=== PATIENT | male | born 1960 | race Caucasian/White ===

== ENCOUNTER → 2016-06-17 | Outpatient (CLI) | payer BC ==
[~2016-06-17] MED LIST: B COTAB PO; CEPH500C2 PO; CHOL100027 PO; DIPH25CA65 PO; GABA600T PO; GLIP1TAB60 PO; LISI-787 PO; NIVO1INJ; OPTIRAY 320 IV PRN; SYN50 PO; Tramadol PO; ULT50 PO
--- NOTE | 2016-06-17 13:33 | DIAGNOSTIC IMAGING REPORT ---
CT SCAN OF THE CHEST WITH IV CONTRAST CLINICAL HISTORY: Renal cell carcinoma. COMPARISON STUDY: Prior chest CT scans, most recently dated 04/19/2016. TECHNIQUE: Following the IV administration of 70 cc of Optiray 320, CT scan of the thorax was performed from the thoracic inlet to the upper abdomen. Images are reviewed in the axial, sagittal, and coronal planes. IV contrast was administered without complication. CT DOSE: 1866.56 mGycm FINDINGS: Thyroid: Imaged portions of the thyroid gland are normal in size and attenuation. Thoracic aorta: There is mild atherosclerotic calcification of the thoracic aorta, which is normal in caliber and demonstrates bovine variant arch anatomy. No dissection is seen. Pulmonary vasculature: The pulmonary trunk is dilated, measuring 3.7 cm diameter. This suggests pulmonary artery hypertension. There are no filling defects seen within the central pulmonary arteries to suggest pulmonary embolus. Note that this examination was not protocoled for assessment of the pulmonary vessels. Heart: The heart is normal in size and without pericardial effusion. There are coronary artery calcifications. Lungs and pleural spaces: There is no airspace consolidation or pleural effusion. The trachea and central airways are clear. There are numerous (greater than 20) pulmonary nodules. There has been no significant change from 04/19/2016. The largest right lower lobe nodule is in the right lower lobe on image #228. This measures 1.4 cm (also previously measured 1.4 cm). No new pulmonary lesions are clearly identified. Mediastinum: There is no mediastinal lymphadenopathy. Pastora: Clear. Axillae: There is no axillary lymphadenopathy. Upper abdomen: A tiny hiatal hernia is observed. The spleen is mildly enlarged measuring 13.7 cm in length. There is evidence of hepatic steatosis. The gallbladder surgically absent. Gynecomastia is observed. There are changes from left nephrectomy. Skeletal structures: The skeletal structures are osteopenic. No lytic or blastic bony lesions are seen. A hemangioma is noted in the body of T12. Degenerative change is noted in the shoulders and thoracic spine. IMPRESSION: 1. No significant change in the appearance of multifocal pulmonary metastatic disease as compared to 04/19/2016. There is no evidence of disease progression. 2. No airspace consolidation or pleural effusion is identified. 3. No lymphadenopathy seen in the thorax. No destructive osseous lesions are identified. 4. Hepatic steatosis and mild splenomegaly. Electronically signed by: Tao Houser M.D. 06/17/2016 1:32 PM Dictated Date/Time: 06/17/2016 1:23 PM
--- NOTE | 2016-06-17 13:43 | DIAGNOSTIC IMAGING REPORT ---
CT SCAN OF THE ABDOMEN AND PELVIS WITH IV CONTRAST CLINICAL HISTORY: Renal cell carcinoma. COMPARISON STUDY: Abdominal CT scans dated 04/19/2016 and 11/06/2014. TECHNIQUE: Following the IV administration of 7 the cc of Optiray 320, CT scan of the abdomen and pelvis is performed from the lung bases to the proximal femora. Images are reviewed in the axial, sagittal, and coronal planes. IV contrast was administered without complication. Automated dose control exposure was utilized. FINDINGS: Lung bases: The heart is normal in size and without pericardial effusion. Pulmonary metastases are again seen at the lung base. The largest measures 1.4 cm seen at the right lung base on axial image #53. No airspace consolidation or pleural effusion is identified. Liver: The contrast-enhanced liver is normal in size and contour. The liver demonstrates diffusely diminished attenuation consistent with hepatic steatosis. There is no intrahepatic biliary ductal dilatation. The hepatic veins and portal veins are patent. Gallbladder: Surgically absent noting clips in the gallbladder fossa. Spleen: The spleen is mildly enlarged, measuring 14.6 cm in length. Pancreas: Unremarkable. Adrenal glands: Unremarkable. Kidneys: The left kidney is surgically absent. There is no evidence of recurrent/residual soft tissue lesion in the nephrectomy bed. The right kidney demonstrates mild cortical atrophy and is without hydronephrosis. No enhancing lesion is seen in the right kidney. Foci of cortical scarring are present in the upper pole. The right kidney enhances homogeneously. Abdominal vasculature: The abdominal aorta is normal in course and caliber. Bowel: The small bowel and colon are normal in course and caliber. There is mild colonic diverticulosis without CT evidence of acute diverticulitis. Mild colonic fecal retention is observed. The appendix is well-visualized and normal. Peritoneum: There is no intraperitoneal free air or abdominal ascites. There is a 1.2 cm focus of nodularity along the undersurface of liver seen on image #119. This is unchanged dating back to 11/06/2014 and is of doubtful significance. Lymphadenopathy: There are prominent retroperitoneal lymph nodes which measure up to 7 mm short axis. These are similar in appearance dating back to 11/06/2014. There is no mesenteric, upper abdominal, pelvic sidewall, or inguinal lymphadenopathy. Pelvic viscera: The bladder wall appears thickened and trabeculated suggesting the sequelae of chronic outlet obstruction. The prostate gland appears atrophic. The seminal vesicles are normal as imaged. There is a moderate fat-containing right inguinal hernia. Surgical clips are noted along the spermatic cord bilaterally. Skeletal structures: The skeletal structures appear osteopenic. Mild lumbar sacral spondylosis is observed. A hemangioma is noted in the body of T12. No lytic or blastic lesions are seen. IMPRESSION: 1. Again seen are postoperative changes from left nephrectomy. There is no evidence of recurrent/residual soft tissue lesion in the operative bed. There has been no significant change from 04/19/2016. 2. Metastatic pulmonary lesions are again seen at both lung bases. See report of chest CT performed concurrently for detailed intrathoracic findings. 3. There is no definite evidence of metastatic disease in the abdomen or pelvis. 4. Prominent subcentimeter retroperitoneal lymph nodes are similar appearance dating back to 11/06/2014. These are of low suspicion, and continued attention at follow-up is recommended. 5. Mild hepatic steatosis. 6. Spinal megaly. 7. No enhancing lesion is seen within the right kidney. 8. Additional findings as above. Electronically signed by: Tao Houser M.D. 06/17/2016 1:42 PM Dictated Date/Time: 06/17/2016 1:33 PM
== END | disposition home or self-care (01) ==
LOC: C.CTS 12:20
PROVIDERS: ATTEND Internal Medicine Hematology & Oncology
DX: C64.2 Malignant neoplasm of left kidney, except renal pelvis (principal)

== ENCOUNTER → 2016-09-17 | Outpatient (CLI) | payer BC ==
--- NOTE | 2016-09-17 09:32 | DIAGNOSTIC IMAGING REPORT ---
CT SCAN OF THE CHEST WITH IV CONTRAST CLINICAL HISTORY: Renal cell carcinoma. COMPARISON STUDY: Prior chest CT scans, most recently dated 06/17/2016. TECHNIQUE: Following the IV administration of 80 cc of Optiray 320, CT scan of the thorax was performed from the thoracic inlet to the upper abdomen. Images are reviewed in the axial, sagittal, and coronal planes. IV contrast was administered without complication. CT DOSE: 2291.88 mGy.cm FINDINGS: Thyroid: Imaged portions of the thyroid gland are normal in size and attenuation. Thoracic aorta: There is mild atherosclerotic calcification of the thoracic aorta, which is normal in caliber and demonstrates bovine variant arch anatomy. No dissection is seen. Pulmonary vasculature: The pulmonary trunk is dilated, measuring 3.8 cm in diameter. This suggests pulmonary artery hypertension. There are no filling defects seen within the central pulmonary arteries to suggest pulmonary embolus. Note that this examination was not protocoled for assessment of the pulmonary vessels. Heart: The heart is normal in size and without pericardial effusion. There are coronary artery calcifications. Lungs and pleural spaces: Mild emphysema is observed. There is no airspace consolidation or pleural effusion. The trachea and central airways are clear. There are numerous (greater than 20) pulmonary nodules. There has been no significant change from 06/17/2016. The largest nodule is present in the right lower lobe on image #215 and measures 1.4 cm (also previously measured 1.4 cm). Some of these nodule appear hyperdense/calcified, an this may represent treatment related change. No new pulmonary lesions are clearly identified. Mediastinum: There is no mediastinal lymphadenopathy. Pastora: Clear. Axillae: There is no axillary lymphadenopathy. Upper abdomen: A tiny hiatal hernia is observed. The spleen is enlarged measuring 14.4 cm in length. There is evidence of hepatic steatosis. The gallbladder is surgically absent. Gynecomastia is observed. Changes of left nephrectomy are partially visualized. Skeletal structures: The skeletal structures are osteopenic. No lytic or blastic bony lesions are seen. A hemangioma is noted in the body of T12. Degenerative change is noted in the shoulders and thoracic spine. IMPRESSION: 1. There is no evidence of progressive metastatic disease. 2. There has been no significant change in the size and distribution of numerous pulmonary lesions as compared to the 06/17/2016 examination. Some of these nodules appear hyperdense, likely representing calcification/ treatment related change. 3. No airspace consolidation or pleural effusion is identified. 4. No lymphadenopathy seen in the thorax. No destructive osseous lesions are identified. 5. Hepatic steatosis and mild splenomegaly. Electronically signed by: Tao Houser M.D. 09/17/2016 9:30 AM Dictated Date/Time: 09/17/2016 9:22 AM
--- NOTE | 2016-09-17 10:04 | DIAGNOSTIC IMAGING REPORT ---
CT SCAN OF THE ABDOMEN AND PELVIS WITH IV CONTRAST CLINICAL HISTORY: Renal cell carcinoma. COMPARISON STUDY: Prior abdominal CT scans, most recently dated 06/17/2016. TECHNIQUE: Following the IV administration of 80 cc of Optiray 320, CT scan of the abdomen and pelvis is performed from the lung bases to the proximal femora. Images are reviewed in the axial, sagittal, and coronal planes. IV contrast was administered without complication. Automated dose control exposure was utilized. FINDINGS: Lung bases: The heart is normal in size and without pericardial effusion. Pulmonary metastases are again seen at the lung base. The largest measures 1.4 cm seen at the right lung base on axial image #47. No airspace consolidation or pleural effusion is identified. Liver: The contrast-enhanced liver is mildly enlarged measuring 18.6 cm in length. The liver demonstrates diffusely diminished attenuation consistent with hepatic steatosis. There is no intrahepatic biliary ductal dilatation. The hepatic veins and portal veins are patent. Gallbladder: Surgically absent noting clips in the gallbladder fossa. Spleen: The spleen is mildly enlarged, measuring 14.6 cm in length. Pancreas: Unremarkable. Adrenal glands: Unremarkable. Kidneys: The left kidney is surgically absent. There is no evidence of recurrent/residual soft tissue lesion in the nephrectomy bed. The right kidney demonstrates mild cortical atrophy and is without hydronephrosis. No enhancing lesion is seen in the right kidney. Foci of cortical scarring are present in the upper pole. The right kidney enhances homogeneously. Abdominal vasculature: The abdominal aorta is normal in course and caliber. Bowel: The small bowel and colon are normal in course and caliber. There is mild colonic diverticulosis without CT evidence of acute diverticulitis. Mild colonic fecal retention is observed. The appendix is well-visualized and normal. Peritoneum: There is no intraperitoneal free air or abdominal ascites. There is a 1.2 cm focus of nodularity along the undersurface of liver seen on image #121. This is unchanged dating back to 11/06/2014 and is of doubtful significance. Lymphadenopathy: There are prominent retroperitoneal lymph nodes which measure up to 7 mm short axis. These are similar in appearance dating back to 11/06/2014. There is no mesenteric, upper abdominal, pelvic sidewall, or inguinal lymphadenopathy. Pelvic viscera: The bladder wall appears thickened and trabeculated suggesting the sequelae of chronic outlet obstruction. The prostate gland appears atrophic. The seminal vesicles are normal as imaged. There is a moderate fat-containing right inguinal hernia. Surgical clips are noted along the spermatic cord bilaterally. Skeletal structures: The skeletal structures appear osteopenic. Mild lumbar sacral spondylosis is observed. A hemangioma is noted in the body of T12. No lytic or blastic lesions are seen. IMPRESSION: 1. Again seen are postoperative changes from left nephrectomy. There is no evidence of recurrent/residual soft tissue lesion in the operative bed. There has been no significant change from 06/17/2016. 2. Metastatic pulmonary lesions are again seen at both lung bases. See report of chest CT performed concurrently for detailed intrathoracic findings. 3. There is no convincing evidence of metastatic disease in the abdomen or pelvis. 4. Prominent subcentimeter retroperitoneal lymph nodes are similar appearance dating back to 11/06/2014. These are of low suspicion, and continued attention at follow-up is recommended. 5. Mild hepatic steatosis. 6. Splenomegaly. 7. No enhancing lesion is seen within the right kidney. 8. Additional findings as above. Electronically signed by: Tao Houser M.D. 09/17/2016 10:02 AM Dictated Date/Time: 09/17/2016 9:57 AM
--- NOTE | 2016-09-23 09:29 | CODING QUERY NO DIAGNOSIS ---
TREATMENT RENDERED WITHOUT A DIAGNOSIS To promote full compliance with coding requirements relating to patient care, physician participation is requested in all cases of remote coders uncertainty. Please assist us with providing a diagnosis/symptom for the test(s) below: A diagnosis/symptom was not documented on your Order. A valid diagnosis/symptom is required to bill all insurances. Please remember that we are unable to code a diagnosis of rule out, probable, possible, questionable, or suspected. Tests that require a diagnosis: DOS: 09/17/16 * CT CHEST WITH IV CONTRAST DIAGNOSIS: * CT ABD/PELVIS IV OR ORAL CONT DIAGNOSIS: Provider Signature: Date: Thank you Cheri Alexander [employer] Information Management Once completed, please kindly fax back to [phone] For questions please call [phone]
== END | disposition home or self-care (01) ==
LOC: C.CTS 08:30
PROVIDERS: ATTEND Nurse Practitioner Family
DX: C64.9 Malignant neoplasm of unspecified kidney, except renal pelvis (principal); R91.8 Other nonspecific abnormal finding of lung field; K76.0 Fatty (change of) liver, not elsewhere classified; R16.1 Splenomegaly, not elsewhere classified

== ENCOUNTER → 2016-12-24 | Outpatient (CLI) | payer BC ==
--- NOTE | 2016-12-24 11:47 | DIAGNOSTIC IMAGING REPORT ---
CHEST CT WITH CONTRAST CT DOSE: 1326.73 mGycm HISTORY: KIDNEY CANCER, LUNG METASTASIS TECHNIQUE: Multiaxial CT images of the chest were performed following the intravenous administration of contrast. A dose lowering technique was utilized adhering to the principles of ALARA. COMPARISON: Chest CT 09/17/2016. FINDINGS: The central airways are patent. No pleural effusions. No pneumothorax. There are multiple scattered pulmonary nodules which are not significantly changed. Dominant nodule within the base of the right lower lobe measures 14 mm. No suspicious lytic or blastic osseous lesions. T12 vertebral body hemangioma is again noted. Hepatic steatosis. Punctate calcified granuloma within the right hepatic dome. Prior left nephrectomy. No mediastinal or hilar lymphadenopathy. The central airways are patent. Normal caliber thoracic aorta. IMPRESSION: No significant change in the pulmonary metastatic disease. Electronically signed by: Chris Gill M.D. 12/24/2016 11:46 AM Dictated Date/Time: 12/24/2016 11:42 AM
--- NOTE | 2016-12-24 11:55 | DIAGNOSTIC IMAGING REPORT ---
CT SCAN OF THE ABDOMEN AND PELVIS WITH IV CONTRAST CLINICAL HISTORY: Renal cell carcinoma. COMPARISON STUDY: Prior abdominal CT scans, most recently dated 09/17/2016. TECHNIQUE: Following the IV administration of 70 cc of Optiray 320, CT scan of the abdomen and pelvis is performed from the lung bases to the proximal femora. Images are reviewed in the axial, sagittal, and coronal planes. IV contrast was administered without complication. Automated dose control exposure was utilized. FINDINGS: Lung bases: The heart is normal in size and without pericardial effusion. Pulmonary metastases are again seen at the lung base and not significantly changed from 09/17/2016. The largest measures 1.5 cm seen at the right lung base on axial image #49. No airspace consolidation or pleural effusion is identified. Liver: The contrast-enhanced liver is mildly enlarged measuring 18.8 cm in length. The liver demonstrates diffusely diminished attenuation consistent with hepatic steatosis. A calcified granuloma is seen in the dome of the liver. There is no intrahepatic biliary ductal dilatation. The hepatic veins and portal veins are patent. Gallbladder: Surgically absent noting clips in the gallbladder fossa. Spleen: The spleen is mildly enlarged, measuring 14.8 cm in length. Pancreas: Unremarkable. Adrenal glands: Unremarkable. Kidneys: The left kidney is surgically absent. There is no evidence of recurrent/residual soft tissue lesion in the nephrectomy bed. The right kidney demonstrates mild cortical atrophy and is without hydronephrosis. No enhancing lesion is seen in the right kidney. Foci of cortical scarring are present in the upper pole. The right kidney enhances homogeneously. Abdominal vasculature: The abdominal aorta is normal in course and caliber. Bowel: The small bowel and colon are normal in course and caliber. There is mild colonic diverticulosis without CT evidence of acute diverticulitis. Mild colonic fecal retention is observed. The appendix is well-visualized and normal. Peritoneum: There is no intraperitoneal free air or abdominal ascites. There is a 1.2 cm focus of nodularity along the undersurface of liver seen on image #115. This is unchanged dating back to 11/06/2014 and is of doubtful significance. Lymphadenopathy: There are prominent retroperitoneal lymph nodes which measure up to 7 mm short axis. These are similar in appearance dating back to 11/06/2014. There is no mesenteric, upper abdominal, pelvic sidewall, or inguinal lymphadenopathy. Pelvic viscera: The bladder wall appears thickened and trabeculated suggesting the sequelae of chronic outlet obstruction. The prostate gland appears atrophic. The seminal vesicles are normal as imaged. There is a moderate fat-containing right inguinal hernia. Surgical clips are noted along the spermatic cord bilaterally. Skeletal structures: The skeletal structures appear osteopenic. Mild lumbosacral spondylosis is observed. A hemangioma is noted in the body of T12. No lytic or blastic lesions are seen. IMPRESSION: 1. Again seen are postoperative changes from left nephrectomy. There is no evidence of recurrent/residual soft tissue lesion in the operative bed. There has been no significant change from 09/17/2016. 2. Metastatic pulmonary lesions are again seen at both lung bases. See report of chest CT performed concurrently for detailed intrathoracic findings. 3. There is no convincing evidence of metastatic disease in the abdomen or pelvis. 4. Prominent subcentimeter retroperitoneal lymph nodes are similar appearance to studies dating back to 2015. These are of low suspicion, and continued attention at follow-up is recommended. 5. Mild hepatic steatosis. 6. Splenomegaly. 7. No enhancing lesion is seen within the right kidney. 8. Additional findings as above. Electronically signed by: Tao Houser M.D. 12/24/2016 11:54 AM Dictated Date/Time: 12/24/2016 11:44 AM
== END | disposition home or self-care (01) ==
LOC: C.CTS 10:43
PROVIDERS: ATTEND Internal Medicine Hematology & Oncology
DX: C64.2 Malignant neoplasm of left kidney, except renal pelvis (principal); C78.00 Secondary malignant neoplasm of unspecified lung

== ENCOUNTER → 2016-12-28 | Outpatient (CLI) | payer BC ==
[~2016-12-28] MED LIST changes: -OPTIRAY 320 IV PRN
--- NOTE | 2016-12-28 13:15 | DIAGNOSTIC IMAGING REPORT ---
LEFT WRIST MIN 3 VIEWS ROUTINE HISTORY: 56 years-old Male acute left-sided wrist pain and swelling without reported trauma. COMPARISON: None available. TECHNIQUE: 3 views of the left wrist FINDINGS: The bones are mildly demineralized. Ill-defined lucency is seen within the radial styloid without displaced fracture identified. Mild radiocarpal and triscaphe degenerative changes are noted with moderate first carpometacarpal osteoarthritis. There is mild soft tissue swelling about the wrist without opaque foreign body. IMPRESSION: 1. Ill-defined lucency involving the radial styloid is equivocal for acute nondisplaced fracture. Correlate with point tenderness. 2. Mild radiocarpal and moderate first carpal metacarpal osteoarthritis. 3. Mild bone demineralization. The above report was generated using voice recognition software. It may contain grammatical, syntax or spelling errors. Electronically signed by: Dontae Hassan M.D. 12/28/2016 1:14 PM Dictated Date/Time: 12/28/2016 1:11 PM
== END | disposition home or self-care (01) ==
LOC: C.RAD1850 12:47
PROVIDERS: ATTEND Family Medicine
DX: M25.532 Pain in left wrist (principal)

== ENCOUNTER → 2017-01-07 | Outpatient (CLI) | payer BC ==
[2017-01-07 11:18] LABS: ESTIMATED AVERAGE GLUCOSE 160 mg/dl; HA1C FLAG Normal (Normal)
== END | disposition home or self-care (01) ==
LOC: C.LAB 15:16
PROVIDERS: ATTEND Family Medicine
DX: E11.9 Type 2 diabetes mellitus without complications (principal)

== ENCOUNTER 2017-01-12 19:21 | Emergency (ER) | payer BC ==
[~2017-01-12] VITALS: Ht 172.7 cm; Wt 119.7 kg
[~2017-01-12 19:21] MED LIST changes: -CEPH500C2 PO; -LISI-787 PO; -NIVO1INJ; -SYN50 PO; -ULT50 PO
[2017-01-12 19:30] VITALS: TEMP 36.8; Ht 172.7 cm; Wt 119.7 kg
[2017-01-12] MEDS ORDERED: CEPHALEXIN MONOHYDRATE 250 MG CAP PO ONE (20:15)
[2017-01-12] MEDS ORDERED: XYLOCAINE 1%/SOD BICARB 20 ML VIAL INFIL ONE (20:15)
[2017-01-12] MEDS ORDERED: BUPIVACAINE 0.5 % 5 MG/1 ML MPF 30ML VIAL INFIL ONE (20:15)
--- NOTE | 2017-01-12 21:06 | DIAGNOSTIC IMAGING REPORT ---
RIGHT FINGER(S) MIN 2 VIEWS ROUTINE CLINICAL HISTORY: R thumb lac Right trauma COMPARISON: None. DISCUSSION: The bones and joint spaces appear intact. There is no evidence of fracture, dislocation or bony disease. Soft tissue laceration overlying the distal phalanx. IMPRESSION: Soft tissue disruption overlying the distal phalanx. No acute bony abnormality. The above report was generated using voice recognition software. It may contain grammatical, syntax or spelling errors. Electronically signed by: Link Burns M.D. 01/12/2017 9:04 PM Dictated Date/Time: 01/12/2017 9:04 PM
[2017-01-12] MEDS ORDERED: ULT50 PO (21:22)
[2017-01-12] MEDS ORDERED: SYN50 PO (21:22)
[2017-01-12] MEDS ORDERED: LISI-787 PO (21:22)
[2017-01-12] MEDS ORDERED: NIVO1INJ (21:22)
[2017-01-12] MEDS ORDERED: CEPH500C2 PO (21:24)
--- NOTE | 2017-01-12 21:25 | EMERGENCY ROOM VISIT NOTE ---
History First contact with patient: 19:59 Chief Complaint: LACERATION/CUT (SUT/DERMABOND) Stated Complaint: R HAND LACERATION Nursing Triage Summary: Cut right thumb when shooting bow, string cuaght his finger. Patient states that there is a laceration along his right thumb. Patient has thumb wrapped in triage. History of Present Illness The patient is a 56 year old male who presents to the Emergency Room with complaints of a laceration that he sustained to his right thumb when he accidentally released his crossbow. He believes that it is still bleeding. He immediately applied pressure. Denies any numbness or tingling in the finger. He is left-handed. His tetanus shot is up-to-date. Review of Systems 6 system review negative. Please see pertinent positives in the history of present illness section. Past Medical/Surgical History Cancer Diabetes Social History Smoking Status: Never Smoker Housing Status: lives with significant other Occupation Status: retired Current/Historical Medications Scheduled B-Complex W/Biotin & Folic Aci (Balanced B Complex), 1 TAB PO QAM Cephalexin Monohydrate (Keflex), 500 MG PO TID Cholecalciferol (Vitamin D 1000 Unit), 2,000 INTER.UNIT PO QAM Gabapentin (Neurontin), 600 MG PO TID Glipizide (Glucotrol Xl), 2.5 MG PO QAM Levothyroxine Sodium (Synthroid), 50 MCG PO QAM Lisinopril/Hctz (Zestoretic 20MG/12.5MG), 1 TAB PO QAM Nivolumab (Opdivo), Unknown Dose EVERY OTHER WEEK Tramadol HCl (Tramadol HCl), 100 MG PO HS Scheduled PRN Diphenhydramine Hcl (Benadryl Allergy), 1 CAP PO HS PRN for Itching Physical Exam Vital Signs Date Time Temp Pulse Resp B/P (MAP) Pulse Ox O2 Delivery O2 Flow Rate FiO2 01/12/17 21:30 85 18 133/82 91 01/12/17 19:30 36.8 100 18 153/90 91 Room Air Physical Exam VITALS: Vitals are noted on the nurse's note and reviewed by myself. Vital signs stable. GENERAL: 56-year-old male, in no acute distress, nondiaphoretic, well-developed well-nourished. HEAD: Normocephalic atraumatic. MUSCULOSKELETAL: RIGHT THUMB: There is a 3 cm, curved, flap-like laceration noted to the dorsal aspect of the right thumb over the interphalangeal joint. Full flexion and extension of the thumb. Extensor tendon is visible, but intact. Capillary refill is intact. Sensation in the distal aspect of the thumb is also intact. NEURO: Patient was alert and oriented to person place and time. No focal neurological deficits. Medical Decision & Procedures ER Provider Diagnostic Interpretation: RIGHT FINGER(S) MIN 2 VIEWS ROUTINE CLINICAL HISTORY: R thumb lac Right trauma COMPARISON: None. DISCUSSION: The bones and joint spaces appear intact. There is no evidence of fracture, dislocation or bony disease. Soft tissue laceration overlying the distal phalanx. IMPRESSION: Soft tissue disruption overlying the distal phalanx. No acute bony abnormality. The above report was generated using voice recognition software. It may contain grammatical, syntax or spelling errors. Electronically signed by: Link Burns M.D. 01/12/2017 9:04 PM Medications Administered Medications (Trade) Dose Ordered Sig/Yasmin Route Start Time Stop Time Status Last Admin Dose Admin Lidocaine HCl (Buffered Lidocaine 1% Inj) 20 ml NOW ONCE INFIL 01/12/17 20:15 01/12/17 20:16 DC 01/12/17 20:15 20 ML Bupivacaine HCl (Marcaine 0.5% MPF Inj) 30 ml NOW ONCE INFIL 01/12/17 20:15 01/12/17 20:16 DC 01/12/17 20:15 30 ML Cephalexin Monohydrate (Keflex Cap) 500 mg NOW ONCE PO 01/12/17 20:15 01/12/17 20:16 DC 01/12/17 20:16 500 MG Procedure Verbal consent was obtained to perform the procedure. Using sterile technique the wound was cleansed with Betadine. 6 ml of 1% buffered lidocaine and Marcaine was used to perform a digital block to anesthetize the patient. The area was sterilely draped. Once the patient was anesthetized, the wound was copiously irrigated under pressure with sterile saline. The wound was explored. The extensor tendon was visible, but intact. The laceration was repaired using 8 simple interrupted 4-0 nylon sutures. The patient tolerated the procedure well. Hemostasis was achieved. The patient was put in a metal splint. ED Course The patient was seen and examined He was offered pain medication and declined Imaging was performed and reviewed The laceration was repaired. Please see my procedure note. A metal splint was placed He was given 1 dose of Keflex Discharge instructions were reviewed, and he was discharged in good condition Medical Decision Differential diagnosis: Laceration, open fracture, tendon injury This patient is a 56-year-old male that presents to the emergency department with a laceration to his right thumb. The wound was fairly deep. Imaging did not reveal any fracture. Upon exploration, he did have extensor tendon exposure. It was however intact. He had full flexion and extension of the thumb. The wound was repaired. He was put in a splint. He was put on prophylactic antibiotics, and will follow up with orthopedics. He was cautioned on signs of infection. The patient was discharged in good condition Medication Reconcilliation Current Medication List: was personally reviewed by me Blood Pressure Screening Patient's blood pressure: Elevated blood pressure Blood pressure disposition: Elevated BP felt to be situational Impression Primary Impression: Laceration Departure Information Dispostion Home / Self-Care Condition GOOD Prescriptions Cephalexin Monohydrate (KEFLEX) 500 Mg Cap 500 MG PO TID, #15 CAP Prov: Roberta Barboza PA-C 01/12/17 Referrals Don Crenshaw D.O. (PCP) Zach Bang M.D. Patient Instructions My [facility] Additional Instructions Please keep the splint in place until seen by orthopedics. Keep the dressing on for 24 hours. Please take entire course of antibiotics. Keep wound clean. It is okay to gently wash the area with soapy water. Do not submerse it in water for long periods of time such as swimming, going in hot tubs or taking baths until the sutures come out. Do not allow any crusting or dried blood to accumulate on sutures. If this occurs, use a 1:1 solution of hydrogen peroxide/water on a Q-tip to clean the wound. Use an antibiotic ointment for 3-4 days, then let wound dry. Suture removal in 14 days. Return sooner for any signs of infection (increasing redness, swelling, drainage). Ice and elevate for swelling and pain. Ibuprofen 600 mg and Tylenol 1000 mg every 6 hrs for pain. Work Instructions Return To Work: 2 days
[2017-01-12 21:30] VITALS: BP 133/82; PULSE 85; O2SAT 91
== END 2017-01-12 21:31 | disposition home or self-care (01) ==
LOC: C.EDB 19:22 → C.EDD 21:31
DX: S61.011A Laceration without foreign body of right thumb without damage to nail, initial encounter (principal); X58.XXXA Exposure to other specified factors, initial encounter; E11.9 Type 2 diabetes mellitus without complications

== ENCOUNTER → 2017-02-07 | Outpatient (CLI) | payer BC ==
--- NOTE | 2017-02-04 11:46 | DIAGNOSTIC IMAGING REPORT ---
L PELVIS UNI HIP 2-3 V CLINICAL HISTORY: Left hip pain. No recent injury. COMPARISON: CT of the abdomen and pelvis December 24, 2016. FINDINGS: Scrotal surgical clips are noted. The sacroiliac joints and symphysis pubis are intact. No fracture or osseous lesion is identified within the pelvis or the hips. There is minimal joint space narrowing and mild osteophytosis of both hips. There is no evidence for avascular necrosis of the femoral heads. IMPRESSION: Mild osteoarthritis of the bilateral hips. Electronically signed by: Abe Fraire M.D. 02/04/2017 11:44 AM Dictated Date/Time: 02/04/2017 11:43 AM
[~2017-02-07] MED LIST changes: +CEPH500C2 PO; +LISI-787 PO; +NIVO1INJ; +SYN50 PO; -Tramadol PO; +ULT50 PO
== END | disposition home or self-care (01) ==
LOC: C.RDSM 12:26
PROVIDERS: ATTEND Physician Assistant
DX: M25.552 Pain in left hip (principal)

== ENCOUNTER → 2017-04-11 | Outpatient (CLI) | payer BC ==
[~2017-04-11] MED LIST changes: +OPTIRAY 320 IV PRN
--- NOTE | 2017-04-11 15:35 | DIAGNOSTIC IMAGING REPORT ---
(CHEST) THORAX WITHOUT CLINICAL HISTORY: KIDNEY CA COMPARISON STUDY: December 24, 2016 CT DOSE: TECHNIQUE: CT of the thorax was performed from the thoracic inlet to the lung bases. Images are reviewed in the axial, sagittal, and coronal planes. IV contrast was not administered for this examination. A dose lowering technique was utilized adhering to the principles of ALARA. FINDINGS: Thyroid: Imaged portions of the thyroid gland are normal in appearance. Thoracic aorta: The thoracic aorta is normal in course and caliber, noting standard 3 vessel arch anatomy. Heart: There are coronary artery calcifications. Lungs and pleural spaces: No pleural effusions are visualized. There is no focal pulmonary consolidation. There are multiple scattered bilateral pulmonary nodules. The largest on the right is a right lower lobe nodule abutting the diaphragm measuring 14 mm. This previously measured 12 mm. The largest on the left is a 7 mm left lower lobe pulmonary nodule. This previously measured 5.5 mm. Mediastinum: There is no mediastinal lymphadenopathy. [place]: There is no evidence of pathologic hilar adenopathy given the limitations of a noncontrast study Axilla: Clear. Upper abdomen: Partially visualized upper abdominal viscera is within normal limits. Skeletal structures: There is stable sclerosis of the right medial clavicle. No lytic lesions are visualized. IMPRESSION: 1. Slight increase in the size of the multiple bilateral pulmonary nodules, a finding consistent with progressive metastatic disease Electronically signed by: Dudley Bailey M.D. 04/11/2017 3:34 PM Dictated Date/Time: 04/11/2017 3:27 PM
--- NOTE | 2017-04-11 16:53 | DIAGNOSTIC IMAGING REPORT ---
ABD/PELVIS ORAL CONT ONLY CLINICAL HISTORY: Kidney cancer. COMPARISON STUDY: CT of the abdomen and pelvis December 24, 2016. TECHNIQUE: Axial images of the abdomen and pelvis were obtained without IV contrast. Oral contrast was administered. FINDINGS: The chest will be reported separately. However, visualized portions of the lower chest demonstrate multiple pulmonary nodules, including a 1.4 cm right lobe nodule. Evaluation of the abdomen and pelvis is suboptimal on this unenhanced exam. There is no biliary ductal dilatation status post cholecystectomy. The spleen, adrenal glands and pancreas as well as the right kidney are unremarkable with exception of scarring within the midpole the right kidney. The appearance of the left nephrectomy bed is unchanged. No abnormalities within the nephrectomy bed are noted. There is no abdominal or pelvic lymphadenopathy. Caliber and wall thickness of small and large bowel are unremarkable. No suspicious osseous lesions are present. There is no ascites. There is colonic diverticulosis without evidence for acute diverticulitis. Peripherally calcified densities within the cholecystectomy bed are unchanged. IMPRESSION: 1. No evidence for recurrent malignancy within the abdomen or pelvis. 2. Multiple nodules within visualized portions of the lower lungs suggestive of metastases which are better depicted on the chest CT. Please see that report for further discussion. Electronically signed by: Abe Fraire M.D. 04/11/2017 4:52 PM Dictated Date/Time: 04/11/2017 3:24 PM
== END | disposition home or self-care (01) ==
LOC: C.CTS 14:46
PROVIDERS: ATTEND Internal Medicine Hematology & Oncology
DX: C64.2 Malignant neoplasm of left kidney, except renal pelvis (principal); R91.8 Other nonspecific abnormal finding of lung field

== ENCOUNTER → 2017-05-24 | Outpatient (CLI) | payer OTHER ==
[~2017-05-24] MED LIST changes: -OPTIRAY 320 IV PRN
--- NOTE | 2017-05-24 13:30 | DIAGNOSTIC IMAGING REPORT ---
CHEST 2 VIEWS ROUTINE CLINICAL HISTORY: HX OF RENAL CA renal cell carcinoma COMPARISON STUDY: 10/08/2015 FINDINGS: The bones soft tissues and hemidiaphragms are normal. The cardiomediastinal silhouette is normal. The lungs are clear. The pulmonary vasculature is normal. IMPRESSION: Negative chest. No change from the prior study. The above report was generated using voice recognition software. It may contain grammatical, syntax or spelling errors. Electronically signed by: Link Burns M.D. 05/24/2017 1:28 PM Dictated Date/Time: 05/24/2017 1:27 PM
== END | disposition home or self-care (01) ==
LOC: C.RAD 12:55
PROVIDERS: ATTEND Internal Medicine Hematology & Oncology
DX: C64.2 Malignant neoplasm of left kidney, except renal pelvis (principal); R05 Cough

== ENCOUNTER → 2017-05-30 | Outpatient (CLI) | payer OTHER ==
[2017-05-31 06:13] LABS: HEMOGLOBIN A1C 6.4 % (4.5-5.6)
== END | disposition home or self-care (01) ==
LOC: C.LAB 10:59
PROVIDERS: ATTEND Family Medicine
DX: I10 Essential (primary) hypertension (principal); E11.9 Type 2 diabetes mellitus without complications; E03.9 Hypothyroidism, unspecified; E78.5 Hyperlipidemia, unspecified

== ENCOUNTER → 2017-06-24 | Outpatient (CLI) | payer OTHER ==
--- NOTE | 2017-06-24 12:26 | DIAGNOSTIC IMAGING REPORT ---
R ANKLE MIN 3 VIEWS ROUTINE CLINICAL HISTORY: SPRAIN OF UNSPECIFIED LIGAMENT OF UNCPECIFIED ANKL trauma. Pain. COMPARISON: None. DISCUSSION: Nondisplaced transverse fracture base fifth metatarsal. All additional osseous structures are unremarkable... Moderate soft tissue edema. Heel spur is present. Mild ossification of the Achilles tendon insertion. IMPRESSION: 1. Fracture base fifth metatarsal. 2. Soft tissue edema. 3. Heel spur. The above report was generated using voice recognition software. It may contain grammatical, syntax or spelling errors. Electronically signed by: Link Burns M.D. 06/24/2017 12:24 PM Dictated Date/Time: 06/24/2017 12:23 PM
== END | disposition home or self-care (01) ==
LOC: C.RAD1850 11:51
PROVIDERS: ATTEND Family Medicine
DX: S93.409A Sprain of unspecified ligament of unspecified ankle, initial encounter (principal); X58.XXXA Exposure to other specified factors, initial encounter

== ENCOUNTER → 2017-07-13 | Outpatient (CLI) | payer OTHER ==
--- NOTE | 2017-07-13 11:55 | DIAGNOSTIC IMAGING REPORT ---
(CHEST) THORAX WITHOUT CT DOSE: 1696.12 mGycm HISTORY: Metastatic disease renal carcinoma TECHNIQUE: Multiaxial CT images of the chest were performed without contrast. A dose lowering technique was utilized adhering to the principles of ALARA. COMPARISON: 04/11/2017 FINDINGS: several small axillary nodes unchanged in the prior study. No evidence for progressive axillary adenopathy. No significant hilar or mediastinal adenopathy. This is unchanged from the prior study. Bilateral pleural and parenchymal based nodules remain stable. There is no significant progression or change in number of the nodular densities procedure described. There are no lytic lesions. Mild sclerosis medial aspect right clavicle is stable. Limited evaluation the upper abdomen is unchanged. IMPRESSION: Stable exam compared to the prior study. No evidence for progressive metastatic change. The above report was generated using voice recognition software. It may contain grammatical, syntax or spelling errors. Electronically signed by: Link Burns M.D. 07/13/2017 11:54 AM Dictated Date/Time: 07/13/2017 11:48 AM
--- NOTE | 2017-07-13 12:07 | DIAGNOSTIC IMAGING REPORT ---
ABDOMEN AND PELVIS CT WITH ORAL CONTRAST CT DOSE: HISTORY: KIDNEY CANCER TECHNIQUE: Multiaxial CT images of the abdomen and pelvis were performed following the use of oral contrast. A dose lowering technique was utilized adhering to the principles of ALARA. COMPARISON STUDY: Abdomen and pelvis CT 04/11/2017. FINDINGS: No significant change in multiple pulmonary nodules seen within the lung bases. Dominant nodule within the right lower lobe measures 14 mm. No pneumoperitoneum. No pneumatosis. No suspicious lytic or blastic osseous lesions. Evaluation for metastatic disease within the solid abdominal viscera is suboptimal due to the lack of intravenous contrast. However, there are no definite hepatic, splenic, adrenal glands, or pancreatic lesions identified. Multiple lymph nodes seen within the retroperitoneum and iliac stations remain subcentimeter in short axis diameter. This is not significantly changed. Dominant gastrohepatic lymph node best in image 25 continue to measure 12 mm. Bladder surgically absent. Calcification again noted at the gallbladder fossa. The left kidney is surgically absent. No soft tissue masses at the resection bed. Focal scarring within the upper pole of the right kidney. No right-sided hydronephrosis. Bladder wall thickening, unchanged. Small fat-containing right inguinal hernia. No bowel wall thickening or obstruction. Normal appendix. No evidence for an anterior abdominal wall mesh. IMPRESSION: 1. No change compared to the prior study. No evidence for metastatic disease within the abdomen or pelvis. 2. Multiple pulmonary nodules are again noted and are better appreciated on the same day chest CT. This likely represents metastatic disease. Electronically signed by: Chris Gill M.D. 07/13/2017 12:06 PM Dictated Date/Time: 07/13/2017 11:56 AM
== END | disposition home or self-care (01) ==
LOC: C.CTS 11:16
PROVIDERS: ATTEND Internal Medicine Hematology & Oncology
DX: C64.2 Malignant neoplasm of left kidney, except renal pelvis (principal); R91.8 Other nonspecific abnormal finding of lung field

== ENCOUNTER → 2017-07-15 | Outpatient (CLI) | payer OTHER ==
--- NOTE | 2017-07-15 13:51 | DIAGNOSTIC IMAGING REPORT ---
R FOOT MIN 3 VIEWS HISTORY: 56 years-old Male RIGHT 5TH METATARSAL FRACTURE acute right fifth digit pain COMPARISON: None available TECHNIQUE: 3 views of the right foot FINDINGS: Mild to moderate degenerative changes of the first MTP joint. The bones appear mildly demineralized. Mild degenerative changes are seen throughout the interphalangeal joints. Midfoot alignment is anatomic. Mild to moderate degenerative changes about the midfoot with moderate sized enthesophytes about the calcaneus. There is an acute appearing transversely oriented nondisplaced and non-angulated fracture involving the proximal metaphyseal portion of the fifth metatarsal approximately 2.4 cm distal to the fifth tuberosity. Mild associated soft tissue swelling. No opaque foreign body. IMPRESSION: 1. Acute transversely oriented nondisplaced fracture of the proximal metaphyseal portion fifth metatarsal. Follow-up recommended as fractures within this region can be prone to delayed healing and nonunion. 2. Degenerative changes as above. The above report was generated using voice recognition software. It may contain grammatical, syntax or spelling errors. Electronically signed by: Dontae Hassan M.D. 07/15/2017 1:50 PM Dictated Date/Time: 07/15/2017 1:47 PM
== END | disposition home or self-care (01) ==
LOC: C.RDSM 13:28
PROVIDERS: ATTEND Family Medicine
DX: S92.353A Displaced fracture of fifth metatarsal bone, unspecified foot, initial encounter for closed fracture (principal); X58.XXXA Exposure to other specified factors, initial encounter

== ENCOUNTER → 2017-08-05 | Outpatient (CLI) | payer OTHER ==
[~2017-08-05] MED LIST changes: -CEPH500C2 PO
--- NOTE | 2017-08-05 14:10 | DIAGNOSTIC IMAGING REPORT ---
RIGHT FOOT 3 VIEWS HISTORY: RIGHT FOOT PAIN COMPARISON: Right foot 07/15/2017. FINDINGS: Progressive bony bridging at the fracture within the base of the fifth metatarsal. This is consistent with interval healing. There is minimal surrounding callus formation which has progressed. The Lisfranc joint is intact. No new/acute fractures within the right foot. Plantar and posterior calcaneal spurs. Soft tissues are unremarkable. No radiopaque foreign bodies. IMPRESSION: Interval healing within the nondisplaced fracture at the base of the fifth metatarsal. Electronically signed by: Chris Gill M.D. 08/05/2017 2:09 PM Dictated Date/Time: 08/05/2017 2:07 PM
== END | disposition home or self-care (01) ==
LOC: C.RDSM 11:50
PROVIDERS: ATTEND Family Medicine
DX: M79.671 Pain in right foot (principal); S92.354A Nondisplaced fracture of fifth metatarsal bone, right foot, initial encounter for closed fracture; X58.XXXA Exposure to other specified factors, initial encounter

== ENCOUNTER → 2017-09-02 | Outpatient (CLI) | payer OTHER ==
--- NOTE | 2017-09-02 13:02 | DIAGNOSTIC IMAGING REPORT ---
RIGHT FOOT 3 VIEWS CLINICAL HISTORY: Right foot pain. FINDINGS: 3 views of the right foot are compared to study dated 08/05/2017. The skeletal structures are osteopenic. Again seen is a healing nondisplaced fracture through the base of the fifth metatarsal. No acute fracture is identified. There is no radiographic evidence of Lisfranc injury. Minimal arthritic change is seen at the first metatarsophalangeal joint. There are large dorsal and plantar calcaneal enthesophytes, and degenerative spurring is noted along the dorsal aspect of the tarsal bones. A small os trigonum is incidentally noted. The overlying soft tissues are within normal limits. IMPRESSION: 1. There has been continued healing of a nondistracted fracture through the base of the fifth metatarsal as compared to previous. 2. Osteopenia, heel spurs, and mild degenerative change as above. Electronically signed by: Tao Houser M.D. 09/02/2017 1:01 PM Dictated Date/Time: 09/02/2017 12:59 PM
== END | disposition home or self-care (01) ==
LOC: C.RDSM 12:57
PROVIDERS: ATTEND Family Medicine
DX: M79.671 Pain in right foot (principal)

== ENCOUNTER 2022-01-10 18:02 | Observation (INO) ==
[2022-01-10] MEDS ORDERED: SODIUM CHLORIDE 0.9% 1000ML 1,000 ML IV ONE (18:40)
[2022-01-10] MEDS ORDERED: MoRPHine SULFATE 10 MG/ML CARP/VIAL IV STA (18:40)
--- NOTE | 2022-01-10 18:46 | Emergency Department Note ---
Impression & Plan Headache, Sinusitis ED Provider Note NAME: TRACE YAN AGE: 61 SEX: M : 1960 ARRIVES VIA: Walk-In INFORMANT: Patient ED PROVIDER(S): Homer Gerardo DO CHIEF COMPLAINT: headache and confusion HPI: Patient is a 61-year-old male with a past medical history of CKD, hypertension, clear-cell carcinoma of the kidney, cancer, diabetes who presents to the ER for headache which has been present for the past 2 to 3 weeks. Its behind bilateral eyes. He notes he was treated for recent cellulitis and now is on Augmentin for possible sinusitis as he had a green rhinorrhea. Denies any chest pain or shortness of breath. notes that he has become confused today in the past 2 to 3 hours. Headache has gotten worse. No fevers. No neck pain. No other exacerbating or remitting factors. No weakness or numbness in the arms or legs. ROS: See above HPI for pertinent positives & negatives. A total of 10 systems reviewed and were otherwise negative. PAST MEDICAL HISTORY:See Below PAST SURGICAL HISTORY:See Below FAMILY HISTORY:See Below SOCIAL HISTORY:See Below HOME MEDICATIONS:See Below ALLERGIES:See Below VITALS:See Below PHYSICAL EXAMINATION: GENERAL: Sitting up in bed, alert, distress holding his head EYE EXAM: normal conjunctiva. PERRL and EOM's intact. OROPHARYNX: no exudate, no erythema, lips, buccal mucosa, and tongue normal and mucous membranes are moist NECK: supple, no nuchal rigidity, no adenopathy, non-tender LUNGS: Clear to auscultation. Normal chest wall mechanics HEART: no murmurs, S1 normal and S2 normal ABDOMEN: abdomen soft, non-tender, normo-active bowel sounds, no masses, no rebound or guarding. BACK: Back is symmetrical on inspection and there is no deformity, no midline tenderness, no CVA tenderness. SKIN: no rashes and no bruising UPPER EXTREMITIES: upper extremities are grossly normal. LOWER EXTREMITIES: No pitting edema. NEURO EXAM: Oriented to person, but not place or year cranial nerves II-XII intact, normal speech, no weakness of arms, no weakness of legs. No drift. Finger to nose intact. Gross sensation intact. MEDICAL DECISION MAKING: Patient is a 61-year-old male who presents the ER for headache which has been present for for past several weeks. Did get worse today. IV was established blood work was obtained. Labs show no significant leukocytosis or anemia. No fevers. INR 1.3. BMP along with LFTs bilirubin and troponin was negative. COVID and influenza was negative. CT head was performed and was unremarkable. Unable to perform angios. Patient was given morphine, Compazine, Benadryl, Toradol with improvement of his headache. He was given Rocephin for the sinusitis. He was updated bedside. He was discussed with the hospitalist for further observation. He did become slightly hypoxic with narcotics. There is no nuchal rigidity or fevers to suggest meningitis. Symptoms have been present for the past several weeks. Triage Nursing notes reviewed. Limited review of prior medical records performed Vital Signs: reviewed and remarkable for HTN Differential diagnosis: Differential Diagnosis includes but is not limited to headache, tension headache, cluster headache, migraine, subarachnoid hemorrhage, meningitis, mass, central venous thrombus, concussion, trauma and epidural/subdural hemorrhage. ER treatment provided: See below Diagnostics interpreted by me: ECG: none Cardiac Monitoring: An order was placed for continuous cardiac monitoring. The monitor shows a rate of 101 with sinus rhythm. Laboratory studies: As stated above and show below. 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 Tobacco abuse Vitamin D deficiency Surgical History H/O left nephrectomy History of cholecystectomy History of hernia repair History of meniscectomy of left knee History of vasectomy Family History Father Hearing loss Lung disease Mother Cancer Aortic aneurysm Breast cancer Myocardial infarction Other No family history of adverse response to anesthesia No family history of bleeding disorder Social History Smoking Status: Current every day smoker Tobacco Type: Cigarettes Second Hand Exposure: No; Hx Alcohol Use: No Hx Substance Use: No Preferred Language: Burmese Communication Ability: Effective 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: No Beliefs That Will Affect Care: None marital status: Current Living Situation: Spouse current occupational status: retired 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; 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 [employer] Feels Safe at Home: Yes Assistive Devices: None Allergies Allergies Allergy/AdvReac Type Severity Reaction Status Date / Time Iodinated Contrast Media Allergy Mild ITCHY Unverified 01/10/22 21:09 FOREARMS Home Meds Home Medications Medication Instructions Recorded Confirmed multivitamin 1 tab PO QAM 02/13/19 01/10/22 gabapentin 600 mg tablet 1,200 mg PO TID #90 tabs 10/27/20 01/10/22 tramadol 50 mg tablet 100 mg PO QID PRN Pain 10/27/20 01/10/22 allopurinol 100 mg tablet 150 mg PO DAILY 01/31/21 01/10/22 cholecalciferol (vitamin D3) 25 25 mcg PO DAILY 01/31/21 01/10/22 mcg (1,000 unit) capsule (Vitamin D3) sour gomez extract 1,000 mg 1,000 mg PO DAILY 01/31/21 01/10/22 capsule (Tart Gomez Extract) acetaminophen 500 mg tablet 1,000 mg PO Q6H PRN Pain 01/10/22 01/10/22 (Tylenol Extra Strength) amoxicillin 875 mg-potassium 1 tab PO Q12 01/10/22 01/10/22 clavulanate 125 mg tablet axitinib 5 mg tablet (Inlyta) 5 mg PO Q12H 01/10/22 01/10/22 diphenoxylate-atropine 2.5 1 tab PO QID 01/10/22 01/10/22 mg-0.025 mg tablet levothyroxine 75 mcg tablet 75 mcg PO DAILY 01/10/22 01/10/22 lisinopril 20 mg tablet 20 mg PO QAM 01/10/22 01/10/22 pembrolizumab 25 mg/mL intravenous 0 mg IV .[id number] 01/10/22 01/10/22 solution (Keytruda) tamsulosin 0.4 mg capsule 0.4 mg PO DAILY 01/10/22 01/10/22 vit C 30 mg-s.gomez 250 mg-celery 1 cap PO DAILY 01/10/22 01/10/22 seed 75 mg-grape seed extrt capsule (Tart Gomez) vitamin B complex 1 tab PO DAILY 01/10/22 01/10/22 Previous Rx's Medication Instructions Recorded oxycodone 5 mg tablet 5 mg PO Q6H PRN pain #10 tabs 02/01/21 Results & Data (ED) Vital Signs Vital Signs - 24 hr 01/10/22 18:19 01/10/22 19:30 01/10/22 20:05 Temperature 36.5 C 37.1 C Temperature Source Temporal Artery Scan Rectal Pulse Rate 78 Pulse Rate [Right] 85 83 Pulse Rhythm [Right] Regular Pulse Strength [Right] Normal Respiratory Rate 16 28 H 24 Respiratory Effort / Characteristics Non-Labored Non-Labored Spontaneous Non-Labored Spontaneous Respiratory Depth Normal Normal Normal Respiratory Pattern Tachypnea Blood Pressure 161/110 H Blood Pressure [Right Arm] 187/129 H 204/108 H Blood Pressure Mean 127 Blood Pressure Mean [Right Arm] 148 140 Blood Pressure Position [Right Arm] Sitting Pulse Oximetry 95 98 Oxygen Delivery Method Room Air Room Air Nasal Cannula Oxygen Flow Rate 3 Sepsis Recent Fever Within 48 Hours No Sepsis New/Unexplained Change in Mental Status No Sepsis Action Taken by Nursing No Action Required 01/10/22 20:41 Temperature Temperature Source Pulse Rate Pulse Rate [Right] 87 Pulse Rhythm [Right] Regular Pulse Strength [Right] Normal Respiratory Rate 18 Respiratory Effort / Characteristics Non-Labored Spontaneous Respiratory Depth Normal Respiratory Pattern Blood Pressure Blood Pressure [Right Arm] 190/107 H Blood Pressure Mean Blood Pressure Mean [Right Arm] 134 Blood Pressure Position [Right Arm] Pulse Oximetry 99 Oxygen Delivery Method Nasal Cannula Oxygen Flow Rate 3 Sepsis Recent Fever Within 48 Hours Sepsis New/Unexplained Change in Mental Status Sepsis Action Taken by Nursing Laboratory Data Result diagrams: 01/10/22 18:35 01/10/22 18:35 Lab Results 01/10/22 01/10/22 01/10/22 Range/Units 18:35 18:35 18:35 WBC 6.87 (4.8-10.8) K/ul RBC 4.92 (4.63-6.08) M/uL Hgb 15.3 (14.0-18.0) g/dl Hct 45.3 (40.1-51.0) % MCV 92.1 (80.0-100.0) fL MCH 31.1 (25.0-34.0) pg MCHC 33.8 (32.0-36.0) g/dL RDW Std Deviation 51.5 H (36.4-46.3) fL RDW Coeff of Valentín 15.3 H (11.5-14.5) % Plt Count 249 (130-400) K/uL MPV 11.0 (9.4-12.4) fL Immature Gran % (Auto) 0.1 % Neut % (Auto) 50.1 % Lymph % (Auto) 35.5 % Jack % (Auto) 7.3 % Eos % (Auto) 6.0 % Baso % (Auto) 1.0 % Neut # (Auto) 3.44 (1.4-6.5) K/uL Lymph # (Auto) 2.44 (1.2-3.4) K/uL Jack # (Auto) 0.50 (0.24-0.82) K/uL Eos # (Auto) 0.41 (0-0.50) K/uL Baso # (Auto) 0.07 (0-0.2) K/uL Immature Gran # (Auto) 0.01 (0.00-0.02) K/uL PT 14.0 H (9.0-12.0) Seconds INR 1.3 H (0.9-1.1) APTT 26.8 (21.0-31.0) Seconds PTT Ratio 1.0 Sodium 136 (136-145) mmol/L Potassium 3.8 (3.5-5.1) mmol/L Chloride 106 (98-107) mmol/L Carbon Dioxide 21 (21-32) mmol/L Anion Gap 9 (3-11) BUN 10 (6-23) mg/dl Creatinine 1.13 (0.6-1.4) mg/dl Est Cr Clr Drug Dosing 71.5 ml/min Est GFR ( Amer) 79.7 ml/min Est GFR (Non-Af Amer) 68.8 ml/min BUN/Creatinine Ratio 8.8 L (10-20) Glucose 97 (70-99(Fasting)) mg/dl Calcium 9.0 (8.5-10.1) mg/dl Magnesium 1.6 L (1.7-2.4) mg/dl Total Bilirubin 1.0 (0.2-1.0) mg/dl AST 23 (13-39) U/L ALT 20 (7-52) U/L Alkaline Phosphatase 86 (34-104) U/L Troponin I High Sens 2.8 (0-20) pg/ml Total Protein 6.9 (6.0-8.3) gm/dl Albumin 4.1 (3.4-5.0) gm/dl Globulin 2.8 (2.5-4.0) gm/dl Albumin/Globulin Ratio 1.5 (0.9-2) SARS-CoV-2 (PCR) (Negative) Influenza Type A (PCR) (Neg) Influenza Type B (PCR) (Neg) RSV (RT-PCR) (Neg) 01/10/22 Range/Units 19:52 WBC (4.8-10.8) K/ul RBC (4.63-6.08) M/uL Hgb (14.0-18.0) g/dl Hct (40.1-51.0) % MCV (80.0-100.0) fL MCH (25.0-34.0) pg MCHC (32.0-36.0) g/dL RDW Std Deviation (36.4-46.3) fL RDW Coeff of Valentín (11.5-14.5) % Plt Count (130-400) K/uL MPV (9.4-12.4) fL Immature Gran % (Auto) % Neut % (Auto) % Lymph % (Auto) % Jack % (Auto) % Eos % (Auto) % Baso % (Auto) % Neut # (Auto) (1.4-6.5) K/uL Lymph # (Auto) (1.2-3.4) K/uL Jack # (Auto) (0.24-0.82) K/uL Eos # (Auto) (0-0.50) K/uL Baso # (Auto) (0-0.2) K/uL Immature Gran # (Auto) (0.00-0.02) K/uL PT (9.0-12.0) Seconds INR (0.9-1.1) APTT (21.0-31.0) Seconds PTT Ratio Sodium (136-145) mmol/L Potassium (3.5-5.1) mmol/L Chloride (98-107) mmol/L Carbon Dioxide (21-32) mmol/L Anion Gap (3-11) BUN (6-23) mg/dl Creatinine (0.6-1.4) mg/dl Est Cr Clr Drug Dosing ml/min Est GFR ( Amer) ml/min Est GFR (Non-Af Amer) ml/min BUN/Creatinine Ratio (10-20) Glucose (70-99(Fasting)) mg/dl Calcium (8.5-10.1) mg/dl Magnesium (1.7-2.4) mg/dl Total Bilirubin (0.2-1.0) mg/dl AST (13-39) U/L ALT (7-52) U/L Alkaline Phosphatase (34-104) U/L Troponin I High Sens (0-20) pg/ml Total Protein (6.0-8.3) gm/dl Albumin (3.4-5.0) gm/dl Globulin (2.5-4.0) gm/dl Albumin/Globulin Ratio (0.9-2) SARS-CoV-2 (PCR) NEGATIVE (Negative) Influenza Type A (PCR) Negative (Neg) Influenza Type B (PCR) Negative (Neg) RSV (RT-PCR) Negative (Neg) Administered Medications Magnesium Sulfate/Dextrose (Magnesium Sulfate / D5w) 1 gm in 100 mls @ 50 mls/hr IV Q2H CONSTANTIN Stop: 01/11/22 03:14 Last Admin: 01/10/22 23:29 Dose: 50 mls/hr Documented By: LANA Ketorolac Tromethamine (Ketorolac Tromethamine 15 Mg/Ml Vial) 15 mg IV Q6H PRN PRN Reason: Pain Stop: 01/15/22 22:31 Last Admin: 01/10/22 23:33 Dose: 15 mg Documented By: LANA Discontinued Medications Diphenhydramine HCl (Diphenhydramine 50 Mg/Ml Vial) 25 mg IV NOW STA Stop: 01/10/22 20:09 Last Admin: 01/10/22 20:21 Dose: 25 mg Documented By: HANKR Hydralazine HCl (Hydralazine Hcl 20 Mg/Ml Vial) 5 mg IV NOW ONE Stop: 01/10/22 21:08 Last Admin: 01/10/22 21:22 Dose: 5 mg Documented By: CHRISTA Sodium Chloride (Nss 1000ml) 1,000 mls @ 999 mls/hr IV .Q1H1M ONE Stop: 01/10/22 19:40 Last Infusion: 01/10/22 20:16 Dose: 0 mls/hr Documented By: Admin: 01/10/22 18:49 Dose: 999 mls/hr Documented By: YEVGENIY Prochlorperazine (Compazine) 1 mls @ 1 mls/min IV ONE ONE Stop: 01/10/22 20:09 Last Admin: 01/10/22 20:22 Dose: 1 mls/min Documented By: CHRISTA Ceftriaxone Sodium (Rocephin) 2,000 mg in 70 mls @ 140 mls/hr IV NOW STA Stop: 01/10/22 20:37 Last Infusion: 01/10/22 21:08 Dose: 0 mls/hr Documented By: Admin: 01/10/22 20:22 Dose: 140 mls/hr Documented By: CHRISTA Ketorolac Tromethamine (Ketorolac Tromethamine 15 Mg/Ml Vial) 15 mg IV NOW ONE Stop: 01/10/22 20:09 Last Admin: 01/10/22 20:21 Dose: 15 mg Documented By: CHRISTA Morphine Sulfate (Morphine Sulfate 10 Mg/Ml Carp/Vial) 6 mg IV NOW STA Stop: 01/10/22 18:41 Last Admin: 01/10/22 18:49 Dose: 6 mg Documented By: YEVGENIY Morphine Sulfate (Morphine Sulfate 4 Mg/Ml 1 Ml Carp\Vial) 4 mg IV NOW STA Stop: 01/10/22 19:17 Last Admin: 01/10/22 19:34 Dose: 4 mg Documented By: CHRISTA Imaging Data Radiologist's Impression: Chest X-Ray 01/10/22 18:40 XR chest 1V portable HISTORY: 61 years-old Male Stroke Like Symptoms acute strokelike symptoms COMPARISON: Chest CT 11/06/2021 TECHNIQUE: Portable AP view of the chest FINDINGS: Cardiac silhouette is enlarged. No pneumothorax, pleural effusion, airspace consolidation or overt pulmonary edema. Degenerative changes of the shoulders and spine. IMPRESSION: No acute process. ACT 112: Negative or not required by law. The above report was generated using voice recognition software. It may contain grammatical, syntax or spelling errors. Electronically signed by: Alexandre Hassan M.D. 01/10/2022 7:[address] 01/10/22 18:40 CT head/brain wo con CLINICAL HISTORY: 61 years-old Male with Stroke Like Symptoms. Acute strokelike symptoms TECHNIQUE: Multiple axial CT images of the head were obtained without contrast. A dose lowering technique was utilized adhering to the principles of ALARA. CT DOSE: 1612.45 mGy.cm COMPARISON: None. FINDINGS: No acute intracranial hemorrhage, midline shift, intracranial mass, hydrocephalus, territorial ischemia or abnormal extra-axial collection. Motion degraded exam. The study was then repeated 2 additional times. Mild involutional changes. Low-lying cerebellar tonsils. The calvarium is intact. Mucosal thickening of the paranasal sinuses, moderate within the left maxillary sinus with air-fluid level. Moderate mucosal thickening of the ethmoid air cells. Mastoid air cells are clear. IMPRESSION: 1. Motion degraded exam. No acute intracranial abnormality. 2. Moderate paranasal sinus disease with acute left maxillary sinusitis. ACT 112: Negative or not required by law. The above report was generated using voice recognition software. It may contain grammatical, syntax or spelling errors. Electronically signed by: Alexandre Hassan M.D. 01/10/2022 7:35 PM Discharge Plan Visit Data Chief Complaint: Headache Stated Complaint: headache, cancer pt, oncology sent, pain level 8 ED Provider: Homer Gerardo Discharge Problem: Headache, Sinusitis Patient Disposition: Admitted As Inpatient Discharge Instructions Interventions: ED Discharge Assessment Last Done: 01/10/22 22:04
[2022-01-10 18:47] LABS: Basophils # (auto) 0.07 K/uL (0-0.2); Eosinophils # (auto) 0.41 K/uL (0-0.50); Hematocrit (blood only) 45.3 % (40.1-51.0); Hemoglobin 15.3 g/dl (14.0-18.0); Immature Granulocytes # (auto) 0.01 K/uL (0.00-0.02); Immature Granulocytes % (auto) 0.1 %; Lymphocytes # (auto) 2.44 K/uL (1.2-3.4); Lymphocytes % (auto) 35.5 %; Mean Corpuscular Hemoglobin 31.1 pg (25.0-34.0); Mean Corpuscular Hgb Conc 33.8 g/dL (32.0-36.0); Mean Corpuscular Volume 92.1 fL (80.0-100.0); Monocytes % (auto) 7.3 %; Neutrophils # (auto) 3.44 K/uL (1.4-6.5); Neutrophils % (auto) 50.1 %; Platelet Count 249 K/uL (130-400); RDW Coefficient of Variation 15.3 % (11.5-14.5); RDW Standard Deviation 51.5 fL (36.4-46.3); Red Blood Count 4.92 M/uL (4.63-6.08); White Blood Count 6.87 K/ul (4.8-10.8)
[2022-01-10 19:03] LABS: INR 1.3 (0.9-1.1); Partial Thromboplastin Time 26.8 Seconds (21.0-31.0)
[2022-01-10 19:14] LABS: Albumin Globulin Ratio 1.5 (0.9-2); Albumin Level 4.1 gm/dl (3.4-5.0); BUN Creatinine Ratio 8.8 (10-20); Creatinine Clr Calc Pharmacy 71.5 ml/min; Est GFR (African American) 79.7 ml/min; Est GFR (Non-African American) 68.8 ml/min; Globulin 2.8 gm/dl (2.5-4.0); Magnesium 1.6 mg/dl (1.7-2.4); Potassium 3.8 mmol/L (3.5-5.1); Total Protein 6.9 gm/dl (6.0-8.3)
[2022-01-10] MEDS ORDERED: MoRPHine SULFATE 4 MG/ML 1 ML CARP\\VIAL IV STA (19:16)
[2022-01-10 19:18] LABS: Troponin I High Sensitivity 2.8 pg/ml (0-20)
--- NOTE | 2022-01-10 19:36 | CT Scan Report ---
CT head/brain wo con CLINICAL HISTORY: 61 years-old Male with Stroke Like Symptoms. Acute strokelike symptoms TECHNIQUE: Multiple axial CT images of the head were obtained without contrast. A dose lowering tech nique was utilized adhering to the principles of ALARA. CT DOSE: 1612.45 mGy.cm COMPARISON: None. FINDINGS: No acute intracranial hemorrhage, midline shift, intracranial mass, hydrocephalus, territorial ischem ia or abnormal extra-axial collection. Motion degraded exam. The study was then repeated 2 additional times. Mild involutional changes. Low-lying cerebellar tonsils. The calvarium is intact. Mucosal thickening of the paranasal sinuses, moderate within the left maxil vamshi sinus with air-fluid level. Moderate mucosal thickening of the ethmoid air cells. Mastoid air ce lls are clear. IMPRESSION: 1. Motion degraded exam. No acute intracranial abnormality. 2. Moderate paranasal sinus disease with acute left maxillary sinusitis. ACT 112: Negative or not required by law. The above report was generated using voice recognition software. It may contain grammatical, syntax o r spelling errors. Electronically signed by: Alexandre Hassan M.D. 01/10/2022 7:35 PM
--- NOTE | 2022-01-10 19:37 | XRay Report ---
XR chest 1V portable HISTORY: 61 years-old Male Stroke Like Symptoms acute strokelike symptoms COMPARISON: Chest CT 11/06/2021 TECHNIQUE: Portable AP view of the chest FINDINGS: Cardiac silhouette is enlarged. No pneumothorax, pleural effusion, airspace consolidation or overt pu lmonary edema. Degenerative changes of the shoulders and spine. IMPRESSION: No acute process. ACT 112: Negative or not required by law. The above report was generated using voice recognition software. It may contain grammatical, syntax o r spelling errors. Electronically signed by: Alexandre Hassan M.D. 01/10/2022 7:36 PM
[2022-01-10] MEDS ORDERED: diphenhydrAMINE 50 MG/ML VIAL IV STA (20:08)
[2022-01-10] MEDS ORDERED: KETOROLAC TROMETHAMINE 15 MG/ML VIAL IV ONE (20:08)
[2022-01-10] MEDS ORDERED: PROCHLORPERAZINE 1 ML IV ONE (20:08)
[2022-01-10] MEDS ORDERED: cefTRIAXone SODIUM 2,000 MG/70 ML BAG IV STA (20:08)
[2022-01-10 20:43] LABS: Influenza A virus by PCR Negative (Neg); Influenza B virus by PCR Negative (Neg); RSV by PCR Negative (Neg); SARS CoV2 RNA(COVID-19) InHosp NEGATIVE (Negative)
[2022-01-10] MEDS ORDERED: LORazepam 0.5 MG in SYRINGE 0.25 ML IV PRN (21:02)
[2022-01-10] MEDS ORDERED: hydrALAZINE HCL 20 MG/ML VIAL IV ONE (21:07)
--- NOTE | 2022-01-10 21:09 | History & Physical Report ---
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 Recently found to have a spot on his pancreas which was biopsied at [facility] unfortunately revealing metastatic clear-cell RCC to the pancreas. Patient follows with hematologyoncology and was started on pembrolizumab and axitinib on 01/01/2022. Patient with no significant history of prior headache until approximately 1 month ago when he started to experience an intermittent headache. Over the last 3 to 4 days he has had increased severity of his headache. He is in significant pain, 10 out of 10 with associated photo and phonophobia. Pain is left-sided, stabbing and throbbing in nature. No focal neurological deficits. No fall. No seizure. Headache has minimally improved with management in the ERToradol, morphine, prochlorperazine Concerning elements include a relatively new headache with change in quality and a 61-year-old male with history of metastatic renal cell carcinoma. Concerning for possible medication side effect. Treatment with axitinib can increase risk of reversible posterior leukoencephalopathy syndrome (PRES). Blood pressure is elevated. Keytruda may also have the side effect of headache, less likely hypophysitis. Less concern for metastatic disease. Patient had a PET scan performed on 12/02/2021 which revealed the concerning pancreas mass. No FDG uptake in the head or neck. CT of the head is unremarkable We will admit to PCU Pain control Blood pressure control. Patient is on only on lisinopril 20 mg p.o. daily. Hydralazine 5 mg IV every 6 hours as needed, labetalol 10 mg IV every 6 hours as needed. Goal for 25% reduction in MAP over the next several hours. If unable to attain this with IV medication will initiate nicardipine drip Neurochecks with GCS every 4 hours Will hold immunotherapies (pembrolizumab and axitinib) Check MRI brain and MRV Hematologyoncology consultation appreciated (2) Hypertension: Plan: Patient with well-controlled hypertension prior to arrival. He is only on lisinopril 20 mg p.o. daily. Elevated blood pressure today ranging 161-204 / [id number]. Pain likely contributing to elevation of blood pressure. As discussed above, some concern for posterior leukoencephalopathy syndrome as etiology of headache and elevated blood pressure in setting of ligament C and immunotherapy use. Continue lisinopril 20 mg p.o. daily Hydralazine and labetalol IV as needed for blood pressure greater than 190/110, gradual lowering of BP Close monitoring (3) Benign localized prostatic hyperplasia with lower urinary tract symptoms (LUTS): Plan: Chronic. Patient follows with urology Monitor urine output Continue Flomax 0.4 mg p.o. daily (4) Hypothyroidism: Plan: Chronic. Stable. With a normal TSH of 1.699 on 12/29/2021 Continue Synthroid (5) Diabetes mellitus: Plan: Patient with diet-controlled diabetes with peripheral neuropathy. Last hemoglobin A1c on 11/05/2021 = 5.6. Blood sugar = 97 N.p.o. for now Consistent carb diet when diet is advanced Do not feel that routine blood sugar monitoring is necessary at this time Continue gabapentin 1200 mg p.o. 3 times daily F/E/NHep-Lock, magnesium repletion x3 g, n.p.o. for now ProphylaxisSCDs to bilateral lower extremities Codefull per discussion with at bedside Dispositionobservation to PCU History of Present Illness Chief Complaint: Headache Primary Care Provider: Don Crenshaw DO 61-year-old male with history of metastatic clear-cell carcinoma of the left kidney (metastatic disease to lung, recent spot discovered on pancreas) status post left nephrectomy presently on immunotherapy with Ketruda and axitinib started on 01/01/2022. Patient has had a mild, intermittent headache for the last month. However, headache has increased in severity over the last 3 to 4 days. Patient is complaining of severe 10 out of 10 pain in his left head, throbbing and stabbing in nature. Possibly some associated photophobia and phonophobia. No unilateral rhinorrhea, tearing or conjunctival injection. Patient does not have a prominent history of prior headaches. He has been taking Tylenol daily for the last several days. They present to the ER today due to the extreme severity of the headache. Patient's also reported that he was beginning to become slightly confused. No slurred speech, focal numbness/tingling/weakness. No gait abnormality. No seizure or syncope. No trauma or falls. Patient has been on antibiotics for presumed sinusitis with purulent nasal drainage. In the ER patient afebrile, hypertensive otherwise hemodynamically stable. Patient in moderate distress secondary to pain. Patient is somewhat somnolent after medications administered in the ER. He is able to provide some history and participate with exam. Majority of history obtained from who is at bedside. ER course: Normal saline x1 L, morphine 6 mg IV +4 mg IV, Toradol 50 mg IV, Benadryl 25 mg IV, prochlorperazine, ceftriaxone 2 g Allergies Allergy/AdvReac Type Severity Reaction Status Date / Time Iodinated Contrast Media Allergy Mild ITCHY Unverified 01/10/22 21:09 FOREARMS Home Medications Medication Instructions Recorded Confirmed Type multivitamin 1 tab PO QAM 02/13/19 05/15/21 History gabapentin 600 mg tablet 1,200 mg PO TID #90 tabs 10/27/20 05/15/21 History tramadol 50 mg tablet 100 mg PO QID PRN Pain 10/27/20 05/15/21 History allopurinol 100 mg tablet 150 mg PO DAILY 01/31/21 05/15/21 History cholecalciferol (vitamin D3) 25 25 mcg PO DAILY 01/31/21 05/15/21 History mcg (1,000 unit) capsule (Vitamin D3) sour gomez extract 1,000 mg 1,000 mg PO DAILY 01/31/21 05/15/21 History capsule (Tart Gomez Extract) oxycodone 5 mg tablet 5 mg PO Q6H PRN pain #10 tabs 02/01/21 05/15/21 Rx acetaminophen 500 mg tablet 1,000 mg PO Q6H PRN Pain 01/10/22 01/10/22 History (Tylenol Extra Strength) amoxicillin 875 mg-potassium 1 tab PO Q12 01/10/22 01/10/22 History clavulanate 125 mg tablet axitinib 5 mg tablet (Inlyta) 5 mg PO Q12H 01/10/22 01/10/22 History diphenoxylate-atropine 2.5 1 tab PO QID 01/10/22 01/10/22 History mg-0.025 mg tablet levothyroxine 75 mcg tablet 75 mcg PO DAILY 01/10/22 01/10/22 History lisinopril 20 mg tablet 20 mg PO QAM 01/10/22 01/10/22 History pembrolizumab 25 mg/mL intravenous 0 mg IV .[id number] 01/10/22 01/10/22 History solution (Keytruda) tamsulosin 0.4 mg capsule 0.4 mg PO DAILY 01/10/22 01/10/22 History vit C 30 mg-s.gomez 250 mg-celery 1 cap PO DAILY 01/10/22 01/10/22 History seed 75 mg-grape seed extrt capsule (Tart Gomez) vitamin B complex 1 tab PO DAILY 01/10/22 01/10/22 History Past Med/Surg History Medical History (Updated 01/10/22 @ 21:41 by Leeann Marte DO) Acquired claw toe of right foot Arthritis of knee Back pain Bilateral lung cancer Callus Claustrophobia Diabetes mellitus with neuropathy Dyslipidemia Gross hematuria Hernia Hip pain, right Hypertension Hypothyroidism Nephrolithiasis Osteoarthritis Pain in both feet Sacroiliac joint pain Sacroiliitis Solitary right kidney Stage 3b chronic kidney disease Tobacco abuse Vitamin D deficiency Surgical History H/O left nephrectomy History of cholecystectomy History of hernia repair History of meniscectomy of left knee History of vasectomy Family History Father Hearing loss Lung disease Mother Cancer Aortic aneurysm Breast cancer Myocardial infarction Other No family history of adverse response to anesthesia No family history of bleeding disorder Social History Smoking Status: Never smoker Tobacco Type: Cigarettes Second Hand Exposure: No; Hx Alcohol Use: No Hx Substance Use: No Preferred Language: Irish Communication Ability: Effective 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: No marital status: Current Living Situation: Spouse current occupational status: retired 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; 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 [employer] Feels Safe at Home: Yes Review of Systems Review of Systems: All systems reviewed & are unremarkable except as noted in HPI & below Respiratory: Dyspnea on exertion and occasional cough at baseline Gastrointestinal: Chronic diarrhea Neurologic: Peripheral neuropathy at baseline Limb ataxia at baseline Physical Exam Physical Exam: General: patient in moderate distress secondary to headache, somewhat sleepy after receiving morphine, arousable, answers questions appropriately and participates in exam but drifts off to sleep Skin: warm, dry, intact, no rashes or lesions HEENT: NC/AT, PERRL, EOMI -sluggish rightward and inferior gaze noted with left eye, anicteric sclera, conjunctiva without injection, external ear normal to inspection and nontender, nares patent, moist mucus membranes, dentition intact, no oropharyngeal lesions, neck supple, trachea midline, no LAD, no thyromegaly, no JVD, no papilledema noted on limited bedside ophthalmoscopic exam Heart: +S1/S2, regular, no m/r/g Lungs: equal air entry bilaterally, no rales/rhonchi/wheezes Abd: +BS, soft, NT/ND, no masses/organomegaly/ascites Ext: warm, 2+ pulses in UE/LE bilaterally, no clubbing/cyanosis or edema Neuro: nonfocal, intention tremor present, speech intact, no facial droop, moving all extremities on command with equal strength 5/5 Results & Data Results & Data ([facility]) Vital Signs (Past 12 Hours) Vital Signs Temp Pulse Pulse Resp BP BP Pulse Ox 01/10/22 20:41 87 18 190/107 H 99 01/10/22 20:05 37.1 C 83 24 204/108 H 98 01/10/22 19:30 85 28 H 187/129 H 01/10/22 18:19 36.5 C 78 16 161/110 H 95 O2 Del Method O2 Flow Rate 01/10/22 20:41 Nasal Cannula 3 01/10/22 20:05 Nasal Cannula 3 01/10/22 19:30 Room Air 01/10/22 18:19 Room Air Laboratory Results Laboratory Results WBC 6.87 K/ul (4.8-10.8) 01/10/22 18:35 RBC 4.92 M/uL (4.63-6.08) 01/10/22 18:35 Hgb 15.3 g/dl (14.0-18.0) 01/10/22 18:35 Hct 45.3 % (40.1-51.0) 01/10/22 18:35 MCV 92.1 fL (80.0-100.0) 01/10/22 18:35 MCH 31.1 pg (25.0-34.0) 01/10/22 18:35 MCHC 33.8 g/dL (32.0-36.0) 01/10/22 18:35 RDW Std Deviation 51.5 fL (36.4-46.3) H 01/10/22 18:35 RDW Coeff of Valentín 15.3 % (11.5-14.5) H 01/10/22 18:35 Plt Count 249 K/uL (130-400) 01/10/22 18:35 MPV 11.0 fL (9.4-12.4) 01/10/22 18:35 Immature Gran % (Auto) 0.1 % 01/10/22 18:35 Neut % (Auto) 50.1 % 01/10/22 18:35 Lymph % (Auto) 35.5 % 01/10/22 18:35 Story % (Auto) 7.3 % 01/10/22 18:35 Eos % (Auto) 6.0 % 01/10/22 18:35 Baso % (Auto) 1.0 % 01/10/22 18:35 Neut # (Auto) 3.44 K/uL (1.4-6.5) 01/10/22 18:35 Lymph # (Auto) 2.44 K/uL (1.2-3.4) 01/10/22 18:35 Story # (Auto) 0.50 K/uL (0.24-0.82) 01/10/22 18:35 Eos # (Auto) 0.41 K/uL (0-0.50) 01/10/22 18:35 Baso # (Auto) 0.07 K/uL (0-0.2) 01/10/22 18:35 Immature Gran # (Auto) 0.01 K/uL (0.00-0.02) 01/10/22 18:35 PT 14.0 Seconds (9.0-12.0) H 01/10/22 18:35 INR 1.3 (0.9-1.1) H 01/10/22 18:35 APTT 26.8 Seconds (21.0-31.0) 01/10/22 18:35 PTT Ratio 1.0 01/10/22 18:35 Sodium 136 mmol/L (136-145) 01/10/22 18:35 Potassium 3.8 mmol/L (3.5-5.1) 01/10/22 18:35 Chloride 106 mmol/L (98-107) 01/10/22 18:35 Carbon Dioxide 21 mmol/L (21-32) 01/10/22 18:35 Anion Gap 9 (3-11) 01/10/22 18:35 BUN 10 mg/dl (6-23) 01/10/22 18:35 Creatinine 1.13 mg/dl (0.6-1.4) 01/10/22 18:35 Est Cr Clr Drug Dosing 71.5 ml/min 01/10/22 18:35 Est GFR ( Amer) 79.7 ml/min 01/10/22 18:35 Est GFR (Non-Af Amer) 68.8 ml/min 01/10/22 18:35 BUN/Creatinine Ratio 8.8 (10-20) L 01/10/22 18:35 Glucose 97 mg/dl (70-99(Fasting)) 01/10/22 18:35 Calcium 9.0 mg/dl (8.5-10.1) 01/10/22 18:35 Magnesium 1.6 mg/dl (1.7-2.4) L 01/10/22 18:35 Total Bilirubin 1.0 mg/dl (0.2-1.0) 01/10/22 18:35 AST 23 U/L (13-39) 01/10/22 18:35 ALT 20 U/L (7-52) 01/10/22 18:35 Alkaline Phosphatase 86 U/L (34-104) 01/10/22 18:35 Troponin I High Sens 2.8 pg/ml (0-20) 01/10/22 18:35 Total Protein 6.9 gm/dl (6.0-8.3) 01/10/22 18:35 Albumin 4.1 gm/dl (3.4-5.0) 01/10/22 18:35 Globulin 2.8 gm/dl (2.5-4.0) 01/10/22 18:35 Albumin/Globulin Ratio 1.5 (0.9-2) 01/10/22 18:35 SARS-CoV-2 (PCR) NEGATIVE (Negative) 01/10/22 19:52 Influenza Type A (PCR) Negative (Neg) 01/10/22 19:52 Influenza Type B (PCR) Negative (Neg) 01/10/22 19:52 RSV (RT-PCR) Negative (Neg) 01/10/22 19:52 Impressions Chest X-Ray 01/10/22 18:40 XR chest 1V portable HISTORY: 61 years-old Male Stroke Like Symptoms acute strokelike symptoms COMPARISON: Chest CT 11/06/2021 TECHNIQUE: Portable AP view of the chest FINDINGS: Cardiac silhouette is enlarged. No pneumothorax, pleural effusion, airspace consolidation or overt pulmonary edema. Degenerative changes of the shoulders and spine. IMPRESSION: No acute process. ACT 112: Negative or not required by law. The above report was generated using voice recognition software. It may contain grammatical, syntax or spelling errors. Electronically signed by: Alexandre Hassan M.D. 01/10/2022 7:[address] 01/10/22 18:40 CT head/brain wo con CLINICAL HISTORY: 61 years-old Male with Stroke Like Symptoms. Acute strokelike symptoms TECHNIQUE: Multiple axial CT images of the head were obtained without contrast. A dose lowering technique was utilized adhering to the principles of ALARA. CT DOSE: 1612.45 mGy.cm COMPARISON: None. FINDINGS: No acute intracranial hemorrhage, midline shift, intracranial mass, hydrocephalus, territorial ischemia or abnormal extra-axial collection. Motion degraded exam. The study was then repeated 2 additional times. Mild involutional changes. Low-lying cerebellar tonsils. The calvarium is intact. Mucosal thickening of the paranasal sinuses, moderate within the left maxillary sinus with air-fluid level. Moderate mucosal thickening of the ethmoid air cells. Mastoid air cells are clear. IMPRESSION: 1. Motion degraded exam. No acute intracranial abnormality. 2. Moderate paranasal sinus disease with acute left maxillary sinusitis. ACT 112: Negative or not required by law. The above report was generated using voice recognition software. It may contain grammatical, syntax or spelling errors. Electronically signed by: Alexandre Hassan M.D. 01/10/2022 7:35 PM Code Status & VTE Plan VTE Prophylaxis Plan VTE Prophylaxis will be ordered: Yes PG Care Time/CCT Total # of Minutes Spent Total Time Spent with Patient: Total time spent is greater than 50% in coordination of care (as documented) at patient's floor/unit and/or counseling patient: Coding Level of Care Code INT OBSERVATION CARE 70M LVL 3 Diagnoses Headache R51.9 Hypertension I10 Benign localized prostatic hyperplasia with lower urinary tract symptoms (LUTS) N40.1 Hypothyroidism E03.9 Diabetes mellitus E11.9
[2022-01-10] MEDS ORDERED: ACETAMINOPHEN 325 MG TAB PO PRN (22:32)
[2022-01-10] MEDS ORDERED: hydrALAZINE HCL 20 MG/ML VIAL IV PRN (22:32)
[2022-01-10] MEDS ORDERED: LABETALOL HCL IV 5 MG/ML 20ML IV PRN (22:32)
[2022-01-10] MEDS: MAGNESIUM SULFATE / D5W 1 GM/100 ML BAG IV SCH (23:29)
[2022-01-10] MEDS: KETOROLAC TROMETHAMINE 15 MG/ML VIAL IV PRN (23:33)
[2022-01-11] MEDS: MAGNESIUM SULFATE / D5W 1 GM/100 ML BAG IV SCH (01:47)
[2022-01-11] MEDS: LEVOTHYROXINE SODIUM 75 MCG TABLET PO SCH (05:21)
[2022-01-11 05:47] LABS: Hematocrit (blood only) 40.8 % (40.1-51.0); Hemoglobin 13.8 g/dl (14.0-18.0); Mean Corpuscular Hemoglobin 31.2 pg (25.0-34.0); Mean Corpuscular Hgb Conc 33.8 g/dL (32.0-36.0); Mean Corpuscular Volume 92.3 fL (80.0-100.0); Platelet Count 189 K/uL (130-400); RDW Coefficient of Variation 15.2 % (11.5-14.5); RDW Standard Deviation 51.7 fL (36.4-46.3); Red Blood Count 4.42 M/uL (4.63-6.08); White Blood Count 6.82 K/ul (4.8-10.8)
[2022-01-11 06:20] LABS: BUN Creatinine Ratio 9.8 (10-20); Calcium 8.4 mg/dl (8.5-10.1); Creatinine Clr Calc Pharmacy 76.5 ml/min; Est GFR (African American) 90.2 ml/min; Est GFR (Non-African American) 77.9 ml/min; Potassium 3.9 mmol/L (3.5-5.1)
[2022-01-11] MEDS: KETOROLAC TROMETHAMINE 15 MG/ML VIAL IV PRN ×2 (08:15→18:30)
[2022-01-11] MEDS: lisinopril 20 MG TAB PO SCH (08:17)
[2022-01-11] MEDS: GABAPENTIN 600 MG TAB PO SCH ×3 (08:17→21:25)
[2022-01-11] MEDS: allopurinoL 100 MG TAB PO SCH (08:18)
[2022-01-11] MEDS ORDERED: TAMSULOSIN HCL 0.4 MG CAP PO SCH (09:00)
--- NOTE | 2022-01-11 10:26 | Electrocardiogram Report ---
Test Reason : Blood Pressure : / mmHG Vent. Rate : 069 BPM Atrial Rate : 069 BPM P-R Int : 168 ms QRS Dur : 098 ms QT Int : 422 ms P-R-T Axes : 064 005 058 degrees QTc Int : 452 ms Normal sinus rhythm Nonspecific T wave abnormality Abnormal ECG When compared with ECG of 30-JUN-2015 11:15, T wave inversion now evident in Anterior leads Confirmed by Santos Johnson ([id number]) on 01/11/2022 10:26:00 AM Referred By: REFERRED SELF Confirmed By:Santos Johnson
[2022-01-11] MEDS ORDERED: GADOBUTROL 65ML VIAL IV ONE (13:20)
--- NOTE | 2022-01-11 13:59 | Magnetic Resonance Report ---
MR venography head wo con CLINICAL HISTORY: headache, malignancy COMPARISON STUDY: Head CT January 10, 2022. TECHNIQUE: Utilizing a 1.5 Roxann magnet and [id number] technique, unenhanced MRV of the head was obtained. FINDINGS: Please note that the MRI of the brain will be reported separately. Superior sagittal sinus is patent. 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 Th ere is no evidence for dural sinus thrombosis on this examination. Straight sinus is patent. Transver se and sigmoid sinuses are patent. IMPRESSION: No evidence for dural sinus thrombosis. ACT 112: Negative or not required by law. Electronically signed by: Abe Fraire M.D. 01/11/2022 1:57 PM
--- NOTE | 2022-01-11 14:30 | Hospitalist Progress Note ---
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 Recently found to have a spot on his pancreas which was biopsied at [facility] unfortunately revealing metastatic clear-cell RCC to the pancreas. Patient follows with hematologyoncology and was started on pembrolizumab and axitinib on 01/01/2022. Patient with no significant history of prior headache until approximately 1 month ago when he started to experience an intermittent headache. Over the last 3 to 4 days he has had increased severity of his headache. He is in significant pain, 10 out of 10 with associated photo and phonophobia. Pain LEFT-sided, stabbing and throbbing in nature. No focal neurological deficits. No fall. No seizure. Headache has minimally improved with management in the ERToradol, morphine, prochlorperazine Concerning elements include a relatively new headache with change in quality and a 61-year-old male with history of metastatic renal cell carcinoma. Concerning for possible medication side effect. Treatment with axitinib can increase risk of reversible posterior leukoencephalopathy syndrome (PRES). Blood pressure is elevated. Keytruda may also have the side effect of headache, less likely hypophysitis. Less concern for metastatic disease. Patient had a PET scan performed on 12/02/2021 which revealed the concerning pancreas mass. No FDG uptake in the head or neck. Headache improved upon evaluation 9/12 AM, mild frontal headache much improved Cognition returned to baseline per , does have some intermittent confusion at times but much improved CT head unremarkable on admit, however did note acute left maxillary sinusitis (nontender on exam) had been on augmentin for such [employer] --> will order to continue MRV NEGATIVE for thrombus MRI Brain however: 1. 3 mm focus of restricted diffusion within the left temporal lobe is suggestive of an acute versus subacute infarct. 2. Mild scattered T2/FLAIR hyperintense foci throughout the white matter are nonspecific and may represent chronic microvascular ischemic disease. 3. No abnormal intracranial enhancement. Discussed with on-call Neurology, suspected related to elevated BP, rec BP control, aspirin, check further imaging for completeness/lipid/a1c. If needed can be seen tomorrow Neurochecks, stroke scale Blood pressure control --> BP significantly elevated on admission 202/127 -Hydralazine 5mg IV Q6h, labetalol 10mg IV Q6 prn -25% goal reduction -Had been having good improvement, BP 137/87 this afternoon but dropped to 103/71 and order for 250cc bolus x 1 now, start NS @ 80cc/hr for now, repeat bolus if needed to maintain BP Check lipid panel in AM, A1c Check ECHO, CTA head/neck pre-treat ordered given allergy to contrast dye Heme/onc consulted given prior concerns for medication adverse issue given recently started for metastatic disease from prior renal cell carcinoma to pancreatitis (pembrolizumab and axitinib) PT/OT/speech consulted Continued inpatient stay (2) CVA (cerebral vascular accident): Plan: as above., thankfully almost no residual symptoms asa 81mg daily added -- continue daily check lipid panel, a1c in am check cta head/neck, echo PT/OT/speech eval (3) Hypertension: Plan: Patient with well-controlled hypertension prior to arrival. Typically only on lisinopril 20mg daily Significant HTN on arrival with BP 200/100s BP control with hydralazine, labetalol BP imprvoed to 137/87 this afternoon but dropped this evening Bolus x 1 as above, repeat if needed, ordered NS @ 80cc/hr Monitor (4) Benign localized prostatic hyperplasia with lower urinary tract symptoms (LUTS): Plan: Chronic. Patient follows with urology Monitor urine output -- unmeasured voids Continue Flomax 0.4 mg p.o. daily (5) Hypothyroidism: Plan: Chronic. Stable. With a normal TSH of 1.699 on 12/29/2021 Continue Synthroid 75mcg daily (6) Diabetes mellitus: Plan: Patient with diet-controlled diabetes with peripheral neuropathy. DM diet, BSG checks for 24 hours, a1c in AM however did have recent A1c this summer 5.6 Continue gabapentin 1200mg TID Check B12 in AM given memory issues prior to current admit as well (7) Hypomagnesemia: Plan: 1.5 on admit, IV replacement ordered 2.1 on repeat Plan SCDs for DVT prophylaxis changed to full admit continued inpatient stay Admission and Anticipated Discharge Date Admission Date: January 10, 2022 Subjective Patient evaluated this afternoon, at bedside. Patient reports improvement of headache. Initially frontal headache felt like a vice grabbing. Does not remember events of yesterday per , but much better today. BPs improved. Will monitor BP with headache as suspect headache was driving factor in BP or vice versa. Mag replacement. Discussed MRI negative for thrombus but additional imaging pending. Ordered diet, no issues with swallowing. states oncology was up this morning, and considering reducing dose but pending imaging as next best treatment option. Discussed if MRI negative, oncology recs, and monitoring BP overnight/headache and possible discharge tomorrow if things continue with improvement. Denies any facial fullness/pain in sinuses or balance issues. Does have neuropathy. Will check B12 as well. Review of Systems Review of Systems: All systems reviewed & are unremarkable except as noted in HPI & below Physical Exam Physical Exam: General: WD/WN male sitting up in bed, NAD, at bedside HEENT: head normocephalic, atraumatic, sinuses NONTENDER to palpation, eyes with pupils equal and reactive, EOMI, trachea midline without deviation, mm slightly dry Resp: CTAB, no w/c/r, on room air CV: RRR, no m/r/g, no pitting edema or calf tenderness, pulses palpable GI: +BS, soft nontender no raya/no cva tenderness MSK/Neuro: moves all extremities, no focal deficits, no facial droop or slurred speech, CN intact grossly, intention tremor on the left (baseline), strength intact bilaterally Psych: alert to person/place/time, pleasant and cooperative (intermittent forgetfulness reported) Results & Data Results & Data ([facility]) Vital Signs (Past 12 Hours) Vital Signs Temp Pulse Resp BP Pulse Ox O2 Del Method 01/11/22 13:21 36.5 C 79 19 137/87 95 Room Air 01/11/22 07:06 36.6 C 87 19 134/83 94 Room Air 01/11/22 03:47 85 148/89 H 01/11/22 02:54 37.1 C 92 H 20 157/94 H 92 Room Air Laboratory Results 01/11/22 01/11/22 01/11/22 Range/Units 14:22 05:16 05:16 WBC (4.8-10.8) K/ul RBC (4.63-6.08) M/uL Hgb (14.0-18.0) g/dl Hct (40.1-51.0) % MCV (80.0-100.0) fL MCH (25.0-34.0) pg MCHC (32.0-36.0) g/dL RDW Std Deviation (36.4-46.3) fL RDW Coeff of Valentín (11.5-14.5) % Plt Count (130-400) K/uL MPV (9.4-12.4) fL Immature Gran % (Auto) % Neut % (Auto) % Lymph % (Auto) % [place] % (Auto) % Eos % (Auto) % Baso % (Auto) % Neut # (Auto) (1.4-6.5) K/uL Lymph # (Auto) (1.2-3.4) K/uL [place] # (Auto) (0.24-0.82) K/uL Eos # (Auto) (0-0.50) K/uL Baso # (Auto) (0-0.2) K/uL Immature Gran # (Auto) (0.00-0.02) K/uL PT (9.0-12.0) Seconds INR (0.9-1.1) APTT (21.0-31.0) Seconds PTT Ratio Sodium 134 L (136-145) mmol/L Potassium 3.9 (3.5-5.1) mmol/L Chloride 107 (98-107) mmol/L Carbon Dioxide 21 (21-32) mmol/L Anion Gap 6 (3-11) BUN 10 (6-23) mg/dl Creatinine 1.02 (0.6-1.4) mg/dl Est Cr Clr Drug Dosing 76.5 ml/min Est GFR ( Amer) 90.2 ml/min Est GFR (Non-Af Amer) 77.9 ml/min BUN/Creatinine Ratio 9.8 L (10-20) Glucose 88 (70-99(Fasting)) mg/dl POC Glucose 82 (70-99) mg/dl Calcium 8.4 L (8.5-10.1) mg/dl Magnesium 2.1 (1.7-2.4) mg/dl Total Bilirubin (0.2-1.0) mg/dl AST (13-39) U/L ALT (7-52) U/L Alkaline Phosphatase (34-104) U/L Troponin I High Sens (0-20) pg/ml Total Protein (6.0-8.3) gm/dl Albumin (3.4-5.0) gm/dl Globulin (2.5-4.0) gm/dl Albumin/Globulin Ratio (0.9-2) SARS-CoV-2 (PCR) (Negative) Influenza Type A (PCR) (Neg) Influenza Type B (PCR) (Neg) RSV (RT-PCR) (Neg) 01/11/22 01/10/22 01/10/22 Range/Units 05:16 19:52 18:35 WBC 6.82 (4.8-10.8) K/ul RBC 4.42 L (4.63-6.08) M/uL Hgb 13.8 L (14.0-18.0) g/dl Hct 40.8 (40.1-51.0) % MCV 92.3 (80.0-100.0) fL MCH 31.2 (25.0-34.0) pg MCHC 33.8 (32.0-36.0) g/dL RDW Std Deviation 51.7 H (36.4-46.3) fL RDW Coeff of Valentín 15.2 H (11.5-14.5) % Plt Count 189 (130-400) K/uL MPV 11.0 (9.4-12.4) fL Immature Gran % (Auto) % Neut % (Auto) % Lymph % (Auto) % [place] % (Auto) % Eos % (Auto) % Baso % (Auto) % Neut # (Auto) (1.4-6.5) K/uL Lymph # (Auto) (1.2-3.4) K/uL [place] # (Auto) (0.24-0.82) K/uL Eos # (Auto) (0-0.50) K/uL Baso # (Auto) (0-0.2) K/uL Immature Gran # (Auto) (0.00-0.02) K/uL PT (9.0-12.0) Seconds INR (0.9-1.1) APTT (21.0-31.0) Seconds PTT Ratio Sodium 136 (136-145) mmol/L Potassium 3.8 (3.5-5.1) mmol/L Chloride 106 (98-107) mmol/L Carbon Dioxide 21 (21-32) mmol/L Anion Gap 9 (3-11) BUN 10 (6-23) mg/dl Creatinine 1.13 (0.6-1.4) mg/dl Est Cr Clr Drug Dosing 71.5 ml/min Est GFR ( Amer) 79.7 ml/min Est GFR (Non-Af Amer) 68.8 ml/min BUN/Creatinine Ratio 8.8 L (10-20) Glucose 97 (70-99(Fasting)) mg/dl POC Glucose (70-99) mg/dl Calcium 9.0 (8.5-10.1) mg/dl Magnesium 1.6 L (1.7-2.4) mg/dl Total Bilirubin 1.0 (0.2-1.0) mg/dl AST 23 (13-39) U/L ALT 20 (7-52) U/L Alkaline Phosphatase 86 (34-104) U/L Troponin I High Sens 2.8 (0-20) pg/ml Total Protein 6.9 (6.0-8.3) gm/dl Albumin 4.1 (3.4-5.0) gm/dl Globulin 2.8 (2.5-4.0) gm/dl Albumin/Globulin Ratio 1.5 (0.9-2) SARS-CoV-2 (PCR) NEGATIVE (Negative) Influenza Type A (PCR) Negative (Neg) Influenza Type B (PCR) Negative (Neg) RSV (RT-PCR) Negative (Neg) 01/10/22 01/10/22 Range/Units 18:35 18:35 WBC 6.87 (4.8-10.8) K/ul RBC 4.92 (4.63-6.08) M/uL Hgb 15.3 (14.0-18.0) g/dl Hct 45.3 (40.1-51.0) % MCV 92.1 (80.0-100.0) fL MCH 31.1 (25.0-34.0) pg MCHC 33.8 (32.0-36.0) g/dL RDW Std Deviation 51.5 H (36.4-46.3) fL RDW Coeff of Valentín 15.3 H (11.5-14.5) % Plt Count 249 (130-400) K/uL MPV 11.0 (9.4-12.4) fL Immature Gran % (Auto) 0.1 % Neut % (Auto) 50.1 % Lymph % (Auto) 35.5 % [place] % (Auto) 7.3 % Eos % (Auto) 6.0 % Baso % (Auto) 1.0 % Neut # (Auto) 3.44 (1.4-6.5) K/uL Lymph # (Auto) 2.44 (1.2-3.4) K/uL [place] # (Auto) 0.50 (0.24-0.82) K/uL Eos # (Auto) 0.41 (0-0.50) K/uL Baso # (Auto) 0.07 (0-0.2) K/uL Immature Gran # (Auto) 0.01 (0.00-0.02) K/uL PT 14.0 H (9.0-12.0) Seconds INR 1.3 H (0.9-1.1) APTT 26.8 (21.0-31.0) Seconds PTT Ratio 1.0 Sodium (136-145) mmol/L Potassium (3.5-5.1) mmol/L Chloride (98-107) mmol/L Carbon Dioxide (21-32) mmol/L Anion Gap (3-11) BUN (6-23) mg/dl Creatinine (0.6-1.4) mg/dl Est Cr Clr Drug Dosing ml/min Est GFR ( Amer) ml/min Est GFR (Non-Af Amer) ml/min BUN/Creatinine Ratio (10-20) Glucose (70-99(Fasting)) mg/dl POC Glucose (70-99) mg/dl Calcium (8.5-10.1) mg/dl Magnesium (1.7-2.4) mg/dl Total Bilirubin (0.2-1.0) mg/dl AST (13-39) U/L ALT (7-52) U/L Alkaline Phosphatase (34-104) U/L Troponin I High Sens (0-20) pg/ml Total Protein (6.0-8.3) gm/dl Albumin (3.4-5.0) gm/dl Globulin (2.5-4.0) gm/dl Albumin/Globulin Ratio (0.9-2) SARS-CoV-2 (PCR) (Negative) Influenza Type A (PCR) (Neg) Influenza Type B (PCR) (Neg) RSV (RT-PCR) (Neg) Diagnostic Findings Chest X-Ray 01/10/22 18:40 XR chest 1V portable HISTORY: 61 years-old Male Stroke Like Symptoms acute strokelike symptoms COMPARISON: Chest CT 11/06/2021 TECHNIQUE: Portable AP view of the chest FINDINGS: Cardiac silhouette is enlarged. No pneumothorax, pleural effusion, airspace consolidation or overt pulmonary edema. Degenerative changes of the shoulders and spine. IMPRESSION: No acute process. ACT 112: Negative or not required by law. The above report was generated using voice recognition software. It may contain grammatical, syntax or spelling errors. Electronically signed by: Alexandre Hassan M.D. 01/10/2022 7:[address] 01/10/22 18:40 CT head/brain wo con CLINICAL HISTORY: 61 years-old Male with Stroke Like Symptoms. Acute strokelike symptoms TECHNIQUE: Multiple axial CT images of the head were obtained without contrast. A dose lowering technique was utilized adhering to the principles of ALARA. CT DOSE: 1612.45 mGy.cm COMPARISON: None. FINDINGS: No acute intracranial hemorrhage, midline shift, intracranial mass, hydrocephalus, territorial ischemia or abnormal extra-axial collection. Motion degraded exam. The study was then repeated 2 additional times. Mild involutional changes. Low-lying cerebellar tonsils. The calvarium is intact. Mucosal thickening of the paranasal sinuses, moderate within the left maxillary sinus with air-fluid level. Moderate mucosal thickening of the ethmoid air cells. Mastoid air cells are clear. IMPRESSION: 1. Motion degraded exam. No acute intracranial abnormality. 2. Moderate paranasal sinus disease with acute left maxillary sinusitis. ACT 112: Negative or not required by law. The above report was generated using voice recognition software. It may contain grammatical, syntax or spelling errors. Electronically signed by: Alexandre Hassan M.D. 01/10/2022 7:35 PM Brain MRI 01/11/22 08:00 MR brain wo/w con HISTORY: 61 years-old Male Headache, history of metastatic renal cancer; acute headache COMPARISON: MRV of same day, head CT 01/10/2022 TECHNIQUE: Multiplanar and multisequence MRI of the brain was obtained both with and without the use of 8.5 cc Gadavist FINDINGS: Degenerative changes of the imaged cervical spine. The midline structures appear unremarkable. There is a 3 mm focus of restricted diffusion noted within the left temporal lobe on image 10 series 6 with decreased signal on the ADC map. No acute or subacute territorial infarct. No acute intracranial hemorrhage, midline shift, abnormal extra axial collection or hydrocephalus. Mild T2/FLAIR hyperintense foci are noted throughout the white matter. Postcontrast images are motion degraded. No abnormal intra-axial or extra-axial enhancement identified. Cerebral venous sinuses and major arterial flow voids appear patent. Trace mastoid effusion. Moderate to severe mucosal thickening of the left maxillary sinus with air-fluid level. There is at least moderate mucosal thickening of the ethmoid air cells. The skull, orbits and soft tissues are unremarkable. IMPRESSION: 1. 3 mm focus of restricted diffusion within the left temporal lobe is suggestive of an acute versus subacute infarct. 2. Mild scattered T2/FLAIR hyperintense foci throughout the white matter are nonspecific and may represent chronic microvascular ischemic disease. 3. No abnormal intracranial enhancement. ACT 112: Negative or not required by law. The above report was generated using voice recognition software. It may contain grammatical, syntax or spelling errors. Dictated: 01/11/2022 2:10 PM Transcribed: 01/11/2022 2:48 PM Marina [id number] [email or web address] Electronically signed by: Alexandre Hassan M.D. 01/11/2022 3:06 PM Head/Brain Mag Res Venography 01/11/22 08:00 MR venography head wo con CLINICAL HISTORY: headache, malignancy COMPARISON STUDY: Head CT January 10, 2022. TECHNIQUE: Utilizing a 1.5 Roxann magnet and [id number] technique, unenhanced MRV of the head was obtained. FINDINGS: Please note that the MRI of the brain will be reported separately. Superior sagittal sinus is patent. 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 There is no evidence for dural sinus thrombosis on this examination. Straight sinus is patent. Transverse and sigmoid sinuses are patent. IMPRESSION: No evidence for dural sinus thrombosis. ACT 112: Negative or not required by law. Electronically signed by: Abe Fraire M.D. 01/11/2022 1:57 PM PG Care Time/CCT Total # of Minutes Spent Total Time Spent with Patient: Total time spent is greater than 50% in coordination of care (as documented) at patient's floor/unit and/or counseling patient: Coding Level of Care Code 30331 Subseq Hosp Care Lvl 3 Diagnoses Headache R51.9 CVA (cerebral vascular accident) I63.9 Hypertension I10 Benign localized prostatic hyperplasia with lower urinary tract symptoms (LUTS) N40.1 Hypothyroidism E03.9 Diabetes mellitus E11.9 Hypomagnesemia E83.42
--- NOTE | 2022-01-11 15:08 | Magnetic Resonance Report ---
MR brain wo/w con HISTORY: 61 years-old Male Headache, history of metastatic renal cancer; acute headache COMPARISON: MRV of same day, head CT 01/10/2022 TECHNIQUE: Multiplanar and multisequence MRI of the brain was obtained both with and without the use of 8.5 cc Gadavist FINDINGS: Degenerative changes of the imaged cervical spine. The midline structures appear unremarkable. There is a 3 mm focus of restricted diffusion noted within the left temporal lobe on image 10 series 6 with decreased signal on the ADC map. No acute or subacute territorial infarct. No acute intracranial hem orrhage, midline shift, abnormal extra axial collection or hydrocephalus. Mild T2/FLAIR hyperintense foci are noted throughout the white matter. Postcontrast images are motion degraded. No abnormal intr a-axial or extra-axial enhancement identified. Cerebral venous sinuses and major arterial flow voids appear patent. Trace mastoid effusion. Moderate to severe mucosal thickening of the left maxillary sinus with air-fluid level. There is at least mod erate mucosal thickening of the ethmoid air cells. The skull, orbits and soft tissues are unremarkabl e. IMPRESSION: 1. 3 mm focus of restricted diffusion within the left temporal lobe is suggestive of an acute versus subacute infarct. 2. Mild scattered T2/FLAIR hyperintense foci throughout the white matter are nonspecific and may repr esent chronic microvascular ischemic disease. 3. No abnormal intracranial enhancement. ACT 112: Negative or not required by law. The above report was generated using voice recognition software. It may contain grammatical, syntax o r spelling errors. Dictated: 01/11/2022 2:10 PM Transcribed: 01/11/2022 2:48 PM Marina [id number] ED_Jose L Electronically signed by: Alexandre Hassan M.D. 01/11/2022 3:06 PM
--- NOTE | 2022-01-11 15:39 | Consultation Report ---
DATE OF SERVICE: 01/11/2022. REASON FOR CONSULTATION: Severe headaches, history of metastatic renal cell carcinoma. HISTORY OF PRESENT ILLNESS: The patient is a pleasant 61-year-old gentleman known to me in CCP who h as a history of metastatic clear cell renal cell carcinoma. More recently, patient was noted to have progression of disease for which he started systemic therapy with pembrolizumab and axitinib about a month ago. Patient presented to the ED with worsening headaches. On presentation to the ED, his wi fe also noted that he seems slightly confused. CT head without contrast obtained while in the ER rev ealed no acute intracranial abnormality, but noted moderate paranasal sinus disease with acute left m axillary sinusitis. During my evaluation of the patient this morning, he stated that headaches had s ignificantly improved and his indicated that he was back to his baseline mental status. Denied nausea, vomiting or any other issues. ALLERGIES: IV IODINE/IODINATED CONTRAST MEDIA. HOME MEDICATIONS: 1. Multivitamins. 2. Gabapentin. 3. Tramadol. 4. Allopurinol. 5. Vitamin D3. 6. Oxycodone. 7. Tylenol. 8. Augmentin. 9. Axitinib 5 mg p.o. q.12 hours. 10. Levothyroxine. 11. Lisinopril. 12. Tamsulosin. 13. Vitamin C. 14. Vitamin B complex. PAST MEDICAL HISTORY: 1. Renal cell carcinoma with metastasis. 2. Diabetes mellitus. 3. Hypertension. 4. Hypothyroidism. 5. Osteoarthritis. 6. CKD stage III. PAST SURGICAL HISTORY: 1. Left nephrectomy. 2. Cholecystectomy. 3. Hernia repair. FAMILY HISTORY: Significant for metastatic melanoma in his sister and metastatic breast cancer in hi s mother. SOCIAL HISTORY: Denies smoking, alcohol and illicit drug use. REVIEW OF SYSTEMS: Negative except as noted above. PHYSICAL EXAMINATION: VITAL SIGNS: Blood pressure 134/83, heart rate of 87, respiratory rate 19, temperature 36.6, and oxy gen saturation 94% on room air. EYES: Were without conjunctivae erythema or icterus. NECK: No palpable masses or thyromegaly. RESPIRATORY: Lung sounds were clear bilaterally. CARDIOVASCULAR: Heart was regular rate and rhythm without significant murmur, gallops, or rubs. GASTROINTESTINAL: No palpable hepatosplenomegaly. ABDOMEN: Soft with normal bowel sounds. LYMPHATIC SYSTEM: No palpable peripheral lymphadenopathy. EXTREMITIES: Negative for edema. LABORATORY DATA: CBC from 01/11/2022 significant for white count of 6.82, hemoglobin of 13.8, hemato crit 40.8, MCV of 92.3, platelet count of 189,000. Chemistry significant for sodium of 134, potassiu m 3.9, chloride 107, bicarbonate 21, BUN 10, creatinine 1.09. IMAGING: CT head on 01/10/2022. Impression: 1. Motion degraded exam. No acute intracranial abnormality. 2. Moderate paranasal sinus disease with acute left maxillary sinusitis. ASSESSMENT AND PLAN: 1. Intractable headache. 2. Metastatic renal cell carcinoma. 3. Acute left maxillary sinusitis. Pleasant 61-year-old gentleman with metastatic renal cell carcinoma, initially diagnosed in 2014 for which he was most recently placed on axitinib and Keytruda. Patient presented with intractable heada ches. Headaches, possibly due to axitinib. Very low likelihood of breath given negative CT head. H eadaches likely multifactorial due to axitinib as well as acute left maxillary sinusitis. No indicat ion of reversible posterior leukoencephalopathy syndrome on imaging and based on clinical symptoms. We would recommend obtaining a brain MRI to rule out brain metastasis in the setting of progressive r enal cell carcinoma. If brain MRI was negative for metastasis, we will dose reduce axitinib 3 mg b.i .d. Recommend treating acute left maxillary sinusitis. Thank you for this consult. Oncology will follow the patient upon discharge from hospital. Please f eel free to call if you have any further questions. Job ID: [id number]
[2022-01-11] MEDS: ASPIRIN 81 MG ECTAB PO SCH (17:23)
[2022-01-11] MEDS ORDERED: SODIUM CHLORIDE 0.9% 1000ML 250 ML IV ONE ×2 (17:27→18:44)
[2022-01-11] MEDS: SODIUM CHLORIDE 0.9% 1000ML 1,000 ML IV SCH (17:36)
[2022-01-11] MEDS ORDERED: SODIUM CHLORIDE 0.9% 1000ML 500 ML IV ONE (17:57)
[2022-01-11] MEDS ORDERED: diphenhydrAMINE Capsule 25 MG CAP PO ONE (18:29)
[2022-01-11] MEDS: AMOXICILLIN/CLAVULANATE 875 MG TAB PO SCH (18:50)
[2022-01-12] MEDS: KETOROLAC TROMETHAMINE 15 MG/ML VIAL IV PRN ×2 (00:08→08:50)
[2022-01-12] MEDS: predniSONE 50 MG TAB PO SCH ×2 (02:26→09:30)
[2022-01-12] MEDS ORDERED: diphenhydrAMINE 50 MG/ML VIAL IV SCH (06:00)
[2022-01-12] MEDS: LEVOTHYROXINE SODIUM 75 MCG TABLET PO SCH (06:01)
[2022-01-12 06:06] LABS: Hematocrit (blood only) 44.3 % (40.1-51.0); Hemoglobin 14.8 g/dl (14.0-18.0); Mean Corpuscular Hgb Conc 33.4 g/dL (32.0-36.0); Mean Corpuscular Volume 92.7 fL (80.0-100.0); Mean Platelet Volume 11.4 fL (9.4-12.4); Platelet Count 227 K/uL (130-400); RDW Coefficient of Variation 15.4 % (11.5-14.5); RDW Standard Deviation 52.9 fL (36.4-46.3); Red Blood Count 4.78 M/uL (4.63-6.08); White Blood Count 8.28 K/ul (4.8-10.8)
[2022-01-12] MEDS: SODIUM CHLORIDE 0.9% 1000ML 1,000 ML IV SCH (06:06)
[2022-01-12 06:36] LABS: BUN Creatinine Ratio 9.6 (10-20); Calcium 8.8 mg/dl (8.5-10.1); Chol HDL Ratio 4.1 (0-5); Creatinine Clr Calc Pharmacy 62.5 ml/min; Est GFR (African American) 70.6 ml/min; Est GFR (Non-African American) 60.9 ml/min; Magnesium 1.8 mg/dl (1.7-2.4); Potassium 3.8 mmol/L (3.5-5.1)
[2022-01-12] MEDS ORDERED: OPTIRAY 300 500mL IV ONE (06:51)
[2022-01-12 06:58] LABS: Folate (Folic Acid) 22.26 ng/ml (>5.38)
--- NOTE | 2022-01-12 07:21 | CT Scan Report ---
HEAD CTA HISTORY: Left temporal lobe subacute cva TECHNIQUE: Multiaxial CT images of the head were performed both before and after the intravenous admi nistration of contrast to evaluate the major cerebral vessels. Maximum intensity projection images we re also obtained. A dose lowering technique was utilized adhering to the principles of ALARA. COMPARISON: Brain MRI 01/11/2022. FINDINGS: Moderate fluid level within the left maxillary sinus and partial opacification of the ethmo id air cells, unchanged. The subcentimeter left temporal lobe infarct seen on the prior brain MRI is not identified by this modality due to its size. The major dural venous sinuses are patent. Visualize d intracranial internal carotid arteries, distal vertebral arteries, and basilar artery are widely pa tent. There is no significant stenosis, occlusion, or aneurysm seen within the bilateral ACAs, MCAs, or bacteriology technician. IMPRESSION: 1. No significant stenosis, occlusion, or aneurysm within the [place]. 2. The subacute left temporal lobe infarct is not clearly identified due to its small size. 3. Paranasal sinus disease again noted. ACT 112: Negative or not required by law. Electronically signed by: Chris Gill M.D. 01/12/2022 7:19 AM
--- NOTE | 2022-01-12 08:04 | CT Scan Report ---
CT angio neck with con CLINICAL HISTORY: 61 years-old Male with subacute cva. Acute strokelike symptoms COMPARISON STUDY: CTA had of same day, brain MRI 01/11/2022 TECHNIQUE: Following the IV administration of 110 mL of Optiray, CT angiogram of the neck was perform ed from the aortic arch to the skull base. Images are reviewed in the axial, sagittal, and coronal pl anes. 3-D MIPS images are created and assessed. IV contrast was administered without complication. Al l measurements were calculated based on NASCET criteria. A dose lowering technique was utilized adhe ring to the principles of ALARA. FINDINGS: Three-vessel morphology of the thoracic aortic arch. There is patency of the innominate and imaged camara bclavian arteries. Atheromatous plaque of the common carotid arteries without significant stenosis on the right. There is 60% stenosis within the mid aspect of the left common carotid artery, image 135. Moderate atherosclerotic plaque of the carotid bulbs and proximal cervical segments of the internal carotid arteries results in less than 50% stenosis bilaterally. The internal carotid arteries are pat ent. Dominant left vertebral artery. Atherosclerotic plaque at the origin of the right vertebral nereida ry results in at least mild stenosis. Basilar artery is patent. Lung apices are clear. No pneumothorax. Unremarkable soft tissues. Moderate left maxillary sinus air- fluid level with moderate mucosal thickening of the ethmoid air cells. Degenerative changes of the sp ine. IMPRESSION: 1. Moderate atherosclerotic vascular disease. There is 60% stenosis involving the mid aspect of the l eft common carotid artery. 2. There is less than 50% stenosis of the carotid bulbs. 3. Approximately 50% stenosis at the origin of the right vertebral artery. 4. Acute left maxillary sinusitis. ACT 112: Negative or not required by law. The above report was generated using voice recognition software. It may contain grammatical, syntax o r spelling errors. Electronically signed by: Alexandre Hassan M.D. 01/12/2022 8:02 AM
[2022-01-12] MEDS: allopurinoL 100 MG TAB PO SCH (08:18)
[2022-01-12] MEDS: ASPIRIN 81 MG ECTAB PO SCH (08:18)
[2022-01-12] MEDS: GABAPENTIN 600 MG TAB PO SCH ×2 (08:18→13:57)
[2022-01-12] MEDS: AMOXICILLIN/CLAVULANATE 875 MG TAB PO SCH (08:18)
--- NOTE | 2022-01-12 08:19 | Hospitalist Progress Note ---
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 Recently found to have a spot on his pancreas which was biopsied at [facility] unfortunately revealing metastatic clear-cell RCC to the pancreas. Patient follows with hematologyoncology and was started on pembrolizumab and axitinib on 01/01/2022. Patient with no significant history of prior headache until approximately 1 month ago when he started to experience an intermittent headache. Over the last 3 to 4 days he has had increased severity of his headache. He is in significant pain, 10 out of 10 with associated photo and phonophobia. Pain LEFT-sided, stabbing and throbbing in nature. No focal neurological deficits. No fall. No seizure. Headache has minimally improved with management in the ERToradol, morphine, prochlorperazine Concerning elements include a relatively new headache with change in quality and a 61-year-old male with history of metastatic renal cell carcinoma. Concerning for possible medication side effect. Treatment with axitinib can increase risk of reversible posterior leukoencephalopathy syndrome (PRES). Blood pressure is elevated. Keytruda may also have the side effect of headache, less likely hypophysitis. Less concern for metastatic disease. Patient had a PET scan performed on 12/02/2021 which revealed the concerning pancreas mass. No FDG uptake in the head or neck. Headache improved upon evaluation 9/12 AM, mild frontal headache much improved Cognition returned to baseline per , does have some intermittent confusion at times but much improved CT head unremarkable on admit, however did note acute left maxillary sinusitis (nontender on exam) had been on augmentin for such [employer] --> will order to continue MRV NEGATIVE for thrombus MRI Brain however: 1. 3 mm focus of restricted diffusion within the left temporal lobe is suggestive of an acute versus subacute infarct. 2. Mild scattered T2/FLAIR hyperintense foci throughout the white matter are nonspecific and may represent chronic microvascular ischemic disease. 3. No abnormal intracranial enhancement. Discussed with on-call Neurology, suspected related to elevated BP, rec BP control, aspirin, check further imaging for completeness/lipid/a1c. If needed can be seen tomorrow Neurochecks, stroke scale Blood pressure control --> BP significantly elevated on admission /127 -Hydralazine 5mg IV Q6h, labetalol 10mg IV Q6 prn -25% goal reduction -Had been having good improvement, BP 137/87 this afternoon 01/11 but dropped to 103/71 and ordered multiple bolus for total 1L, continued NS @ 80cc/hr with BP 140/82 this morning Ordered protocol with prednisone/benadryl for contrast to check CTA Head/neck for further stroke work-up A1c/lipid panel pending Heme/onc consulted given prior concerns for medication adverse issue given recently started for metastatic disease 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 Typically only on lisinopril 20mg daily Significant HTN on arrival with BP 200/100s BP control with hydralazine, labetalol BP imprvoed to 137/87 this afternoon but dropped this evening -- see above, multiple boluses, placed flomax on hold last evening as well BP this morning stable, planned to resume lisinopril as placed on hold last evening Monitor BP (4) Benign localized prostatic hyperplasia with lower urinary tract symptoms (LUTS): Plan: Chronic. Patient follows with urology Monitor urine output -- unmeasured voids Continue Flomax 0.4 mg p.o. daily -- placed on hold last evening to prevent hypotension (5) Hypothyroidism: Plan: Chronic. Stable. With a normal TSH of 1.699 on 12/29/2021 Continue Synthroid 75mcg daily (6) Diabetes mellitus: Plan: Patient with diet-controlled diabetes with peripheral neuropathy. DM diet, BSG checks for 24 hours, a1c in AM however did have recent A1c this summer 5.6 Continue gabapentin 1200mg TID Check B12 in AM given memory issues prior to current admit as well (7) Hypomagnesemia: Plan: 1.5 on admit, IV replacement ordered 2.1 on repeat (8) B12 deficiency: Plan SCDs for DVT prophylaxis changed to full admit continued inpatient stay Admission and Anticipated Discharge Date Admission Date: January 11, 2022 Subjective eval this morning didn't get much sleep headache 2/10 BPs dropped last evening, improved with IV boluses reviewed imaging with neuro -- asa 81mg daily, low dose statin can be discussed with PCP but ok to not start patient prior on statins, can f/u. also discussed b12 def, prior was on metformin neuropathy at baseline some confusion this morning by staff, agitation by . got prednisone 50mg x 3 and Benadryl which increased agitation needing nicotine patch, frequently with dip in daily, encouraged cessation. Have home BP cuff, instructed to continue to monitor they said BP at office was 170-180s/110s last Tuesday and was to monitor at home prior to being brought in. discussed continue to monitor elevated pressures. per discussion with and patient, would like discharge today. will monitor progress through afternoon, ordered amlodipine 5mg x 1 now and monitor BP. If improved/stable afternoon will plan for d/c. Results & Data Results & Data ([facility]) Vital Signs (Past 12 Hours) Vital Signs Temp Pulse Pulse Resp BP Pulse Ox O2 Del Method 01/12/22 03:27 36.5 C 112 H 18 140/82 97 Room Air 01/12/22 00:39 81 01/11/22 23:04 36.6 C 112 H 20 126/79 95 Room Air PG Care Time/CCT Total # of Minutes Spent Total Time Spent with Patient: Total time spent is greater than 50% in coordination of care (as documented) at patient's floor/unit and/or counseling patient: Coding Diagnoses Headache R51.9 CVA (cerebral vascular accident) I63.9 Hypertension I10 Benign localized prostatic hyperplasia with lower urinary tract symptoms (LUTS) N40.1 Hypothyroidism E03.9 Diabetes mellitus E11.9 Hypomagnesemia E83.42 B12 deficiency E53.8
[2022-01-12] MEDS: lisinopril 20 MG TAB PO SCH (08:25)
[2022-01-12 08:32] LABS: Estimated Average Glucose 103 mg/dl; Hemoglobin A1C 5.2 % (4.5-5.6)
[2022-01-12] MEDS ORDERED: CYANOCOBALAMIN 1000 MCG/ML VIAL IM SCH (09:00)
[2022-01-12] MEDS: traMADol HCL 50 MG TABLET PO PRN ×2 (09:29→15:07)
[2022-01-12] MEDS ORDERED: NICOTINE 14 MG/24 HR PATCH TD SCH (10:45)
--- NOTE | 2022-01-12 12:24 | XCELERA ---
[id number]
[2022-01-12] MEDS ORDERED: amLODIPine BESYLATE 5 MG TAB PO ONE (12:30)
--- NOTE | 2022-01-12 13:05 | Discharge Summary ---
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 Patient has had a mild, intermittent headache for the last month. However, headache has increased in severity over the last 3 to 4 days. Patient is complaining of severe 10 out of 10 pain in his left head, throbbing and stabbing in nature. Possibly some associated photophobia and phonophobia. No unilateral rhinorrhea, tearing or conjunctival injection. Patient does not have a prominent history of prior headaches. He has been taking Tylenol daily for the last several days. They present to the ER today due to the extreme severity of the headache. Megan ent's also reported that he was beginning to become slightly confused. No slurred speech, focal numbness/tingling/weakness. No gait abnormality. No seizure or syncope. No trauma or falls. Patient has been on antibiotics for presumed sinusitis with purulent nasal drainage. In the ER patient afebrile, hypertensive otherwise hemodynamically stable. Patient in moderate distress secondary to pain. Patient is somewhat somnolent after medications administered in the ER. He is able to provide some history and participate with exam. Majority of history obtained from who is at bedside. ER course: Normal saline x1 L, morphine 6 mg IV +4 mg IV, Toradol 50 mg IV, Benadryl 25 mg IV, prochlorperazine, ceftriaxone 2 g Admission Exam Per Admitting Provider General: patient in moderate distress secondary to headache, somewhat sleepy after receiving morphine, arousable, answers questions appropriately and participates in exam but drifts off to sleep Skin: warm, dry, intact, no rashes or lesions HEENT: NC/AT, PERRL, EOMI -sluggish rightward and inferior gaze noted with left eye, anicteric sclera, conjunctiva without injection, external ear normal to inspection and nontender, nares patent, moist mucus membranes, dentition intact, no oropharyngeal lesions, neck supple, trachea midline, no LAD, no thyromegaly, no JVD, no papilledema noted on limited bedside ophthalmoscopic exam Heart: +S1/S2, regular, no m/r/g Lungs: equal air entry bilaterally, no rales/rhonchi/wheezes Abd: +BS, soft, NT/ND, no masses/organomegaly/ascites Ext: warm, 2+ pulses in UE/LE bilaterally, no clubbing/cyanosis or edema Neuro: nonfocal, intention tremor present, speech intact, no facial droop, moving all extremities on command with equal strength 5/5 Principal Diagnosis Stroke Discharge Exam General: WD/WN male sitting up in bed, NAD, at bedside HEENT: head normocephalic, atraumatic, sinuses NONTENDER to palpation, eyes with pupils equal and reactive, EOMI, trachea midline without deviation, mm slightly dry Resp: CTAB, no w/c/r, on room air CV: RRR, no m/r/g, no pitting edema or calf tenderness, pulses palpable GI: +BS, soft nontender no raya/no cva tenderness MSK/Neuro: moves all extremities, no focal deficits, no facial droop or slurred speech, CN intact grossly, strength intact bilaterally, baseline neuropathy b/l LE Psych: alert to person/place/time, pleasant and cooperative (intermittent forgetfulness but answering all questions appropriately) Discharge Data Allergies Allergy/AdvReac Type Severity Reaction Status Date / Time Iodinated Contrast Media Allergy Mild ITCHY Unverified 01/10/22 21:09 FOREARMS Consultations 01/10/22 20:21 ED Decision to Admit Stat 01/10/22 22:32 Consult Hematology Routine Ordered Studies Chest X-Ray 01/10/22 18:40 XR chest 1V portable HISTORY: 61 years-old Male Stroke Like Symptoms acute strokelike symptoms COMPARISON: Chest CT 11/06/2021 TECHNIQUE: Portable AP view of the chest FINDINGS: Cardiac silhouette is enlarged. No pneumothorax, pleural effusion, airspace consolidation or overt pulmonary edema. Degenerative changes of the shoulders and spine. IMPRESSION: No acute process. ACT 112: Negative or not required by law. The above report was generated using voice recognition software. It may contain grammatical, syntax or spelling errors. Electronically signed by: Alexandre Hassan M.D. 01/10/2022 7:[address] 01/10/22 18:40 CT head/brain wo con CLINICAL HISTORY: 61 years-old Male with Stroke Like Symptoms. Acute strokelike symptoms TECHNIQUE: Multiple axial CT images of the head were obtained without contrast. A dose lowering technique was utilized adhering to the principles of ALARA. CT DOSE: 1612.45 mGy.cm COMPARISON: None. FINDINGS: No acute intracranial hemorrhage, midline shift, intracranial mass, hydrocephalus, territorial ischemia or abnormal extra-axial collection. Motion degraded exam. The study was then repeated 2 additional times. Mild involutional changes. Low-lying cerebellar tonsils. The calvarium is intact. Mucosal thickening of the paranasal sinuses, moderate within the left maxillary sinus with air-fluid level. Moderate mucosal thickening of the ethmoid air cells. Mastoid air cells are clear. IMPRESSION: 1. Motion degraded exam. No acute intracranial abnormality. 2. Moderate paranasal sinus disease with acute left maxillary sinusitis. ACT 112: Negative or not required by law. The above report was generated using voice recognition software. It may contain grammatical, syntax or spelling errors. Electronically signed by: Alexandre Hassan M.D. 01/10/2022 7:35 PM Brain MRI 01/11/22 08:00 MR brain wo/w con HISTORY: 61 years-old Male Headache, history of metastatic renal cancer; acute headache COMPARISON: MRV of same day, head CT 01/10/2022 TECHNIQUE: Multiplanar and multisequence MRI of the brain was obtained both with and without the use of 8.5 cc Gadavist FINDINGS: Degenerative changes of the imaged cervical spine. The midline structures appear unremarkable. There is a 3 mm focus of restricted diffusion noted within the left temporal lobe on image 10 series 6 with decreased signal on the ADC map. No acute or subacute territorial infarct. No acute intracranial hemorrhage, midline shift, abnormal extra axial collection or hydrocephalus. Mild T2/FLAIR hyperintense foci are noted throughout the white matter. Postcontrast images are motion degraded. No abnormal intra-axial or extra-axial enhancement identified. Cerebral venous sinuses and major arterial flow voids appear patent. Trace mastoid effusion. Moderate to severe mucosal thickening of the left maxillary sinus with air-fluid level. There is at least moderate mucosal thickening of the ethmoid air cells. The skull, orbits and soft tissues are unremarkable. IMPRESSION: 1. 3 mm focus of restricted diffusion within the left temporal lobe is suggestive of an acute versus subacute infarct. 2. Mild scattered T2/FLAIR hyperintense foci throughout the white matter are nonspecific and may represent chronic microvascular ischemic disease. 3. No abnormal intracranial enhancement. ACT 112: Negative or not required by law. The above report was generated using voice recognition software. It may contain grammatical, syntax or spelling errors. Dictated: 01/11/2022 2:10 PM Transcribed: 01/11/2022 2:48 PM [place] [id number] [facility] Electronically signed by: Alexandre Hassan M.D. 01/11/2022 3:06 PM Head/Brain Mag Res Venography 01/11/22 08:00 MR venography head wo con CLINICAL HISTORY: headache, malignancy COMPARISON STUDY: Head CT January 10, 2022. TECHNIQUE: Utilizing a 1.5 Roxann magnet and [id number] technique, unenhanced MRV of the head was obtained. FINDINGS: Please note that the MRI of the brain will be reported separately. Superior sagittal sinus is patent. 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 There is no evidence for dural sinus thrombosis on this examination. Straight sinus is patent. Transverse and sigmoid sinuses are patent. IMPRESSION: No evidence for dural sinus thrombosis. ACT 112: Negative or not required by law. Electronically signed by: Abe Fraire M.D. 01/11/2022 1:57 PM Neck CTA 01/11/22 15:41 CT angio neck with con CLINICAL HISTORY: 61 years-old Male with subacute cva. Acute strokelike symptoms COMPARISON STUDY: CTA had of same day, brain MRI 01/11/2022 TECHNIQUE: Following the IV administration of 110 mL of Optiray, CT angiogram of the neck was performed from the aortic arch to the skull base. Images are reviewed in the axial, sagittal, and coronal planes. 3-D MIPS images are created and assessed. IV contrast was administered without complication. All measurements were calculated based on NASCET criteria. A dose lowering technique was utilized adhering to the principles of ALARA. FINDINGS: Three-vessel morphology of the thoracic aortic arch. There is patency of the innominate and imaged subclavian arteries. Atheromatous plaque of the common carotid arteries without significant stenosis on the right. There is 60% stenosis within the mid aspect of the left common carotid artery, image 135. Moderate atherosclerotic plaque of the carotid bulbs and proximal cervical segments of the internal carotid arteries results in less than 50% stenosis bilaterally. The internal carotid arteries are patent. Dominant left vertebral artery. Atherosclerotic plaque at the origin of the right vertebral artery results in at least mild stenosis. Basilar artery is patent. Lung apices are clear. No pneumothorax. Unremarkable soft tissues. Moderate left maxillary sinus air-fluid level with moderate mucosal thickening of the ethmoid air cells. Degenerative changes of the spine. IMPRESSION: 1. Moderate atherosclerotic vascular disease. There is 60% stenosis involving the mid aspect of the left common carotid artery. 2. There is less than 50% stenosis of the carotid bulbs. 3. Approximately 50% stenosis at the origin of the right vertebral artery. 4. Acute left maxillary sinusitis. ACT 112: Negative or not required by law. The above report was generated using voice recognition software. It may contain grammatical, syntax or spelling errors. Electronically signed by: Alexandre Hassan M.D. 01/12/2022 8:02 AM Head CTA 01/12/22 06:00 HEAD CTA HISTORY: Left temporal lobe subacute cva TECHNIQUE: Multiaxial CT images of the head were performed both before and after the intravenous administration of contrast to evaluate the major cerebral vessels. Maximum intensity projection images were also obtained. A dose lowering technique was utilized adhering to the principles of ALARA. COMPARISON: Brain MRI 01/11/2022. FINDINGS: Moderate fluid level within the left maxillary sinus and partial opacification of the ethmoid air cells, unchanged. The subcentimeter left temporal lobe infarct seen on the prior brain MRI is not identified by this modality due to its size. The major dural venous sinuses are patent. Visualized intracranial internal carotid arteries, distal vertebral arteries, and basilar artery are widely patent. There is no significant stenosis, occlusion, or aneurysm seen within the bilateral ACAs, MCAs, or cornice maker. IMPRESSION: 1. No significant stenosis, occlusion, or aneurysm within the [place]. 2. The subacute left temporal lobe infarct is not clearly identified due to its small size. 3. Paranasal sinus disease again noted. ACT 112: Negative or not required by law. Electronically signed by: Chris Gill M.D. 01/12/2022 7:19 AM 01/12 ECHOCARDIOGRAM Left ventricular systolic function is normal. No regional wall motion abnormalities. There is borderline concentric left ventricular hypertrophy. Ejection Fraction = 60-65% Injection of contrast documented no interatrial shunt. No study for comparison. 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 Recently found to have a spot on his pancreas which was biopsied at [facility] unfortunately revealing metastatic clear-cell RCC to the pancreas. Patient follows with hematologyoncology and was started on pembrolizumab and axitinib on 01/01/2022. Patient with no significant history of prior headache until approximately 1 month ago when he started to experience an intermittent headache. Over the last 3 to 4 days he has had increased severity of his headache. He was in significant pain, 10 out of 10 with associated photo and phonophobia. Pain reported LEFT-sided, stabbing and throbbing in nature on admission. No focal neurological deficits. No fall. No seizure. Initially minimally improved with Toradol/morphine/prochlorperazine Relatively new headache with change in quality and a 61-year-old male with history of metastatic renal cell carcinoma. * Initially concerning for possible medication side effect. Treatment with axitinib can increase risk of reversible posterior leukoencephalopathy syndrome (PRES). Patient had a PET scan performed on 12/02/2021 which revealed the concerning pancreas mass. 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 3 mm focus of restricted diffusion within the left temporal lobe is suggestive of an acute versus subacute infarct. 2. Mild scattered T2/FLAIR hyperintense foci throughout the white matter are nonspecific and may represent chronic microvascular ischemic disease. 3. No abnormal intracranial enhancement. Discussed with on-call Neurology, suspected related to elevated BP, rec BP control, aspirin 81mg daily CTA Head/neck negative for significant abnormality causing issue --without [place] abn, neck does note 60% stenosis mid aspect of L common carotid, 50% stenosis origin of Rt vertebral artery ECHO w/o shunt, no wma A1c 5.2 Lipid panel acceptable, no need for statin per discussion with neurology. Can f/u PCP, if added, would use LOW dose statin BP control --> reports had been monitoring at home and was going to start medications (BPs 180-190s over 100-110 at home) but then developed worsening headache over the weekend during presentation for acute stroke --> Added amlodipine 5mg daily given BP , was going to continue usual lisinopril 20mg, but given prior elevations and continued elevation (however note did get 100mg prednisone), decision to increase lisinopril to 30mg given prior elevated BPs reported by To monitor BP at home/alert PCP of continued elevations/worsening headache Headache 06/11 frontal left prior to d/c --> controlled with Tylenol Heme/onc consulted given medication SE including headache --> patient to decrease his keytruda to 3mg BID, rx sent. F/u outpatient PT/OT/speech consulted while inpatient (2) Headache: presentation with acute headache, acute/subacute CVA as above (3) Hypertension: Prior reports well controlled, however discussion with patient's as patient with elevated BPs to 190s/100-110s systolically over past two weeks, they were to have f/u outpatient prior to coming into ER for acute/subacute stroke. Typically only on lisinopril 20mg daily Permissive HTN and BP did drop 01/11 requiring multiple IVF bolus to maintain MAP closer to 100, however Bps still elevated prior to d/c (did get steroids to prevent issues w/ contrast for CT of note) New rx for amlodipine 5mg daily Monitor BPs at home, alert PCP if continued elevations/headache symptoms and stress reduction/tobacco cessation encouraged Systolic BP 165 prior to d/c but diastolic 94, however did get extra dose 10mg lisinopril prior to discharge and increased home lisinopril to 30mg daily prior to discharge (4) Benign localized prostatic hyperplasia with lower urinary tract symptoms (LUTS): Chronic. Patient follows with urology continued flomax (held evening 01/11 to prevent hypotension) (5) Hypothyroidism: Chronic. Stable. With a normal TSH of 1.699 on 12/29/2021 Continued Synthroid 75mcg daily (6) Diabetes mellitus: Patient with diet-controlled diabetes with peripheral neuropathy. A1c 5.2 on AM labs B12 checked due to neuropathy, LOW --> IM replacement in patient, continue 1000mcg daily outpatient (of note, was previously on metfomin in the past, ?if from diet or med use prior, no alcohol in >10 years) continued usual gabapentin 1200mg TID (7) Hypomagnesemia: 1.5 on admit, IV replacement ordered, wnl on repeat (8) B12 deficiency: checked due to neuropathy B12 low at 160 IM dose while inpatient given, rx for 1000mcg daily at discharge Of note, patient with some confusion reported by nursing/hallucinations/agitation, however was AOx4 for myself, answering questi ons appropriately Suspect related to medications as was given prednisone 50mg x 2 and benadryl for contrast allergy (no reaction noted) and did not sleep well at all overnight 01/11-01/12 Discussed at length with patient and at bedside who felt at baseline (along w/ B12 deficiency noted) and felt comfortable for discharge home and not continued monitoring overnight. Patient's has BP cuff at home, recommended continuing to monitor BP at home and close f/u with PCP. Encouraged cutting back/avoiding chewing tobacco to decrease risk. Also to decrease keytruda to 3mg BID per Dr Zheng. Total Time Total Time Spent Total Time Spent (In Minutes): 65 Discharge Plan Discharge Items Patient Disposition: Home - Self-Care Reason For Visit: CVA Discharge Diagnosis: Stroke Activity: As commented below Driving/Machine Use: no driving until seen in follow up Non-emergency contact: Primary Care Provider and Oncologist Call non-emergency contact if: you have any medication questions, your symptoms worsen, your pain is not controlled and you have a fever Follow-up/Referrals: Don Crenshaw, [Primary Care Provider] - 01/19/22 10:10 am (JAN 19 @ 10:10 AM W RESIDENT) Jessenia Zheng MD [Physician] - Diet: Heart Healthy Addtl Attending Provider Instructions: You have been hospitalized for a headache. CT scan of the head was negative, but the MRI obtained did show a small stroke in the left temporal region. Further imaging did not show any significant abnormalities that would cause this. An echocardiogram (ultrasound of the heart) was completed which did NOT show evidence for any shunts, and you have not had arrthymia on monitor. This stroke is likely due to elevated blood pressures as discussed with Neurologist while in the hospital and you will need to have better blood pressure control at home. As you were not previously on aspirin, this has been initiated as a baby aspirin and you should continue this EVERYDAY. Thankfully, this area typically does not cause issues with balance/coordination and weakness, and you were evaluated by therapy with recommendations to return home. BLOOD PRESSURE CONTROL IS VERY IMPORTANT. We have improved blood pressure control with IV medications and have started amlodipine 5mg daily to help with better blood pressure control. You should continue your lisinopril, but this has been increased to 30mg daily but this may need increased as an outpatient if blood pressures remain elevated. Please monitor pressures at home and alert your primary care if top number >170 or bottom number >90 as they may have you take an extra dose of medication. Ideally, the goal would be to get your blood pressure in the 130-140s/70-80s over the next several days. Dr Zheng from oncology has been consulted and recommended reducing your axitinib to 3mg twice a day. You should continue treatment with the Augmentin for the sinusitis. We also checked a B12 level which can contributed to memory/balance/neuropathy issues and this was LOW. You were given a shot while in the hospital and should continue daily supplementation at discharge. It is strongly encouraged to quite smoking/chewing tobacco. Please follow up with your primary care provider in the next 7-10 days to monitor your progress. Please return to the ER with any worsening headache, confusion, altered mental status, chest pain, shortness of breath, or for any other symptoms concerning for you. It has been a pleasure being a part of the medical team providing for you while you have been in the hospital. Addtl Relocation Specialist Provider Instructions: Risk Factors for Stroke: You can reduce your chances of stroke by working with your medical provider to adopt a healthy lifestyle. Some specific ways to lower your chance of stroke are: * If you are a smoker, now is the time to stop smoking cigarettes * If you are diabetic, improve the control of your blood sugars * Avoid excessive amounts of alcohol * Control high blood pressure * Lose weight if you are overweight * Be sure to lead an active lifestyle * Eat a healthy diet low in salt, cholesterol and fat You should know about other risk factors for stroke that you are unable to control. These include: * Age 55 years or older * Male gender * Certain racial groups: , or / * Family History of Stroke, Mini stroke or Heart Attack * Sickle Cell Disease Follow Up: It is important for you to keep your follow up appointments with your medical provider. Who to Call and When: Medical Emergencies: Call 911 immediately if you experience any of the following warning signs and symptoms of Stroke: * Sudden numbness or weakness of the face, arm or leg, especially on one side of the body * Sudden confusion, trouble speaking or understanding * Sudden trouble seeing in one or both eyes * Sudden trouble walking, dizziness, loss of balance or coordination * Sudden severe headache with no cause Do not delay calling 911 if you experience any warning signs or symptoms of a stroke. Delay in seeking medical attention may affect what treatments can be given to you. . Pending Studies at Discharge: No Stand-Alone Forms: My [facility] Medications and DC Order Prescriptions: New aspirin 81 mg Tablet,Delayed Release (Dr/Ec) 81 mg PO QAM Qty: 30 0RF cyanocobalamin (vitamin B-12) 1,000 mcg capsule 1,000 mcg PO DAILY Qty: 30 0RF amlodipine 5 mg tablet 5 mg PO DAILY Qty: 30 0RF axitinib 1 mg tablet 3 mg PO BID 30 Days Qty: 180 0RF Continued multivitamin tablet 1 tab PO QAM gabapentin 600 mg tablet 1,200 mg PO TID Qty: 90 tramadol 50 mg tablet 100 mg PO QID MDD 400 MG/24 HOURS PRN (Reason: Pain) diphenoxylate-atropine 2.5-0.025 mg tablet 1 tab PO QID acetaminophen [Tylenol Extra Strength] 500 mg Tablet 1,000 mg PO Q6H PRN (Reason: Pain) levothyroxine 75 mcg tablet 75 mcg PO DAILY tamsulosin 0.4 mg capsule 0.4 mg PO DAILY vitamin B complex Tablet 1 tab PO DAILY amoxicillin-pot clavulanate 875-125 mg tablet 1 tab PO Q12 Rx Instructions: filled 01/08/22 for 10 day supply Tart Gomez 53-659-50-75-20 mg Capsule 1 cap PO DAILY Keytruda 25 mg/mL Solution 0 mg IV .[id number] allopurinol 100 mg tablet 150 mg PO DAILY cholecalciferol (vitamin D3) [Vitamin D3] 25 mcg (1,000 unit) Capsule 25 mcg PO DAILY Tart Gomez Extract 1,000 mg Capsule 1,000 mg PO DAILY oxycodone 5 mg tablet 5 mg PO Q6H PRN (Reason: pain) Qty: 10 0RF Rx Instructions: Initial Treatment Changed lisinopril 20 mg tablet 30 mg PO QAM Qty: 45 0RF Discontinued Inlyta 5 mg Tablet 5 mg PO Q12H Discharge Orders: Discharge Order (Routine); Ordered 01/12/22 Ordered By: Lyudmila Morgan Admission Data Admit Date/Time: 01/11/22 17:49 Attending Provider: Vladimir Beltre Admit Provider: Leeann Marte Primary Care Provider: Don Crenshaw Other Providers: Leeann Marte ; Jessenia Zheng Other Interventions: Discharge Summary Assessment (RN) Last Done: 01/12/22 15:28 Coding Level of Care Code D/C DAY MANAGEMENT >30 MINS Diagnoses CVA (cerebral vascular accident) I63.9 Headache R51.9 Hypertension I10 Benign localized prostatic hyperplasia with lower urinary tract symptoms (LUTS) N40.1 Hypothyroidism E03.9 Diabetes mellitus E11.9 Hypomagnesemia E83.42 B12 deficiency E53.8
--- NOTE | 2022-01-12 14:09 | Electrocardiogram Report ---
Test Reason : Blood Pressure : / mmHG Vent. Rate : 109 BPM Atrial Rate : 109 BPM P-R Int : 198 ms QRS Dur : 088 ms QT Int : 340 ms P-R-T Axes : 041 005 037 degrees QTc Int : 457 ms Sinus tachycardia T wave abnormality, consider anterior ischemia Abnormal ECG When compared with ECG of 10-JAN-2022 18:54, Vent. rate has increased BY 40 BPM Nonspecific T wave abnormality now evident in Inferior leads Confirmed by Santos Johnson ([id number]) on 01/12/2022 2:09:02 PM Referred By: REFERRED SELF Confirmed By:Santos Johnson
[2022-01-12] MEDS ORDERED: lisinopril 10 MG TAB PO ONE (14:54)
[2022-01-12] MEDS ORDERED: predniSONE 50 MG TAB PO SCH (18:00)
--- NOTE | 2022-02-11 11:48 | Coding Query ---
A supporting diagnosis is required for the test/procedure performed on this patient in order for us to be reimbursed by the patient's insurance. Please provide a supporting diagnosis for the following test/procedure listed below next to the test name along with your signature. *If there is no additional diagnosis for this patient that would support the following test/procedure please document that below next to the test/procedure. Test(s)/Procedure(s) that require a supporting diagnosis: Headache and confusion rule out CVA * [id number] MRA HEAD, NECK DIAGNOSIS: DATE OF SERVICE: 01/11/22 Provider Signature: Date: Thank you Jhoan Blevins [facility] Information Management Once completed, please kindly fax back to [phone] For questions please call [phone] [facility]
== END 2022-01-12 16:08 | disposition home or self-care (01) ==
LOC: 4W 18:02 → ED 18:02 → SUATTDRO 20:59 → 4W 22:04

== ENCOUNTER 2022-02-11 09:51 | Inpatient (IN) ==
[2022-02-11] MEDS ORDERED: SODIUM CHLORIDE 0.9% 1000ML 1,000 ML IV SCH (10:30)
[2022-02-11 10:43] LABS: Basophils # (auto) 0.07 K/uL (0-0.2); Basophils % (auto) 0.4 %; Eosinophils # (auto) 0.03 K/uL (0-0.50); Eosinophils % (auto) 0.2 %; Hematocrit (blood only) 51.9 % (40.1-51.0); Hemoglobin 17.9 g/dl (14.0-18.0); Immature Granulocytes # (auto) 0.06 K/uL (0.00-0.02); Immature Granulocytes % (auto) 0.4 %; Lymphocytes # (auto) 1.99 K/uL (1.2-3.4); Lymphocytes % (auto) 11.8 %; Mean Corpuscular Hemoglobin 31.3 pg (25.0-34.0); Mean Corpuscular Hgb Conc 34.5 g/dL (32.0-36.0); Mean Corpuscular Volume 90.7 fL (80.0-100.0); Monocytes # (auto) 0.94 K/uL (0.24-0.82); Monocytes % (auto) 5.6 %; Neutrophils # (auto) 13.76 K/uL (1.4-6.5); Neutrophils % (auto) 81.6 %; Platelet Count 350 K/uL (130-400); RDW Standard Deviation 46.9 fL (36.4-46.3); Red Blood Count 5.72 M/uL (4.63-6.08); White Blood Count 16.85 K/ul (4.8-10.8)
--- NOTE | 2022-02-11 10:45 | XRay Report ---
XR chest 1V portable HISTORY: 61 years-old Male Sepsis acute sepsis COMPARISON: Chest radiograph 01/10/2022 TECHNIQUE: AP view of the chest FINDINGS: Cardiomediastinal and hilar silhouettes are within normal limits. The lungs are hypoinflated. There i s no pneumothorax, pleural effusion, airspace consolidation or overt pulmonary edema. Bones of the ch est appear grossly intact. IMPRESSION: Hypoinflation without acute process. ACT 112: Negative or not required by law. The above report was generated using voice recognition software. It may contain grammatical, syntax o r spelling errors. Electronically signed by: Alexandre Hassan M.D. 02/11/2022 10:43 AM
[2022-02-11 11:16] LABS: INR 1.5 (0.9-1.1); Prothrombin Time 15.2 Seconds (9.0-12.0)
[2022-02-11 11:17] LABS: Troponin I High Sensitivity 6.8 pg/ml (0-20)
[2022-02-11 11:26] LABS: Albumin Level 3.8 gm/dl (3.4-5.0); BUN Creatinine Ratio 8.5 (10-20); Bilirubin Direct 0.1 mg/dl (0-0.2); Bilirubin,Total 0.7 mg/dl (0.2-1.0); Calcium 9.6 mg/dl (8.5-10.1); Creatinine Clr Calc Pharmacy 19.6 ml/min; Est GFR (African American) 16.6 ml/min; Est GFR (Non-African American) 14.4 ml/min; Magnesium 1.7 mg/dl (1.7-2.4); Potassium 4.5 mmol/L (3.5-5.1); Total Protein 6.9 gm/dl (6.0-8.3)
[2022-02-11] MEDS ORDERED: CEFEPIME 2,000 MG/20 ML VIAL IV STA (11:38)
--- NOTE | 2022-02-11 11:47 | CT Scan Report ---
CT OF THE CERVICAL SPINE WITHOUT CONTRAST CLINICAL HISTORY: Trauma. COMPARISON STUDY: CTA of the neck January 12, 2022. TECHNIQUE: Helical axial images of the cervical spine were obtained without IV contrast. Sagittal a nd coronal reconstructions were viewed. Automated exposure control was utilized for the study. A do se lowering technique was utilized adhering to the principles of ALARA. FINDINGS: Alignment of the cervical spine is anatomic. Vertebral body heights are maintained. No acut e cervical spine fracture or subluxation is present. There is no prevertebral edema. Facet joints are intact. Moderate multilevel disc space narrowing, osteophytosis and facet arthrosis within the cerv ical spine is noted. Appearance of the cervical spine is unchanged since CT of January 12, 2022. IMPRESSION: No acute cervical spine fracture or subluxation. ACT 112: Negative or not required by law. Electronically signed by: Abe Fraire M.D. 02/11/2022 11:44 AM
[2022-02-11] MEDS ORDERED: SODIUM CHLORIDE 0.9% 1000ML 1,000 ML IV ONE ×2 (11:52)
--- NOTE | 2022-02-11 11:54 | CT Scan Report ---
HEAD CT NONCONTRAST CT DOSE: HISTORY: Headache. Fall. trauma TECHNIQUE: Multiaxial CT images of the head were performed without the use of intravenous contrast. A utomated exposure control was utilized for this study. A dose lowering technique was utilized adheri ng to the principles of ALARA. Comparison: Head CT 01/12/2022. Findings: Mild mucosal thickening within the ethmoid air cells. The mastoid air cells are clear. The calvarium and skull base are intact. The ventricles and sulci are within normal limits. There is no m ass, hematoma, midline shift, or acute infarct. Impression: No acute intracranial abnormality. ACT 112: Negative or not required by law. Electronically signed by: Chris Gill M.D. 02/11/2022 11:52 AM
[2022-02-11] MEDS ORDERED: MAGNESIUM SULFATE / D5W 1 GM/100 ML BAG IV STA (12:08)
--- NOTE | 2022-02-11 13:23 | CT Scan Report ---
CT abd pelvis wo con CLINICAL HISTORY: new pérez, hypotension TECHNIQUE: Helical axial images of the abdomen and pelvis were obtained. Automated dose lowering tech niques and/or adjustment according to patient size were utilized for this exam. This exam was perfor med without intravenous contrast. CT DOSE: 858.19 mGycm COMPARISON: Comparison is made to CT abdomen pelvis 11/18/2021 FINDINGS: Lower chest: Moderate atherosclerotic disease is seen in the coronary arteries. Partial visualizatio n of pulmonary nodules, similar in extent to prior exam. Liver: Unremarkable. No focal lesions are seen. Gallbladder and biliary tree: Patient is status post cholecystectomy. Unchanged appearance of calcifi c densities in the gallbladder fossa. Otherwise the biliary ducts are unremarkable. Pancreas: Unremarkable, no focal lesions. Previously noted pancreatic soft tissue nodule is not well seen due to noncontrast technique. Spleen: Unremarkable. Adrenals: Unremarkable. Kidneys and ureters: Patient is status post left nephrectomy. Right perinephric stranding is seen. So ft tissue thickening is seen about surgical sutures, unchanged from prior exam. Bladder: Diffuse homogeneous wall thickening is seen. Reproductive organs: Prostatic calcifications are seen which may represent prior hemorrhage or granul omatous disease. Bowel: Unremarkable appearance of the bowel. The appendix is normal. A hiatal hernia is seen. The sma ll bowel is nondilated however there is possible mucosal thickening. Lymph nodes Retroperitoneal: Unremarkable. Pelvic: Unremarkable. Mesenteric: Unremarkable. Peritoneum: Normal. Vessels: Atherosclerotic calcifications are seen. Abdominal wall: Right fat-containing inguinal hernia. Bones: Degenerative changes in the visualized spine. IMPRESSION: 1. No acute abnormality and in particular no evidence of small bowel obstruction. Small bowel may de monstrate mild mucosal thickening, clinical correlation for possible enteritis is recommended. 2. Status post left nephrectomy with no abnormal soft tissue thickening in the nephrectomy bed. 3. Status post cholecystectomy. 4. Bladder wall thickening likely secondary to chronic outlet obstruction. 5. Stable appearance of pulmonary nodules were visualized. ACT 112: Negative or not required by law. Electronically signed by: Alexys Sanabria M.D. 02/11/2022 1:22 PM
--- NOTE | 2022-02-11 13:39 | Emergency Department Note ---
History of Present Illness General Chief complaint: Weakness Stated complaint: syncope Time Seen by Provider: 02/11/22 10:18 Source: patient and EMS Mode of arrival: EMS Limitations: no limitations History of Present Illness Provider complaint: Weakness, nausea Maximum Pain Intensity: 5 This is a 61-year-old male presents emerged department via EMS due to concern for increased weakness, nausea, and fall. 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 He has been treating his cancer for 8 years. Patient receives chemotherapeutic infusions every 6 weeks per family who presented to bedside. Patient was also taking a pill however due to concern for nausea and side effects this was stopped on Tuesday. Patient follows with Dr. Zheng locally. Patient denies fevers or chills, states he has had minimal oral intake over the last 2 to 3 days and is felt increasingly weak and lightheaded particularly with standing and walking. Patient noted to be hypotensive by EMS, and was started on IV fluids. Patient denies chest pain, abdominal pain, back pain, headaches, shortness of breath. Patient states he has not had vomiting with the nausea. He denies change in urine or stools. Patient states he does typically take medication for high blood pressure. She states he has still been taking these with the exception of this morning. Home Medications Medication Instructions Recorded Confirmed Type gabapentin 600 mg tablet 1,200 mg PO TID #90 tabs 10/27/20 02/11/22 History tramadol 50 mg tablet 100 mg PO QID 10/27/20 02/11/22 History allopurinol 100 mg tablet 150 mg PO DAILY 01/31/21 02/11/22 History cholecalciferol (vitamin D3) 25 25 mcg PO DAILY 01/31/21 02/11/22 History mcg (1,000 unit) capsule (Vitamin D3) acetaminophen 500 mg tablet 1,000 mg PO Q6H PRN Pain 01/10/22 02/11/22 History (Tylenol Extra Strength) diphenoxylate-atropine 2.5 1 tab PO QID PRN Diarrhea 01/10/22 02/11/22 History mg-0.025 mg tablet levothyroxine 75 mcg tablet 75 mcg PO DAILY 01/10/22 02/11/22 History pembrolizumab 25 mg/mL intravenous 0 mg IV .[id number] 01/10/22 02/11/22 History solution (Keytruda) amlodipine 5 mg tablet 5 mg PO DAILY #30 tabs 01/12/22 02/11/22 Rx aspirin 81 mg tablet,delayed 81 mg PO QAM #30 tabs 01/12/22 02/11/22 Rx release cyanocobalamin (vitamin B-12) 1,000 mcg PO DAILY #30 caps 01/12/22 02/11/22 Rx 1,000 mcg capsule lisinopril 20 mg tablet 30 mg PO QAM #45 tabs 01/12/22 02/11/22 Rx axitinib 1 mg tablet (Inlyta) 3 mg PO BID 02/11/22 02/11/22 History rosuvastatin 10 mg tablet 10 mg PO DAILY 02/11/22 02/11/22 History Allergies Allergy/AdvReac Type Severity Reaction Status Date / Time Iodinated Contrast Media AdvReac Mild ITCHY Verified 02/11/22 14:21 FOREARMS Past Med/Surg History Medical History (Updated 02/13/22 @ 15:59 by Kim Song DO) Acquired claw toe of right foot Arthritis of knee Back pain Bilateral lung cancer Callus Claustrophobia Diabetes mellitus with neuropathy Dyslipidemia Gross hematuria Hernia Hip pain, right Hypertension Hypothyroidism Nephrolithiasis Osteoarthritis Pain in both feet Sacroiliac joint pain Sacroiliitis Solitary right kidney Stage 3b chronic kidney disease Tobacco abuse Vitamin D deficiency Surgical History H/O left nephrectomy History of cholecystectomy History of hernia repair History of meniscectomy of left knee History of vasectomy Family History Father Hearing loss Lung disease Mother Cancer Aortic aneurysm Breast cancer Myocardial infarction Other No family history of adverse response to anesthesia No family history of bleeding disorder Social History Smoking Status: Never smoker Tobacco Type: Cigarettes Second Hand Exposure: No; Hx Alcohol Use: No Hx Substance Use: No Preferred Language: Albanian Communication Ability: Effective Management Associate Required: No Beliefs That Will Affect Care: None marital status: Current Living Situation: Spouse current occupational status: retired 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; 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 [employer] Other Information That Helps Us Care for You: No Feels Safe at Home: Yes Safety Concerns: Feels Safe At This Time Assistive Devices: Glasses and Walker Review of Systems A total of 10 systems reviewed and were otherwise negative All systems reviewed & are unremarkable except as noted in HPI & below Physical Exam Vital Signs Vital Signs - 24 hr 02/11/22 10:19 02/11/22 09:52 02/11/22 09:53 Temperature 34.6 C L Temperature Source Oral Pulse Rate 76 88 Pulse Rate [Apical] Pulse Rate from SpO2 Sensor Respiratory Rate 16 14 Respiratory Effort / Characteristics Non-Labored Spontaneous Respiratory Depth Normal Respiratory Pattern Regular Blood Pressure 76/42 L 69/56 L Blood Pressure [Right Arm] Blood Pressure Mean 53 60 Blood Pressure Mean [Right Arm] Pulse Oximetry 96 Oxygen Delivery Method Room Air Sepsis Recent Fever Within 48 Hours No Sepsis New/Unexplained Change in Mental Status No Sepsis Action Taken by Nursing Physician Notified 02/11/22 10:00 02/11/22 10:06 02/11/22 10:06 Temperature Temperature Source Pulse Rate 90 85 Pulse Rate [Apical] Pulse Rate from SpO2 Sensor Respiratory Rate 17 13 Respiratory Effort / Characteristics Respiratory Depth Respiratory Pattern Blood Pressure 68/53 L Blood Pressure [Right Arm] Blood Pressure Mean 58 Blood Pressure Mean [Right Arm] Pulse Oximetry Oxygen Delivery Method Sepsis Recent Fever Within 48 Hours Sepsis New/Unexplained Change in Mental Status Sepsis Action Taken by Nursing 02/11/22 10:08 02/11/22 10:08 02/11/22 10:10 Temperature Temperature Source Pulse Rate 82 Pulse Rate [Apical] Pulse Rate from SpO2 Sensor Respiratory Rate 14 Respiratory Effort / Characteristics Respiratory Depth Respiratory Pattern Blood Pressure 75/55 L 72/54 L Blood Pressure [Right Arm] Blood Pressure Mean 61 60 Blood Pressure Mean [Right Arm] Pulse Oximetry Oxygen Delivery Method Sepsis Recent Fever Within 48 Hours Sepsis New/Unexplained Change in Mental Status Sepsis Action Taken by Nursing 02/11/22 10:10 02/11/22 10:17 02/11/22 10:17 Temperature Temperature Source Pulse Rate 80 82 Pulse Rate [Apical] Pulse Rate from SpO2 Sensor Respiratory Rate 14 19 Respiratory Effort / Characteristics Respiratory Depth Respiratory Pattern Blood Pressure 92/53 L Blood Pressure [Right Arm] Blood Pressure Mean 66 Blood Pressure Mean [Right Arm] Pulse Oximetry Oxygen Delivery Method Sepsis Recent Fever Within 48 Hours Sepsis New/Unexplained Change in Mental Status Sepsis Action Taken by Nursing 02/11/22 10:20 02/11/22 10:20 02/11/22 10:30 Temperature Temperature Source Pulse Rate 78 Pulse Rate [Apical] Pulse Rate from SpO2 Sensor Respiratory Rate 15 Respiratory Effort / Characteristics Respiratory Depth Respiratory Pattern Blood Pressure 84/57 L 88/57 L Blood Pressure [Right Arm] Blood Pressure Mean 66 67 Blood Pressure Mean [Right Arm] Pulse Oximetry Oxygen Delivery Method Sepsis Recent Fever Within 48 Hours Sepsis New/Unexplained Change in Mental Status Sepsis Action Taken by Nursing 02/11/22 10:30 02/11/22 10:40 02/11/22 10:40 Temperature Temperature Source Pulse Rate 76 75 Pulse Rate [Apical] Pulse Rate from SpO2 Sensor 75 Respiratory Rate 19 20 Respiratory Effort / Characteristics Respiratory Depth Respiratory Pattern Blood Pressure 87/52 L Blood Pressure [Right Arm] Blood Pressure Mean 63 Blood Pressure Mean [Right Arm] Pulse Oximetry 99 Oxygen Delivery Method Sepsis Recent Fever Within 48 Hours Sepsis New/Unexplained Change in Mental Status Sepsis Action Taken by Nursing 02/11/22 10:50 02/11/22 10:50 02/11/22 11:00 Temperature Temperature Source Pulse Rate 74 Pulse Rate [Apical] Pulse Rate from SpO2 Sensor Respiratory Rate 17 Respiratory Effort / Characteristics Respiratory Depth Respiratory Pattern Blood Pressure 107/65 98/60 L Blood Pressure [Right Arm] Blood Pressure Mean 79 72 Blood Pressure Mean [Right Arm] Pulse Oximetry Oxygen Delivery Method Sepsis Recent Fever Within 48 Hours Sepsis New/Unexplained Change in Mental Status Sepsis Action Taken by Nursing 02/11/22 11:00 02/11/22 11:10 02/11/22 11:00 Temperature Temperature Source Pulse Rate 72 72 Pulse Rate [Apical] 71 Pulse Rate from SpO2 Sensor Respiratory Rate 23 22 19 Respiratory Effort / Characteristics Non-Labored Spontaneous Respiratory Depth Normal Respiratory Pattern Blood Pressure Blood Pressure [Right Arm] 98/60 L Blood Pressure Mean Blood Pressure Mean [Right Arm] 72 Pulse Oximetry 98 Oxygen Delivery Method Room Air Sepsis Recent Fever Within 48 Hours Sepsis New/Unexplained Change in Mental Status Sepsis Action Taken by Nursing 02/11/22 11:15 02/11/22 11:30 02/11/22 11:30 Temperature 34.9 C L Temperature Source Oral Pulse Rate Pulse Rate [Apical] 70 73 Pulse Rate from SpO2 Sensor Respiratory Rate 13 18 Respiratory Effort / Characteristics Non-Labored Spontaneous Non-Labored Spontaneous Respiratory Depth Normal Normal Respiratory Pattern Blood Pressure Blood Pressure [Right Arm] 109/60 96/65 L Blood Pressure Mean Blood Pressure Mean [Right Arm] 76 75 Pulse Oximetry 96 99 99 Oxygen Delivery Method Room Air Room Air Room Air Sepsis Recent Fever Within 48 Hours Sepsis New/Unexplained Change in Mental Status Sepsis Action Taken by Nursing 02/11/22 11:00 02/11/22 12:00 02/11/22 12:45 Temperature 36.4 C L Temperature Source Oral Pulse Rate Pulse Rate [Apical] 75 74 Pulse Rate from SpO2 Sensor Respiratory Rate 17 23 Respiratory Effort / Characteristics Non-Labored Spontaneous Non-Labored Spontaneous Respiratory Depth Normal Normal Respiratory Pattern Blood Pressure Blood Pressure [Right Arm] 101/67 109/65 Blood Pressure Mean Blood Pressure Mean [Right Arm] 78 79 Pulse Oximetry 98 95 Oxygen Delivery Method Room Air Room Air Room Air Sepsis Recent Fever Within 48 Hours Sepsis New/Unexplained Change in Mental Status Sepsis Action Taken by Nursing 02/11/22 13:45 02/11/22 13:30 Temperature 36.5 C Temperature Source Oral Pulse Rate Pulse Rate [Apical] 80 76 Pulse Rate from SpO2 Sensor Respiratory Rate 21 15 Respiratory Effort / Characteristics Non-Labored Spontaneous Non-Labored Spontaneous Respiratory Depth Normal Normal Respiratory Pattern Blood Pressure Blood Pressure [Right Arm] 100/62 114/68 Blood Pressure Mean Blood Pressure Mean [Right Arm] 74 83 Pulse Oximetry 98 96 Oxygen Delivery Method Room Air Room Air Sepsis Recent Fever Within 48 Hours Sepsis New/Unexplained Change in Mental Status Sepsis Action Taken by Nursing GENERAL: alert, ill appearing, well nourished, no distress EYE EXAM: normal conjunctiva, PERRL and EOM's grossly intact OROPHARYNX: no exudate, no erythema, lips, buccal mucosa, and tongue normal and mucous membranes are dry NECK: supple, no nuchal rigidity, no adenopathy, non-tender LUNGS: Clear to auscultation. Normal chest wall mechanics, no w/r/r HEART: no murmurs, S1 normal and S2 normal ABDOMEN: abdomen soft, non-tender, normo-active bowel sounds, no masses, no rebound or guarding. BACK: Back is symmetrical on inspection and there is no deformity, no midline tenderness, no CVA tenderness. SKIN: no rashes and no bruising, pale UPPER EXTREMITIES: upper extremities are grossly normal. FROM, nml pulses b/l. LOWER EXTREMITIES: No pitting edema. FROM, nml pulses b/l. NEURO EXAM: Normal sensorium, cranial nerves II-XII grossly intact, normal speech, no gross weakness of arms, no gross weakness of legs. Gross sensation intact. Course Administered Medications Aspirin (Aspirin 81 Mg Ectab) 81 mg PO QAM CONSTANTIN Stop: 03/14/22 08:59 Last Admin: 02/13/22 07:44 Dose: 81 mg Documented By: Admin: 02/12/22 08:17 Dose: 81 mg Documented By: TYOSN Colestipol HCl (Colestipol Hcl 1 Gm Tab) 1 gm PO DAILY@1000 CONSTANTIN Stop: 03/14/22 14:59 Last Admin: 02/13/22 10:48 Dose: 1 gm Documented By: Admin: 02/12/22 15:18 Dose: 1 gm Documented By: TYSON Gabapentin (Gabapentin 600 Mg Tab) 600 mg PO TID CONSTANTIN Stop: 03/14/22 20:59 Last Admin: 02/13/22 14:01 Dose: 600 mg Documented By: Admin: 02/13/22 07:44 Dose: 600 mg Documented By: Admin: 02/12/22 20:50 Dose: 600 mg Documented By: ZAHIRA Heparin Sodium (Porcine) (Heparin Sod 5,000 Unit/0.5 Ml Vial) 5,000 units SQ Q8 CONSTANTIN Stop: 03/15/22 07:59 Last Admin: 02/13/22 14:03 Dose: 5,000 units Documented By: Admin: 02/13/22 08:45 Dose: 5,000 units Documented By: TYSON Lactated Ringer's (Lr) 1,000 mls @ 100 mls/hr IV .Q10H CONSTANTIN Stop: 03/13/22 15:29 Last Admin: 02/13/22 14:03 Dose: 100 mls/hr Documented By: Infusion: 02/13/22 14:03 Dose: 100 mls/hr Documented By: Admin: 02/13/22 04:52 Dose: 100 mls/hr Documented By: Infusion: 02/13/22 04:49 Dose: 0 mls/hr Documented By: Admin: 02/12/22 18:10 Dose: 100 mls/hr Documented By: Infusion: 02/12/22 16:22 Dose: 0 mls/hr Documented By: Admin: 02/12/22 11:22 Dose: 200 mls/hr Documented By: Infusion: 02/12/22 10:40 Dose: 0 mls/hr Documented By: Admin: 02/12/22 05:40 Dose: 200 mls/hr Documented By: Infusion: 02/12/22 05:40 Dose: 200 mls/hr Documented By: Admin: 02/12/22 01:33 Dose: 200 mls/hr Documented By: Infusion: 02/12/22 01:33 Dose: 200 mls/hr Documented By: Admin: 02/11/22 20:51 Dose: 200 mls/hr Documented By: Infusion: 02/11/22 20:51 Dose: 200 mls/hr Documented By: Admin: 02/11/22 16:33 Dose: 200 mls/hr Documented By: TEE Levothyroxine Sodium (Levothyroxine Sodium 75 Mcg Tablet) 75 mcg PO DAILYBB CONSTANTIN Stop: 03/14/22 06:29 Last Admin: 02/13/22 05:52 Dose: 75 mcg Documented By: Admin: 02/12/22 05:38 Dose: 75 mcg Documented By: BERNADINE Oxycodone HCl (Oxycodone Hcl Ir 5 Mg Tab (Immediate Release)) 5 mg PO Q6H PRN PRN Reason: pain Stop: 02/25/22 16:08 Last Admin: 02/13/22 14:03 Dose: 5 mg Documented By: Admin: 02/13/22 07:45 Dose: 5 mg Documented By: Admin: 02/12/22 22:57 Dose: 5 mg Documented By: Admin: 02/12/22 16:29 Dose: 5 mg Documented By: Admin: 02/12/22 10:08 Dose: 5 mg Documented By: Admin: 02/11/22 16:41 Dose: 5 mg Documented By: TEE Discontinued Medications Gabapentin (Gabapentin 600 Mg Tab) 1,200 mg PO TID CONSTANTIN Stop: 03/13/22 16:14 Last Admin: 02/12/22 13:55 Dose: 1,200 mg Documented By: Admin: 02/12/22 08:17 Dose: 1,200 mg Documented By: Admin: 02/11/22 20:51 Dose: 1,200 mg Documented By: Admin: 02/11/22 17:32 Dose: 1,200 mg Documented By: TEE Sodium Chloride (Nss 1000ml) 1,000 mls @ 999 mls/hr IV .Q1H1M CONSTANTIN Stop: 02/11/22 11:30 Last Infusion: 02/11/22 12:16 Dose: 0 mls/hr Documented By: Admin: 02/11/22 11:15 Dose: 999 mls/hr Documented By: MILLIE Cefepime HCl (Maxipime) 2,000 mg in 20 mls @ 5 mls/min IV NOW STA; Protocol Stop: 02/11/22 11:41 Last Admin: 02/11/22 11:50 Dose: 5 mls/min Documented By: MILLIE Sodium Chloride (Nss 1000ml) 1,000 mls @ 999 mls/hr IV .Q1H1M ONE Stop: 02/11/22 12:52 Last Infusion: 02/11/22 12:58 Dose: 0 mls/hr Documented By: Admin: 02/11/22 11:57 Dose: 999 mls/hr Documented By: Sodium Chloride (Nss 1000ml) 1,000 mls @ 999 mls/hr IV .Q1H1M ONE Stop: 02/11/22 12:52 Last Infusion: 02/11/22 12:58 Dose: 0 mls/hr Documented By: Admin: 02/11/22 11:57 Dose: 999 mls/hr Documented By: Magnesium Sulfate/Dextrose (Magnesium Sulfate / D5w) 1 gm in 100 mls @ 100 mls/hr IV NOW STA Stop: 02/11/22 13:07 Last Infusion: 02/11/22 13:44 Dose: 0 mls/hr Documented By: Admin: 02/11/22 12:44 Dose: 100 mls/hr Documented By: Potassium Chloride/Sodium Chloride (Normal Saline W/20 Meq Kcl) 20 meq in 1,000 mls @ 120 mls/hr IV .Q8H20M CONSTANTIN Stop: 02/12/22 09:09 Last Infusion: 02/12/22 09:51 Dose: 0 mls/hr Documented By: Infusion: 02/12/22 05:40 Dose: 0 mls/hr Documented By: Admin: 02/11/22 20:52 Dose: 120 mls/hr Documented By: Infusion: 02/11/22 20:52 Dose: 120 mls/hr Documented By: Admin: 02/11/22 17:31 Dose: 120 mls/hr Documented By: TEE Phytonadione 5 mg/ Dextrose 50.5 mls @ 101 mls/hr IV TODAY@1000 ONE Stop: 02/12/22 10:29 Last Infusion: 02/12/22 10:54 Dose: 0 mls/hr Documented By: Admin: 02/12/22 10:24 Dose: 101 mls/hr Documented By: TYSON Critical Care Time Critical Care Time: Yes Total Critical Care Time: 42 Critical care of 42 min performed to assess and manage high likelihood of life- threatening hypotension, involving labs and imaging performed with assessment to evaluate hypotension diagnosis with frequent reassessment. This time includes bedside time, treatment discussions with patient/family/consultants, d ocumentation time and excludes procedure time. Medical Decision Making Differential Diagnosis Differential Diagnosis includes but is not limited to dehydration, stroke, anemia, hypoglycemia, hyponatremia, hypernatremia, urinary tract infection, pneumonia, bronchitis, sepsis, gastroenteritis, additional abdominal pathology, metabolic abnormalities and infections. Medical Records Attestation: I reviewed the patient's medical records. Home Medications Current Medication List: was personally reviewed by me Laboratory Data Attestation: I reviewed the patient's lab results. Result diagrams: 02/12/22 07:41 02/13/22 06:18 Lab Results 02/11/22 02/11/22 02/11/22 Range/Units 10:12 10:12 10:12 WBC 16.85 H (4.8-10.8) K/ul RBC 5.72 (4.63-6.08) M/uL Hgb 17.9 (14.0-18.0) g/dl Hct 51.9 H (40.1-51.0) % MCV 90.7 (80.0-100.0) fL MCH 31.3 (25.0-34.0) pg MCHC 34.5 (32.0-36.0) g/dL RDW Std Deviation 46.9 H (36.4-46.3) fL RDW Coeff of Valentín 14.0 (11.5-14.5) % Plt Count 350 (130-400) K/uL MPV 13.0 H (9.4-12.4) fL Immature Gran % (Auto) 0.4 % Neut % (Auto) 81.6 % Lymph % (Auto) 11.8 % Glades % (Auto) 5.6 % Eos % (Auto) 0.2 % Baso % (Auto) 0.4 % Neut # (Auto) 13.76 H (1.4-6.5) K/uL Lymph # (Auto) 1.99 (1.2-3.4) K/uL Glades # (Auto) 0.94 H (0.24-0.82) K/uL Eos # (Auto) 0.03 (0-0.50) K/uL Baso # (Auto) 0.07 (0-0.2) K/uL Immature Gran # (Auto) 0.06 H (0.00-0.02) K/uL PT (9.0-12.0) Seconds INR (0.9-1.1) Sodium 129 L (136-145) mmol/L Potassium 4.5 (3.5-5.1) mmol/L Chloride 98 (98-107) mmol/L Carbon Dioxide 18 L (21-32) mmol/L Anion Gap 13 H (3-11) BUN 35 H (6-23) mg/dl Creatinine 4.13 H (0.6-1.4) mg/dl Est Cr Clr Drug Dosing 19.6 ml/min Est GFR ( Amer) 16.6 ml/min Est GFR (Non-Af Amer) 14.4 ml/min BUN/Creatinine Ratio 8.5 L (10-20) Glucose 154 H (70-99(Fasting)) mg/dl Estimat Average Glucose mg/dl Hemoglobin A1c (4.5-5.6) % Osmolality (280-300) mOsm/kg Lactate (0.4-2.0) mmol/L Calcium 9.6 (8.5-10.1) mg/dl Magnesium 1.7 (1.7-2.4) mg/dl Total Bilirubin 0.7 (0.2-1.0) mg/dl Direct Bilirubin 0.1 (0-0.2) mg/dl AST 21 (13-39) U/L ALT 15 (7-52) U/L Alkaline Phosphatase 80 (34-104) U/L Troponin I High Sens 6.8 D (0-20) pg/ml Total Protein 6.9 (6.0-8.3) gm/dl Albumin 3.8 (3.4-5.0) gm/dl Procalcitonin 0.85 H (0-0.5) ng/ml SARS-CoV-2 (PCR) (Negative) Influenza Type A (PCR) (Neg) Influenza Type B (PCR) (Neg) RSV (RT-PCR) (Neg) 02/11/22 02/11/22 02/11/22 Range/Units 10:12 10:39 10:49 WBC (4.8-10.8) K/ul RBC (4.63-6.08) M/uL Hgb (14.0-18.0) g/dl Hct (40.1-51.0) % MCV (80.0-100.0) fL MCH (25.0-34.0) pg MCHC (32.0-36.0) g/dL RDW Std Deviation (36.4-46.3) fL RDW Coeff of Valentín (11.5-14.5) % Plt Count (130-400) K/uL MPV (9.4-12.4) fL Immature Gran % (Auto) % Neut % (Auto) % Lymph % (Auto) % Glades % (Auto) % Eos % (Auto) % Baso % (Auto) % Neut # (Auto) (1.4-6.5) K/uL Lymph # (Auto) (1.2-3.4) K/uL Glades # (Auto) (0.24-0.82) K/uL Eos # (Auto) (0-0.50) K/uL Baso # (Auto) (0-0.2) K/uL Immature Gran # (Auto) (0.00-0.02) K/uL PT 15.2 H (9.0-12.0) Seconds INR 1.5 H (0.9-1.1) Sodium (136-145) mmol/L Potassium (3.5-5.1) mmol/L Chloride (98-107) mmol/L Carbon Dioxide (21-32) mmol/L Anion Gap (3-11) BUN (6-23) mg/dl Creatinine (0.6-1.4) mg/dl Est Cr Clr Drug Dosing ml/min Est GFR ( Amer) ml/min Est GFR (Non-Af Amer) ml/min BUN/Creatinine Ratio (10-20) Glucose (70-99(Fasting)) mg/dl Estimat Average Glucose 108 mg/dl Hemoglobin A1c 5.4 (4.5-5.6) % Osmolality (280-300) mOsm/kg Lactate 1.7 (0.4-2.0) mmol/L Calcium (8.5-10.1) mg/dl Magnesium (1.7-2.4) mg/dl Total Bilirubin (0.2-1.0) mg/dl Direct Bilirubin (0-0.2) mg/dl AST (13-39) U/L ALT (7-52) U/L Alkaline Phosphatase (34-104) U/L Troponin I High Sens (0-20) pg/ml Total Protein (6.0-8.3) gm/dl Albumin (3.4-5.0) gm/dl Procalcitonin (0-0.5) ng/ml SARS-CoV-2 (PCR) (Negative) Influenza Type A (PCR) (Neg) Influenza Type B (PCR) (Neg) RSV (RT-PCR) (Neg) 02/11/22 02/11/22 Range/Units 10:50 13:54 WBC (4.8-10.8) K/ul RBC (4.63-6.08) M/uL Hgb (14.0-18.0) g/dl Hct (40.1-51.0) % MCV (80.0-100.0) fL MCH (25.0-34.0) pg MCHC (32.0-36.0) g/dL RDW Std Deviation (36.4-46.3) fL RDW Coeff of Valentín (11.5-14.5) % Plt Count (130-400) K/uL MPV (9.4-12.4) fL Immature Gran % (Auto) % Neut % (Auto) % Lymph % (Auto) % Glades % (Auto) % Eos % (Auto) % Baso % (Auto) % Neut # (Auto) (1.4-6.5) K/uL Lymph # (Auto) (1.2-3.4) K/uL Glades # (Auto) (0.24-0.82) K/uL Eos # (Auto) (0-0.50) K/uL Baso # (Auto) (0-0.2) K/uL Immature Gran # (Auto) (0.00-0.02) K/uL PT (9.0-12.0) Seconds INR (0.9-1.1) Sodium (136-145) mmol/L Potassium (3.5-5.1) mmol/L Chloride (98-107) mmol/L Carbon Dioxide (21-32) mmol/L Anion Gap (3-11) BUN (6-23) mg/dl Creatinine (0.6-1.4) mg/dl Est Cr Clr Drug Dosing ml/min Est GFR ( Amer) ml/min Est GFR (Non-Af Amer) ml/min BUN/Creatinine Ratio (10-20) Glucose (70-99(Fasting)) mg/dl Estimat Average Glucose mg/dl Hemoglobin A1c (4.5-5.6) % Osmolality 282 (280-300) mOsm/kg Lactate (0.4-2.0) mmol/L Calcium (8.5-10.1) mg/dl Magnesium (1.7-2.4) mg/dl Total Bilirubin (0.2-1.0) mg/dl Direct Bilirubin (0-0.2) mg/dl AST (13-39) U/L ALT (7-52) U/L Alkaline Phosphatase (34-104) U/L Troponin I High Sens (0-20) pg/ml Total Protein (6.0-8.3) gm/dl Albumin (3.4-5.0) gm/dl Procalcitonin (0-0.5) ng/ml SARS-CoV-2 (PCR) NEGATIVE (Negative) Influenza Type A (PCR) Negative (Neg) Influenza Type B (PCR) Negative (Neg) RSV (RT-PCR) Negative (Neg) Imaging Data Radiologist's Impression: Chest X-Ray 02/11/22 10:24 XR chest 1V portable HISTORY: 61 years-old Male Sepsis acute sepsis COMPARISON: Chest radiograph 01/10/2022 TECHNIQUE: AP view of the chest FINDINGS: Cardiomediastinal and hilar silhouettes are within normal limits. The lungs are hypoinflated. There is no pneumothorax, pleural effusion, airspace consolidation or overt pulmonary edema. Bones of the chest appear grossly intact. IMPRESSION: Hypoinflation without acute process. ACT 112: Negative or not required by law. The above report was generated using voice recognition software. It may contain grammatical, syntax or spelling errors. Electronically signed by: Alexandre Hassan M.D. 02/11/2022 10:[address] 02/11/22 10:36 CT OF THE CERVICAL SPINE WITHOUT CONTRAST CLINICAL HISTORY: Trauma. COMPARISON STUDY: CTA of the neck January 12, 2022. TECHNIQUE: Helical axial images of the cervical spine were obtained without IV contrast. Sagittal and coronal reconstructions were viewed. Automated exposure control was utilized for the study. A dose lowering technique was utilized adhering to the principles of ALARA. FINDINGS: Alignment of the cervical spine is anatomic. Vertebral body heights are maintained. No acute cervical spine fracture or subluxation is present. There is no prevertebral edema. Facet joints are intact. Moderate multilevel disc space narrowing, osteophytosis and facet arthrosis within the cervical spine is noted. Appearance of the cervical spine is unchanged since CT of January 12, 2022. IMPRESSION: No acute cervical spine fracture or subluxation. ACT 112: Negative or not required by law. Electronically signed by: Abe Fraire M.D. 02/11/2022 11:[address] 02/11/22 10:[address] DOSE: HISTORY: Headache. Fall. trauma TECHNIQUE: Multiaxial CT images of the head were performed without the use of intravenous contrast. Automated exposure control was utilized for this study. A dose lowering technique was utilized adhering to the principles of ALARA. Comparison: Head CT 01/12/2022. Findings: Mild mucosal thickening within the ethmoid air cells. The mastoid air cells are clear. The calvarium and skull base are intact. The ventricles and sulci are within normal limits. There is no mass, hematoma, midline shift, or acute infarct. Impression: No acute intracranial abnormality. ACT 112: Negative or not required by law. Electronically signed by: Chris Gill M.D. 02/11/2022 11:52 AM Abdomen/Pelvis CT 02/11/22 11:53 CT abd pelvis wo con CLINICAL HISTORY: [place], hypotension TECHNIQUE: Helical axial images of the abdomen and pelvis were obtained. Automated dose lowering techniques and/or adjustment according to patient size were utilized for this exam. This exam was performed without intravenous contrast. CT DOSE: 858.19 mGycm COMPARISON: Comparison is made to CT abdomen pelvis 11/18/2021 FINDINGS: Lower chest: Moderate atherosclerotic disease is seen in the coronary arteries. Partial visualization of pulmonary nodules, similar in extent to prior exam. Liver: Unremarkable. No focal lesions are seen. Gallbladder and biliary tree: Patient is status post cholecystectomy. Unchanged appearance of calcific densities in the gallbladder fossa. Otherwise the biliary ducts are unremarkable. Pancreas: Unremarkable, no focal lesions. Previously noted pancreatic soft tissue nodule is not well seen due to noncontrast technique. Spleen: Unremarkable. Adrenals: Unremarkable. Kidneys and ureters: Patient is status post left nephrectomy. Right perinephric stranding is seen. Soft tissue thickening is seen about surgical sutures, unchanged from prior exam. Bladder: Diffuse homogeneous wall thickening is seen. Reproductive organs: Prostatic calcifications are seen which may represent prior hemorrhage or granulomatous disease. Bowel: Unremarkable appearance of the bowel. The appendix is normal. A hiatal hernia is seen. The small bowel is nondilated however there is possible mucosal thickening. Lymph nodes Retroperitoneal: Unremarkable. Pelvic: Unremarkable. Mesenteric: Unremarkable. Peritoneum: Normal. Vessels: Atherosclerotic calcifications are seen. Abdominal wall: Right fat-containing inguinal hernia. Bones: Degenerative changes in the visualized spine. IMPRESSION: 1. No acute abnormality and in particular no evidence of small bowel obstruction. Small bowel may demonstrate mild mucosal thickening, clinical correlation for possible enteritis is recommended. 2. Status post left nephrectomy with no abnormal soft tissue thickening in the nephrectomy bed. 3. Status post cholecystectomy. 4. Bladder wall thickening likely secondary to chronic outlet obstruction. 5. Stable appearance of pulmonary nodules were visualized. ACT 112: Negative or not required by law. Electronically signed by: Alexys Sanabria M.D. 02/11/2022 1:22 PM ECG Data Attestation: I personally reviewed and interpreted this ECG as follows: Indication: + weakness Rate (beats per minute): 78 Rhythm: + normal sinus ECG Intervals/blocks: + Normal QRS and + Prolonged QT ECG [place]: + Normal ECG ST segments: + Nonspecific ST abnormalities MDM Narrative An order was placed for continuous cardiac monitoring. The monitor shows a rate of _76_ with _normal sinus_ rhythm. This is a 61 yo male who presents to the ER after a fall and worsening weakness. I was called to the room urgently as patient was hypotensive and ill appearing despite still being awake and mentating appropriately. IV's established and labs sent. Patient started on IVF and began to have improvement slowly in his BP. He denied pain or GI losses. STated he has hx of htn and still takes medication for this. He admitted to decreased intake due to recent worsening nausea presumed to be from his medications. Slow fall described by patient and no concern for injury by patient. Patient not anticoagulated. I had a low suspicion for significant occult traumatic injury. Patient appeared clinically dry. He denied hx of CHF so IVF were continued. Patient rechecked multiple times and continued to slowly improve. He received several liters of IVF in the ER with improvement in BP and patient reported feeling improved. Labs revealed elevated Creatinine, new compared to prior. He was sent back for CT a/p - no evidence of other acute renal/ureteral pathology. He was given Cefepime empirically after procal resulted mildly elevated given his hx of chemotherapy use. Patient discussed with hospitalist for additional evaluation and treatment. patient and family aware of all results and were in agreement with the plan. Impression & Plan Hypotension, Dehydration, CAROLYN (acute kidney injury), Elevated procalcitonin Discharge Plan Visit Data Chief Complaint: Weakness Stated Complaint: syncope ED Provider: Kim Song Discharge Problem: Hypotension, Dehydration, CAROLYN (acute kidney injury), Elevated procalcitonin Patient Disposition: Admitted As Inpatient Discharge Instructions Interventions: ED Discharge Assessment Last Done: 02/11/22 15:20
--- NOTE | 2022-02-11 13:54 | History & Physical Report ---
Date of Service February 11, 2022 Assessment & Plan (1) Hypotension: Plan: Hypotension, fatigue. Suspect 2/2 poor p.o. intake Afebrile, but with leukocytosis and procalcitonin of 0.85, lactate normal Less in 16 ounces of fluid and less than 500-calorie p.o. intake for 3 weeks, nearly no p.o. intake in preceding 2 days, poor p.o. intake prior to this in the setting of maintenance chemotherapy No evidence of infection on CXR, CTA/P. UA pending. Empirically covered with cefepime UA, UC, BC pending.? Reactive leukocytosis. No infectious source/fever/chills, further antibiotics discontinued. If fever, worsened hypotension, or positive cultures resume antibiotics at that time Patient rapidly responsive to IV fluids with normalization of blood pressure and heart rate Admitting high sensitive troponin 6.8 -CTA/P: 1. No acute abnormality and in particular no evidence of small bowel obstruction. Small bowel may demonstrate mild mucosal thickening, clinical correlation for possible enteritis is recommended. 2. Status post left nephrectomy with no abnormal soft tissue thickening in the nephrectomy bed. 3. Status post -cholecystectomy. 4. Bladder wall thickening likely secondary to chronic outlet obstruction. 5. Stable appearance of pulmonary nodules were visualized.- -CThead: No acute findings -CTC-spine: No acute findings -CXR: No acute findings -PCT 0.85 Non-anuric ARF Creatinine elevated from baseline of approximately 1.2, admitting creatinine 4.13 - Nonanuric, producting ~50-100cc 3xpd per pt - No volume overload, K wnl. ? Severe volume depletion/ATN BMP trended Continue IV FM Urine microscopy pending, urine electrolytes pending Nephrology consulted RCC with pancreatic metastasis Patient on Keytruda every 6 weeks. Patient stoppedaxitinib tuesday due to poor tolerance Oncology aware of patient admission, consulted Hypertension Hold amlodipine for hypotension Continue aspirin Hold lisinopril for ARF/hypotension Hypothyroidism Continue Synthroid TSH/T4 pending Type II DM - Diet controlled, prior A1c well controlled No home antilipemics - Daily checks and spot checks PRN - Add SSI if persistent >180 Admitting BSG 154 Hyponatremia, poor p.o. intake Suspect solute depletion and setting of very poor p.o. intake Urine electrolytes pending to evaluate for SIADH Anion gap mildly elevated? Starvation ketosis BMP every 4 hours Continue fluid resuscitation, clinically hypovolemic. DVT prophylaxis: Heparin in the setting of ARF CODE STATUS: Full Diet: DM Disposition: Med-Tele, severe hypotension. Downgrade if stable x24 hours and {e} normal (2) Diabetes mellitus: (3) Hypercholesterolemia: (4) ARF (acute renal failure): (5) Stage 3b chronic kidney disease: (6) Hypothyroidism: (7) Clear cell carcinoma of left kidney: (8) Diabetes mellitus with neuropathy: History of Present Illness Primary Care Provider: DO Des Parrishlexii Arenas is a 61yo M who presented who weakness an dhypotension Hx RCC w/ mets to pancreas intermittently on chemo q6w. Last chemo beginning of Dec, was due this week takes daily maintenance pills Increased nausea last 2-3 days, decreased appetite, no PO intake ~2-3 days hypotensive responded to fluids Cr 1.19 --> 4.14 Sodium 129 Lactic acid normal Cefepime empiric coverage WBC 16.85, neurtophils 13.76 3 weeks started Claire with Keytruda. had hypertensive episode as a result. BP been OK since ER visit, but +diarrhea, +fatigue, and genearlly 'miserable.' Very poor PO intake the last 3 weeks 'a struggle to get much down, either eating or drinking' and almost nothing the last 2 days. In general getting <16oz fluid and <500kcal per day. Denies nausea 'just isn't hungry.'. Does get some burning in the stomach/reflux. No chest pain or chest pressure. No fevers, chills, or sweats. COld, but no chills. No cough/productive sputum. Urinating small amounts ~3 times per day ~50-100cc per void. No burning with urination. No feeling of urinary retention. Sees Dr. angela for retention, on flomax. Keytruda q6w, pending infusion tomorrow Axitinib 1mg BID. Stopped taking this past Tuesday morning due to feeling poorly. did not take medicines today Medical History: Reviewed Medications: Reviewed Surgical History: Reviewed Allergies: Reviewed Social History: Skull tobacco, none in the last 2 days. Prior 1 can per day for 40 years. Former Etoh, none in 30 years. Code Status:Surrogate DM Zoe [phone]. Full Code, discussed with patient. Allergies Allergy/AdvReac Type Severity Reaction Status Date / Time Iodinated Contrast Media AdvReac Mild ITCHY Verified 02/11/22 14:21 FOREARMS Home Medications Medication Instructions Recorded Confirmed Type multivitamin 1 tab PO QAM 02/13/19 01/10/22 History gabapentin 600 mg tablet 1,200 mg PO TID #90 tabs 10/27/20 01/10/22 History tramadol 50 mg tablet 100 mg PO QID PRN Pain 10/27/20 01/10/22 History allopurinol 100 mg tablet 150 mg PO DAILY 01/31/21 01/10/22 History cholecalciferol (vitamin D3) 25 25 mcg PO DAILY 01/31/21 01/10/22 History mcg (1,000 unit) capsule (Vitamin D3) sour gomez extract 1,000 mg 1,000 mg PO DAILY 01/31/21 01/10/22 History capsule (Tart Gomez Extract) oxycodone 5 mg tablet 5 mg PO Q6H PRN pain #10 tabs 02/01/21 01/10/22 Rx acetaminophen 500 mg tablet 1,000 mg PO Q6H PRN Pain 01/10/22 01/10/22 History (Tylenol Extra Strength) amoxicillin 875 mg-potassium 1 tab PO Q12 01/10/22 01/10/22 History clavulanate 125 mg tablet diphenoxylate-atropine 2.5 1 tab PO QID 01/10/22 01/10/22 History mg-0.025 mg tablet levothyroxine 75 mcg tablet 75 mcg PO DAILY 01/10/22 01/10/22 History pembrolizumab 25 mg/mL intravenous 0 mg IV .[id number] 01/10/22 01/10/22 History solution (Keytruda) tamsulosin 0.4 mg capsule 0.4 mg PO DAILY 01/10/22 01/10/22 History vit C 30 mg-s.gomez 250 mg-celery 1 cap PO DAILY 01/10/22 01/10/22 History seed 75 mg-grape seed extrt capsule (Tart Gomez) vitamin B complex 1 tab PO DAILY 01/10/22 01/10/22 History amlodipine 5 mg tablet 5 mg PO DAILY #30 tabs 01/12/22 Rx aspirin 81 mg tablet,delayed 81 mg PO QAM #30 tabs 01/12/22 Rx release cyanocobalamin (vitamin B-12) 1,000 mcg PO DAILY #30 caps 01/12/22 Rx 1,000 mcg capsule lisinopril 20 mg tablet 30 mg PO QAM #45 tabs 01/12/22 Rx Past Med/Surg History Medical History (Updated 02/11/22 @ 14:20 by Zach Lozoya MD) Acquired claw toe of right foot Arthritis of knee Back pain Bilateral lung cancer Callus Claustrophobia Diabetes mellitus with neuropathy Dyslipidemia Gross hematuria Hernia Hip pain, right Hypertension Hypothyroidism Nephrolithiasis Osteoarthritis Pain in both feet Sacroiliac joint pain Sacroiliitis Solitary right kidney Stage 3b chronic kidney disease Tobacco abuse Vitamin D deficiency Surgical History H/O left nephrectomy History of cholecystectomy History of hernia repair History of meniscectomy of left knee History of vasectomy Family History Father Hearing loss Lung disease Mother Cancer Aortic aneurysm Breast cancer Myocardial infarction Other No family history of adverse response to anesthesia No family history of bleeding disorder Social History Smoking Status: Never smoker Tobacco Type: Cigarettes Second Hand Exposure: No; Hx Alcohol Use: No Hx Substance Use: No Preferred Language: Maltese Communication Ability: Effective 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 NAD. Cooperative. HEENT: Atraumatic, normocephalic. MM dry. vision/hearing intact Pulm: CTAB A&P. -wheezes, -rales, -rhonchi. Symmetrical chest rise. No increased work of breathing. No respiratory distress. Cardiac: RRR, +sm. Radial pulses intact and symmetrical. Abdominal: Nontender, nondistended, soft. BS present. Ext: Warm, dry. No edema. Sensatio nintact bilater in hands and feet to soft touch Results & Data Results & Data ([facility]) Vital Signs (Past 12 Hours) Vital Signs Temp Pulse Pulse Resp BP BP Pulse Ox 02/11/22 12:45 36.4 C L 74 23 109/65 95 02/11/22 12:00 75 17 101/67 98 02/11/22 11:00 02/11/22 11:30 99 02/11/22 11:30 34.9 C L 73 18 96/65 L 99 02/11/22 11:15 70 13 109/60 96 02/11/22 11:00 71 19 98/60 L 98 02/11/22 11:10 72 22 02/11/22 11:00 72 23 02/11/22 11:00 98/60 L 02/11/22 10:50 74 17 02/11/22 10:50 107/65 02/11/22 10:40 75 20 02/11/22 10:40 87/52 L 02/11/22 10:30 76 19 99 02/11/22 10:30 88/57 L 02/11/22 10:20 78 15 02/11/22 10:20 84/57 L 02/11/22 10:17 92/53 L 02/11/22 10:17 82 19 02/11/22 10:10 80 14 02/11/22 10:10 72/54 L 02/11/22 10:08 75/55 L 02/11/22 10:08 82 14 02/11/22 10:06 85 13 02/11/22 10:06 68/53 L 02/11/22 10:00 90 17 02/11/22 09:53 88 14 02/11/22 09:52 69/56 L 02/11/22 10:19 34.6 C L 76 16 76/42 L 96 O2 Del Method 02/11/22 12:45 Room Air 02/11/22 12:00 Room Air 02/11/22 11:00 Room Air 02/11/22 11:30 Room Air 02/11/22 11:30 Room Air 02/11/22 11:15 Room Air 02/11/22 11:00 Room Air 02/11/22 11:10 02/11/22 11:00 02/11/22 11:00 02/11/22 10:50 02/11/22 10:50 02/11/22 10:40 02/11/22 10:40 02/11/22 10:30 02/11/22 10:30 02/11/22 10:20 02/11/22 10:20 02/11/22 10:17 02/11/22 10:17 02/11/22 10:10 02/11/22 10:10 02/11/22 10:08 02/11/22 10:08 02/11/22 10:06 02/11/22 10:06 02/11/22 10:00 02/11/22 09:53 02/11/22 09:52 02/11/22 10:19 Room Air PG Care Time/CCT Total # of Minutes Spent Total Time Spent with Patient: Total time spent is greater than 50% in coordination of care (as documented) at patient's floor/unit and/or counseling patient: Coding Level of Care Code 03536 Initial Inpt Care Lvl 3 Diagnoses Hypotension I95.9 Diabetes mellitus E11.9 Hypercholesterolemia E78.00 ARF (acute renal failure) N17.9 Stage 3b chronic kidney disease N18.32 Hypothyroidism E03.9 Clear cell carcinoma of left kidney C64.2 Diabetes mellitus with neuropathy E11.40
[2022-02-11 14:52] LABS: Influenza A virus by PCR Negative (Neg); Influenza B virus by PCR Negative (Neg); RSV by PCR Negative (Neg); SARS CoV2 RNA(COVID-19) InHosp NEGATIVE (Negative)
[2022-02-11] MEDS ORDERED: ACETAMINOPHEN 325 MG TAB PO PRN (16:09)
[2022-02-11] MEDS ORDERED: POLYETHYLENE (MIRALAX) 17 GM PACK PO PRN (16:09)
[2022-02-11] MEDS: LACTATED RINGER'S 1,000 ML IV SCH ×2 (16:33→20:51)
[2022-02-11] MEDS: oxyCODONE HCL IR 5 MG TAB (IMMEDIATE RELEASE) PO PRN (16:41)
[2022-02-11] MEDS: NSS + 20MEQ KCL 20 MEQ/1,000 ML BAG IV SCH ×2 (17:31→20:52)
[2022-02-11] MEDS: GABAPENTIN 600 MG TAB PO SCH ×2 (17:32→20:51)
[2022-02-11 19:29] LABS: Appearance Urine Clear (Clear); Bacteria Urine Automated Negative (Negative); Bilirubin Urine Negative (Negative); Blood Urine Negative (Negative); Color Urine Yellow; Glucose Urine UA Negative (Negative); Ketones Urine Negative (Negative); Leukocyte Esterase Urine Negative (Negative); Nitrite Urine Negative (Negative); Protein Urine Trace (Negative); RBC Urine Automated 0-4 /hpf (0-4); Specific Gravity Urine 1.007 (1.000-1.030); Urobilinogen Urine Negative (Negative)
[2022-02-11 19:57] LABS: Creatinine Urine Random 64.6 mg/dl
[2022-02-12] MEDS: LACTATED RINGER'S 1,000 ML IV SCH ×4 (01:33→18:10)
[2022-02-12] MEDS: LEVOTHYROXINE SODIUM 75 MCG TABLET PO SCH (05:38)
--- NOTE | 2022-02-12 05:56 | Electrocardiogram Report ---
Test Reason : Blood Pressure : / mmHG Vent. Rate : 078 BPM Atrial Rate : 078 BPM P-R Int : 162 ms QRS Dur : 092 ms QT Int : 446 ms P-R-T Axes : 044 011 051 degrees QTc Int : 508 ms Poor data quality, interpretation may be adversely affected Normal sinus rhythm Prolonged QT Abnormal ECG When compared with ECG of 12-JAN-2022 09:10, Non-specific change in ST segment in Anterior leads Nonspecific T wave abnormality no longer evident in Inferior leads T wave inversion no longer evident in Anterior leads QT has lengthened Confirmed by Juno Jane ([id number]) on 02/12/2022 5:55:47 AM Referred By: Confirmed By:Juno Jane
[2022-02-12 07:58] LABS: Estimated Average Glucose 108 mg/dl; Hemoglobin A1C 5.4 % (4.5-5.6)
[2022-02-12] MEDS: GABAPENTIN 600 MG TAB PO SCH ×3 (08:17→20:50)
[2022-02-12] MEDS: ASPIRIN 81 MG ECTAB PO SCH (08:17)
[2022-02-12 08:35] LABS: Calcium 8.5 mg/dl (8.5-10.1); Creatinine Clr Calc Pharmacy 30.3 ml/min; Est GFR (African American) 28.6 ml/min; Est GFR (Non-African American) 24.7 ml/min; Potassium 4.9 mmol/L (3.5-5.1)
[2022-02-12 08:53] LABS: Basophils # (auto) 0.06 K/uL (0-0.2); Basophils % (auto) 0.7 %; Eosinophils # (auto) 0.08 K/uL (0-0.50); Eosinophils % (auto) 0.9 %; Hematocrit (blood only) 42.1 % (40.1-51.0); Hemoglobin 14.5 g/dl (14.0-18.0); Immature Granulocytes # (auto) 0.03 K/uL (0.00-0.02); Immature Granulocytes % (auto) 0.3 %; Lymphocytes # (auto) 1.22 K/uL (1.2-3.4); Lymphocytes % (auto) 14.2 %; Mean Corpuscular Hemoglobin 31.5 pg (25.0-34.0); Mean Corpuscular Hgb Conc 34.4 g/dL (32.0-36.0); Mean Corpuscular Volume 91.5 fL (80.0-100.0); Mean Platelet Volume 11.9 fL (9.4-12.4); Monocytes # (auto) 0.51 K/uL (0.24-0.82); Monocytes % (auto) 5.9 %; Neutrophils # (auto) 6.68 K/uL (1.4-6.5); Platelet Count 194 K/uL (130-400); RDW Coefficient of Variation 14.2 % (11.5-14.5); RDW Standard Deviation 47.8 fL (36.4-46.3); White Blood Count 8.58 K/ul (4.8-10.8)
[2022-02-12] MEDS ORDERED: PHYTONADIONE 5 MG in DEXTROSE 5% 50 ML IV ONE (10:00)
[2022-02-12] MEDS: oxyCODONE HCL IR 5 MG TAB (IMMEDIATE RELEASE) PO PRN ×3 (10:08→22:57)
--- NOTE | 2022-02-12 13:56 | Nephrology Consultation ---
Date of Consultation February 12, 2022 Assessment & Plan (1) ARF (acute renal failure): (2) Hypomagnesemia: (3) Hypotension: (4) Solitary right kidney: Plan 61-year-old gentlemen with history of metastatic renal cell carcinoma, status post left nephrectomy, baseline creatinine around 1.2-1.3, admitted to the hospital with 2 weeks history of severe anorexia, poor p.o. intake, decreased urine output generalized fatigue and weight loss after started on Claire for metastatic carcinoma. On admission creatinine was 4.1, sodium 129, bicarb 18. urinalysis and CT abdomen pelvis was unremarkable. Was started on LR 200 mL/hour. Acute kidney injury most likely prerenal with significant volume depletion with poor p.o. intake for 2 weeks. Renal function already started to improve, creatinine down to 2.6 compared to 4.1 on admission, electrolyte abnormality improving. Blood pressure improved and overall clinically feeling slightly better. Urine output improved. -- Continue IV fluid, monitor volume status, urine output. Claire was already started a stopped. Oncology was consulted regarding decision about chemotherapy going forward. -- expect renal function to continue to improve, daily renal panel and electrolyte -- encourage p.o. intake as tolerated -- avoid all nephrotoxic medications Will follow. Thank you for allowing me to participate in your patient's care. It was a pleasure to see Rehan. History of Present Illness Reason for Consultation: Acute kidney injury, Solitary kidney. Attending Physician: Matthew Jimenez History of Present Illness Rehan Arenas is a 61-year-old gentleman with past medical history significant for metastatic renal cell carcinoma, currently on chemotherapy, solitary right kidney with history of left nephrectomy admitted to the hospital yesterday with acute kidney injury volume depletion with history of nausea and Poor p.o. intake and diarrhea. nephrology consult was requested to manage CAROLYN. EMR records were reviewed in detail during patient's visit. Rehan Presented to ER yesterday with 2 weeks history of poor p.o. intake, fat igue, nausea, diarrhea. He was started on Claire ( Pemetrexed : antimetabolite) 3 weeks ago with Keytruda. Since Claire was started he was hospitalized once with hypertensive episode and dose was decreased and blood pressure improved and has been stable. Over last 2 weeks he has been feeling miserable with poor p.o. intake, anorexia, diarrhea. Claire was stopped on 02/08/2022 because of above s ymptoms. UO was low. On admission he was relatively hypotensive and lab showed creatinine of 4.1, BUN 35, sodium 129, bicarb 18. hemoglobin was 17.9. UA with no significant proteinuria hematuria or pyuria. CT abdomen pelvis was otherwise unremarkable without any acute changes. He was started on LR 208 mL per hour and renal function already started to improve, creatinine down to 2.6 this morning. Electrolyte abnormality improving. Overall he is feeling slightly better. Diagnosed with stage IV metastatic RCC ( 9.3 cm left upper pole mass) in October 2014 after presented with flank pain and hematuria. Had left nephrectomy on 11/28/2014 and started on chemotherapy with IL -2 and received 2 cycles in December and March 2015 but stopped because of significant toxicity. Started on Votrient in May 2015 but found to have metastatic disease to lung and he was on Nivolumab from January 2016 to October 2017 however scan in 2018 again showed lung disease progressed and he was started on Cabozantinib 60 mg daily which caused multiple side effects including mucositis and worsening neuropathy, diarrhea, dyspnea on exertion and asthenia, anorexia and weight loss. He has been tolerating Keytruda 60 mg IV q6w, was scheduled for today. Has stage IIIA CKD, b/l cr has been quite variable but over last 1 year staying around 1.2-1.3, with solitary right kidney. No proteinuria. No NSAID use. Has strong f/h of cancer in multiple family member, mom had history of breast cancer. Nonsmoker, used to chew tobacco before, quit many years ago. Currently retired, lives at home with Zoe, has grown-up daughter and grandchildren. 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 Has history of hypertension, diabetes, both seems to be well controlled no retinopathy. On lisinopril/ hydrochlorothiazide. No history of retinopathy. No h/o CAD. Has h/o gout, on allopurinol 100 mg daily. Overall he is still fatigued and p.o. intake remains poor. Noticed significant increase in urine output since admission. BP stable. Allergies Allergy/AdvReac Type Severity Reaction Status Date / Time Iodinated Contrast Media AdvReac Mild ITCHY Verified 02/11/22 14:21 FOREARMS Home Medications Medication Instructions Recorded Confirmed Type gabapentin 600 mg tablet 1,200 mg PO TID #90 tabs 10/27/20 02/11/22 History tramadol 50 mg tablet 100 mg PO QID 10/27/20 02/11/22 History allopurinol 100 mg tablet 150 mg PO DAILY 01/31/21 02/11/22 History cholecalciferol (vitamin D3) 25 25 mcg PO DAILY 01/31/21 02/11/22 History mcg (1,000 unit) capsule (Vitamin D3) acetaminophen 500 mg tablet 1,000 mg PO Q6H PRN Pain 01/10/22 02/11/22 History (Tylenol Extra Strength) diphenoxylate-atropine 2.5 1 tab PO QID PRN Diarrhea 01/10/22 02/11/22 History mg-0.025 mg tablet levothyroxine 75 mcg tablet 75 mcg PO DAILY 01/10/22 02/11/22 History pembrolizumab 25 mg/mL intravenous 0 mg IV .[id number] 01/10/22 02/11/22 History solution (Keytruda) amlodipine 5 mg tablet 5 mg PO DAILY #30 tabs 01/12/22 02/11/22 Rx aspirin 81 mg tablet,delayed 81 mg PO QAM #30 tabs 01/12/22 02/11/22 Rx release cyanocobalamin (vitamin B-12) 1,000 mcg PO DAILY #30 caps 01/12/22 02/11/22 Rx 1,000 mcg capsule lisinopril 20 mg tablet 30 mg PO QAM #45 tabs 01/12/22 02/11/22 Rx axitinib 1 mg tablet (Inlyta) 3 mg PO BID 02/11/22 02/11/22 History rosuvastatin 10 mg tablet 10 mg PO DAILY 02/11/22 02/11/22 History Patient History Medical History (Updated 02/11/22 @ 14:20 by Zach Lozoya MD) Acquired claw toe of right foot Arthritis of knee Back pain Bilateral lung cancer Callus Claustrophobia Diabetes mellitus with neuropathy Dyslipidemia Gross hematuria Hernia Hip pain, right Hypertension Hypothyroidism Nephrolithiasis Osteoarthritis Pain in both feet Sacroiliac joint pain Sacroiliitis Solitary right kidney Stage 3b chronic kidney disease Tobacco abuse Vitamin D deficiency Surgical History H/O left nephrectomy History of cholecystectomy History of hernia repair History of meniscectomy of left knee History of vasectomy Family History Father Hearing loss Lung disease Mother Cancer Aortic aneurysm Breast cancer Myocardial infarction Other No family history of adverse response to anesthesia No family history of bleeding disorder Social History Smoking Status: Never smoker Tobacco Type: Cigarettes Second Hand Exposure: No; Hx Alcohol Use: No Hx Substance Use: No Preferred Language: Turkish Communication Ability: Effective 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 Physical Exam Constitutional: WD/WN, vitals as above + ill appearing; no acute distress Eyes: + anicteric sclerae ENMT: Ears: no hearing impairment Neck: normal visual inspection Respiratory: Auscultation: lungs clear to auscultation bilaterally Cardiovascular: Rate/Rhythm: regular rate and regular rhythm Heart Sounds: normal S1 and normal S2 Extremities: no edema Gastrointestinal (Abdomen): Inspection/Auscultation: abdomen normal to inspection and normal bowel sounds Percussion/Palpation: abdomen soft; abdomen nontender Musculoskeletal: Extremities: extremities normal to inspection Skin: no rashes Neurologic: no focal motor deficits and not confused Psychiatric: Orientation: alert and oriented x 3 Affect: euthymic affect Results & Data ([facility]) Vital Signs (Past 12 Hours) Vital Signs Temp Pulse Pulse Resp BP BP Pulse Ox 02/12/22 07:50 02/12/22 11:23 36.4 C L 69 20 136/78 99 02/12/22 08:01 36.3 C L 71 20 115/76 97 02/12/22 07:14 74 02/12/22 03:52 36.5 C 73 18 124/80 96 O2 Del Method 02/12/22 07:50 Room Air 10/14/22 11:23 Room Air 02/12/22 08:01 Room Air 02/12/22 07:14 02/12/22 03:52 Room Air PG Care Time/CCT Total # of Minutes Spent Total Time Spent with Patient: Total time spent is greater than 50% in coordination of care (as documented) at patient's floor/unit and/or counseling patient: Coding Level of Care Code 14564 Inpt Consult Level 5 Diagnoses ARF (acute renal failure) N17.9 Hypomagnesemia E83.42 Hypotension I95.9 Solitary right kidney Q60.0
[2022-02-12] MEDS: COLESTIPOL HCL 1 GM TAB PO SCH (15:18)
--- NOTE | 2022-02-12 19:20 | Hospitalist Progress Note ---
Date of Service February 12, 2022 Assessment & Plan (1) Hypotension: Plan: 2nd to severe volume depletion/dehydration - resolved. BPs now normal. cont to hold amlodipine and lisinopril. (2) ARF (acute renal failure): Plan: pre-renal, 2nd to marked volume depletion. FLAVIO inhibitor use also could have affected renal function. poor PO intake, diarrhea, etc. Peak Cr >4, now down to <2.5. lower LR fluid rate to 100cc/hr. repeat BMP am. patient is on VERY large doses of gabapentin REDUCE to 600mg TID (from 1200mg TID) (3) Diarrhea: Plan: check stool BioFire - r/o infectious cause. if negative this is likely related to chemotherapy. bile acid diarrhea also possible. add colestipol 1gm daily. (4) Hyponatremia: Plan: 2nd to volume depletion - improved with isotonic fluids. serial BMPs. (5) Elevated INR: Plan: 2nd to vit K deficiency in setting of malnutrition/poor oral intake for 1-2 months? vitamin K 5mg IV x 1. repeat INR in am. LFTs noted to be wnl. 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 history chemo on hold at this time care d/w Dr Zheng today (10) DVT prophylaxis: Plan: add heparin SC Plan updated at bedside due to chronic insomnia, poor appetite, change in mood - consider remeron this was d/w patient/ Admission and Anticipated Discharge Date Admission Date: February 11, 2022 Subjective patient feeling "much better" today at bedside appetite a little better - he ate much more today than any day in the last few weeks fatigue better he reports 4-5 episodes of loose, liquid diarrhea he has had this for years - ever since gall bladder was removed - but much worse in the last few weeks denies pain in any location telemetry overnight wnl Review of Systems Review of Systems: gen - no fevers or chills; recent anorexia, fatigue cv - no cp, no orthopnea pulm - no cough, no dyspnea GI - no pain, no nausea today or vomiting; no blood or mucous in stools Physical Exam Physical Exam: gen - NAD, looks good today mouth - MMM, no thrush neck - no JVD heart - RRR, s1 s2, no murmur lungs - CTA b/l abd - soft NT ND BS+ ext - no edema, pulses 2+ b/l psych - a/o x 3 Results & Data Results & [facility] ([facility]) Vital Signs (Past 12 Hours) Vital Signs Temp Pulse Pulse Resp BP Pulse Ox O2 Del Method 02/12/22 18:42 36.6 C 82 18 120/75 97 Room Air 02/12/22 15:05 80 02/12/22 14:57 36.8 C 73 18 119/77 98 Room Air 02/12/22 07:50 Room Air 02/12/22 11:23 36.4 C L 69 20 136/78 99 Room Air 02/12/22 08:01 36.3 C L 71 20 115/76 97 Room Air Laboratory Results Laboratory Results - last 24 hr 02/11/22 02/11/22 02/11/22 10:12 19:10 19:10 WBC RBC Hgb Hct MCV MCH MCHC RDW Std Deviation RDW Coeff of Valentín Plt Count MPV Immature Gran % (Auto) Neut % (Auto) Lymph % (Auto) [place] % (Auto) Eos % (Auto) Baso % (Auto) Neut # (Auto) Lymph # (Auto) [place] # (Auto) Eos # (Auto) Baso # (Auto) Immature Gran # (Auto) Sodium Potassium Chloride Carbon Dioxide Anion Gap BUN Creatinine Est Cr Clr Drug Dosing Est GFR ( Amer) Est GFR (Non-Af Amer) BUN/Creatinine Ratio Glucose POC Glucose Estimat Average Glucose 108 Hemoglobin A1c 5.4 Calcium Procalcitonin Urine Color Yellow Urine Appearance Clear Urine pH 5.0 Ur Specific [place] 1.007 Urine Protein Trace H Urine Glucose (UA) Negative Urine Ketones Negative Urine Blood Negative Urine Nitrite Negative Urine Bilirubin Negative Urine Urobilinogen Negative Ur Leukocyte Esterase Negative Urine WBC (Auto) 1-5 Urine RBC (Auto) 0-4 U Hyaline Cast (Auto) 5-10 H U Epithel Cells (Auto) 10-20 H Urine Bacteria (Auto) Negative Urine Osmolality 201 L Ur Random Creatinine Ur Random Sodium 02/11/22 02/11/22 02/12/22 19:10 20:34 07:41 WBC 8.58 RBC 4.60 L Hgb 14.5 D Hct 42.1 MCV 91.5 MCH 31.5 MCHC 34.4 RDW Std Deviation 47.8 H RDW Coeff of Valentín 14.2 Plt Count 194 MPV 11.9 Immature Gran % (Auto) 0.3 Neut % (Auto) 78.0 Lymph % (Auto) 14.2 [place] % (Auto) 5.9 Eos % (Auto) 0.9 Baso % (Auto) 0.7 Neut # (Auto) 6.68 H Lymph # (Auto) 1.22 [place] # (Auto) 0.51 Eos # (Auto) 0.08 Baso # (Auto) 0.06 Immature Gran # (Auto) 0.03 H Sodium Potassium Chloride Carbon Dioxide Anion Gap BUN Creatinine Est Cr Clr Drug Dosing Est GFR ( Amer) Est GFR (Non-Af Amer) BUN/Creatinine Ratio Glucose POC Glucose 95 Estimat Average Glucose Hemoglobin A1c Calcium Procalcitonin Urine Color Urine Appearance Urine pH Ur Specific [place] Urine Protein Urine Glucose (UA) Urine Ketones Urine Blood Urine Nitrite Urine Bilirubin Urine Urobilinogen Ur Leukocyte Esterase Urine WBC (Auto) Urine RBC (Auto) U Hyaline Cast (Auto) U Epithel Cells (Auto) Urine Bacteria (Auto) Urine Osmolality Ur Random Creatinine 64.6 Ur Random Sodium 40 02/12/22 02/12/22 02/12/22 07:41 07:41 07:56 WBC RBC Hgb Hct MCV MCH MCHC RDW Std Deviation RDW Coeff of Valentín Plt Count MPV Immature Gran % (Auto) Neut % (Auto) Lymph % (Auto) [place] % (Auto) Eos % (Auto) Baso % (Auto) Neut # (Auto) Lymph # (Auto) [place] # (Auto) Eos # (Auto) Baso # (Auto) Immature Gran # (Auto) Sodium 134 L Potassium 4.9 Chloride 109 H Carbon Dioxide 20 L Anion Gap 5 BUN 29 H Creatinine 2.64 H D Est Cr Clr Drug Dosing 30.3 Est GFR ( Amer) 28.6 Est GFR (Non-Af Amer) 24.7 BUN/Creatinine Ratio 11.0 Glucose 105 H POC Glucose 83 Estimat Average Glucose Hemoglobin A1c Calcium 8.5 Procalcitonin 0.60 H Urine Color Urine Appearance Urine pH Ur Specific [place] Urine Protein Urine Glucose (UA) Urine Ketones Urine Blood Urine Nitrite Urine Bilirubin Urine Urobilinogen Ur Leukocyte Esterase Urine WBC (Auto) Urine RBC (Auto) U Hyaline Cast (Auto) U Epithel Cells (Auto) Urine Bacteria (Auto) Urine Osmolality Ur Random Creatinine Ur Random Sodium 02/12/22 02/12/22 11:34 16:33 WBC RBC Hgb Hct MCV MCH MCHC RDW Std Deviation RDW Coeff of Valentín Plt Count MPV Immature Gran % (Auto) Neut % (Auto) Lymph % (Auto) [place] % (Auto) Eos % (Auto) Baso % (Auto) Neut # (Auto) Lymph # (Auto) [place] # (Auto) Eos # (Auto) Baso # (Auto) Immature Gran # (Auto) Sodium Potassium Chloride Carbon Dioxide Anion Gap BUN Creatinine Est Cr Clr Drug Dosing Est GFR ( Amer) Est GFR (Non-Af Amer) BUN/Creatinine Ratio Glucose POC Glucose 95 104 H Estimat Average Glucose Hemoglobin A1c Calcium Procalcitonin Urine Color Urine Appearance Urine pH Ur Specific [place] Urine Protein Urine Glucose (UA) Urine Ketones Urine Blood Urine Nitrite Urine Bilirubin Urine Urobilinogen Ur Leukocyte Esterase Urine WBC (Auto) Urine RBC (Auto) U Hyaline Cast (Auto) U Epithel Cells (Auto) Urine Bacteria (Auto) Urine Osmolality Ur Random Creatinine Ur Random Sodium PG Care Time/CCT Total # of Minutes Spent Total Time Spent with Patient: Total time spent is greater than 50% in coordination of care (as documented) at patient's floor/unit and/or counseling patient: Coding Level of Care Code 57546 Subseq Hosp Care Lvl 2 Diagnoses Hypotension I95.9 ARF (acute renal failure) N17.9 Diarrhea R19.7 Hyponatremia E87.1 Elevated INR R79.1 Diabetes mellitus E11.9 Hypercholesterolemia E78.00 Hypothyroidism E03.9 Clear cell carcinoma of left kidney C64.2 DVT prophylaxis Z29.9
[2022-02-13 00:56] LABS: Adenovirus F 40/41 PCR Not Detected (NotDetected); Astrovirus PCR Not Detected (NotDetected); Campylobacter PCR Not Detected (NotDetected); Clostridium diff Toxin A/B PCR Not Detected (NotDetected); Cryptosporidium PCR Not Detected (NotDetected); Cyclospora cayetanensis PCR Not Detected (NotDetected); Entamoeba histolytica PCR Not Detected (NotDetected); Enteroaggregative E.coli(EAEC) Not Detected (NotDetected); Enteropathogenic E.coli (EPEC) Not Detected (NotDetected); Enterotoxigenic E.coli (ETEC) Not Detected (NotDetected); Giardia lamblia PCR Not Detected (NotDetected); Norovirus GI/GII PCR Not Detected (NotDetected); Plesiomonas shigelloides PCR Not Detected (NotDetected); Rotavirus A PCR Not Detected (NotDetected); Salmonella PCR Not Detected (NotDetected); Sapovirus PCR Not Detected (NotDetected); Shiga-like Toxin E.coli (STEC) Not Detected (NotDetected); Shigella/Enteroinvasive E.coli Not Detected (NotDetected); Vibrio cholerae PCR Not Detected (NotDetected); Vibrio species PCR Not Detected (NotDetected); Yersinia enterocolitica PCR Not Detected (NotDetected)
[2022-02-13] MEDS: LACTATED RINGER'S 1,000 ML IV SCH ×2 (04:52→14:03)
[2022-02-13] MEDS: LEVOTHYROXINE SODIUM 75 MCG TABLET PO SCH (05:52)
[2022-02-13 07:06] LABS: INR 1.1 (0.9-1.1); Prothrombin Time 11.9 Seconds (9.0-12.0)
[2022-02-13 07:32] LABS: BUN Creatinine Ratio 12.6 (10-20); Calcium 8.5 mg/dl (8.5-10.1); Creatinine Clr Calc Pharmacy 40.3 ml/min; Est GFR (African American) 40.2 ml/min; Est GFR (Non-African American) 34.7 ml/min; Potassium 4.1 mmol/L (3.5-5.1)
[2022-02-13] MEDS: GABAPENTIN 600 MG TAB PO SCH ×3 (07:44→20:42)
[2022-02-13] MEDS: ASPIRIN 81 MG ECTAB PO SCH (07:44)
[2022-02-13] MEDS: oxyCODONE HCL IR 5 MG TAB (IMMEDIATE RELEASE) PO PRN ×3 (07:45→20:41)
--- NOTE | 2022-02-13 07:54 | Hospitalist Progress Note ---
Date of Service February 13, 2022 Assessment & Plan (1) Hypotension: Plan: 2nd to severe volume depletion/dehydration at time of admission - resolved. BPs now normal. BPs today 120s systolic -- cont to hold amlodipine and lisinopril. (2) ARF (acute renal failure): Plan: pre-renal, 2nd to marked volume depletion. FLAVIO inhibitor use also could have affected renal function. poor PO intake, diarrhea, etc. Peak Cr >4, now down to 1.9. Cont LR at 100cc/hr. repeat BMP am. patient is on VERY large doses of gabapentin REDUCED to 600mg TID (from 1200mg TID) until renal function is back to baseline (3) Diarrhea: Plan: stool BioFire negative. diarrhea likely related to chemotherapy. bile acid diarrhea also possible. pancreatic insufficiency is a consideration as he has pancreatic mets from his RCC. cont colestipol 1gm daily. can titrate if needed. (4) Hyponatremia: Plan: 2nd to volume depletion - resolved with isotonic fluids. bmp am. (5) Elevated INR: Plan: 2nd to vit K deficiency - suspected. INR today normal s/p vitamin K 5mg IV x 1 yesterday. LFTs were noted to be wnl. 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 now with lung mets and pancreatic mets chemo on hold at this time care d/w Dr Zheng yesterday (10) DVT prophylaxis: Plan: heparin SC 5000 TID (11) Severe protein-calorie malnutrition: Plan: 15kg of weight loss over the last 12-13 months 2nd to kidney ca add MVI add boost Plan updated at bedside PT eval requested due to chronic insomnia, poor appetite, change in mood - consider remeron this was d/w patient/ yesterday in meantime - add melatonin for sleep Admission and Anticipated Discharge Date Admission Date: February 11, 2022 Subjective tele overnight wnl patient overall feeling better did not sleep well last night, however diarrhea improved - more formed stool this am following breakfast eating a bit better no pain in any location at bedside both are hoping he can return home tomorrow Review of Systems Review of Systems: gen - no fevers/chills cv - no chest pain pulm - no cough, no dyspnea GI - no vomiting, no nausea, no pain neuro - no dizziness or lightheadedness Physical Exam Physical Exam: gen - NAD, pleasant mouth - MMM, no thrush neck - no JVD heart - RRR, s1 s2, no murmur lungs - CTA b/l abd - soft NT ND BS+ ext - no edema, pulses 2+ b/l psych - a/o x 3 Results & Data Results & Data ([facility]) Vital Signs (Past 12 Hours) Vital Signs Temp Pulse Pulse Resp BP Pulse Ox O2 Del Method 02/13/22 06:53 36.9 C 83 18 120/75 95 Room Air 02/12/22 22:20 87 02/13/22 04:00 36.6 C 83 18 126/75 96 Room Air 02/12/22 23:36 36.6 C 88 18 109/65 98 Room Air Laboratory Results Laboratory Results - last 24 hr 02/11/22 02/12/22 02/12/22 10:12 07:41 07:41 WBC 8.58 RBC 4.60 L Hgb 14.5 D Hct 42.1 MCV 91.5 MCH 31.5 MCHC 34.4 RDW Std Deviation 47.8 H RDW Coeff of Valentín 14.2 Plt Count 194 MPV 11.9 Immature Gran % (Auto) 0.3 Neut % (Auto) 78.0 Lymph % (Auto) 14.2 Taney % (Auto) 5.9 Eos % (Auto) 0.9 Baso % (Auto) 0.7 Neut # (Auto) 6.68 H Lymph # (Auto) 1.22 Taney # (Auto) 0.51 Eos # (Auto) 0.08 Baso # (Auto) 0.06 Immature Gran # (Auto) 0.03 H PT INR Sodium 134 L Potassium 4.9 Chloride 109 H Carbon Dioxide 20 L Anion Gap 5 BUN 29 H Creatinine 2.64 H D Est Cr Clr Drug Dosing 30.3 Est GFR ( Amer) 28.6 Est GFR (Non-Af Amer) 24.7 BUN/Creatinine Ratio 11.0 Glucose 105 H POC Glucose Estimat Average Glucose 108 Hemoglobin A1c 5.4 Calcium 8.5 Procalcitonin Stl C. cayetanensis PCR Stool Rotavirus A PCR Stl Adenov F PCR Stool Astrovirus (PCR) Stool Campylobacter PCR Stl C. diff Tox A/B PCR Stool Cryptosporidium PCR Stl E.coli Shiga Tox PCR Stl Enterotoxigenic E PCR Stool EPEC (PCR) Stool EAEC (PCR) Stl E. histolytica PCR Stool Giardia Lamblia PCR Stool Salmonella PCR Stool Sapovirus (PCR) Stl P. shigelloides PCR Stl Shigella/EIEC PCR St Y.enterocolitica PCR Stool Vibrio (PCR) Stl Vibrio cholerae PCR Stl Norovirus GI/GII PCR 02/12/22 02/12/22 02/12/22 07:41 07:56 11:34 WBC RBC Hgb Hct MCV MCH MCHC RDW Std Deviation RDW Coeff of Valentín Plt Count MPV Immature Gran % (Auto) Neut % (Auto) Lymph % (Auto) Taney % (Auto) Eos % (Auto) Baso % (Auto) Neut # (Auto) Lymph # (Auto) Taney # (Auto) Eos # (Auto) Baso # (Auto) Immature Gran # (Auto) PT INR Sodium Potassium Chloride Carbon Dioxide Anion Gap BUN Creatinine Est Cr Clr Drug Dosing Est GFR ( Amer) Est GFR (Non-Af Amer) BUN/Creatinine Ratio Glucose POC Glucose 83 95 Estimat Average Glucose Hemoglobin A1c Calcium Procalcitonin 0.60 H Stl C. cayetanensis PCR Stool Rotavirus A PCR Stl Adenov F PCR Stool Astrovirus (PCR) Stool Campylobacter PCR Stl C. diff Tox A/B PCR Stool Cryptosporidium PCR Stl E.coli Shiga Tox PCR Stl Enterotoxigenic E PCR Stool EPEC (PCR) Stool EAEC (PCR) Stl E. histolytica PCR Stool Giardia Lamblia PCR Stool Salmonella PCR Stool Sapovirus (PCR) Stl P. shigelloides PCR Stl Shigella/EIEC PCR St Y.enterocolitica PCR Stool Vibrio (PCR) Stl Vibrio cholerae PCR Stl Norovirus GI/GII PCR 02/12/22 02/12/22 02/12/22 16:33 20:17 23:02 WBC RBC Hgb Hct MCV MCH MCHC RDW Std Deviation RDW Coeff of Valentín Plt Count MPV Immature Gran % (Auto) Neut % (Auto) Lymph % (Auto) Taney % (Auto) Eos % (Auto) Baso % (Auto) Neut # (Auto) Lymph # (Auto) Taney # (Auto) Eos # (Auto) Baso # (Auto) Immature Gran # (Auto) PT INR Sodium Potassium Chloride Carbon Dioxide Anion Gap BUN Creatinine Est Cr Clr Drug Dosing Est GFR ( Amer) Est GFR (Non-Af Amer) BUN/Creatinine Ratio Glucose POC Glucose 104 H 101 H Estimat Average Glucose Hemoglobin A1c Calcium Procalcitonin Stl C. cayetanensis PCR Not Detected Stool Rotavirus A PCR Not Detected Stl Adenov F PCR Not Detected Stool Astrovirus (PCR) Not Detected Stool Campylobacter PCR Not Detected Stl C. diff Tox A/B PCR Not Detected Stool Cryptosporidium PCR Not Detected Stl E.coli Shiga Tox PCR Not Detected Stl Enterotoxigenic E PCR Not Detected Stool EPEC (PCR) Not Detected Stool EAEC (PCR) Not Detected Stl E. histolytica PCR Not Detected Stool Giardia Lamblia PCR Not Detected Stool Salmonella PCR Not Detected Stool Sapovirus (PCR) Not Detected Stl P. shigelloides PCR Not Detected Stl Shigella/EIEC PCR Not Detected St Y.enterocolitica PCR Not Detected Stool Vibrio (PCR) Not Detected Stl Vibrio cholerae PCR Not Detected Stl Norovirus GI/GII PCR Not Detected 02/13/22 02/13/22 06:18 06:18 WBC RBC Hgb Hct MCV MCH MCHC RDW Std Deviation RDW Coeff of Valentín Plt Count MPV Immature Gran % (Auto) Neut % (Auto) Lymph % (Auto) Taney % (Auto) Eos % (Auto) Baso % (Auto) Neut # (Auto) Lymph # (Auto) Taney # (Auto) Eos # (Auto) Baso # (Auto) Immature Gran # (Auto) PT 11.9 INR 1.1 Sodium 137 Potassium 4.1 Chloride 110 H Carbon Dioxide 21 Anion Gap 6 BUN 25 H Creatinine 1.99 H D Est Cr Clr Drug Dosing 40.3 Est GFR ( Amer) 40.2 Est GFR (Non-Af Amer) 34.7 BUN/Creatinine Ratio 12.6 Glucose 139 H POC Glucose Estimat Average Glucose Hemoglobin A1c Calcium 8.5 Procalcitonin Stl C. cayetanensis PCR Stool Rotavirus A PCR Stl Adenov F PCR Stool Astrovirus (PCR) Stool Campylobacter PCR Stl C. diff Tox A/B PCR Stool Cryptosporidium PCR Stl E.coli Shiga Tox PCR Stl Enterotoxigenic E PCR Stool EPEC (PCR) Stool EAEC (PCR) Stl E. histolytica PCR Stool Giardia Lamblia PCR Stool Salmonella PCR Stool Sapovirus (PCR) Stl P. shigelloides PCR Stl Shigella/EIEC PCR St Y.enterocolitica PCR Stool Vibrio (PCR) Stl Vibrio cholerae PCR Stl Norovirus GI/GII PCR PG Care Time/CCT Total # of Minutes Spent Total Time Spent with Patient: Total time spent is greater than 50% in coordination of care (as documented) at patient's floor/unit and/or counseling patient: Coding Level of Care Code 46099 Subseq Hosp Care Lvl 2 Diagnoses Hypotension I95.9 ARF (acute renal failure) N17.9 Diarrhea R19.7 Hyponatremia E87.1 Elevated INR R79.1 Diabetes mellitus E11.9 Hypercholesterolemia E78.00 Hypothyroidism E03.9 Clear cell carcinoma of left kidney C64.2 DVT prophylaxis Z29.9 Severe protein-calorie malnutrition E43
[2022-02-13] MEDS: HEPARIN SOD 5,000 UNIT/0.5 ML VIAL SQ SCH ×3 (08:45→22:14)
[2022-02-13] MEDS: COLESTIPOL HCL 1 GM TAB PO SCH (10:48)
--- NOTE | 2022-02-13 11:37 | Nephrology Progress Note ---
Date of Service February 13, 2022 Assessment & Plan (1) ARF (acute renal failure): (2) Hyponatremia: (3) Diarrhea: (4) Hypomagnesemia: (5) Hypotension: Plan 61-year-old gentlemen with history of metastatic renal cell carcinoma, status post left nephrectomy, baseline creatinine around 1.2-1.3, admitted to the hospital with 2 weeks history of severe anorexia, poor p.o. intake, decreased urine output generalized fatigue and weight loss after started on Claire for metastatic carcinoma. On admission creatinine was 4.1, sodium 129, bicarb 18. urinalysis and CT abdomen pelvis was unremarkable. Was started on LR 200 mL/hour. Acute kidney injury most likely prerenal with significant volume depletion with poor p.o. intake for 2 weeks. Renal function continues to improve, creatinine down to 2.0, electrolyte improving. Decent urine output, stable blood pressure. Overall feeling much better and p.o. intake improved. -- As renal function improved and p.o. intake adequate, suggest stopping IV fluid later today and monitor overnight with repeat renal panel in a.m.. If continues to improve and overall otherwise feels well, okay to be discharged tomorrow. -- encourage p.o. intake as tolerated -- avoid all nephrotoxic medications Will follow. Admission and Anticipated Discharge Date Admission Date: February 11, 2022 Patrick Brown was seen and examined this morning. He is feeling much better, appetite improved and had decent breakfast this morning. Urine output normal, blood pressure has been well controlled. No shortness of breath or chest pain. Renal function continues to improve and creatinine down to 2.0 this morning, bicarbonate improved to 21. Review of Systems Review of Systems: detailed review of system was done and pertinent positives and negatives are mentioned above. Physical Exam Constitutional: WD/WN, vitals as above no acute distress Eyes: + anicteric sclerae Neck: normal visual inspection Respiratory: Auscultation: lungs clear to auscultation bilaterally Cardiovascular: RRR, no murmur, no edema Skin: no rashes, warm and dry Neurologic: no focal motor deficits and not confused Psychiatric: Orientation: alert and oriented x 3 Results & Data ([facility]) Vital Signs (Past 12 Hours) Vital Signs Temp Pulse Pulse Resp BP BP Pulse Ox 02/13/22 11:14 36.4 C L 69 18 127/78 97 02/13/22 08:00 02/13/22 07:30 85 02/13/22 06:53 36.9 C 83 18 120/75 95 02/13/22 04:00 36.6 C 83 18 126/75 96 02/12/22 23:36 36.6 C 88 18 109/65 98 O2 Del Method 02/13/22 11:14 Room Air 02/13/22 08:00 Room Air 02/13/22 07:30 02/13/22 06:53 Room Air 02/13/22 04:00 Room Air 02/12/22 23:36 Room Air PG Care Time/CCT Total # of Minutes Spent Total Time Spent with Patient: Total time spent is greater than 50% in coordination of care (as documented) at patient's floor/unit and/or counseling patient: Coding Level of Care Code 93931 Subseq Hosp Care Lvl 3 Diagnoses ARF (acute renal failure) N17.9 Hyponatremia E87.1 Diarrhea R19.7 Hypomagnesemia E83.42 Hypotension I95.9
[2022-02-13] MEDS: CEROVITE ADV FORMULA TAB PO SCH (17:13)
[2022-02-13] MEDS ORDERED: SUCRALFATE 1 GM/10 ML UDC PO STA (17:19)
[2022-02-13] MEDS: FAMOTIDINE 20 MG TAB PO SCH (20:41)
[2022-02-13] MEDS ORDERED: MELATONIN 3 MG TAB PO SCH (21:00)
[2022-02-14] MEDS: LACTATED RINGER'S 1,000 ML IV SCH (00:13)
[2022-02-14] MEDS: oxyCODONE HCL IR 5 MG TAB (IMMEDIATE RELEASE) PO PRN ×2 (02:11→08:30)
[2022-02-14] MEDS: LEVOTHYROXINE SODIUM 75 MCG TABLET PO SCH (07:05)
[2022-02-14] MEDS: HEPARIN SOD 5,000 UNIT/0.5 ML VIAL SQ SCH (07:06)
[2022-02-14 07:18] LABS: Hematocrit (blood only) 34.5 % (40.1-51.0); Hemoglobin 11.8 g/dl (14.0-18.0); Mean Corpuscular Hemoglobin 31.6 pg (25.0-34.0); Mean Corpuscular Hgb Conc 34.2 g/dL (32.0-36.0); Mean Corpuscular Volume 92.2 fL (80.0-100.0); Mean Platelet Volume 11.9 fL (9.4-12.4); Platelet Count 189 K/uL (130-400); RDW Coefficient of Variation 14.2 % (11.5-14.5); RDW Standard Deviation 47.8 fL (36.4-46.3); Red Blood Count 3.74 M/uL (4.63-6.08); White Blood Count 5.57 K/ul (4.8-10.8)
[2022-02-14 07:39] LABS: BUN Creatinine Ratio 12.2 (10-20); Calcium 8.2 mg/dl (8.5-10.1); Creatinine Clr Calc Pharmacy 54.7 ml/min; Est GFR (African American) 57.5 ml/min; Est GFR (Non-African American) 49.6 ml/min; Potassium 3.9 mmol/L (3.5-5.1)
[2022-02-14] MEDS: GABAPENTIN 600 MG TAB PO SCH ×2 (08:29→13:51)
[2022-02-14] MEDS: CEROVITE ADV FORMULA TAB PO SCH (08:29)
[2022-02-14] MEDS: FAMOTIDINE 20 MG TAB PO SCH (08:29)
[2022-02-14] MEDS: ASPIRIN 81 MG ECTAB PO SCH (08:30)
[2022-02-14] MEDS: COLESTIPOL HCL 1 GM TAB PO SCH (10:06)
--- NOTE | 2022-02-14 11:02 | Nephrology Progress Note ---
Date of Service February 14, 2022 Assessment & Plan (1) ARF (acute renal failure): (2) Hyponatremia: (3) Diarrhea: (4) Hypomagnesemia: (5) Hypotension: Plan 61-year-old gentlemen with history of metastatic renal cell carcinoma, status post left nephrectomy, baseline creatinine around 1.2-1.3, admitted to the hospital with 2 weeks history of severe anorexia, poor p.o. intake, decreased urine output generalized fatigue and weight loss after started on Claire for metastatic carcinoma. On admission creatinine was 4.1, sodium 129, bicarb 18. urinalysis and CT abdomen pelvis was unremarkable. Was started on LR 200 mL/hour. Acute kidney injury most likely prerenal with significant volume depletion with poor p.o. intake for 2 weeks. Renal function continues to improve, creatinine down to 1.5, electrolyte improving. Decent urine output, stable blood pressure. Overall feeling much better and p.o. intake improved. -- As renal function improved and p.o. intake adequate and overall otherwise feels well, okay to be discharged. -- encourage p.o. intake as tolerated -- avoid all nephrotoxic medications -- Outpatient follow-up as currently scheduled. Will sign off. Admission and Anticipated Discharge Date Admission Date: February 11, 2022 Patrick Sears was seen and examined this morning. Overall he is feeling much better, feels 100% better compared to prior to admission. Renal function continues to improve, creatinine down to 1.5, close to baseline, electrolyte acceptable. Blood pressure controlled. Appetite improved. Review of Systems Review of Systems: detailed review of system was done and pertinent positives and negatives are mentioned above. Physical Exam Constitutional: WD/WN, vitals as above no acute distress Eyes: + anicteric sclerae Neck: normal visual inspection Respiratory: Auscultation: lungs clear to auscultation bilaterally Cardiovascular: RRR, no murmur, no edema Skin: no rashes, warm and dry Neurologic: no focal motor deficits and not confused Psychiatric: Orientation: alert and oriented x 3 Results & Data ([facility]) Vital Signs (Past 12 Hours) Vital Signs Temp Pulse Pulse Resp BP BP Pulse Ox 02/14/22 10:37 145/84 H 02/14/22 10:29 36.6 C 68 16 127/75 96 02/14/22 08:00 36.6 C 68 16 157/88 H 96 02/14/22 07:00 68 02/14/22 07:00 02/14/22 04:01 36.8 C 74 18 127/75 96 O2 Del Method 02/14/22 10:37 02/14/22 10:29 02/14/22 08:00 Room Air 02/14/22 07:00 02/14/22 07:00 Room Air 02/14/22 04:01 Room Air PG Care Time/CCT Total # of Minutes Spent Total Time Spent with Patient: Total time spent is greater than 50% in coordination of care (as documented) at patient's floor/unit and/or counseling patient: Coding Level of Care Code 98164 Subseq Hosp Care Lvl 3 Diagnoses ARF (acute renal failure) N17.9 Hyponatremia E87.1 Diarrhea R19.7 Hypomagnesemia E83.42 Hypotension I95.9
--- NOTE | 2022-02-14 13:20 | Discharge Summary ---
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 Last chemo beginning of Dec, was due this week takes daily maintenance pills Increased nausea last 2-3 days, decreased appetite, no PO intake ~2-3 days hypotensive responded to fluids Cr 1.19 --> 4.14 Sodium 129 Lactic acid normal Cefepime empiric coverage WBC 16.85, neurtophils 13.76 3 weeks started Claire with Keytruda. had hypertensive episode as a result. BP been OK since ER visit, but +diarrhea, +fatigue, and genearlly 'miserable.' Very poor PO intake the last 3 weeks 'a struggle to get much down, either eating or drinking' and almost nothing the last 2 days. In general getting <16oz fluid and <500kcal per day. Denies nausea 'just isn't hungry.'. Does get some burning in the stomach/reflux. No chest pain or chest pressure. No fevers, chills, or sweats. COld, but no chills. No cough/productive sputum. Urinating small amounts ~3 times per day ~50-100cc per void. No burning with urination. No feeling of urinary retention. Sees Dr. angela for retention, on flomax. Keytruda q6w, pending infusion tomorrow Axitinib 1mg BID. Stopped taking this past Tuesday morning due to feeling poorly. did not take medicines today Medical History: Reviewed Medications: Reviewed Surgical History: Reviewed Allergies: Reviewed Social History: Skull tobacco, none in the last 2 days. Prior 1 can per day for 40 years. Former Etoh, none in 30 years. Code Status:Surrogate DM Zoe [phone]. Full Code, discussed with patient. Discharge Exam gen - NAD, pleasant mouth - MMM, no thrush neck - no JVD heart - RRR, s1 s2, no murmur lungs - CTA b/l abd - soft NT ND BS+ ext - no edema, pulses 2+ b/l psych - a/o x 3 Discharge Data Allergies Allergy/AdvReac Type Severity Reaction Status Date / Time Iodinated Contrast Media AdvReac Mild ITCHY Verified 02/11/22 14:21 FOREARMS Consultations 02/11/22 13:46 ED Decision to Admit Stat 02/11/22 16:09 Consult Nephrology Routine Ordered Studies 02/11/22 10:36 CT cervical spine wo con Stat CT head/brain wo con Stat 02/11/22 11:53 CT abd pelvis wo con Stat Hospital Course (1) Hypotension: 2nd to severe volume depletion/dehydration at time of admission - resolved. BPs now normal. BPs today 120s systolic -- cont to hold amlodipine and lisinopril. (2) ARF (acute renal failure): pre-renal, 2nd to marked volume depletion. FLAVIO inhibitor use also could have affected renal function. poor PO intake, diarrhea, etc. Peak Cr >4, now down to 1.9. Cont LR at 100cc/hr. repeat BMP am. patient is on VERY large doses of gabapentin REDUCED to 600mg TID (from 1200mg TID) until renal function is back to baseline (3) Diarrhea: stool BioFire negative. diarrhea likely related to chemotherapy. bile acid diarrhea also possible. pancreatic insufficiency is a consideration as he has pancreatic mets from his RCC. cont colestipol 1gm daily. can titrate if needed. (4) Hyponatremia: 2nd to volume depletion - resolved with isotonic fluids. bmp am. (5) Elevated INR: 2nd to vit K deficiency - suspected. INR today normal s/p vitamin K 5mg IV x 1 yesterday. LFTs were noted to be wnl. 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 acute renal failure (elevated creatinine) - resolved. This was due to severe dehydration. Discharge creatinine 1.4. 2. hyponatremia (low sodium) - resolved. 3. diarrhea - no evidence of infection - improved. 4. hypotension (low blood pressure) - resolved. Due to severe dehydration. 5. severe dehydration - resolved. 6. possible vitamin K deficiency - resolved. 7. kidney cancer. Activity: Resume your previous activity Activity Comment: as tolerated Non-emergency contact: Primary Care Provider and Oncologist Call non-emergency contact if: you have any medication questions, your symptoms worsen and you have a fever Follow-up/Referrals: Don Crenshaw DO [Primary Care Provider] - (1 week ) Jessenia Zheng MD [Physician] - (please call Tuesday, 02/15, to schedule follow-up appointment to discuss your chemotherapy ) Diet: Carb Consistent or DM2 Addtl Attending Provider Instructions: Mr Arenas, You were hospitalized for severe dehydration. This led to low blood pressure, acute renal failure, low sodium, weakness, etc. All symptoms improved during your stay with copious IV fluids. Your creatinine (kidney function) improved from 4.1 to 1.4. Your creatinine is nearly normal. Your diarrhea also improved. We started you on medication to help the diarrhea. Your stool test was negative for infection. We also did not find infection in your bloodstream. You are now eating & drinking well. You did well with physical therapy on day of discharge. It is suspected that many of your symptoms were likely due to chemotherapy for your kidney cancer. Recommendations - 1. For diarrhea - take colestipol 1gm once daily; take either mid-morning or mid-afternoon. Please stop the lomotil anti-diarrheal medication previously prescribed. If you do develop constipation while on colestipol simply stop it. 2. Blood pressure medication - * please STOP your lisinopril * OK to resume your amlodipine 3. I don't see any specific reason that would prevent you from taking your cholesterol medication. Ok to resume it. 4. Please take an [id number] multivitamin once daily. 5. Please STOP your oral chemotherapy agent (Inlyta) at this time. At your next appointment with Dr Zheng you can review options for your treatment with her. 6. For heartburn you can take [id number] pepcid (famotidine) 20mg every 12 hours as needed. 7. Gabapentin - * TODAY only - take 600mg this afternoon, and 600mg at bedtime tonight * TOMORROW and thereafter - you can resume your normal dosing of 1200mg three times daily 8. For the sore on your left hand - you can purchase the dressings that we discussed at [facility] and place a fresh one on every 2 days, sooner if it falls off or is soiled. Follow-up - see separate section Return to [facility] if - * you have fevers over 100 degrees * you have shortness of breath * you have chest pains * you have abdominal pains * you have pain or swelling in your legs * you are dizzy or lightheaded * any other concerns It was our pleasure to care for you at [facility]! Dr Jimenez Pending Studies at Discharge: No Stand-Alone Forms: My [facility], Smoking Cessation Medications and DC Order Prescriptions: New famotidine 20 mg Tablet 20 mg PO BID PRN (Reason: heartburn) Qty: 30 0RF Rx Instructions: purchase [id number] colestipol [Colestid] 1 gram Tablet 1 g PO DAILY@1000 Qty: 30 1RF Cerovite Senior 0.4 mg-300 mcg- 250 mcg Tablet 1 tab PO QAM Qty: 30 1RF Rx Instructions: purchase [id number] Continued gabapentin 600 mg tablet 1,200 mg PO TID Qty: 90 tramadol 50 mg tablet 100 mg PO QID acetaminophen [Tylenol Extra Strength] 500 mg Tablet 1,000 mg PO Q6H PRN (Reason: Pain) levothyroxine 75 mcg tablet 75 mcg PO DAILY aspirin 81 mg Tablet,Delayed Release (Dr/Ec) 81 mg PO QAM Qty: 30 0RF cyanocobalamin (vitamin B-12) 1,000 mcg capsule 1,000 mcg PO DAILY Qty: 30 0RF amlodipine 5 mg tablet 5 mg PO DAILY Qty: 30 0RF rosuvastatin 10 mg Tablet 10 mg PO DAILY allopurinol 100 mg tablet 150 mg PO DAILY cholecalciferol (vitamin D3) [Vitamin D3] 25 mcg (1,000 unit) Capsule 25 mcg PO DAILY Discontinued diphenoxylate-atropine 2.5-0.025 mg tablet 1 tab PO QID PRN (Reason: Diarrhea) Annette 25 mg/mL Solution 0 mg IV [id number] lisinopril 20 mg tablet 30 mg PO QAM Qty: 45 0RF Inlyta 1 mg tablet 3 mg PO BID Discharge Orders: Discharge Order (Routine); Ordered 02/14/22 Ordered By: Matthew De Anda/Other Patient Handouts: Coping with Kidney Failure, Hypotension Dc, ED Dehydration (Adult) Admission Data Admit Date/Time: 02/11/22 13:58 Attending Provider: Matthew Jimenez Admit Provider: Zach Lozoya Primary Care Provider: Don Crenshaw Other Providers: Zach Lozoya ; Shayla Sher Other Interventions: Discharge Summary Assessment (RN) Last Done: 02/14/22 13:15 Coding Diagnoses Hypotension I95.9 ARF (acute renal failure) N17.9 Diarrhea R19.7 Hyponatremia E87.1 Elevated INR R79.1 Diabetes mellitus E11.9 Hypercholesterolemia E78.00 Hypothyroidism E03.9 Clear cell carcinoma of left kidney C64.2 DVT prophylaxis Z29.9 Severe protein-calorie malnutrition E43
== END 2022-02-14 14:01 | disposition home or self-care (01) | DRG 314 ==
LOC: ED 09:51 → SUATTDRO 13:58 → 2N 13:58

== ENCOUNTER 2022-12-07 05:02 | Observation (INO) ==
--- NOTE | 2022-11-15 12:51 | PAT Medication Instructions ---
Medication Instructions Date of Service November 15, 2022 Home Medications Medication Instructions Recorded aspirin 81 mg tablet,delayed 81 mg PO QAM #30 tabs 01/12/22 release cyanocobalamin (vitamin B-12) 1,000 mcg PO DAILY #30 caps 01/12/22 1,000 mcg capsule colestipol 1 gram tablet (Colestid) 1 g PO DAILY@1000 #30 tabs 02/14/22 famotidine 20 mg tablet 20 mg PO BID PRN heartburn #30 tabs 02/14/22 buamxpbc-hld-dbfus acid 0.4 1 tab PO QAM #30 tabs 02/14/22 mg-lycopene 300 mcg-lutein 250 mcg tablet (Cerovite Senior) gabapentin 600 mg tablet 1,200 mg PO TID tramadol 50 mg tablet 100 mg PO QID allopurinol 100 mg tablet 150 mg PO QAM cholecalciferol (vitamin D3) 25 mcg (1,000 unit) capsule (Vitamin D3) 25 mcg PO QAM acetaminophen 500 mg tablet (Tylenol Extra Strength) 1,000 mg PO Q6H PRN Pain levothyroxine 75 mcg tablet 88 mcg PO QAM cyanocobalamin (vitamin B-12) 1,000 mcg capsule 1,000 mcg PO DAILY rosuvastatin 10 mg tablet 10 mg PO QAM colestipol 1 gram tablet (Colestid) 1 g PO DAILY@1000 famotidine 20 mg tablet 20 mg PO BID PRN heartburn qdgjxxtg-ist-cxipn acid 0.4 mg-lycopene 300 mcg-lutein 250 mcg tablet (Cerovite Senior) 1 tab PO QAM amlodipine 5 mg tablet 2.5 mg PO QAM axitinib 1 mg tablet (Inlyta) 2 mg PO BID lisinopril 20 mg tablet 20 mg PO QAM pembrolizumab [Keytruda] 1 dose IV .Q6WKs ASK your prescriber and surgeon pembrolizumab [Keytruda] 1 dose IV .Q6WKs axitinib 1 mg tablet (Inlyta) 2 mg PO BID STOP taking 48 hours before surgery colestipol 1 gram tablet (Colestid) 1 g PO DAILY@1000 DO NOT take the morning of surgery cholecalciferol (vitamin D3) 25 mcg (1,000 unit) capsule (Vitamin D3) 25 mcg PO QAM cyanocobalamin (vitamin B-12) 1,000 mcg capsule 1,000 mcg PO DAILY wclxgzfi-iyt-qywzb acid 0.4 mg-lycopene 300 mcg-lutein 250 mcg tablet (Cerovite Senior) 1 tab PO QAM lisinopril 20 mg tablet 20 mg PO QAM Take morning of surgery With a small sip of water, OTHERWISE NOTHING TO EAT OR DRINK AFTER MIDNIGHT: gabapentin 600 mg tablet 1,200 mg PO TID tramadol 50 mg tablet 100 mg PO QID allopurinol 100 mg tablet 150 mg PO QAM acetaminophen 500 mg tablet (Tylenol Extra Strength) 1,000 mg PO Q6H PRN Pain (if needed) levothyroxine 75 mcg tablet 88 mcg PO QAM rosuvastatin 10 mg tablet 10 mg PO QAM famotidine 20 mg tablet 20 mg PO BID PRN heartburn (if needed) amlodipine 5 mg tablet 2.5 mg PO QAM Take evening before surgery gabapentin 600 mg tablet 1,200 mg PO TID tramadol 50 mg tablet 100 mg PO QID acetaminophen 500 mg tablet (Tylenol Extra Strength) 1,000 mg PO Q6H PRN Pain (if needed) famotidine 20 mg tablet 20 mg PO BID PRN heartburn (if needed) Other Notes If you have any questions please call us at [phone] or [phone] or [phone] or [phone]
--- NOTE | 2022-11-22 12:22 | Anesthesiology Consultation ---
Date of Service November 22, 2022 Assessment & Plan (1) Encounter for pre-operative examination: - Check CBCD DOS (current chemo) - Check BSG DOS - COVID screening: Per assessment on 11/22: No known COVID-19 positive contacts or current COVID-19 related symptoms. Travel screen negative. Patient vaccinated - Outpatient joint assessment: Pt currently scheduled for inpatient pathway. If surgeon requests review for outpatient joint pathway, patient is not recommended candidate for outpatient joint program from anesthesia standpoint. - Patient acceptable risk for surgery pending surgeon-ordered PCP preop evaluation (Dr. Crenshaw's office, appt 12/01). Chart Review Chart Review: Patient NOT seen in Pre Admission Testing Teaching & Discussion Pre-Anesthesia Teaching/Discussion Notes: Instructed NPO after midnight before surgery,except medications with 15 cc of water. Medication instructions provided according to the PAT guidelines. p History Surgery Operation Date: 12/07/22 07:00 Proposed Procedures p Right Total Knee Arthroplasty - Zach Bang MD Height/Weight Height: 5 ft 8 in Weight: 82.4 kg Allergies Allergy/AdvReac Type Severity Reaction Status Date / Time Iodinated Contrast Media AdvReac Mild Forearms Verified 11/22/22 12:29 itching (see comments) Medications Home Medications Medication Instructions Recorded Confirmed Last Taken gabapentin 600 mg tablet 1,200 mg PO TID #90 tabs 10/27/20 11/15/22 02/10/22 tramadol 50 mg tablet 100 mg PO QID 10/27/20 11/15/22 02/10/22 allopurinol 100 mg tablet 150 mg PO QAM 01/31/21 11/15/22 02/10/22 cholecalciferol (vitamin D3) 25 25 mcg PO QAM 01/31/21 11/15/22 02/10/22 mcg (1,000 unit) capsule (Vitamin D3) acetaminophen 500 mg tablet 1,000 mg PO Q6H PRN Pain 01/10/22 11/15/22 Unknown (Tylenol Extra Strength) levothyroxine 75 mcg tablet 88 mcg PO QAM 01/10/22 11/15/22 02/10/22 aspirin 81 mg tablet,delayed 81 mg PO QAM #30 tabs 01/12/22 11/15/22 02/10/22 release cyanocobalamin (vitamin B-12) 1,000 mcg PO DAILY #30 caps 01/12/22 11/15/22 02/10/22 1,000 mcg capsule rosuvastatin 10 mg tablet 10 mg PO QAM 02/11/22 11/15/22 02/10/22 colestipol 1 gram tablet (Colestid) 1 g PO DAILY@1000 #30 tabs 02/14/22 11/15/22 Unknown famotidine 20 mg tablet 20 mg PO BID PRN heartburn #30 tabs 02/14/22 11/15/22 Unknown ciluxmtb-yqw-csncy acid 0.4 1 tab PO QAM #30 tabs 02/14/22 11/15/22 Unknown mg-lycopene 300 mcg-lutein 250 mcg tablet (Cerovite Senior) amlodipine 5 mg tablet 2.5 mg PO QAM 05/24/22 11/15/22 Unknown axitinib 1 mg tablet (Inlyta) 2 mg PO BID 05/24/22 11/15/22 Unknown lisinopril 20 mg tablet 20 mg PO QAM 05/24/22 11/15/22 Unknown pembrolizumab [Keytruda] 1 dose IV .Q6WKs 05/24/22 11/15/22 Unknown Past Medical History Medical History Acquired claw toe of right foot Arthritis of knee Benign localized prostatic hyperplasia with lower urinary tract symptoms (LUTS) Bilateral lung cancer Taking inlyta daily and keytruda q 6 weeks Follows w/ Dr Zheng Chemotherapy-induced diarrhea colestipol PRN Chronic kidney disease, stage 3a Claustrophobia CVA (cerebral vascular accident) 01/11/2022 MRI brain with 3 mm focus of restricted diffusion within the left temporal lobe is suggestive of an acute versus subacute infarct Diabetes mellitus Diet controlled "No longer needs medication after weight loss" Diabetic neuropathy Dyslipidemia History of COVID-19 ? 2020- mild cold symptoms; resolved Hx of renal calculi Hypercholesterolemia Hypertension Hypothyroidism Osteoarthritis Renal cancer Left nephrectomy 2014 for "metastatic RCC" Solitary right kidney Exercise / Class Metabolic Activity III < 4 Walking/Shop/Light housework (one FS (no CP, + SOB)) Past Family History Family History Father Hearing loss Lung disease Mother Cancer Aortic aneurysm Breast cancer Myocardial infarction Other No family history of adverse response to anesthesia No family history of bleeding disorder Past Surgical History Surgical History H/O left nephrectomy History of cholecystectomy History of esophagogastroduodenoscopy (EGD) History of hernia repair History of meniscectomy of left knee History of vasectomy Hx of colonoscopy Past Anesthesia History No Hx of Anesthesia Complications and No Family Hx of Anesthesia Complications History of PONV No Hx of PONV and No Hx of Motion Sickness Social History Smoking Status: Never smoker tobacco type: smokeless tobacco Do You Dip or Chew Tobacco: Yes (Advised none DOS) Hx Alcohol Use: No Hx Substance Use: No substance use type: does not use Review of Systems Patient denies chest pain, shortness of breath, fever, chills, cough, wheezing, palpitations. Physical Exam Vital Signs VITALS BP 111/72 P 65 TEMP 97.8 SP02 97%RA RESP 16 PHYSICAL Full cervical extension range of motion. Full TMJ range of motion. TMD 4 finger breaths Mallampati Score 3 Dentition: intact Lungs: clear throughout to auscultation Cardiac: regular rate and rhythm, no murmurs noted Spine: normal Carotid arteries: negative bruit Extremities: no LE edema Short gonzalez Lab Results Anesthesia Preop Results Results Anesthesia Widget: WBC 5.93 K/ul (4.8-10.8) 11/08/22 Hgb 13.8 g/dl (14.0-18.0) L 11/08/22 Hct 42.7 % (42.0-52.0) 11/08/22 Plt 243 K/uL (130-400) 11/08/22 Na 138 mmol/L (136-145) 11/08/22 K 3.9 mmol/L (3.5-5.1) 11/08/22 Cl 104 mmol/L (98-107) 11/08/22 CO2 28 mmol/L (21-32) 11/08/22 BUN 13 mg/dl (6-23) 11/08/22 Creat 1.09 mg/dl (0.6-1.4) 11/08/22 Glucose Level 92 mg/dl (70-99(Fasting)) 11/08/22 PT 11.4 Seconds (9.0-12.0) 11/22/22 PTT 30.2 Seconds (21.0-31.0) 11/22/22 INR 1.0 (0.9-1.1) 11/22/22 TSH 2.094 uIu/ml (0.300-4.500) 11/08/22 Free T4 1.00 ng/dl (0.61-1.60) 11/08/22 HA1c 5.7 % (4.5-5.6) H 11/22/22 Urine Color Dark Yellow 11/08/22 Urine Appearance Clear (Clear) 11/08/22 Urine pH 6.0 (4.5-7.5) 11/08/22 Urine Specific [place] 1.027 (1.000-1.030) 11/08/22 Urine Protein Trace (Negative) H 11/08/22 Urine Glucose (UA) Negative (Negative) 11/08/22 Urine Ketones Trace (Negative) H 11/08/22 Urine Blood Negative (Negative) 11/08/22 Urine Nitrite Negative (Negative) 11/08/22 Urine Bilirubin Negative (Negative) 11/08/22 Urine Urobilinogen Negative (Negative) 11/08/22 Urine Leukocyte Esterase Negative (Negative) 11/08/22 Urine WBC (Auto) 1-5 /hpf (0-5) 11/08/22 Urine RBC (Auto) 0-4 /hpf (0-4) 11/08/22 Urine Hyaline Casts (Auto) 1-5 /lpf (0-5) 11/08/22 Urine Epithelial Cells (Auto) >30 /lpf (0-5) H 11/08/22 Urine Bacteria (Auto) Negative (Negative) 11/08/22 Blood Type O Positive 11/22/22 Antibody Screen NEGATIVE 11/22/22 Testing Electrocardiogram Date: 11/22/22 SB at 59bpm. Diffuse minor NS TWA. Echocardiogram Date: 01/12/23 EF 60-65%. No RWMA. Borderline cLVH. Other Testing Neck CTA Date: 01/11/22 Moderate atherosclerotic vascular disease. There is 60% stenosis involving the mid aspect of the left common carotid artery. Moderate atherosclerotic plaque of the carotid bulbs and proximal cervical segments of the internal carotid arteries results in less than 50% stenosis bilaterally. Approximately 50% stenosis at the origin of the right vertebral artery. Acute left maxillary sinusitis. Chest CT Date: 11/11/22 Multiple scattered pulmonary and pleural-based metastatic foci are again noted. These are similar to the prior studies. Multiple hypervascular liver lesions which are likely new from the prior studies and consistent with progressive metastatic disease. Redemonstration of the 2 cm pancreatic metastatic focus. A nondisplaced left posterior third rib fracture. This is new from the prior studies but favors a subacute finding. No pneumothorax. *Per patient hx of rib fracture after mechanical fall (confirmed on imaging prior to this Chest CT per patient). Medically managed with resolution in symptoms. No pain/tenderness on exam at PAT visit 11/22/22* COVID-19 Risk Screen Screening Information COVID-19 Screen Date: 11/22/22 Exposure 21 Days Family/Household +COVID Last 21 Days: No Exposure 10 Days Any COVID Exposure Last 10 Days: No Symptoms Last 10 Days Experienced COVID Sx Last 10 Days: No + COVID 0-90 Days COVID + in Last 0-90 Days: No
[2022-12-07] MEDS ORDERED: FAMOTIDINE 20 MG TAB PO SCH (06:00)
[2022-12-07] MEDS ORDERED: ACETAMINOPHEN 500 MG TAB PO SCH (06:00)
[2022-12-07] MEDS ORDERED: dexAMETHasone 4 MG TAB PO SCH (06:00)
[2022-12-07] MEDS ORDERED: GABAPENTIN 600 MG DOSE PO SCH (06:00)
[2022-12-07] MEDS ORDERED: cloNIDine HCL 0.1 MG/24 HR TRANSDERM SYS TD SCH (06:00)
[2022-12-07] MEDS ORDERED: traMADol HCL 50 MG TABLET PO SCH (06:00)
[2022-12-07] MEDS ORDERED: LR 500ML BOLUS, THEN 15ML/HR IV SCH (06:00)
[2022-12-07] MEDS ORDERED: METOCLOPRAMIDE HCL 10 MG TABLET PO SCH (06:00)
[2022-12-07] MEDS ORDERED: oxyCODONE HCL 10 MG TABCR (OxyCONTIN) PO SCH (06:00)
[2022-12-07] MEDS ORDERED: TRANEXAMIC ACID 1,000 MG **IV Pre-op IV SCH (06:00)
[2022-12-07] MEDS ORDERED: ceFAZolin 2000MG 2,000 MG/15 ML SYR IV SCH (06:00)
[2022-12-07] MEDS ORDERED: LR 60ML/HR IV SCH (06:00)
[2022-12-07] MEDS ORDERED: CeleBREX 200 MG CAP PO SCH (06:00)
[2022-12-07] MEDS ORDERED: ROPIVACAINE 0.5% HCL/PF 150 MG, BUPIVACAINE 0.75% MPF 20 ML, EPINEPHrine 0.15 MG, Ketor... INFIL SCH (06:00)
[2022-12-07 06:06] LABS: Basophils # (auto) 0.09 K/uL (0-0.2); Basophils % (auto) 1.3 %; Eosinophils # (auto) 0.48 K/uL (0-0.50); Eosinophils % (auto) 6.8 %; Hematocrit (blood only) 42.8 % (42.0-52.0); Hemoglobin 13.8 g/dl (14.0-18.0); Immature Granulocytes # (auto) 0.01 K/uL (0.01-0.20); Immature Granulocytes % (auto) 0.1 %; Lymphocytes # (auto) 2.17 K/uL (1.2-3.4); Lymphocytes % (auto) 30.6 %; Mean Corpuscular Hemoglobin 30.4 pg (25.0-34.0); Mean Corpuscular Hgb Conc 32.2 g/dL (32.0-36.0); Mean Corpuscular Volume 94.3 fL (80.0-100.0); Mean Platelet Volume 11.4 fL (9.4-12.4); Monocytes # (auto) 0.47 K/uL (0.11-0.59); Monocytes % (auto) 6.6 %; Neutrophils # (auto) 3.88 K/uL (1.40-6.50); Neutrophils % (auto) 54.6 %; Platelet Count 235 K/uL (130-400); RDW Coefficient of Variation 14.3 % (11.5-14.5); RDW Standard Deviation 49.1 fL (36.4-46.3); Red Blood Count 4.54 M/uL (4.70-6.10)
[2022-12-07] MEDS ORDERED: BUPIVACAINE 0.5 % 5 MG/1 ML PF 10ML VIAL ONE (06:24)
[2022-12-07] MEDS ORDERED: ROPIVACAINE 0.5% 5 MG/ML 30 ML VIAL ONE (06:24)
--- NOTE | 2022-12-07 06:40 | History & Physical Bridge Note ---
Date of Service December 07, 2022 History & Physical Bridge Note I have examined the patient, reviewed the History & Physical and in the interval since the performance of the History & Physical I have noted the following changes of clinical significance: no changes noted
[2022-12-07] MEDS ORDERED: fentaNYL citrate PF 100 MCG/2 ML VIAL ONE (06:42)
[2022-12-07] MEDS ORDERED: MIDAZOLAM HCL 1 MG/ML 2ML VIAL ONE (06:42)
[2022-12-07] MEDS ORDERED: LIDOCAINE 2% 2 ML VIAL/AMP(20MG/ML) INFIL ONE (06:42)
[2022-12-07] MEDS ORDERED: PROPOFOL IV EMULSION 10 MG/ML 20 ML VIAL IV ONE (06:42)
[2022-12-07] MEDS ORDERED: ONDANSETRON INJ 2 MG/ML 2 ML VIAL ONE (06:42)
[2022-12-07] MEDS ORDERED: DEXTROSE 5% IV SCH (06:45)
[2022-12-07] MEDS ORDERED: ORTHO JOINT ANESTHETIC ONE (06:59)
[2022-12-07] MEDS ORDERED: VANCOMYCIN HCL 1000MG/20ML VIAL ONE (07:00)
[2022-12-07] MEDS ORDERED: ePHEDrine sulfate 50 MG/ML AMP IV PRN (07:15)
[2022-12-07] MEDS ORDERED: HYDROmorphone INJ 1 MG/ML SYRINGE IV PRN ×2 (07:15→11:09)
[2022-12-07] MEDS ORDERED: ATROPINE SULFATE 0.1 MG/ML 10ML SYR IV PRN (07:15)
[2022-12-07] MEDS ORDERED: PHENYLEPHRINE HCL 10 MG/ML VIAL ONE (07:43)
[2022-12-07] MEDS ORDERED: ePHEDrine sulfate 50 MG/ML AMP ONE (07:43)
[2022-12-07] MEDS ORDERED: BACITRACIN OINT 14 GM TUBE ONE (08:52)
--- NOTE | 2022-12-07 09:59 | Operative Report ---
Post Operative Report Pre & Post Diagnosis Operation Date: 12/07/22 07:00 Pre-Op Diagnosis: Right knee osteoarthritis Post-Op Diagnosis: Right knee osteoarthritis I identified the patient and participated in the time-out.: Yes Procedure Operation Date: 12/07/22 07:00 Actual Procedures p Right total knee arthroplasty, cemented(Right) - Zach Bang MD Surgeon Zach Bang MD Tool And Cutter Grinder Sobeida Cee physicians banking assistant no resident or fellow available Estimated Blood Loss 5 Findings Consistent with Post-Op Diagnosis Specimens Bone and soft tissue right knee Anesthesia Type MAC Spinal Regional Complications none Disposition Accompanied Patient To Recovery: No Disposition: Recovery Room Indications Rehan is 61 years old. He has severe right knee arthritis refractory to nonsurgical treatment. He also has metastatic kidney cancer. He wishes to proceed with operative intervention. Care has been coordinated with his oncologist and primary care. One of his medications has been held before surgery and will be held 2 weeks after surgery to help with wound healing. He did have a week to 10 days ago a couple scratches from a briar watters on the right leg. The 1 on the thigh area was a few dots of nearly resolved eschar. The 1 more over the posterior medial thigh was noninflamed and nearly healed with a few dots of dried eschar posteriorly and 1 x 3 mm area of newly healed skin with out any openness or drainage or redness. In general the patient has been made aware of the increased risk of complications relative to his health history. Description of Procedure Informed consent. Patient identified. Operative site identified by the patient and I marked with my initials. Preop surgical timeout performed. Preop dose of IV antibiotics and TXA given. Taken the OR positioned supine on the OR table. Tourniquet on the right thigh padded bump under the right calf and a bump under the right hip. The leg was prepped and draped in the usual sterile fashion. DVT prophylaxis with foot pumps intraoperatively. Postop early mobility And apixaban. The exam under anesthesia revealed range of motion 0/5/100. Fixed varus deformity. Limb exsanguinated with the Esmarch. Tourniquet plated to 250 mmHg. A midline longitudinal incision about 20 cm was made followed by medial parapatellar arthrotomy. Osteophytes around the patella were removed and soft tissue around the patella was excised. There was scarring from previous surgery. The lateral compartment had an intact meniscus with relatively normal cartilage surfaces. The patella showed marginal osteophytes and grade 3 changes centrally. The trochlea showed mixed areas of grade 3 and 4 change. The medial compartment was grade 4 with large medial osteophytes. Medial meniscus deficient. Cruciate ligaments intact. The cruciate ligaments were resected. The meniscal remnants were removed. An extensile medial release was performed. Soft tissue in the anterior aspect of the distal femur was excised. The synovial reflection in the lateral gutter was released. The retropatellar fat pad was resected. The knee was flexed and tibia subluxated. And keel punch A ballroom dance instructor hole was drilled into the proximal tibia in line with the shaft just in front of the tibial spines in between them. Subsequent to that it was noted the bone generally was soft. Intramedullary alignment damaris was inserted followed by the 0 degree cutting block for the tibia. This was aligned to the tibial tubercle and set to take 10 mm off the lateral side corresponding to about 2 mm medially. The block was pinned in the place that covers made. Sized to a 4 or 3. An extensile posterior medial release was performed and medial and posterior medial osteophytes were resected. Wirer hole was drilled into the distal femur followed by the insertion of the distal femoral cutting block. This was set to take 14 mm thickness which was proximal to the collateral ligaments at a 7 degree right knee valgus angle based upon preoperative templating. This cut was made and then was asymmetric but slightly loose 10 mm extension gap. The knee was straight. When making the tibial cut the extra medullary alignment damaris was applied and was aligned to the second ray bisecting the ankle joint with slight parallel to the tibia. I then dropped the epicondylar axis and applied the distal femoral sizing guide which sized to a 4. The appropriate external rotation drill holes were made followed by application of the size for anterior time cutting block. The collateral ligaments were protected and the cuts were then made. The flexion and extension gaps were then symmetric and slightly loose 12.5. The box cutting guide was applied lateralized neck cut was made and the trial femur was applied. Posterior osteophytes were removed. The tibia was then prepared with the drill and keel punch. Trialing was then performed with 10 initially and then up to 12.5. There was good stability and full extension. The knee was fully extended and can be flexed to 90 without difficulty. There was trace varus valgus laxity at 90 and 1+ varus valgus laxity at mid position. the bony surfaces were m eticulously prepared with pulsatile lavage. Ortho joint mix was injected into the back of the knee. Attention was turned to the patella which measured 24-1/2 mm in thickness. A 38 sized patella was selected. The guide was applied and set to preserve 15 mm of bone. The cut was made with the residual patellar thickness of 15 mm. The paddle was aligned to the knee in slight flexion and distal lysed and medialized. The lug holes were drilled and patellar tracking was fine with no hands technique. The trial components were removed and 2 bags of Simplex P cement each containing 2 g of pulverized vancomycin were then mixed on the back table. The components were cemented in place femur tibia and patella. This was held in full extension until the cement hardened the tourniquet was let down after 90 minutes of inflation. Meticulous hemostasis was performed. Throughout the procedure well sponge was kept over the exposed surfaces and a pulsatile lavage was performed. Extraneous cement was removed from the back of the knee which was also explored for any bleeders. Trialing was again performed and there was 1+ mid position varus valgus laxity. I trialed with a 15 and found that this minimized or eliminated the mid flexion laxity and also allow the knee to be fully straightened with no laxity at 90 or 0 on collateral ligament testing. The final 50 mm thick implant was inserted. The remainder of the Ortho joint mix was injected into the skin at time of closure. The extensor mechanism was closed with interrupted #2 FiberWire above the equator the patella and running #1 Vicryl below. The skin was then closed with layers of 0 and 2-0 Vicryl followed by oniel on the skin. Antibiotic ointment was placed applied to the scratches on the medial side of the knee and a Xeroform 4 x 4's ABD soft wrap cast padding and Ar wrap. Knee immobilizer. Patient went from anesthesia taken recovery in stable condition. There were no complications. Counts correct and the blood loss is estimated to be 5 cc. The inclusion of the operation spoke with patient's and informed her of my findings postop instructions were given and discussed. Plan is to rehab according to the standard total protocol. He received routine postop IV antibiotics as well as pain medication. The gravity assisted flexion with the extensor mechanism closed was approximately 115 degrees. The patellar thickness after final implantation was 24-1/2 mm. J[employer]J PFC Sigma rotating platform knee size 4 right posterior stabilized femur size 4 mobile-bearing tibial tibial tray at a size 15 mm thick by 4 posterior stabilized polyethylene insert and a 38 mm 3 pegged oval dome patella.. I attest to the content of the Intraoperative Record and any orders documented therein. Any exceptions are noted below.
--- NOTE | 2022-12-07 10:11 | Operative Report ---
Post Operative Report Pre & Post Diagnosis Operation Date: 12/07/22 07:00 Pre-Op Diagnosis: Right knee osteoarthritis Post-Op Diagnosis: Right knee osteoarthritis I identified the patient and participated in the time-out.: Yes Procedure Operation Date: 12/07/22 07:00 Actual Procedures p Right total knee arthroplasty, cemented(Right) - Zach Bang MD Surgeon Zach Bang M.D. Yield Engineer Sobeida Cee physicians clinical nursing assistant no resident or fellow available Estimated Blood Loss 5 Findings Consistent with Post-Op Diagnosis DJD right knee Specimens bone and soft tissue Anesthesia Type MAC Spinal Regional Description of Procedure Patient was taken to the operating room, placed under spinal anesthesia. Time out performed, prepped and draped in routine sterile fashion. I was present during the entire case and assisted with positioning, trialing of implants, implantation of hardware, tissue retraction, and closure of incision. Please see Dr. Bang's operative report for further detail. Patient was awakened and taken to the recovery room in stable condition. I attest to the content of the Intraoperative Record and any orders documented therein. Any exceptions are noted below.
--- NOTE | 2022-12-07 10:35 | Anesthesiology Progress Note ---
Date of Service December 07, 2022 Anesthesia Post Procedure Vital Signs Vital Signs: Temp Pulse Pulse Resp BP BP Pulse Ox 12/07/22 10:10 77 18 115/58 L 97 12/07/22 10:20 36.9 C 72 16 127/65 93 12/07/22 10:00 76 13 114/64 94 12/07/22 09:53 36.4 C L 78 16 124/65 94 12/07/22 05:50 12/07/22 05:50 36.9 C 67 18 128/78 98 O2 Del Method 12/07/22 10:10 Room Air 12/07/22 10:20 Room Air 12/07/22 10:00 Room Air 12/07/22 09:53 Room Air 12/07/22 05:50 Room Air 12/07/22 05:50 Room Air Notes Mental Status: alert / awake / arousable Patient Amnestic to Procedure: Yes Nausea / Vomiting: adequately controlled Pain: adequately controlled Airway Patency, RR, SpO2: stable & adequate BP & HR: stable & adequate Hydration State: stable & adequate Neuraxial Anesthesia: was administered and sensory block is resolving Anesthetic Complications: no major complications apparent
--- NOTE | 2022-12-07 10:55 | XRay Report ---
TWO VIEWS RIGHT KNEE CLINICAL HISTORY: Postoperative examination. FINDINGS: AP and crosstable lateral portable views of the right knee are obtained. A right knee arthr oplasty is in near anatomic alignment. There has been undersurface remodeling of the patella. No acut e fracture is seen. There are expected postoperative changes around the knee including skin clips, so ft tissue edema, and subcutaneous gas. IMPRESSION: Expected postoperative changes status post right knee arthroplasty. No acute fracture is seen. ACT 112: Negative or not required by law. Electronically signed by: Tao Houser M.D. 12/07/2022 10:53 AM
[2022-12-07] MEDS ORDERED: TAMSULOSIN HCL 0.4 MG CAP PO PRN (11:09)
[2022-12-07] MEDS ORDERED: MAGNESIUM HYDROXIDE SUSP 30 ML UDC PO PRN (11:09)
[2022-12-07] MEDS ORDERED: COLESTIPOL HCL 1 GM TAB PO SCH (11:09)
[2022-12-07] MEDS ORDERED: traMADol HCL 50 MG TABLET PO PRN (11:09)
[2022-12-07] MEDS ORDERED: FAMOTIDINE 20 MG TAB PO PRN (11:09)
[2022-12-07] MEDS ORDERED: ONDANSETRON INJ 2 MG/ML 2 ML VIAL IV PRN (11:09)
[2022-12-07] MEDS ORDERED: PHARMACY GLYCEMIC MGMT CONSULT PRN (11:09)
[2022-12-07] MEDS ORDERED: HYDROmorphone INJ 0.5 MG/0.5 ML SYR IV PRN (11:09)
[2022-12-07] MEDS ORDERED: bisacodyL 10 MG SUPP PR PRN (11:09)
[2022-12-07] MEDS ORDERED: NALOXONE HCL 0.4 MG/1 ML VIAL/CARP IV PRN (11:09)
[2022-12-07] MEDS ORDERED: METOCLOPRAMIDE HCL INJ 5 MG/ML 2 ML VIAL IV PRN (11:09)
[2022-12-07] MEDS: SODIUM CHLORIDE 0.9% 1000ML 1,000 ML IV SCH ×2 (11:31→21:32)
[2022-12-07] MEDS: CHECK CLONIDINE PATCH PLACEMENT SCH ×2 (11:32→11:33)
[2022-12-07] MEDS: INSULIN ASPART PER UNIT CHARGE SC SCH ×3 (12:16→21:03)
--- NOTE | 2022-12-07 12:56 | Pharmacy Report ---
Pharmacy Glycemic Short Note 2 - Date of Service December 07, 2022 - Glycemic Short BSG Results (Last 24 hours): 12/07/22 12/07/22 12/07/22 05:41 05:43 06:53 POC Glucose 67 L* 65 L* 88 12/07/22 12/07/22 09:56 12:02 POC Glucose 119 H 162 H OUTPATIENT ANTIDIABETIC REGIMEN: * n/a HbA1c: 5.7% (11/12/22) ASSESSMENT: * DJ is a 61 year old male POD #0 s/p right total knee arthroplasty * Patient is prediabetic w/ HbA1c of 5.7% on no antidiabetic medications * Received 8 mg PO dexamethasone in OR w/ 8 mg dose scheduled for tomorrow morning * Preop BSG of 88 mg/dL, postop BSG of 119 mg/dL * Will hold off on basal at this time despite receiving steroids given A1c and fasting BSG this morning (on no antidiabetic meds at home) PLAN FOR INPATIENT GLYCEMIC CONTROL: * Basal insulin * hold * Bolus insulin * NovoLog per scale ACHS or Q6hrs while NPO * Goal Range: Low 110 mg/dL - High 140 mg/dL * Correction Factor: 30 mg/dL/unit * Nutritional / Prandial insulin per carb ratio of 1 unit per 10 grams CHO consumed
--- NOTE | 2022-12-07 13:51 | Hospitalist Consultation ---
Date of Consultation December 07, 2022 Assessment & Plan (1) Status post right knee replacement: -Perioperative antibiotics, pain control, DVT PPX, and IV fluids per the primary team -Currently stable -Agree with am CBC and BMP tomorrow, we will follow -Patient had clonidine patch placed at 0630 today, still trying to clarify with orthopedics and anesthesia regarding the indication -Adjust diet to HH and DMII -Thank you for allowing to participate in the care of this patient, please reach out with any questions or concerns -Medicine will continue to follow (2) Benign localized prostatic hyperplasia with lower urinary tract symptoms (LUTS): -Patient confirmed he was able to void post op (3) Hypertension: -Stable -Patient currently with clonidine patch in place on the left posterior shoulder. Patient confirms he is not on this outpatient, was placed this am at 0630 -Will keep on for now and clarify with orthopedics why this was placed. If his BP continues to remain soft will likely DC -Agree with restarting amlodipine and lisinopril tomorrow (4) Renal cancer: -Continue to follow with [facility] (5) Diabetes mellitus: -Patient currently controlling with diet and exercise -Pharmacy glycemic control consult already placed -Continue to follow Pharmacy recommendations (6) Hypothyroidism: -Continue levothyroxine Plan The patient was discussed with Dr. Elizondo at the time of the admission Supervising Physician Co-Signing Physician Notes I personally saw and examined the patient. I verified all zamora points and agree with Ryan Rahman PA-C with the following exceptions and/or additions: 61 year old male POD#0 right TKA. EBL. Despite low BP patient notes no dizziness or lightheadedness. No acute concerns or questions. O/E A&Ox3, HS RRR, no murmurs, Chest CTAB, Abdo SNT A/P Hypotension - agree with stopping clonidine patch. Patient asymptomatic and took amlodipine this morning which suspect is contributing in setting of operation. Will preliminary place hold on lisinopril and amlodipine tomorrow as suspect he doesn't need that. Otherwise as above History of Present Illness Reason for Consultation: Post-op medical management Requesting Physician: Zach Bang MD Attending Physician: Dr. 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 Bang. Per review of vitals, the patient has been stable. Per the operative report, EBL was listed as 5 cc, anesthesia is listed as "MAC spinal regional", and there no reported intraoperative complications. We were consulted for post-operative medical management. At the time of the exam the patient was sitting in bed in no acute distress with his sitting bedside. He feels well after the procedure and has no complaints at this time. They confirm that his last dose of IV chemotherapy was approximately 3 weeks ago, he was instructed by Heme/Onc to hold his daily PO Axitinib 2 days prior to his procedure and can restart it 2 weeks post-op. He did take his am amlodipine today but did not take his lisinopril. Please refer to Dr. Elizondo's attestation for any changes to the treatment plan Allergies Allergy/AdvReac Type Severity Reaction Status Date / Time Iodinated Contrast Media AdvReac Mild Forearms Verified 12/07/22 05:41 itching (see comments) Home Medications Medication Instructions Recorded Confirmed Type gabapentin 600 mg tablet 1,200 mg PO TID #90 tabs 10/27/20 12/07/22 History tramadol 50 mg tablet 100 mg PO QID 10/27/20 12/07/22 History allopurinol 100 mg tablet 150 mg PO QAM 01/31/21 12/07/22 History cholecalciferol (vitamin D3) 25 25 mcg PO QAM 01/31/21 12/07/22 History mcg (1,000 unit) capsule (Vitamin D3) acetaminophen 500 mg tablet 1,000 mg PO Q6H PRN Pain 01/10/22 12/07/22 History (Tylenol Extra Strength) levothyroxine 75 mcg tablet 88 mcg PO QAM 01/10/22 12/07/22 History aspirin 81 mg tablet,delayed 81 mg PO QAM #30 tabs 01/12/22 12/07/22 Rx release cyanocobalamin (vitamin B-12) 1,000 mcg PO DAILY #30 caps 01/12/22 12/07/22 Rx 1,000 mcg capsule colestipol 1 gram tablet (Colestid) 1 g PO DAILY@1000 #30 tabs 02/14/22 12/07/22 Rx famotidine 20 mg tablet 20 mg PO BID PRN heartburn #30 tabs 02/14/22 12/07/22 Rx omyqqafa-sws-vcbcu acid 0.4 1 tab PO QAM #30 tabs 02/14/22 12/07/22 Rx mg-lycopene 300 mcg-lutein 250 mcg tablet (Cerovite Senior) amlodipine 5 mg tablet 2.5 mg PO QAM 05/24/22 12/07/22 History axitinib 1 mg tablet (Inlyta) 2 mg PO BID 05/24/22 12/07/22 History lisinopril 20 mg tablet 20 mg PO QAM 05/24/22 12/07/22 History pembrolizumab [Keytruda] 1 dose IV .Q6WKs 05/24/22 12/07/22 History apixaban 2.5 mg tablet (Eliquis) 2.5 mg PO BID 14 days #28 tabs 12/08/22 Rx oxycodone 5 mg tablet 5 - 10 mg PO Q4H PRN pain #18 tabs 12/08/22 Rx Patient History Medical History (Updated 12/07/22 @ 14:15 by Ryan Rahman PA-C) Acquired claw toe of right foot Arthritis of knee Benign localized prostatic hyperplasia with lower urinary tract symptoms (LUTS) Bilateral lung cancer Taking inlyta daily and keytruda q 6 weeks Follows w/ Dr Zheng Chemotherapy-induced diarrhea colestipol PRN Chronic kidney disease, stage 3a Claustrophobia CVA (cerebral vascular accident) 01/11/2022 MRI brain with 3 mm focus of restricted diffusion within the left temporal lobe is suggestive of an acute versus subacute infarct Diabetes mellitus Diet controlled "No longer needs medication after weight loss" Diabetic neuropathy Dyslipidemia History of COVID-19 ? 2019- mild cold symptoms; resolved Hx of renal calculi Hypercholesterolemia Hypertension Hypothyroidism Osteoarthritis Renal cancer Left nephrectomy 2014 for "metastatic RCC" Solitary right kidney Surgical History (Updated 12/07/22 @ 14:15 by Ryan Rahman PA-C) H/O left nephrectomy History of cholecystectomy History of esophagogastroduodenoscopy (EGD) History of hernia repair History of meniscectomy of left knee History of vasectomy Hx of colonoscopy Family History Father Hearing loss Lung disease Mother Cancer Aortic aneurysm Breast cancer Myocardial infarction Other No family history of adverse response to anesthesia No family history of bleeding disorder Social History Smoking Status: Never smoker Tobacco Type: Cigarettes Second Hand Exposure: No; Do You Dip or Chew Tobacco: Yes (Advised none DOS); Tobacco Cessation Education Requested by Patient: No Hx Alcohol Use: No Hx Substance Use: No Preferred Language: Georgian Communication Ability: Effective Paper Gluing Operator Required: No Beliefs That Will Affect Care: None marital status: Current Living Situation: Spouse current occupational status: retired 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; 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 [employer] Other Information That Helps Us Care for You: No Feels Safe at Home: Yes Safety Concerns: Feels Safe At This Time Assistive Devices: Glasses and Walker Physical Exam Physical Exam: Physical Exam: General: In no acute distress, stated age, well-nourished, good hygiene HEENT: Normocephalic, atraumatic, no scleral icterus, pupils around round, symmetrical, and reactive to light, moist mucus membranes, trachea midline, no thyromegaly Chest/Pulm: No respiratory distress, symmetrical chest expansion, clear breath sounds throughout Cardiac: RRR, no murmurs noted Abdomen: Negative for ascites and bruising, normoactive bowel sounds, soft, non-tender to palpation throughout Musculoskeletal: RLE currently wrapped and without signs of drainage or bleeding, patient with intact sensation and motor function in the BL feet/toes, intact cap refill in the BL feet Extremities: Distal cap refill less than 3 sec in the BL feet Skin: Patient with clonidine patch located on the posterior left shoulder, Warm, dry, no rashes , lesions, or scars noted Neuro: Alert and oriented to person, place, month, year, and president, no focal defects Psych: No acute distress, calm and cooperative during the exam Results & Data Results & Data Vital Signs (Past 12 Hours) Vital Signs Temp Pulse Pulse Resp BP BP Pulse Ox 12/07/22 13:11 36.4 C L 85 18 104/61 95 12/07/22 11:37 36.5 C 75 16 123/72 95 12/07/22 11:09 36.4 C L 76 16 122/72 96 12/07/22 10:50 73 17 121/62 100 12/07/22 10:35 71 16 112/61 97 12/07/22 10:10 77 18 115/58 L 97 12/07/22 10:20 36.9 C 72 16 127/65 93 12/07/22 10:00 76 13 114/64 94 12/07/22 09:53 36.4 C L 78 16 124/65 94 12/07/22 05:50 12/07/22 05:50 36.9 C 67 18 128/78 98 O2 Del Method O2 Flow Rate 12/07/22 13:11 Room Air 12/07/22 11:37 Room Air 12/07/22 11:09 Room Air 12/07/22 10:50 Nasal Cannula 2 12/07/22 10:35 Nasal Cannula 2 12/07/22 10:10 Room Air 12/07/22 10:20 Room Air 12/07/22 10:00 Room Air 12/07/22 09:53 Room Air 12/07/22 05:50 Room Air 12/07/22 05:50 Room Air Laboratory Results Abnormal lab results 12/07/22 12/07/22 12/07/22 Range/Units 05:33 05:41 05:43 RBC 4.54 L (4.70-6.10) M/uL Hgb 13.8 L (14.0-18.0) g/dl RDW Std Deviation 49.1 H (36.4-46.3) fL POC Glucose 67 L* 65 L* (70-99) mg/dl 12/07/22 12/07/22 Range/Units 09:56 12:02 RBC (4.70-6.10) M/uL Hgb (14.0-18.0) g/dl RDW Std Deviation (36.4-46.3) fL POC Glucose 119 H 162 H (70-99) mg/dl Diagnostic Findings Knee X-Ray 12/07/22 10:07 TWO VIEWS RIGHT KNEE CLINICAL HISTORY: Postoperative examination. FINDINGS: AP and crosstable lateral portable views of the right knee are obtained. A right knee arthroplasty is in near anatomic alignment. There has been undersurface remodeling of the patella. No acute fracture is seen. There are expected postoperative changes around the knee including skin clips, soft tissue edema, and subcutaneous gas. IMPRESSION: Expected postoperative changes status post right knee arthroplasty. No acute fracture is seen. ACT 112: Negative or not required by law. Electronically signed by: Tao Houser M.D. 12/07/2022 10:53 AM PG Care Time/CCT Total # of Minutes Spent Total Time Spent with Patient: Total time spent is greater than 50% in coordination of care (as documented) at patient's floor/unit and/or counseling patient: Coding [place] [address] IN/OBS CONSULT LVL 3,45M Patient Type Established Medical Decision Making High Complexity Diagnoses Status post right knee replacement Z96.651 Benign localized prostatic hyperplasia with lower urinary tract symptoms (LUTS) N40.1 Hypertension I10 Renal cancer C64.9 Diabetes mellitus E11.9 Hypothyroidism E03.9
[2022-12-07] MEDS: GABAPENTIN 600 MG TAB PO SCH ×2 (14:47→21:02)
[2022-12-07] MEDS: ACETAMINOPHEN 500 MG TAB PO SCH ×2 (14:48→21:02)
[2022-12-07] MEDS ORDERED: TRANEXAMIC ACID / 0.7% NACL 1,000 MG/100 ML BAG IV SCH (16:00)
--- NOTE | 2022-12-07 16:19 | Orthopedic Progress Note ---
Date of Service December 07, 2022 Assessment & Plan (1) Status post right knee replacement: Plan: Doing well. Pain management discussed. PT and. Care discussed. Everything went well well with surgery. X-rays were reviewed with him. Catalina for DVT prophylaxis. Mechanical devices. Check labs in the morning. Routine course of postop IV antibiotics. Admission and Anticipated Discharge Date Admission Date: December 07, 2022 Subjective No problems noted. Pain is well-controlled. Results of surgery discussed. X- ray reviewed. Physical Exam Physical Exam: 5- out of 5 ankle and toe plantarflexion dorsiflexion and eversion strength. Able to do a straight leg raise. Dressing is clean and dry sensation intact foot warm with capillary refill less than 2 seconds DP pulse 1+ PT pulse positive Doppler. Results & Data Vital Signs (Past 12 Hours) Vital Signs Temp Pulse Pulse Resp BP BP Pulse Ox 12/07/22 15:38 36.5 C 82 16 95/58 L 95 12/07/22 14:07 36.8 C 93 H 18 108/64 96 12/07/22 13:11 36.4 C L 85 18 104/61 95 12/07/22 11:37 36.5 C 75 16 123/72 95 12/07/22 11:09 36.4 C L 76 16 122/72 96 12/07/22 10:50 73 17 121/62 100 12/07/22 10:35 71 16 112/61 97 12/07/22 10:10 77 18 115/58 L 97 12/07/22 10:20 36.9 C 72 16 127/65 93 12/07/22 10:00 76 13 114/64 94 12/07/22 09:53 36.4 C L 78 16 124/65 94 12/07/22 05:50 12/07/22 05:50 36.9 C 67 18 128/78 98 O2 Del Method O2 Flow Rate 12/07/22 15:38 Room Air 12/07/22 14:07 Room Air 12/07/22 13:11 Room Air 12/07/22 11:37 Room Air 12/07/22 11:09 Room Air 12/07/22 10:50 Nasal Cannula 2 12/07/22 10:35 Nasal Cannula 2 12/07/22 10:10 Room Air 12/07/22 10:20 Room Air 12/07/22 10:00 Room Air 12/07/22 09:53 Room Air 12/07/22 05:50 Room Air 12/07/22 05:50 Room Air Diagnostic Findings Radiographs show well-positioned total knee arthroplasty without any evidence of complication. There is a little bit of radiodensity possibly cement extruded behind the posterior femoral condyles.
[2022-12-07] MEDS: ceFAZolin 2000MG 2,000 MG/15 ML SYR IV SCH ×2 (16:42→23:04)
[2022-12-07] MEDS: oxyCODONE HCL IR 5 MG TAB (IMMEDIATE RELEASE) PO PRN (19:46)
[2022-12-07] MEDS ORDERED: SENNA 8.6 MG TAB PO SCH (21:00)
[2022-12-07] MEDS: CeleBREX 200 MG CAP PO SCH (21:01)
[2022-12-07] MEDS: DOCUSATE SODIUM 100 MG CAP PO SCH (21:01)
[2022-12-07] MEDS: APIXABAN 2.5 MG TAB PO SCH (21:01)
[2022-12-08] MEDS: ACETAMINOPHEN 500 MG TAB PO SCH (05:07)
[2022-12-08] MEDS: oxyCODONE HCL IR 5 MG TAB (IMMEDIATE RELEASE) PO PRN (05:07)
[2022-12-08] MEDS ORDERED: LEVOTHYROXINE SODIUM 88 MCG TABLET PO SCH (06:30)
--- NOTE | 2022-12-08 07:39 | Hospitalist Progress Note ---
Date of Service December 08, 2022 Assessment & Plan (1) Status post right knee replacement: Plan: POD#1 s/p RIGHT TKA. WBC elevation likely 2nd to steroids, afebrile Hgb 13.8--11.6, acute blood loss anemia from surgery and dilutional from IVF post-op BMP pending Bowel regimen/pain control per primary service PT/OT consults pending - not yet seen DVT: Eliquis 2.5mg BID per primary service Patient feeling/doing well, planning for dc today after eval by therapy If Cr stable on labs can plan to resume his lisinopril tomorrow. Can resume amlodipine today Hospitalist service will sign off. Please call with any questions/concerns. (2) Benign localized prostatic hyperplasia with lower urinary tract symptoms (LUTS): Plan: Patient confirmed he was able to void post op (3) Hypertension: Plan: Stable 107/67, asymptomatic. dc clonidine rec'd unless otherwise noted by orthopedics will resume amlodipine for this morning lisinopril pending BMP/Cr but can hold off for now given borderline BP and plan to resume tomorrow unless improved this afternoon (4) Renal cancer: Plan: -Continue to follow with [facility] (5) Diabetes mellitus: Plan: -Patient currently controlling with diet and exercise -Pharmacy glycemic control consult already placed -Continue to follow Pharmacy recommendations (6) Hypothyroidism: Plan: -Continue levothyroxine Plan Hospitalist service will sign off at this time. Please call with any questions/concerns. Admission and Anticipated Discharge Date Admission Date: December 07, 2022 Supervising Physician Co-Signing Physician Notes The patient was not seen by me. The chart was reviewed. Case discussed with VINOD Mendoza. Agree with assessment and plan Subjective Evaluated this morning, doing well. Pain to knee, controlled w/ ordered medications. No fever/chills, lightheadedness/dizziness, chest pain, shortness of breath, abdominal pain. Eating/drinking, passing gas. Not yet seen by therapy but patient states planning for discharge today w/ HHPT. Questions/concerns addressed at this time. Physical Exam Physical Exam: General: WD/WN male sitting up in bed, NAD, general pallor HEENT: head normocephalic, atraumatic, mmm Resp:CTA, no w/c/r, on room air 98% CV: RRR, no significant m/r/g, no pitting edema, no calf tenderness, pulses palpable GI: +BS, soft/NT : no raya MSK/Neuro: FLAVIO wrap/dressing to RIGHT knee c/d/i, sensation intact, compartments soft, strength intact bilaterally cap refill wnl Psych; AOx3, cooperative with exam Results & Data Results & Data Vital Signs (Past 12 Hours) Vital Signs Temp Pulse Resp BP Pulse Ox O2 Del Method 12/08/22 02:53 36.6 C 74 16 106/65 94 Room Air 12/07/22 22:59 36.7 C 84 18 129/72 98 Room Air 12/07/22 19:45 Room Air Laboratory Results 12/08/22 12/08/22 12/08/22 Range/Units 08:07 08:07 07:46 WBC 11.95 H (4.8-10.8) K/ul RBC 3.83 L (4.70-6.10) M/uL Hgb 11.6 L (14.0-18.0) g/dl Hct 35.2 L (42.0-52.0) % MCV 91.9 (80.0-100.0) fL MCH 30.3 (25.0-34.0) pg MCHC 33.0 (32.0-36.0) g/dL RDW Std Deviation 47.5 H (36.4-46.3) fL RDW Coeff of Valentín 14.0 (11.5-14.5) % Plt Count 196 (130-400) K/uL MPV 11.7 (9.4-12.4) fL Sodium Pending Potassium Pending Chloride Pending Carbon Dioxide Pending Anion Gap Pending BUN Pending Creatinine Pending Est Cr Clr Drug Dosing Pending Est GFR ( Amer) Pending Est GFR (Non-Af Amer) Pending BUN/Creatinine Ratio Pending Glucose Pending POC Glucose 129 H (70-99) mg/dl Calcium Pending 12/07/22 12/07/22 12/07/22 Range/Units 20:48 16:51 12:02 WBC (4.8-10.8) K/ul RBC (4.70-6.10) M/uL Hgb (14.0-18.0) g/dl Hct (42.0-52.0) % MCV (80.0-100.0) fL MCH (25.0-34.0) pg MCHC (32.0-36.0) g/dL RDW Std Deviation (36.4-46.3) fL RDW Coeff of Valentín (11.5-14.5) % Plt Count (130-400) K/uL MPV (9.4-12.4) fL Sodium Potassium Chloride Carbon Dioxide Anion Gap BUN Creatinine Est Cr Clr Drug Dosing Est GFR ( Amer) Est GFR (Non-Af Amer) BUN/Creatinine Ratio Glucose POC Glucose 189 H 206 H 162 H (70-99) mg/dl Calcium 12/07/22 Range/Units 09:56 WBC (4.8-10.8) K/ul RBC (4.70-6.10) M/uL Hgb (14.0-18.0) g/dl Hct (42.0-52.0) % MCV (80.0-100.0) fL MCH (25.0-34.0) pg MCHC (32.0-36.0) g/dL RDW Std Deviation (36.4-46.3) fL RDW Coeff of Valentín (11.5-14.5) % Plt Count (130-400) K/uL MPV (9.4-12.4) fL Sodium Potassium Chloride Carbon Dioxide Anion Gap BUN Creatinine Est Cr Clr Drug Dosing Est GFR ( Amer) Est GFR (Non-Af Amer) BUN/Creatinine Ratio Glucose POC Glucose 119 H (70-99) mg/dl Calcium PG Care Time/CCT Total # of Minutes Spent Total Time Spent with Patient: Total time spent is greater than 50% in coordination of care (as documented) at patient's floor/unit and/or counseling patient: Coding Level of Care Code 01509 SUB INP/OBS CARE 2/35MIN Diagnoses Status post right knee replacement Z96.651 Benign localized prostatic hyperplasia with lower urinary tract symptoms (LUTS) N40.1 Hypertension I10 Renal cancer C64.9 Diabetes mellitus E11.9 Hypothyroidism E03.9
[2022-12-08] MEDS ORDERED: dexAMETHasone 4 MG TAB PO SCH (08:00)
--- NOTE | 2022-12-08 08:33 | Orthopedic Progress Note ---
Date of Service December 08, 2022 Assessment & Plan (1) Status post right knee replacement: Plan: POD 1 - Right total knee arthroplasty with Dr. Bang WBAT Regular diet Appreciate Medical and glycemic control assistance PT/OT to start today Regular home medications continued. Inlyta on hold until wound is healed. Pain medication as prescribed. May discontinue knee immobilizer. Ice and elevation PRN swelling Eliquis, Eddy, AV impulse for DVT prophylaxis. Case management for disposition - plan for discharge home with HH today if cleared by PT/OT. Dr. Bang present for today's visit. All questions answered. Admission and Anticipated Discharge Date Admission Date: December 07, 2022 Subjective Patient resting in bed, doing well. Complaints of pain in thigh that started early this morning. Has been out of bed to the bathroom with nursing. Has been doing exercises in bed. No nausea, vomiting, chest pain, shortness of breath. pain medication helping with pain. Physical Exam Musculoskeletal: Right knee dressings clean, dry and intact. No distal edema right foot. Foot sensation is normal. Full ROM right ankle and toes with normal strength. Distal pulses 1+. Able to independently SLR right lower extremity Results & Data Vital Signs (Past 12 Hours) Vital Signs Temp Pulse Resp BP BP Pulse Ox O2 Del Method 12/08/22 07:43 36.4 C L 67 16 107/67 98 Room Air 12/08/22 02:53 36.6 C 74 16 106/65 94 Room Air 12/07/22 22:59 36.7 C 84 18 129/72 98 Room Air Laboratory Results 12/08/22 12/08/22 12/08/22 Range/Units 08:07 08:07 07:46 WBC Pending RBC Pending Hgb Pending Hct Pending MCV Pending MCH Pending MCHC Pending Plt Count Pending Sodium Pending Potassium Pending Chloride Pending Carbon Dioxide Pending Anion Gap Pending BUN Pending Creatinine Pending Est Cr Clr Drug Dosing Pending Est GFR ( Amer) Pending Est GFR (Non-Af Amer) Pending BUN/Creatinine Ratio Pending Glucose Pending POC Glucose 129 H (70-99) mg/dl Calcium Pending 12/07/22 12/07/22 12/07/22 Range/Units 20:48 16:51 12:02 WBC RBC Hgb Hct MCV MCH MCHC Plt Count Sodium Potassium Chloride Carbon Dioxide Anion Gap BUN Creatinine Est Cr Clr Drug Dosing Est GFR ( Amer) Est GFR (Non-Af Amer) BUN/Creatinine Ratio Glucose POC Glucose 189 H 206 H 162 H (70-99) mg/dl Calcium 12/07/22 Range/Units 09:56 WBC RBC Hgb Hct MCV MCH MCHC Plt Count Sodium Potassium Chloride Carbon Dioxide Anion Gap BUN Creatinine Est Cr Clr Drug Dosing Est GFR ( Amer) Est GFR (Non-Af Amer) BUN/Creatinine Ratio Glucose POC Glucose 119 H (70-99) mg/dl Calcium
[2022-12-08] MEDS: CeleBREX 200 MG CAP PO SCH (08:36)
--- NOTE | 2022-12-08 08:36 | Pharmacy Report ---
Pharmacy Glycemic Short Note 2 - Date of Service December 08, 2022 - Glycemic Short BSG Results (Last 24 hours): 12/07/22 12/07/22 12/07/22 09:56 12:02 16:51 POC Glucose 119 H 162 H 206 H 12/07/22 12/08/22 20:48 07:46 POC Glucose 189 H 129 H OUTPATIENT ANTIDIABETIC REGIMEN: * n/a HbA1c: 5.7% (11/12/22) ASSESSMENT: 12/08/22: * BSGs trended up postoperatively yesterday (peaking at 189 mg/dL) * Fasting BSG of 129 mg/dL this morning w/ dose of dexamethasone scheduled for this morning * Will give 0.1 unit/kg dose of basal and tighten Novolog this morning 12/07/22: * DJ is a 61 year old male POD #0 s/p right total knee arthroplasty * Patient is prediabetic w/ HbA1c of 5.7% on no antidiabetic medications * Received 8 mg PO dexamethasone in OR w/ 8 mg dose scheduled for tomorrow morning * Preop BSG of 88 mg/dL, postop BSG of 119 mg/dL * Will hold off on basal at this time despite receiving steroids given A1c and fasting BSG this morning (on no antidiabetic meds at home) PLAN FOR INPATIENT GLYCEMIC CONTROL: * Basal insulin * Lantus 8 units SC daily * Bolus insulin * NovoLog per scale ACHS or Q6hrs while NPO * Goal Range: Low 110 mg/dL - High 140 mg/dL * Correction Factor: 20 mg/dL/unit * Nutritional / Prandial insulin per carb ratio of 1 unit per 7 grams CHO consumed
[2022-12-08] MEDS: GABAPENTIN 600 MG TAB PO SCH (08:37)
[2022-12-08] MEDS: APIXABAN 2.5 MG TAB PO SCH (08:37)
[2022-12-08] MEDS: DOCUSATE SODIUM 100 MG CAP PO SCH (08:37)
[2022-12-08 08:41] LABS: Hematocrit (blood only) 35.2 % (42.0-52.0); Hemoglobin 11.6 g/dl (14.0-18.0); Mean Corpuscular Hemoglobin 30.3 pg (25.0-34.0); Mean Corpuscular Volume 91.9 fL (80.0-100.0); Mean Platelet Volume 11.7 fL (9.4-12.4); Platelet Count 196 K/uL (130-400); RDW Standard Deviation 47.5 fL (36.4-46.3); Red Blood Count 3.83 M/uL (4.70-6.10); White Blood Count 11.95 K/ul (4.8-10.8)
--- NOTE | 2022-12-08 08:43 | Discharge Summary ---
Date of Service December 08, 2022 Discharge Data Consultations 12/07/22 11:09 Consult Hospitalist Routine Procedures Performed Operation Date: 12/07/22 07:00 Actual Procedures p Right total knee arthroplasty, cemented(Right) - Zach Bang MD Hospital Course (1) Status post right knee replacement: Patient was kept in observation and [facility] after undergoing elective right total knee arthroplasty by Dr. Bang on December 07, 2022. His surgery was performed a spinal anesthetic and a peripheral nerve block. He was given 2 g of IV Ancef for surgical prophylaxis which was continued for 24 hours postoperatively. He tolerated the surgery well without any intraoperative complications. In the recovery room he had an x-ray of his right knee which showed a stable total knee arthroplasty. His home medications were continued except for his Inlyta which will be held for approximately 2 to 3 weeks after his procedure. He was allowed out of bed, weight-bear as tolerated on his right lower extremity with the assistance of a walker and a knee immobilizer. Due to his good quad control his knee immobilizer was discontinued on postoperative day 1. Hospitalist consult was placed for postoperative medical management. Glycemic control consult was placed for management of his diabetes postoperatively and during his inpatient stay. He was given a regular diet. He was given IV Dilaudid, tramadol, oxycodone, Tylenol and Celebrex for postoperative pain control. His pain was well-controlled during his inpatient stay. He did not develop any postoperative nausea, vomiting, lightheadedness, dizziness, chest pains or shortness of breath. He tolerated a regular diet. CBC and BMP were stable during his inpatient stay. He was seen and evaluated by physical therapy and Occupational Therapy on postoperative day 1 and was deemed safe for discharge to his home. Discharge instructions were reviewed. New prescriptions were sent to his pharmacy. All questions were answered. He understands and agrees with the plan. He was discharged to his home in stable condition on December 08, 2022.
[2022-12-08] MEDS: INSULIN ASPART PER UNIT CHARGE SC SCH (08:52)
[2022-12-08] MEDS ORDERED: CEROVITE ADV FORMULA TAB PO SCH (09:00)
[2022-12-08] MEDS ORDERED: ASPIRIN 81 MG ECTAB PO SCH (09:00)
[2022-12-08] MEDS ORDERED: lisinopril 20 MG TAB PO SCH (09:00)
[2022-12-08] MEDS ORDERED: CYANOCOBALAMIN (B-12) 500 MCG TABLET PO SCH (09:00)
[2022-12-08] MEDS ORDERED: allopurinoL 100 MG TAB PO SCH (09:00)
[2022-12-08] MEDS ORDERED: CHOLECALCIFEROL 1,000 UNITS 25 MCG TAB PO SCH (09:00)
[2022-12-08] MEDS ORDERED: amLODIPine BESYLATE 5 MG TAB PO SCH (09:00)
[2022-12-08] MEDS ORDERED: LANTUS PER UNIT CHARGE SC ONE (09:00)
[2022-12-08 09:03] LABS: BUN Creatinine Ratio 13.5 (10-20); Calcium 8.3 mg/dl (8.6-10.3); Creatinine Clr Calc Pharmacy 58.1 ml/min; Est GFR (African American) 69.9 ml/min; Est GFR (Non-African American) 60.3 ml/min; Potassium 4.3 mmol/L (3.5-5.1)
== END 2022-12-08 10:32 | disposition home health service (06) ==
LOC: ASU 05:02 → 3E 05:02

== ENCOUNTER 2023-03-25 21:32 | Inpatient (IN) ==
[2023-03-25] MEDS ORDERED: ALBUT/IPRATROP 3MG/0.5MG NEB 3 ML VIAL NEB STA (21:37)
[2023-03-25] MEDS ORDERED: ACETAMINOPHEN 1,000 MG/100 ML VIAL IV STA (21:37)
[2023-03-25] MEDS ORDERED: SODIUM CHLORIDE 0.9% 1,000 ML IV ONE (21:37)
--- NOTE | 2023-03-25 21:53 | Emergency Department Note ---
History of Present Illness General Chief complaint: Illness Stated complaint: HERE YESTERDAY FOR ILLNESS- WANTS REEVAL Time Seen by Provider: 03/25/23 21:35 History of Present Illness This 62-year-old gentleman presents to the ER complaining of fever, chills, body aches and pains and extreme fatigue who was diagnosed yesterday with parainfluenza on Bio[employer] here in the ER. Patient states he feels too weak to care for himself. patient complains of cough And difficulty breathing. Patient denies abdominal pain, vomiting, diarrhea, neck stiffness. He speaking in full sentences. He did not take any today for his fever. Home Medications Medication Instructions Recorded Confirmed Type gabapentin 600 mg tablet 1,200 mg PO TID #90 tabs 10/27/20 03/25/23 History tramadol 50 mg tablet 100 mg PO QID 10/27/20 03/25/23 History allopurinol 100 mg tablet 150 mg PO QAM 01/31/21 03/25/23 History cholecalciferol (vitamin D3) 25 25 mcg PO QAM 01/31/21 03/25/23 History mcg (1,000 unit) capsule (Vitamin D3) aspirin 81 mg tablet,delayed 81 mg PO QAM #30 tabs 01/12/22 03/25/23 Rx release cyanocobalamin (vitamin B-12) 1,000 mcg PO DAILY #30 caps 01/12/22 03/25/23 Rx 1,000 mcg capsule famotidine 20 mg tablet 20 mg PO BID PRN heartburn #30 tabs 02/14/22 03/25/23 Rx nzmprwrl-[id number]-pcypm acid 0.4 1 tab PO QAM #30 tabs 02/14/22 03/25/23 Rx mg-lycopene 300 mcg-lutein 250 mcg tablet (Cerovite Senior) amlodipine 5 mg tablet 2.5 mg PO QAM 05/24/22 03/25/23 History lisinopril 20 mg tablet 20 mg PO QAM 05/24/22 03/25/23 History acetaminophen 500 mg tablet 1,000 mg PO Q6H PRN Pain 03/25/23 03/25/23 History (Tylenol Extra Strength) diphenoxylate-atropine 2.5 1 tab PO QID PRN Diarrhea 03/25/23 03/25/23 History mg-0.025 mg tablet everolimus (antineoplastic) 5 mg 5 mg PO DAILY 03/25/23 03/25/23 History tablet (Afinitor) lenvatinib 10 mg/day (10 mg x 1) 10 mg PO DAILY 03/25/23 03/25/23 History capsule (Lenvima) levothyroxine 88 mcg tablet 88 mcg PO DAILY 03/25/23 03/25/23 History rosuvastatin 10 mg tablet 10 mg PO DAILY 03/25/23 03/25/23 History Allergies Allergy/AdvReac Type Severity Reaction Status Date / Time Iodinated Contrast Media AdvReac Mild FROM Verified 03/25/23 22:28 NUCLEAR MED SCAN-ITCHY FOREARMS. NUCLEAR MED SCAN DYT AdvReac Mild FROM Uncoded 03/25/23 22:28 NUCLEAR MED SCAN-ITCHY FOREARMS. Past Med/Surg History Medical History Renal cancer Left nephrectomy 2014 for "metastatic RCC" Diabetic neuropathy Chemotherapy-induced diarrhea colestipol PRN Hx of renal calculi History of COVID-19 ? 2020- mild cold symptoms; resolved CVA (cerebral vascular accident) 01/11/2022 MRI brain with 3 mm focus of restricted diffusion within the left temporal lobe is suggestive of an acute versus subacute infarct Chronic kidney disease, stage 3a Hypothyroidism Claustrophobia Arthritis of knee Benign localized prostatic hyperplasia with lower urinary tract symptoms (LUTS) Solitary right kidney Diabetes mellitus Diet controlled "No longer needs medication after weight loss" Hypercholesterolemia Osteoarthritis Dyslipidemia Hypertension Bilateral lung cancer Taking inlyta daily and keytruda q 6 weeks Follows w/ Dr Zheng Acquired claw toe of right foot Surgical History History of esophagogastroduodenoscopy (EGD) Hx of colonoscopy History of vasectomy History of hernia repair H/O left nephrectomy History of meniscectomy of left knee History of cholecystectomy Family History Father Hearing loss Lung disease Mother Cancer Aortic aneurysm Breast cancer Myocardial infarction Other No family history of adverse response to anesthesia No family history of bleeding disorder Social History Smoking Status: Never smoker Tobacco Type: Smokeless Tobacco (Dip or Chew) Second Hand Exposure: No; Do You Dip or Chew Tobacco: Yes (Advised none DOS); Hx Alcohol Use: No Hx Substance Use: No Preferred Language: Maltese Communication Ability: Effective Inspector And Mender Required: No Beliefs That Will Affect Care: None marital status: Current Living Situation: Spouse current occupational status: retired 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; 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 [employer] Feels Safe at Home: Yes Assistive Devices: Walker Review of Systems A total of 10 systems reviewed and were otherwise negative Physical Exam Vital Signs Vital Signs - 24 hr 03/25/23 21:37 03/25/23 21:43 03/25/23 21:45 Temperature 39.5 C H Temperature Source Oral Pulse Rate 102 H 100 H 101 H Pulse Rate from SpO2 Sensor 100 H Respiratory Rate 17 19 Blood Pressure 147/86 H Blood Pressure Mean 106 Pulse Oximetry 93 91 Oxygen Delivery Method Room Air Sepsis Recent Fever Within 48 Hours Yes Sepsis New/Unexplained Change in Mental Status Yes Sepsis Action Taken by Nursing Physician Notified 03/25/23 22:00 03/25/23 22:30 03/25/23 22:45 Temperature Temperature Source Pulse Rate 100 H 89 Pulse Rate from SpO2 Sensor 100 H 89 Respiratory Rate 16 17 Blood Pressure Blood Pressure Mean Pulse Oximetry 93 92 93 Oxygen Delivery Method Room Air Sepsis Recent Fever Within 48 Hours Sepsis New/Unexplained Change in Mental Status Sepsis Action Taken by Nursing 03/25/23 22:48 Temperature Temperature Source Pulse Rate 86 Pulse Rate from SpO2 Sensor 86 Respiratory Rate 16 Blood Pressure 118/71 Blood Pressure Mean 86 Pulse Oximetry 94 Oxygen Delivery Method Sepsis Recent Fever Within 48 Hours Sepsis New/Unexplained Change in Mental Status Sepsis Action Taken by Nursing VITALS: Vitals are noted on the nurse's note and reviewed by myself. Vital signs reviewed. GENERAL: White male appearing older than stated age, in no acute distress, nondiaphoretic, well-developed well-nourished. SKIN: The skin was without rashes, erythema, edema, or bruising. There is no tenting of the skin. Capillary reflex less than 2 seconds. HEAD: Normocephalic atraumatic. EARS: External auditory canals clear, EYES: Pupils equal round and reactive to light and accommodation. Conjunctivae without injection, sclerae without icterus. Extraocular movements intact. NOSE: Patent, MOUTH: Mucous membranes mildly dry. Pharynx without erythema or exudate. Uvula midline. Airway patent. Tongue does not deviate. NECK: Supple without nuchal rigidity. No lymphadenopathy. No thyromegaly. Cervical spine is nontender. No JVD. HEART: Regular rate and rhythm LUNGS: Clear to auscultation bilaterally without wheezes, rales or rhonchi. No retractions or accessory muscle use. ABDOMEN: Positive bowel sounds x 4. Normal tympanic percussion. Soft, nontender, without masses or organomegaly. Basurto sign negative. No guarding or rebound tenderness. No CVA tenderness MUSCULOSKELETAL: No muscle atrophy, erythema, or edema noted. NEURO: Patient was alert and oriented to person place and time. Normal sensation to light and sharp touch. No focal neurological deficits. Course Administered Medications Discontinued Medications Albuterol (Albut/Ipratrop 3mg/0.5mg Neb 3 Ml Vial) 3 ml NEB NOW STA; Protocol Stop: 03/25/23 21:38 Last Admin: 03/25/23 22:21 Dose: 3 ml Documented By: SAM Sodium Chloride (Nss) 1,000 mls @ 999 mls/hr IV .Q1H1M ONE Stop: 03/25/23 22:37 Last Infusion: 03/25/23 22:59 Dose: Infused Documented By: Admin: 03/25/23 22:18 Dose: 999 mls/hr Documented By: SAM Acetaminophen (Ofirmev) 1,000 mg in 100 mls @ 400 mls/hr IV NOW STA Stop: 03/25/23 21:51 Last Infusion: 03/25/23 22:59 Dose: Infused Documented By: Admin: 03/25/23 22:18 Dose: 400 mls/hr Documented By: SAM Piperacillin Sod/Tazobactam Sod (Zosyn) 4.5 gm in 100 mls @ 200 mls/hr IV NOW ONE Stop: 03/25/23 22:43 Last Admin: 03/25/23 22:59 Dose: 200 mls/hr Documented By: SAM Medical Decision Making Medical Records Attestation: I reviewed the patient's medical records. Home Medications Current Medication List: was personally reviewed by me Laboratory Data Attestation: I reviewed the patient's lab results. 03/25/23 22:00 03/25/23 22:00 Lab Results 03/25/23 Range/Units 22:00 WBC 7.45 (4.8-10.8) K/ul RBC 4.42 L (4.70-6.10) M/uL Hgb 12.6 L (14.0-18.0) g/dl Hct 38.3 L (42.0-52.0) % MCV 86.7 (80.0-100.0) fL MCH 28.5 (25.0-34.0) pg MCHC 32.9 (32.0-36.0) g/dL RDW Std Deviation 47.8 H (36.4-46.3) fL RDW Coeff of Valentín 15.0 H (11.5-14.5) % Plt Count 180 (130-400) K/uL MPV 10.5 (9.4-12.4) fL Immature Gran % (Auto) 0.3 % Neut % (Auto) 79.4 % Lymph % (Auto) 11.7 % Monroe % (Auto) 8.2 % Eos % (Auto) 0.1 % Baso % (Auto) 0.3 % Neut # (Auto) 5.92 (1.40-6.50) K/uL Lymph # (Auto) 0.87 L (1.20-3.40) K/uL Monroe # (Auto) 0.61 H (0.11-0.59) K/uL Eos # (Auto) 0.01 (0.00-0.50) K/uL Baso # (Auto) 0.02 (0.00-0.20) K/uL Immature Gran # (Auto) 0.02 (0.01-0.20) K/uL Sodium 129 L (136-145) mmol/L Potassium 4.4 (3.5-5.1) mmol/L Chloride 98 (98-107) mmol/L Carbon Dioxide 20 L (21-32) mmol/L Anion Gap 11 (3-11) BUN 22 (6-23) mg/dl Creatinine 1.46 H D (0.6-1.4) mg/dl Est Cr Clr Drug Dosing 53.6 ml/min Est GFR ( Amer) 58.1 ml/min Est GFR (Non-Af Amer) 50.1 ml/min BUN/Creatinine Ratio 15.1 (10-20) Glucose 110 H (70-99(Fasting)) mg/dl Lactate 1.8 (0.4-2.0) mmol/L Calcium 9.3 (8.6-10.3) mg/dl Magnesium 1.6 L (1.7-2.4) mg/dl Total Bilirubin 0.4 (0.2-1.0) mg/dl Direct Bilirubin 0.1 (0-0.2) mg/dl AST 76 H (13-39) U/L ALT 31 (7-52) U/L Alkaline Phosphatase 78 (34-104) U/L Troponin I High Sens 15.1 D (0-20) pg/ml Total Protein 7.2 (6.0-8.3) gm/dl Albumin 3.7 (3.4-5.0) gm/dl Procalcitonin 1.60 H (0-0.5) ng/ml Imaging Data Attestation: I personally reviewed and interpreted this imaging study as follows: MDM Narrative Prior records/ancillary studies reviewed. Triage Nursing notes reviewed. Additional history obtained from EMS. The patient's history was concerning for fever. Differential diagnosis: Etiologies such as viral syndrome, otitis, pharyngitis, pneumonia, influenza, meningitis, urinary tract infection, sepsis, bacteremia, as well as others were entertained. Physical examination: As above ER treatment provided: An order was placed for continuous cardiac monitoring. The monitor shows a rate of 60-1 20 with a sinus rhythm per my interpretation. Tylenol, IV fluids, nebulizer Zosyn was ordered for pneumonia seen on imaging Mg IV On reassessment the patient felt better. Diagnostics interpreted by me: ECG: Ordered for weakness EKG: Poor baseline, normal sinus, no obvious ST or T wave changes. Impression normal sinus rhythm poor baseline independently interpreted by myself I think arrhythmia is unlikely. EKG shows normal sinus rhythm with no interval abnormalities such as QT prolongation or WPW. There are no findings to suggest Brugada syndrome. Cardiac monitoring in the emergency department reveals no tachycardic or bradycardic dysrhythmia. Hypertrophic cardiomyopathy was considered but there are no clear historical elements pointing toward this. EKG is not suggestive. The QRS voltage is not extremely large and there are no suggestive Q waves. The labs Independently Interpreted by myself revealed Negative troponin. Lactic 1.8. Blood cultures pending Positive parainfluenza on BioFire from yesterday low mg this was replaced as above Imaging studies: Chest x-ray with concerns for right peribronchial pneumonia per my independent interpretation. No pneumothorax. Consultation: A consultation was placed with hospitalist. The case was discussed and diagnostics were reviewed. The patient was evaluated in the ER for further treatment. This appears to be consistent with parainfluenza with developing pneumonia. Patient was more weak. He does not feel comfortable going home. Medicine is consulted and case discussed. Patient be admitted to the medical service for further evaluation and treatment. Patient was medicated as above. He was reassessed multiple times. By the evaluation outlined above emergent etiologies such as otitis, pharyngitis, meningitis, urinary tract infection, sepsis, bacteremia, as well as others were deemed relatively unlikely. The pt informed about the findings as listed above. All questions were answered and pleased with the treatment. The chart was completed utilizing [employer] Speech voice recognition software. Grammatical errors, random word insertions, pronoun errors, and incomplete sentences are an occassional consequence of this system due to software limitations, ambient noise, and hardware issues. Any formal questions or concerns about the content, text, or information contained within the body of this dictation should be directly addressed to the physician portfolio assistant for clarification. Impression & Plan CAP (community acquired pneumonia), Parainfluenza infection, Weakness, Acute hyponatremia, Hypomagnesemia Discharge Plan Visit Data Chief Complaint: Illness Stated Complaint: HERE YESTERDAY FOR ILLNESS- WANTS REEVAL ED Provider: Santos Lemus ED Midlevel Provider: Sara Arenas Discharge Problem: CAP (community acquired pneumonia), Parainfluenza infection, Weakness, Acute hyponatremia, Hypomagnesemia Patient Disposition: Admitted As Inpatient Condition: Good Forms Stand Alone Forms: My [employer] Prescriptions Prescriptions: No Action gabapentin 600 mg tablet 1,200 mg PO TID Qty: 90 tramadol 50 mg tablet 100 mg PO QID lisinopril 20 mg tablet 20 mg PO QAM amlodipine 5 mg tablet 2.5 mg PO QAM aspirin 81 mg Tablet,Delayed Release (Dr/Ec) 81 mg PO QAM Qty: 30 0RF cyanocobalamin (vitamin B-12) 1,000 mcg capsule 1,000 mcg PO DAILY Qty: 30 0RF famotidine 20 mg Tablet 20 mg PO BID PRN (Reason: heartburn) Qty: 30 0RF Rx Instructions: purchase [id number]-[id number] Cerovite Senior 0.4 mg-300 mcg- 250 mcg Tablet 1 tab PO QAM Qty: 30 1RF Rx Instructions: purchase [id number]-[id number] allopurinol 100 mg tablet 150 mg PO QAM cholecalciferol (vitamin D3) [Vitamin D3] 25 mcg (1,000 unit) Capsule 25 mcg PO QAM diphenoxylate-atropine 2.5-0.025 mg tablet 1 tab PO QID PRN (Reason: Diarrhea) levothyroxine 88 mcg tablet 88 mcg PO DAILY rosuvastatin 10 mg tablet 10 mg PO DAILY everolimus (antineoplastic) [Afinitor] 5 mg Tablet 5 mg PO DAILY Lenvima 10 mg/day (10 mg x 1) Capsule 10 mg PO DAILY acetaminophen [Tylenol Extra Strength] 500 mg tablet 1,000 mg PO Q6H PRN (Reason: Pain) Referrals Referrals: Don Crenshaw DO [Primary Care Provider] - Discharge Problem: CAP (community acquired pneumonia) Qualifiers: Laterality: right Lung location: middle lobe of lung Qualified Code(s): J18.9 - Pneumonia, unspecified organism
[2023-03-25] MEDS ORDERED: PIPERACILLIN/TAZOBACTAM 4.5 GM/100 ML BAG IV ONE (22:14)
[2023-03-25 22:20] LABS: Basophils # (auto) 0.02 K/uL (0.00-0.20); Basophils % (auto) 0.3 %; Eosinophils # (auto) 0.01 K/uL (0.00-0.50); Eosinophils % (auto) 0.1 %; Hematocrit (blood only) 38.3 % (42.0-52.0); Hemoglobin 12.6 g/dl (14.0-18.0); Immature Granulocytes # (auto) 0.02 K/uL (0.01-0.20); Immature Granulocytes % (auto) 0.3 %; Lymphocytes # (auto) 0.87 K/uL (1.20-3.40); Lymphocytes % (auto) 11.7 %; Mean Corpuscular Hemoglobin 28.5 pg (25.0-34.0); Mean Corpuscular Hgb Conc 32.9 g/dL (32.0-36.0); Mean Corpuscular Volume 86.7 fL (80.0-100.0); Mean Platelet Volume 10.5 fL (9.4-12.4); Monocytes # (auto) 0.61 K/uL (0.11-0.59); Monocytes % (auto) 8.2 %; Neutrophils # (auto) 5.92 K/uL (1.40-6.50); Neutrophils % (auto) 79.4 %; Platelet Count 180 K/uL (130-400); RDW Standard Deviation 47.8 fL (36.4-46.3); Red Blood Count 4.42 M/uL (4.70-6.10); White Blood Count 7.45 K/ul (4.8-10.8)
--- NOTE | 2023-03-25 22:25 | Emergency Department Note ---
ED Visit Note I was consulted by the Advanced Practice Provider, Lawanda Arenas PA-C. I personally made/approved the management plan and take responsibility for the patient management. I performed a substantive portion of the visit. This includes the aspects of: -History/Physical/Personally seeing the patient -MDM -I independently interpreted the following studies: The patient's chest x-ray and laboratory studies .
[2023-03-25 22:33] LABS: Albumin Level 3.7 gm/dl (3.4-5.0); BUN Creatinine Ratio 15.1 (10-20); Bilirubin Direct 0.1 mg/dl (0-0.2); Bilirubin,Total 0.4 mg/dl (0.2-1.0); Calcium 9.3 mg/dl (8.6-10.3); Creatinine Clr Calc Pharmacy 53.6 ml/min; Est GFR (African American) 58.1 ml/min; Est GFR (Non-African American) 50.1 ml/min; Magnesium 1.6 mg/dl (1.7-2.4); Potassium 4.4 mmol/L (3.5-5.1); Total Protein 7.2 gm/dl (6.0-8.3)
[2023-03-25 22:43] LABS: Troponin I High Sensitivity 15.1 pg/ml (0-20)
[2023-03-25] MEDS: MAGNESIUM SULFATE / D5W 1 GM/100 ML BAG IV SCH (23:56)
--- NOTE | 2023-03-26 00:33 | History & Physical Report ---
Date of Service March 25, 2023 Assessment & Plan (1) Viral pneumonia: Plan: Patient is a 62-year-old male with a past medical history of renal cancer with metastasis, hypothyroidism, DM 2 (diet controlled), currently on chemotherapy, previous CVA, CKD 3A, and hypertension who returns to the hospital for evaluation of cold-like symptoms and weakness. Chest x-ray shows evidence of pneumonia on my interpretation, patient to be admitted for treatment. -Admit to [facility], no telemetry indication noted -Supportive care for now, oxygen therapy as needed with saturation goal 90% -Zosyn given in emergency department, however, pneumonia appears viral, so will withhold antibiotics for now -Given chemotherapy regimen, have low threshold for restarting antibiotics if clinical picture were to deteriorate -Droplet precautions -Tylenol as needed for fever -No steroid indication at this time -Hypertonic saline nebulizer as needed for mucus excretion -Mucinex, cough drops, Flonase ordered (2) Rhabdomyolysis: Plan: - Admission CK of over 1300 -Secondary to parainfluenza infection and possibly related to chemotherapy -Normal saline at 250 cc/h given concurrent hyponatremia (3) CAROLYN (acute kidney injury): Plan: - Suspect prerenal in setting of poor p.o. intake and apparent diarrhea since starting chemotherapy -Fluid resuscitation as above, trend BMP (4) Acute hyponatremia: Plan: - Suspect hypotonic hypovolemic hyponatremia in the setting of poor p.o. intake and diarrhea -Fluid resuscitation with normal saline at 250 cc/h given concurrent rhabdomyolysis -Trend BMP, serum and urine osmolalities pending (5) Weakness: Plan: - Likely multifactorial in the setting of metastatic disease, parainfluenza virus infection, hypomagnesemia, and rhabdomyolysis. Treat as appropriate -PT and OT consulted, appreciate recommendations (6) Hypomagnesemia: Plan: - Status post x 2 bags of magnesium in the ED, recheck in a.m. (7) Renal cancer: Plan: - Status post left nephrectomy in 2014 -Currently on Afinitor, Lenvima--> continue daily (8) Hypothyroidism: Plan: - Continue levothyroxine (9) Diabetes mellitus: Plan: - Diet controlled with most recent A1c being under 5, no insulin required at this time (10) Chronic kidney disease, stage 3a: Plan: - With CAROLYN on admission, baseline creatinine at approximately 1.1. (11) Hypertension: Plan: - Hold amlodipine and lisinopril given current illness and soft BPs on admission Plan Disposition: Admit to [facility], no telemetry indication currently DVT prophylaxis: Heparin Diet: Regular CODE STATUS: Full code History of Present Illness Chief Complaint: Weakness Primary Care Provider: Don Crenshaw DO Patient is a 62-year-old male with a past medical history of renal cancer with metastasis, hypothyroidism, DM 2 (diet controlled), currently on chemotherapy, previous CVA, CKD 3A, and hypertension who returns to the hospital for evaluation of cold-like symptoms and weakness. Patient came to the emergency department yesterday for the same presentation and was diagnosed with parainfluenza virus. He was subsequently discharged home after chest x-ray return normal. Unfortunately, it seems his weakness has progressed and the patient's spouse is no longer able to take care of him. Apparently has gotten to the point where the patient is now able to walk independently because of how weak she is. Eating and drinking without difficulty. No nausea or vomiting. He is spitting out copious amounts of mucus, however. Reports shortness of breath. He did get a breathing treatment which seems to have improved his dyspn ea. He does complain of a fever and reports that he has been getting Tylenol for it without much improvement in the fever. It did break at 1 point in afternoon but returned shortly after. Patient notes that he does have diarrhea since starting chemotherapy and has persisted while he has not been feeling well. He has tried to keep up with oral hydration but does not feel that he has been drinking enough. Otherwise no other complaints at this time. ED course: Patient evaluated by provider. Labs are significant for normal white blood cell count, sodium of 129, creatinine of 1.46 (baseline around 1.1), serum osmolality of 274, magnesium 1.6, AST of 76, CK of 1336, normal troponin, procalcitonin of 1.6. BioFire yesterday was positive for parainfluenza virus. Chest x-ray does show some new infiltrate compared to x-ray taken yesterday. Patient was given a bolus of normal saline as well as Tylenol. DuoNeb treatment was given. Patient was started on Zosyn. Magnesium was supplemented. The hospitalist service was consulted for admission and further treatment. Allergies Allergy/AdvReac Type Severity Reaction Status Date / Time Iodinated Contrast Media AdvReac Mild FROM Verified 03/25/23 22:28 NUCLEAR MED SCAN-ITCHY FOREARMS. NUCLEAR MED SCAN DYT AdvReac Mild FROM Uncoded 03/25/23 22:28 NUCLEAR MED SCAN-ITCHY FOREARMS. Home Medications Medication Instructions Recorded Confirmed Type gabapentin 600 mg tablet 1,200 mg PO TID #90 tabs 10/27/20 03/25/23 History tramadol 50 mg tablet 100 mg PO QID 10/27/20 03/25/23 History allopurinol 100 mg tablet 150 mg PO QAM 01/31/21 03/25/23 History cholecalciferol (vitamin D3) 25 25 mcg PO QAM 01/31/21 03/25/23 History mcg (1,000 unit) capsule (Vitamin D3) aspirin 81 mg tablet,delayed 81 mg PO QAM #30 tabs 01/12/22 03/25/23 Rx release cyanocobalamin (vitamin B-12) 1,000 mcg PO DAILY #30 caps 01/12/22 03/25/23 Rx 1,000 mcg capsule famotidine 20 mg tablet 20 mg PO BID PRN heartburn #30 tabs 02/14/22 03/25/23 Rx cpciiins-kor-bbwnb acid 0.4 1 tab PO QAM #30 tabs 02/14/22 03/25/23 Rx mg-lycopene 300 mcg-lutein 250 mcg tablet (Cer[employer]ite Senior) amlodipine 5 mg tablet 2.5 mg PO QAM 05/24/22 03/25/23 History lisinopril 20 mg tablet 20 mg PO QAM 05/24/22 03/25/23 History acetaminophen 500 mg tablet 1,000 mg PO Q6H PRN Pain 03/25/23 03/25/23 History (Tylenol Extra Strength) diphenoxylate-atropine 2.5 1 tab PO QID PRN Diarrhea 03/25/23 03/25/23 History mg-0.025 mg tablet everolimus (antineoplastic) 5 mg 5 mg PO DAILY 03/25/23 03/25/23 History tablet (Afinitor) lenvatinib 10 mg/day (10 mg x 1) 10 mg PO DAILY 03/25/23 03/25/23 History capsule (Lenvima) levothyroxine 88 mcg tablet 88 mcg PO DAILY 03/25/23 03/25/23 History rosuvastatin 10 mg tablet 10 mg PO DAILY 03/25/23 03/25/23 History Past Med/Surg History Medical History Renal cancer Left nephrectomy 2014 for "metastatic RCC" Diabetic neuropathy Chemotherapy-induced diarrhea colestipol PRN Hx of renal calculi History of COVID-19 ? 2020- mild cold symptoms; resolved CVA (cerebral vascular accident) 01/11/2022 MRI brain with 3 mm focus of restricted diffusion within the left temporal lobe is suggestive of an acute versus subacute infarct Chronic kidney disease, stage 3a Hypothyroidism Claustrophobia Arthritis of knee Benign localized prostatic hyperplasia with lower urinary tract symptoms (LUTS) Solitary right kidney Diabetes mellitus Diet controlled "No longer needs medication after weight loss" Hypercholesterolemia Osteoarthritis Dyslipidemia Hypertension Bilateral lung cancer Taking inlyta daily and keytruda q 6 weeks Follows w/ Dr Zheng Acquired claw toe of right foot Surgical History History of esophagogastroduodenoscopy (EGD) Hx of colonoscopy History of vasectomy History of hernia repair H/O left nephrectomy History of meniscectomy of left knee History of cholecystectomy Family History Father Hearing loss Lung disease Mother Cancer Aortic aneurysm Breast cancer Myocardial infarction Other No family history of adverse response to anesthesia No family history of bleeding disorder Social History Smoking Status: Never smoker Tobacco Type: Smokeless Tobacco (Dip or Chew) Second Hand Exposure: No; Do You Dip or Chew Tobacco: Yes (Advised none DOS); Hx Alcohol Use: No Hx Substance Use: No Preferred Language: Mozambican Communication Ability: Effective Balance Wheel Arm Burnisher Required: No Beliefs That Will Affect Care: None marital status: Current Living Situation: Spouse current occupational status: retired 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; 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 [employer] Feels Safe at Home: Yes Safety Concerns: Feels Safe At This Time Assistive Devices: Walker Review of Systems Review of Systems: All systems reviewed & are unremarkable except as noted in HPI & below Physical Exam Constitutional: well developed and well nourished Eyes: + anicteric sclerae Neck: trachea midline, no thyromegaly Respiratory: normal respiratory effort; no respiratory distress Auscultation: lungs clear to auscultation bilaterally Cardiovascular: RRR, no murmur, no edema Gastrointestinal (Abdomen): normal bowel sounds, soft, nontender, no hepatosplenomegaly Musculoskeletal: Head/Neck/Chest: normocephalic and head atraumatic Skin: no rashes, warm and dry Neurologic: moves all extremities Psychiatric: A+Ox3, euthymic affect Results & Data Results & Data Vital Signs (Past 12 Hours) Vital Signs Temp Pulse Pulse Resp BP BP Pulse Ox 03/25/23 23:45 77 18 105/59 L 95 03/25/23 23:40 87 L 03/25/23 22:48 86 16 118/71 94 03/25/23 22:45 93 03/25/23 22:30 89 17 92 03/25/23 22:00 100 H 16 93 03/25/23 21:45 101 H 03/25/23 21:43 100 H 19 91 03/25/23 21:37 39.5 C H 102 H 17 147/86 H 93 O2 Del Method O2 Flow Rate 03/25/23 23:45 Nasal Cannula 3 03/25/23 23:40 0 03/25/23 22:48 03/25/23 22:45 Room Air 03/25/23 22:30 03/25/23 22:00 03/25/23 21:45 03/25/23 21:43 03/25/23 21:37 Room Air Code Status & VTE Plan VTE Prophylaxis Plan VTE Prophylaxis will be ordered: Yes Supervising Physician Co-Signing Physician Notes Attending addendum: I have physically seen this patient, have supervised the medical residents activities, and agree with the H&P unless as otherwise noted. Assessment and Plan: Parainfluenza pneumonia- Presenting symptoms are that of cold like symptoms and general weakness Status post Zosyn given in the emergency department, would hold any further antibiotics, and need can be reassessed in the a.m. Hypertonic saline nebulizers, guaifenesin, Tessalon Perles and Flonase as ordered Nasal cannula oxygen, titrate to keep pulse ox 90-92% Droplet precautions Acetaminophen 650 mg by mouth every 6 hours as needed for mild pain or fever Acute kidney injury superimposed on CKD/rhabdomyolysis/hyponatremia- Creatinine 1.46 on admission, with base 1.15 Creatinine kinase 1336 on admission Continue NSS as noted, recheck laboratories in a.m. Hypomagnesemia- Magnesium 1.6 To receive 2 g of magnesium sulfate IV, and recheck laboratories in a.m. Remaining orders and notations as noted
[2023-03-26] MEDS: MAGNESIUM SULFATE / D5W 1 GM/100 ML BAG IV SCH (00:48)
[2023-03-26] MEDS ORDERED: COUGH DROP (SUGAR FREE) LOZ 24 LOZ/1 BOX BUCCAL PRN (01:36)
[2023-03-26] MEDS ORDERED: SODIUM CHLOR 7% 4 ML NEB NEB PRN (01:39)
[2023-03-26] MEDS ORDERED: FAMOTIDINE 20 MG TAB PO PRN (02:47)
[2023-03-26] MEDS ORDERED: ONDANSETRON INJ 2 MG/ML 2 ML VIAL IV PRN (02:47)
[2023-03-26] MEDS: SODIUM CHLORIDE 0.9% 1,000 ML IV SCH ×5 (02:58→19:55)
[2023-03-26 03:20] LABS: Appearance Urine Clear (Clear); Bacteria Urine Automated Negative (Negative); Bilirubin Urine Negative (Negative); Blood Urine Trace (Negative); Color Urine Yellow; Glucose Urine UA Negative (Negative); Ketones Urine Negative (Negative); Leukocyte Esterase Urine Negative (Negative); Nitrite Urine Negative (Negative); Protein Urine 1+ (Negative); Specific Gravity Urine 1.016 (1.000-1.030); Urobilinogen Urine Negative (Negative); pH Urine 5.5 (4.5-7.5)
[2023-03-26] MEDS: HEPARIN SOD 5,000 UNIT/0.5 ML VIAL SQ SCH ×3 (05:47→19:56)
[2023-03-26] MEDS: LEVOTHYROXINE SODIUM 88 MCG TABLET PO SCH (05:48)
[2023-03-26] MEDS: ACETAMINOPHEN 325 MG TAB PO PRN ×2 (07:08→19:54)
--- NOTE | 2023-03-26 07:31 | Hospitalist Progress Note ---
Date of Service March 26, 2023 Assessment & Plan (1) Upper respiratory infection: Plan: Patient is a 62-year-old male with a past medical history of renal cancer with metastasis, hypothyroidism, DM 2 (diet controlled), currently on chemotherapy, previous CVA, CKD 3A, and hypertension who returns to the hospital for evaluation of cold-like symptoms and weakness. - pt tested positive on biofire for parainfluenza virus, on chemotherapy - oxygen therapy as needed with saturation goal 90% -Zosyn given in emergency department, -Tylenol as needed for fever, continue Mucinex, cough drops, Flonase -Hypertonic saline nebulizer as needed for mucus excretion - CRP > 20 and proal elevated favors superimposed bacterial process, start rocephin and zithromax - sputum cx pending - if not improving by Tuesday/Tuesday, may do lung CT and/or echo for further eval uation of increased O2 needs (2) Rhabdomyolysis: Plan: - Admission CK of over 1300 -Secondary to parainfluenza infection and possibly related to chemotherapy -Normal saline at 250 cc/h given concurrent hyponatremia, continue (3) CAROLYN (acute kidney injury): Plan: - Suspect prerenal in setting of poor p.o. intake and apparent diarrhea since starting chemotherapy -Fluid resuscitation as above, trend BMP (4) Acute hyponatremia: Plan: - Suspect hypotonic hypovolemic hyponatremia in the setting of poor p.o. intake and diarrhea -Fluid resuscitation with normal saline at 250 cc/h given concurrent rhabdomyolysis -Trend BMP, serum and urine osmolalities pending - improving (5) Weakness: Plan: - Likely multifactorial in the setting of metastatic disease, parainfluenza virus infection, hypomagnesemia, and rhabdomyolysis. Treat as appropriate -PT and OT consulted, appreciate recommendations (6) Hypomagnesemia: Plan: - Status post x 2 bags of magnesium in the ED - repeat Mag level today 1.8 (7) Renal cancer: Plan: - Status post left nephrectomy in 2014 -Currently on Afinitor, Lenvima--> continue daily (8) Hypothyroidism: Plan: - Continue levothyroxine (9) Diabetes mellitus: Plan: - Diet controlled with most recent A1c being under 5, no insulin required at this time (10) Chronic kidney disease, stage 3a: Plan: - With CAROLYN on admission, baseline creatinine at approximately 1.1. (11) Hypertension: Plan: - continue to hold amlodipine and lisinopril given current illness and soft BPs on admission Plan DVT prophylaxis: Heparin Diet: Regular CODE STATUS: Full code Admission and Anticipated Discharge Date Admission Date: March 25, 2023 Supervising Physician Co-Signing Physician Notes I personally examined the patient and verified all zamora points of history and exam, discussed case, and agree with decision making with Dr Gallardo Sore throat and stuffy nose, about 5 episodes a day of loose watery diarrhea. Sore buttocks with a small ulcer. Is getting a little bit more mobile than he was before in general, excluding acutely weak from infection. present, answered all questions the best my ability and to her and patient's satisfaction. Vitals noted, in general he is awake and alert pleasant fatigued no distress. HEENT normocephalic atraumatic mucous membranes moist. Breathing unlabored no accessory muscle use, he is 96-97% on room air whenever I see him, and he has been off of the oxygen for a while before enter the room. Skin shows a small fairly shallow ulcer medial to his left buttock no surrounding erythema no exudate. Neuro without focal deficits. Labs/diagnostics/chest x-ray reviewed Parainfluenza virus infectioninflammatory markers would suggest a bit of a secondary bacterial overgrowth pneumonia. Without severe sepsis/septic shock, start Zithromax Rocephin, especially given that MRSA nares is negative. His diarrhea is likely chemotherapy-induced, and that plus immobility seems to have led to a small ulcer on his buttockI suspect now that he is more mobile if we can slow the diarrhea down this should have a chance to healhe has been trying diphenoxylate/atropine without much reliefwill add Metamucil twice daily to try to thicken and therefore slow his stools. He is now off oxygen, hopefully his p.o. intake will improve, and if he has good mobility, hopefully we can work towards home. Anticipate a need for outpatient course of antibiotics, he also has apparent dental painfor which he will be seeking care next week. DVT proph heparin SQ Subjective Patient is a 62-year-old male with a past medical history of renal cancer with metastasis, hypothyroidism, DM 2 (diet controlled), currently on chemotherapy, previous CVA, CKD 3A, and hypertension who returns to the hospital for evaluation of cold-like symptoms and weakness. Today, pt states he is feeling about the same as when he got here. He states he is still spitting up quite a bit of mucus and has had a lot of congestion that has gotten a bit better. No acute distress. No questions or further complaints at this time. Review of Systems Review of Systems: Per HPI. Physical Exam Physical Exam: General:Alert and oriented, no acute distress, HEENT: Normocephalic, moist oral mucosa, Cardio: Regular rate and rhythm, Resp:Lungs clear to auscultation b/l, no wheezes or rhonchi, GI: Soft and nontender, nondistended, bowel sounds active Skin: Warm, pink, dry, Psych: Mood-affect congruence. Results & Data Results & Data Vital Signs (Past 12 Hours) Vital Signs Temp Pulse Pulse Pulse Resp BP BP 03/26/23 07:00 36.7 C 95 H 19 119/68 03/26/23 03:08 03/26/23 03:08 36.7 C 75 18 119/68 03/26/23 01:47 75 20 03/25/23 23:45 77 18 105/59 L 03/25/23 23:40 03/25/23 22:48 86 16 118/71 03/25/23 22:45 03/25/23 22:30 89 17 03/25/23 22:00 100 H 16 03/25/23 21:45 101 H 03/25/23 21:43 100 H 19 03/25/23 21:37 39.5 C H 102 H 17 147/86 H Pulse Ox O2 Del Method O2 Flow Rate 03/26/23 07:00 96 Nasal Cannula 3 03/26/23 03:08 Nasal Cannula 3 03/26/23 03:08 98 Nasal Cannula 3 03/26/23 01:47 96 Nasal Cannula 3 03/25/23 23:45 95 Nasal Cannula 3 03/25/23 23:40 87 L 0 03/25/23 22:48 94 03/25/23 22:45 93 Room Air 03/25/23 22:30 92 03/25/23 22:00 93 03/25/23 21:45 03/25/23 21:43 91 03/25/23 21:37 93 Room Air Resident Activity Tracking Resident Involvement: Resident Care Provided Care Provided: Adult Hospital Medicine
--- NOTE | 2023-03-26 07:47 | XRay Report ---
XR chest 1V portable HISTORY: Sepsis COMPARISON: Chest 03/24/2023. FINDINGS: No pneumothorax. No pleural effusions. The heart remains enlarged. There are low lung volum es. There is progressive interstitial/vascular thickening consistent with developing pulmonary edema. No new focal lung consolidations identified. Gas-filled loops of colon again noted within the upper abdomen. IMPRESSION: Cardiomegaly and mild interstitial pulmonary edema. ACT 112: Negative or not required by law. Electronically signed by: Chris Gill M.D. 03/26/2023 7:45 AM
--- NOTE | 2023-03-26 08:34 | Electrocardiogram Report ---
Test Reason : Blood Pressure : / mmHG Vent. Rate : 099 BPM Atrial Rate : 000 BPM P-R Int : 000 ms QRS Dur : 086 ms QT Int : 306 ms P-R-T Axes : 000 -13 030 degrees QTc Int : 392 ms Poor data quality, interpretation may be adversely affected Probable Sinus rhythm Diffuse Minor Nonspecific T wave abnormality Borderline ECG When compared with ECG of 24-MAR-2023 16:08, Artifact now present Otherwise no significant change Confirmed by Brian Arambula ([id number] on 03/26/2023 8:34:39 AM Referred By: REFERRED SELF Confirmed By:Brian Arambula
[2023-03-26] MEDS: allopurinoL 100 MG TAB PO SCH (08:35)
[2023-03-26] MEDS: CYANOCOBALAMIN (B-12) 500 MCG TABLET PO SCH (08:35)
[2023-03-26] MEDS: GABAPENTIN 600 MG TAB PO SCH ×3 (08:35→19:59)
[2023-03-26] MEDS: FLUTICASONE PROPIONATE NA SPR 16 GM BTL SCH (08:36)
[2023-03-26] MEDS: ASPIRIN 81 MG ECTAB PO SCH (08:36)
[2023-03-26] MEDS: CHOLECALCIFEROL 1,000 UNITS 25 MCG TAB PO SCH (08:36)
[2023-03-26] MEDS: guaiFENesin 600 MG TABCR PO SCH ×2 (08:36→19:56)
[2023-03-26] MEDS: DIPHENOXYLATE/ATROPINE 2.5/0.025MG TAB PO PRN (08:36)
[2023-03-26] MEDS: traMADol HCL 50 MG TABLET PO SCH ×4 (08:43→20:01)
[2023-03-26 09:22] LABS: Basophils # (auto) 0.01 K/uL (0.00-0.20); Basophils % (auto) 0.2 %; Eosinophils # (auto) 0.01 K/uL (0.00-0.50); Eosinophils % (auto) 0.2 %; Hematocrit (blood only) 34.4 % (42.0-52.0); Hemoglobin 11.4 g/dl (14.0-18.0); Immature Granulocytes # (auto) 0.01 K/uL (0.01-0.20); Immature Granulocytes % (auto) 0.2 %; Lymphocytes # (auto) 0.63 K/uL (1.20-3.40); Lymphocytes % (auto) 12.3 %; Mean Corpuscular Hemoglobin 28.8 pg (25.0-34.0); Mean Corpuscular Hgb Conc 33.1 g/dL (32.0-36.0); Mean Corpuscular Volume 86.9 fL (80.0-100.0); Mean Platelet Volume 9.8 fL (9.4-12.4); Monocytes # (auto) 0.34 K/uL (0.11-0.59); Monocytes % (auto) 6.6 %; Neutrophils # (auto) 4.12 K/uL (1.40-6.50); Neutrophils % (auto) 80.5 %; Platelet Count 134 K/uL (130-400); RDW Standard Deviation 47.8 fL (36.4-46.3); Red Blood Count 3.96 M/uL (4.70-6.10); White Blood Count 5.12 K/ul (4.8-10.8)
[2023-03-26 09:39] LABS: BUN Creatinine Ratio 15.3 (10-20); C Reactive Protein 21.1 mg/dl (0-0.5); Calcium 8.2 mg/dl (8.6-10.3); Est GFR (African American) 80.9 ml/min; Est GFR (Non-African American) 69.8 ml/min; Potassium 4.1 mmol/L (3.5-5.1)
[2023-03-26] MEDS ORDERED: INFLUENZA VIRUS QUADRIVALENT VACCINE (IIV4) 0.5 ML SYR IM ONE (09:53)
[2023-03-26 10:56] LABS: Magnesium 1.8 mg/dl (1.7-2.4)
[2023-03-26] MEDS ORDERED: LENVATINIB PO SCH (12:00)
--- NOTE | 2023-03-26 13:34 | Billing Data ---
Date of Service March 26, 2023 Coding Level of Care Code 42795 SUB INP/OBS CARE MIN
[2023-03-26] MEDS ORDERED: PSYLLIUM or GUAR GUM FIBER POWDER PACKET PO ONE (13:35)
[2023-03-26] MEDS: LENVATINIB PO SCH (13:37)
[2023-03-26] MEDS: EVEROLIMUS PO SCH (13:37)
[2023-03-26] MEDS: AZITHROMYCIN 500 MG in DEXTROSE 5% 250 ML IV SCH (14:05)
[2023-03-26] MEDS: cefTRIAXone SODIUM 1,000 MG in DEXTROSE 5 % MINI-B 50 ML IV SCH (14:27)
[2023-03-26] MEDS: PSYLLIUM or GUAR GUM FIBER POWDER PACKET PO SCH (19:58)
[2023-03-27] MEDS: SODIUM CHLORIDE 0.9% 1,000 ML IV SCH ×4 (00:06→12:22)
[2023-03-27] MEDS: LEVOTHYROXINE SODIUM 88 MCG TABLET PO SCH (04:09)
[2023-03-27] MEDS: HEPARIN SOD 5,000 UNIT/0.5 ML VIAL SQ SCH ×3 (04:10→21:08)
--- NOTE | 2023-03-27 05:50 | Billing Data ---
Date of Service March 27, 2023 Coding Level of Care Code 22607 INT INP/OBS CARE
--- NOTE | 2023-03-27 07:01 | Hospitalist Progress Note ---
Date of Service March 27, 2023 Assessment & Plan (1) Upper respiratory infection: Plan: Patient is a 62-year-old male with a past medical history of renal cancer with metastasis, hypothyroidism, DM 2 (diet controlled), currently on chemotherapy, previous CVA, CKD 3A, and hypertension who returns to the hospital for evaluation of cold-like symptoms and weakness. - pt tested positive on biofire for parainfluenza virus, on chemotherapy - oxygen therapy as needed with saturation goal 90% -Zosyn given in emergency department, -Tylenol as needed for fever, continue Mucinex, cough drops, Flonase -Hypertonic saline nebulizer as needed for mucus excretion - CRP > 20 and proal elevated favors superimposed bacterial process, started rocephin and zithromax, continue - sputum cx pending - repeat CRP pending, - pt now on RA with ok saturations (2) Rhabdomyolysis: Plan: - Admission CK of over 1300 -Secondary to parainfluenza infection and possibly related to chemotherapy -Normal saline at 250 cc/h given concurrent hyponatremia, will switch to 80 mL/hr LR today (3) CAROLYN (acute kidney injury): Plan: - Suspect prerenal in setting of poor p.o. intake and apparent diarrhea since starting chemotherapy -Fluid resuscitation as above, trend BMP - resolved (4) Acute hyponatremia: Plan: - Suspect hypotonic hypovolemic hyponatremia in the setting of poor p.o. intake and diarrhea -Fluid resuscitation with normal saline at 250 cc/h given concurrent rhabdomyolysis -Trend BMP, - resolved, Na 138 today (5) Weakness: Plan: - Likely multifactorial in the setting of metastatic disease, parainfluenza virus infection, hypomagnesemia, and rhabdomyolysis. Treat as appropriate -PT and OT consulted, appreciate recommendations (6) Hypomagnesemia: Plan: - Status post x 2 bags of magnesium in the ED - repeat Mag level was 1.8 (7) Renal cancer: Plan: - Status post left nephrectomy in 2014 -Currently on Afinitor, Lenvima--> continue daily (8) Hypothyroidism: Plan: - Continue levothyroxine (9) Diabetes mellitus: Plan: - Diet controlled with most recent A1c being under 5, no insulin required at this time (10) Chronic kidney disease, stage 3a: Plan: - With CAROLYN on admission, baseline creatinine at approximately 1.1. (11) Hypertension: Plan: - continue to hold amlodipine and lisinopril given current illness and soft BPs on admission Plan DVT prophylaxis: Heparin Diet: Regular CODE STATUS: Full code Admission and Anticipated Discharge Date Admission Date: March 25, 2023 Supervising Physician Co-Signing Physician Notes I personally examined the patient and verified all zamora points of history and exam, discussed case, and agree with decision making with Dr Gallardo Generally feels better. He is coughing up some dark yellow sputum, but feels like overall his breathing is getting better. His weakness is much improved and he is able to get around the room well. Eating is improving, starting to wonder how much his tooth is impairing eating and drinking but overall improving. Still has a sore throat. Diarrhea is still about 7 times over the last 24 hours, but on directed questioning it seems that there is much lower volume. Vitals noted, in general he is awake and alert pleasant fatigued no distress. HEENT normocephalic atraumatic mucous membranes moist. Breathing unlabored no accessory muscle use, good effort. Skin skin without rashes pallor or icterus. Neuro without focal deficits. Parainfluenza virus infectioninflammatory markers would suggest a bit of a secondary bacterial overgrowth pneumonia. Without severe sepsis/septic shock, continue with Zithromax Rocephin, especially given that MRSA nares is negative. He is improving his diarrhea is likely chemotherapy-induced, and that plus immobility seems to have led to a small ulcer on his buttockI suspect now that he is more mobile if we can slow the diarrhea down this should have a chance to healhe has been trying diphenoxylate/atropine without much reliefMetamucil twice daily seems to have reduced the volume of his stools, will temporarily increase to 3 times daily to see if we cannot slow down the frequency a little bit as wellalthough I doubt he would be able to tolerate that high of a dose and definitely. He is now off oxygen, and breathing seems to be improving. Working towards home. Anticipate a need for outpatient course of antibiotics, he also has apparent dental painfor which he will be seeking care next week. DVT proph heparin SQ Subjective Patient is a 62-year-old male with a past medical history of renal cancer with metastasis, hypothyroidism, DM 2 (diet controlled), currently on chemotherapy, previous CVA, CKD 3A, and hypertension who returns to the hospital for evaluation of cold-like symptoms and weakness. Today, pt states he is feeling fine. He states he is still spitting up some white-clear mucus as he has been and now it is starting to look a but yellow as well. He states he otherwise is feeling good. His shortness of breath has improved and he has no chest pain. No nausea or vomiting. No questions or concerns at this time. Review of Systems Review of Systems: Per HPI. Physical Exam Physical Exam: General:Alert and oriented, no acute distress, HEENT: Normocephalic, moist oral mucosa, Cardio: Regular rate and rhythm, Resp:Lungs clear to auscultation b/l, GI: Soft and nontender, nondistended, bowel sounds active Skin: Warm, pink, dry, Psych: Mood-affect congruence. Results & Data Results & Data Vital Signs (Past 12 Hours) Vital Signs Temp Pulse Resp BP Pulse Ox O2 Del Method 03/26/23 22:42 36.7 C 71 16 158/81 H 95 Room Air 03/26/23 21:30 Room Air Resident Activity Tracking Resident Involvement: Resident Care Provided Care Provided: Adult Hospital Medicine
[2023-03-27 08:05] LABS: Basophils # (auto) 0.01 K/uL (0.00-0.20); Basophils % (auto) 0.3 %; Eosinophils # (auto) 0.06 K/uL (0.00-0.50); Hematocrit (blood only) 33.3 % (42.0-52.0); Hemoglobin 10.9 g/dl (14.0-18.0); Immature Granulocytes # (auto) 0.03 K/uL (0.01-0.20); Lymphocytes # (auto) 0.81 K/uL (1.20-3.40); Lymphocytes % (auto) 27.2 %; Mean Corpuscular Hemoglobin 28.8 pg (25.0-34.0); Mean Corpuscular Hgb Conc 32.7 g/dL (32.0-36.0); Mean Corpuscular Volume 87.9 fL (80.0-100.0); Mean Platelet Volume 10.5 fL (9.4-12.4); Monocytes # (auto) 0.28 K/uL (0.11-0.59); Monocytes % (auto) 9.4 %; Neutrophils # (auto) 1.79 K/uL (1.40-6.50); Neutrophils % (auto) 60.1 %; Platelet Count 128 K/uL (130-400); RDW Coefficient of Variation 14.9 % (11.5-14.5); RDW Standard Deviation 48.1 fL (36.4-46.3); Red Blood Count 3.79 M/uL (4.70-6.10); White Blood Count 2.98 K/ul (4.8-10.8)
[2023-03-27] MEDS: GABAPENTIN 600 MG TAB PO SCH ×3 (08:14→21:10)
[2023-03-27] MEDS: CHOLECALCIFEROL 1,000 UNITS 25 MCG TAB PO SCH (08:14)
[2023-03-27] MEDS: allopurinoL 100 MG TAB PO SCH (08:14)
[2023-03-27] MEDS: DIPHENOXYLATE/ATROPINE 2.5/0.025MG TAB PO PRN (08:14)
[2023-03-27] MEDS: CYANOCOBALAMIN (B-12) 500 MCG TABLET PO SCH (08:14)
[2023-03-27] MEDS: PSYLLIUM or GUAR GUM FIBER POWDER PACKET PO SCH ×2 (08:14→21:09)
[2023-03-27] MEDS: ASPIRIN 81 MG ECTAB PO SCH (08:14)
[2023-03-27] MEDS: guaiFENesin 600 MG TABCR PO SCH ×2 (08:15→21:09)
[2023-03-27] MEDS: FLUTICASONE PROPIONATE NA SPR 16 GM BTL SCH (08:15)
[2023-03-27] MEDS: traMADol HCL 50 MG TABLET PO SCH ×4 (08:20→21:08)
[2023-03-27 08:28] LABS: Albumin Globulin Ratio 1.1 (0.9-2); Albumin Level 2.8 gm/dl (3.4-5.0); BUN Creatinine Ratio 12.5 (10-20); Bilirubin,Total 0.3 mg/dl (0.2-1.0); Creatinine Clr Calc Pharmacy 90.3 ml/min; Est GFR (African American) 109.4 ml/min; Est GFR (Non-African American) 94.4 ml/min; Globulin 2.6 gm/dl (2.5-4.0); Potassium 3.8 mmol/L (3.5-5.1); Total Protein 5.4 gm/dl (6.0-8.3)
[2023-03-27] MEDS: LENVATINIB PO SCH (12:22)
[2023-03-27] MEDS: EVEROLIMUS PO SCH (12:44)
[2023-03-27] MEDS: LACTATED RINGER'S 1,000 ML IV SCH (12:52)
[2023-03-27] MEDS: cefTRIAXone SODIUM 1,000 MG in DEXTROSE 5 % MINI-B 50 ML IV SCH (14:06)
[2023-03-27] MEDS: AZITHROMYCIN 500 MG in DEXTROSE 5% 250 ML IV SCH (14:35)
--- NOTE | 2023-03-27 18:09 | Billing Data ---
Date of Service March 27, 2023 Coding Level of Care Code 95645 SUB INP/OBS CARE MIN
[2023-03-28] MEDS: LACTATED RINGER'S 1,000 ML IV SCH ×2 (01:16→13:01)
[2023-03-28] MEDS: LEVOTHYROXINE SODIUM 88 MCG TABLET PO SCH (05:18)
[2023-03-28] MEDS: HEPARIN SOD 5,000 UNIT/0.5 ML VIAL SQ SCH ×2 (05:18→13:02)
[2023-03-28 07:29] LABS: Basophils # (auto) 0.02 K/uL (0.00-0.20); Basophils % (auto) 0.8 %; Eosinophils # (auto) 0.06 K/uL (0.00-0.50); Eosinophils % (auto) 2.4 %; Hematocrit (blood only) 29.1 % (42.0-52.0); Hemoglobin 9.9 g/dl (14.0-18.0); Immature Granulocytes # (auto) 0.01 K/uL (0.01-0.20); Immature Granulocytes % (auto) 0.4 %; Lymphocytes % (auto) 35.6 %; Mean Corpuscular Hemoglobin 28.4 pg (25.0-34.0); Mean Corpuscular Volume 83.6 fL (80.0-100.0); Monocytes # (auto) 0.21 K/uL (0.11-0.59); Monocytes % (auto) 8.3 %; Neutrophils # (auto) 1.33 K/uL (1.40-6.50); Neutrophils % (auto) 52.5 %; Platelet Count 152 K/uL (130-400); RDW Coefficient of Variation 14.8 % (11.5-14.5); RDW Standard Deviation 45.3 fL (36.4-46.3); Red Blood Count 3.48 M/uL (4.70-6.10); White Blood Count 2.53 K/ul (4.8-10.8)
--- NOTE | 2023-03-28 07:33 | Hospitalist Progress Note ---
Date of Service March 28, 2023 Assessment & Plan (1) Upper respiratory infection: Plan: Patient is a 62-year-old male with a past medical history of renal cancer with metastasis, hypothyroidism, DM 2 (diet controlled), currently on chemotherapy, previous CVA, CKD 3A, and hypertension who returns to the hospital for evaluation of cold-like symptoms and weakness. - pt tested positive on biofire for parainfluenza virus, on chemotherapy - oxygen therapy as needed with saturation goal 90% -Zosyn given in emergency department, -Tylenol as needed for fever, continue Mucinex, cough drops, Flonase -Hypertonic saline nebulizer as needed for mucus excretion - CRP > 20 and proal elevated favors superimposed bacterial process, started rocephin and zithromax, continue - sputum cx pending - repeat CRP pending, - pt now on RA with ok saturations (2) Rhabdomyolysis: Plan: - Admission CK of over 1300 -Secondary to parainfluenza infection and possibly related to chemotherapy -Normal saline at 250 cc/h given concurrent hyponatremia, will switch to 80 mL/hr LR today (3) CAROLYN (acute kidney injury): Plan: - Suspect prerenal in setting of poor p.o. intake and apparent diarrhea since starting chemotherapy -Fluid resuscitation as above, trend BMP - resolved (4) Acute hyponatremia: Plan: - Suspect hypotonic hypovolemic hyponatremia in the setting of poor p.o. intake and diarrhea -Fluid resuscitation with normal saline at 250 cc/h given concurrent rhabdomyolysis -Trend BMP, - resolved, Na 138 today (5) Weakness: Plan: - Likely multifactorial in the setting of metastatic disease, parainfluenza virus infection, hypomagnesemia, and rhabdomyolysis. Treat as appropriate -PT and OT consulted, appreciate recommendations (6) Hypomagnesemia: Plan: - Status post x 2 bags of magnesium in the ED - repeat Mag level was 1.8 (7) Renal cancer: Plan: - Status post left nephrectomy in 2014 -Currently on Afinitor, Lenvima--> continue daily (8) Hypothyroidism: Plan: - Continue levothyroxine (9) Diabetes mellitus: Plan: - Diet controlled with most recent A1c being under 5, no insulin required at this time (10) Chronic kidney disease, stage 3a: Plan: - With CAROLYN on admission, baseline creatinine at approximately 1.1. (11) Hypertension: Plan: - continue to hold amlodipine and lisinopril given current illness and soft BPs on admission Plan DVT prophylaxis: Heparin Diet: Regular CODE STATUS: Full code Admission and Anticipated Discharge Date Admission Date: March 27, 2023 Subjective Patient is a 62 yo M w/ a PMHx of renal cancer with metastasis (lungs, pancreas, liver), hypothyroidism, T2DM (diet controlled), currently on chemotherapy, previous CVA, CKD-stg 3A, and HTN who returns to the hospital for evaluation of cold-like symptoms and weakness. Today, pt states he is feeling fine. He states he is still spitting up some [id number] mucus but less frequently, productive cough also less frequent. He states he otherwise is feeling good. His shortness of breath has improved and he has no chest pain. No nausea or vomiting. No questions or concerns at this time. Review of Systems Constitutional: + chills; no fever, no body aches and no weakness Respiratory: + cough (productive), + chest congestion ( a little) and + dyspnea on exertion (baseline for years 2/2 lung metastases; slightly more upon admission) Cardiovascular: no chest pain and no palpitations Gastrointestinal: + diarrhea/loose stools (baseline 2/2 ch emotherapy); no abdominal pain, no nausea and no vomiting Genitourinary: + urinary frequency (baseline increased for a yr); no dysuria Musculoskeletal: no myalgia Neurologic: no tingling and no numbness Results & Data Results & Data Vital Signs (Past 12 Hours) Vital Signs Temp Pulse Resp BP Pulse Ox O2 Del Method 03/27/23 22:25 Room Air 03/27/23 19:38 36.7 C 70 18 158/85 H 95 Room Air
[2023-03-28 07:53] LABS: Albumin Globulin Ratio 1.1 (0.9-2); Albumin Level 2.6 gm/dl (3.4-5.0); BUN Creatinine Ratio 5.7 (10-20); Bilirubin,Total 0.3 mg/dl (0.2-1.0); C Reactive Protein 4.72 mg/dl (0-0.5); Calcium 8.1 mg/dl (8.6-10.3); Creatinine Clr Calc Pharmacy 103.1 ml/min; Est GFR (African American) 115.6 ml/min; Est GFR (Non-African American) 99.7 ml/min; Globulin 2.3 gm/dl (2.5-4.0); Potassium 3.9 mmol/L (3.5-5.1); Total Protein 4.9 gm/dl (6.0-8.3)
[2023-03-28] MEDS: CHOLECALCIFEROL 1,000 UNITS 25 MCG TAB PO SCH (07:57)
[2023-03-28] MEDS: CYANOCOBALAMIN (B-12) 500 MCG TABLET PO SCH (07:57)
[2023-03-28] MEDS: allopurinoL 100 MG TAB PO SCH (07:57)
[2023-03-28] MEDS: ASPIRIN 81 MG ECTAB PO SCH (07:57)
[2023-03-28] MEDS: guaiFENesin 600 MG TABCR PO SCH (07:58)
[2023-03-28] MEDS: FLUTICASONE PROPIONATE NA SPR 16 GM BTL SCH (07:58)
[2023-03-28] MEDS: GABAPENTIN 600 MG TAB PO SCH ×2 (07:58→13:02)
[2023-03-28] MEDS: PSYLLIUM or GUAR GUM FIBER POWDER PACKET PO SCH ×2 (07:59→13:03)
[2023-03-28] MEDS: traMADol HCL 50 MG TABLET PO SCH ×3 (08:09→16:49)
[2023-03-28] MEDS ORDERED: Nursing to Pharmacy Communication SCH (08:15)
[2023-03-28] MEDS ORDERED: LENVATINIB PO SCH (12:00)
[2023-03-28] MEDS ORDERED: EVEROLIMUS PO SCH (12:00)
[2023-03-28] MEDS: cefTRIAXone SODIUM 1,000 MG in DEXTROSE 5 % MINI-B 50 ML IV SCH (12:03)
[2023-03-28] MEDS: AZITHROMYCIN 500 MG in DEXTROSE 5% 250 ML IV SCH (13:01)
--- NOTE | 2023-03-28 14:28 | Discharge Summary ---
Date of Service March 28, 2023 Admission HPI Per Admitting Provider Patient is a 62-year-old male with a past medical history of renal cancer with metastasis, hypothyroidism, DM 2 (diet controlled), currently on chemotherapy, previous CVA, CKD 3A, and hypertension who returns to the hospital for evaluation of cold-like symptoms and weakness. Patient came to the emergency department yesterday for the same presentation and was diagnosed with parainfluenza virus. He was subsequently discharged home after chest x-ray return normal. Unfortunately, it seems his weakness has progressed and the patient's spouse is no longer able to take care of him. Apparently has gotten to the point where the patient is now able to walk independently because of how weak she is. Eating and drinking without difficulty. No nausea or vomiting. He is spitting out copious amounts of mucus, however. Reports shortness of breath. He did get a breathing treatment which seems to have improved his dyspnea. He does complain of a fever and reports that he has been getting Tylenol for it without much improvement in the fever. It did break at 1 point in afternoon but returned shortly after. Patient notes that he does have diarrhea since starting chemotherapy and has persisted while he has not been feeling well. He has tried to keep up with oral hydration but does not feel that he has been drinking enough. Otherwise no other complaints at this time. ED course: Patient evaluated by provider. Labs are significant for normal white blood cell count, sodium of 129, creatinine of 1.46 (baseline around 1.1), serum osmolality of 274, magnesium 1.6, AST of 76, CK of 1336, normal troponin, procalcitonin of 1.6. BioFire yesterday was positive for parainfluenza virus. Chest x-ray does show some new infiltrate compared to x-ray taken yesterday. Patient was given a bolus of normal saline as well as Tylenol. DuoNeb treatment was given. Patient was started on Zosyn. Magnesium was supplemented. The hospitalist service was consulted for admission and further treatment. Admission Exam Per Admitting Provider [place] [address] History & Physical Report Signed Patient: TRACE YAN Admit Date: 03/25/23 MR#: [id number] Att Phy: Homer Vanegas D.O. Acct ID: [id number] Dalila Phy: Don Crenshaw D.O. Date: 1960 [facility] Phy: Age: 62 Location: 3E Sex: M Room/Bed: E3[facility] cc: ~ *NOTICE TO RECEIVING CONSTITUTION PARTY/AGENCY This information is strictly Confidential and protected under [place] law. [place] law prohibits you from making any further disclosure of this information unless further disclosure is expressly permitted by the written consent of the person to whom it pertains or is authorized by law. A general authorization for the release of medical or other information is not sufficient for this purpose. Hospital accepts no responsibility if the information is made available to any other person, INCLUDING THE PATIENT. Date of Service March 25, 2023 Assessment & Plan (1) Viral pneumonia: Plan: Patient is a 62-year-old male with a past medical history of renal cancer with metastasis, hypothyroidism, DM 2 (diet controlled), currently on chemotherapy, previous CVA, CKD 3A, and hypertension who returns to the hospital for evaluat ion of cold-like symptoms and weakness. Chest x-ray shows evidence of pneumonia on my interpretation, patient to be admitted for treatment. -Admit to [facility], no telemetry indication noted -Supportive care for now, oxygen therapy as needed with saturation goal 90% -Zosyn given in emergency department, however, pneumonia appears viral, so will withhold antibiotics for now -Given chemotherapy regimen, have low threshold for restarting antibiotics if clinical picture were to deteriorate -Droplet precautions -Tylenol as needed for fever -No steroid indication at this time -Hypertonic saline nebulizer as needed for mucus excretion -Mucinex, cough drops, Flonase ordered (2) Rhabdomyolysis: Plan: - Admission CK of over 1300 -Secondary to parainfluenza infection and possibly related to chemotherapy -Normal saline at 250 cc/h given concurrent hyponatremia (3) CAROLYN (acute kidney injury): Plan: - Suspect prerenal in setting of poor p.o. intake and apparent diarrhea since starting chemotherapy -Fluid resuscitation as above, trend BMP (4) Acute hyponatremia: Plan: - Suspect hypotonic hypovolemic hyponatremia in the setting of poor p.o. intake and diarrhea -Fluid resuscitation with normal saline at 250 cc/h given concurrent rhabdomyolysis -Trend BMP, serum and urine osmolalities pending (5) Weakness: Plan: - Likely multifactorial in the setting of metastatic disease, parainfluenza virus infection, hypomagnesemia, and rhabdomyolysis. Treat as appropriate -PT and OT consulted, appreciate recommendations (6) Hypomagnesemia: Plan: - Status post x 2 bags of magnesium in the ED, recheck in a.m. (7) Renal cancer: Plan: - Status post left nephrectomy in 2015 -Currently on Afinitor, Lenvima--> continue daily (8) Hypothyroidism: Plan: - Continue levothyroxine (9) Diabetes mellitus: Plan: - Diet controlled with most recent A1c being under 5, no insulin required at this time (10) Chronic kidney disease, stage 3a: Plan: - With CAROLYN on admission, baseline creatinine at approximately 1.1. (11) Hypertension: Plan: - Hold amlodipine and lisinopril given current illness and soft BPs on admission Plan Disposition: Admit to [facility], no telemetry indication currently DVT prophylaxis: Heparin Diet: Regular CODE STATUS: Full code History of Present Illness Chief Complaint: Weakness Primary Care Provider: Don Crenshaw DO Patient is a 62-year-old male with a past medical history of renal cancer with metastasis, hypothyroidism, DM 2 (diet controlled), currently on chemotherapy, previous CVA, CKD 3A, and hypertension who returns to the hospital for evaluation of cold-like symptoms and weakness. Patient came to the emergency department yesterday for the same presentation and was diagnosed with parainfluenza virus. He was subsequently discharged home after chest x-ray return normal. Unfortunately, it seems his weakness has progressed and the patient's spouse is no longer able to take care of him. Apparently has gotten to the point where the patient is now able to walk independently because of how weak she is. Eating and drinking without difficulty. No nausea or vomiting. He is spitting out copious amounts of mucus, however. Reports shortness of breath. He did get a breathing treatment which seems to have improved his dyspnea. He does complain of a fever and reports that he has been getting Tylenol for it without much improvement in the fever. It did break at 1 point in afternoon but returned shortly after. Patient notes that he does have diarrhea since starting chemotherapy and has persisted while he has not been feeling well. He has tried to keep up with oral hydration but does not feel that he has been drinking enough. Otherwise no other complaints at this time. ED course: Patient evaluated by provider. Labs are significant for normal white blood cell count, sodium of 129, creatinine of 1.46 (baseline around 1.1), serum osmolality of 274, magnesium 1.6, AST of 76, CK of 1336, normal troponin, procalcitonin of 1.6. BioFire yesterday was positive for parainfluenza virus. Chest x-ray does show some new infiltrate compared to x-ray taken yesterday. Patient was given a bolus of normal saline as well as Tylenol. DuoNeb treatment was given. Patient was started on Zosyn. Magnesium was supplemented. The hospitalist service was consulted for admission and further treatment. Allergies Allergy/AdvReac Type Severity Reaction Status Date / Time Iodinated Contrast Media AdvReac Mild FROM Verified 03/25/23 22:28 NUCLEAR MED SCAN-ITCHY FOREARMS. NUCLEAR MED SCAN DYT AdvReac Mild FROM Uncoded 03/25/23 22:28 NUCLEAR MED SCAN-ITCHY FOREARMS. Home Medications Medication Instructions Recorded Confirmed Type gabapentin 600 mg tablet 1,200 mg PO TID #90 tabs 10/27/20 03/25/23 History tramadol 50 mg tablet 100 mg PO QID 10/27/20 03/25/23 History allopurinol 100 mg tablet 150 mg PO QAM 01/31/21 03/25/23 History cholecalciferol (vitamin D3) 25 25 mcg PO QAM 01/31/21 03/25/23 History mcg (1,000 unit) capsule (Vitamin D3) aspirin 81 mg tablet,delayed 81 mg PO QAM #30 tabs 01/12/22 03/25/23 Rx release cyanocobalamin (vitamin B-12) 1,000 mcg PO DAILY #30 caps 01/12/22 03/25/23 Rx 1,000 mcg capsule famotidine 20 mg tablet 20 mg PO BID PRN heartburn #30 tabs 02/14/22 03/25/23 Rx bgblylou-dvx-poyfn acid 0.4 1 tab PO QAM #30 tabs 02/14/22 03/25/23 Rx mg-lycopene 300 mcg-lutein 250 mcg tablet (Cerovite Senior) amlodipine 5 mg tablet 2.5 mg PO QAM 05/24/22 03/25/23 History lisinopril 20 mg tablet 20 mg PO QAM 05/24/22 03/25/23 History acetaminophen 500 mg tablet 1,000 mg PO Q6H PRN Pain 03/25/23 03/25/23 History (Tylenol Extra Strength) diphenoxylate-atropine 2.5 1 tab PO QID PRN Diarrhea 03/25/23 03/25/23 History mg-0.025 mg tablet everolimus (antineoplastic) 5 mg 5 mg PO DAILY 03/25/23 03/25/23 History tablet (Afinitor) lenvatinib 10 mg/day (10 mg x 1) 10 mg PO DAILY 03/25/23 03/25/23 History capsule (Lenvima) levothyroxine 88 mcg tablet 88 mcg PO DAILY 03/25/23 03/25/23 History rosuvastatin 10 mg tablet 10 mg PO DAILY 03/25/23 03/25/23 History Past Med/Surg History Medical History Renal cancer Left nephrectomy 2014 for "metastatic RCC"Diabetic neuropathy Chemotherapy-induced diarrhea colestipol PRNHx of renal calculi History of COVID-19 ? 2019- mild cold symptoms; resolvedCVA (cerebral vascular accident) 01/11/2022 MRI brain with 3 mm focus of restricted diffusion within the left temporal lobe is suggestive of an acute versus subacute infarctChronic kidney disease, stage 3a Hypothyroidism Claustrophobia Arthritis of knee Benign localized prostatic hyperplasia with lower urinary tract symptoms (LUTS) Solitary right kidney Diabetes mellitus Diet controlled "No longer needs medication after weight loss"Hypercholesterolemia Osteoarthritis Dyslipidemia Hypertension Bilateral lung cancer Taking inlyta daily and keytruda q 6 weeks Follows w/ Dr Montesired claw toe of right foot Surgical History History of esophagogastroduodenoscopy (EGD) Hx of colonoscopy History of vasectomy History of hernia repair H/O left nephrectomy History of meniscectomy of left knee History of cholecystectomy Family History Father Hearing loss Lung diseaseMother Cancer Aortic aneurysm Breast cancer Myocardial infarctionOther No family history of adverse response to anesthesia No family history of bleeding disorder Social History Smoking Status: Never smoker Tobacco Type: Smokeless Tobacco (Dip or Chew) Second Hand Exposure: No; Do You Dip or Chew Tobacco: Yes (Advised none DOS); Hx Alcohol Use: No Hx Substance Use: No Preferred Language: Andorran Communication Ability: Effective 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 [employer] Marketing Required: No Beliefs That Will Affect Care: None marital status: Current Living Situation: Spouse current occupational status: retired 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; 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 [employer] Feels Safe at Home: Yes Safety Concerns: Feels Safe At This Time Assistive Devices: Walker Physical Exam Constitutional: well developed and well nourished Eyes: + anicteric sclerae Neck: trachea midline, no thyromegaly Respiratory: normal respiratory effort; no respiratory distress Auscultation: lungs clear to auscultation bilaterally Cardiovascular: RRR, no murmur, no edema Gastrointestinal (Abdomen): normal bowel sounds, soft, nontender, no hepatosplenomegaly Musculoskeletal: Head/Neck/Chest: normocephalic and head atraumatic Skin: no rashes, warm and dry Neurologic: moves all extremities Psychiatric: A+Ox3, euthymic affect Principal Diagnosis Bacterial pneumonia, viral pneumonitis Discharge Exam Constitutional WD/WN, vitals as above Respiratory + labored breathing and + cough Auscultation: + crackles (slight crackles heard over posteroinferior left side of lung) Cardiovascular RRR, no murmur, no edema Gastrointestinal (Abdomen) normal bowel sounds, soft, nontender, no hepatosplenomegaly Musculoskeletal Extremities: extremities normal to inspection Neurologic awake; not confused and not obtunded Discharge Data Allergies Allergy/AdvReac Type Severity Reaction Status Date / Time Iodinated Contrast Media AdvReac Mild FROM Verified 03/25/23 22:28 NUCLEAR MED SCAN-ITCHY FOREARMS. NUCLEAR MED SCAN DYT AdvReac Mild FROM Uncoded 03/25/23 22:28 NUCLEAR MED SCAN-ITCHY FOREARMS. Consultations 03/25/23 22:22 ED Decision to Admit Stat Hospital Course (1) Upper respiratory infection: (2) Rhabdomyolysis: (3) CAROLYN (acute kidney injury): (4) Acute hyponatremia: (5) Weakness: (6) Hypomagnesemia: (7) Renal cancer: (8) Hypothyroidism: - Continue levothyroxine (9) Diabetes mellitus: (10) Chronic kidney disease, stage 3a: (11) Hypertension: Plan Patient is a 62-year-old male with a past medical history of renal cancer with metastasis, hypothyroidism, DM 2 (diet controlled), currently on chemotherapy, previous CVA, CKD 3A, and hypertension who returns to the hospital for evaluation of cold-like symptoms and weakness. URI - pt tested positive on biofire for parainfluenza virus, on chemotherapy - oxygen therapy as needed with saturation goal 90% -Zosyn given in emergency department, -Tylenol as needed for fever, continue Mucinex, cough drops, Flonase -Hypertonic saline nebulizer as needed for mucus excretion - CRP > 20 and proal elevated favors superimposed bacterial process, started rocephin and zithromax, continue - sputum cx pending - repeat CRP pending, - pt now on RA with ok saturations - last dose of Azithromycin today; take Cefdinir, 5 days, 300 mg, PO, BID upon d ischarge Rhabdomyolysis - Admission CK of over 1300 -Secondary to parainfluenza infection and possibly related to chemotherapy -Normal saline at 250 cc/h given concurrent hyponatremia, will switch to 80 mL/hr LR today CAROLYN - Suspect prerenal in setting of poor p.o. intake and apparent diarrhea since starting chemotherapy -Fluid resuscitation as above, trend BMP - resolved Hyponatremia - Suspect hypotonic hypovolemic hyponatremia in the setting of poor p.o. intake and diarrhea -Fluid resuscitation with normal saline at 250 cc/h given concurrent rhabdomyolysis -Trend BMP, - resolved, Na 138 today Weakness Hypomagnesemia - Status post x 2 bags of magnesium in the ED - repeat Mag level was 1.8, none ordered since then Renal cancer - Status post left nephrectomy in 2014 -Currently on Afinitor, Lenvima--> continue daily Hypothyroidism - continue levothyroxine T2DM - Diet controlled with most recent A1c being under 5, no insulin required at this time CKD-Stg 3A CAROLYN on admission, baseline creatine 1.1 HTN - resume amlodipine and lisinopril upon discharge but monitor BPs to ensure they're not low DVT prophylaxis: Heparin Diet: Regular CODE STATUS: Full code Total Time Total Time Spent Total Time Spent (In Minutes): I spent 15 minutes seeing the patient, and 20 minutes reviewing the chart and documenting. Discharge Plan Discharge Items Patient Disposition: Home - Self-Care Reason For Visit: VIRAL PNEUMONIA Discharge Diagnosis: Pneumonia Condition on Discharge: Good Activity: Per Instructions section Non-emergency contact: Primary Care Provider Call non-emergency contact if: you have any medication questions and your symptoms worsen Follow-up/Referrals: Don Crenshaw DO [Primary Care Provider] - Diet: Regular Addtl Attending Provider Instructions: You were seen in the hospital for the concern of weakness and shortness of breath. While you are here it was found that you had a parainfluenza virus infection that may have had a bacterial superimposed pneumonia. For this reason, you were started on antibiotic therapy in the hospital. Since starting this, your fevers have disappeared and your strength seem to have improved. At this point, we feel it is safe for you to be discharged home with antibiotics. We will send you an antibiotic called cefdinir which she will take 2 times a day starting tomorrow. You will do this for 5 days after discharge. This will be sent to your pharmacy. Otherwise there are no changes in your medications. Please call and discussed vaccinations with your oncologist, Dr. Zheng, as there may be a specific timeframe that you may get these done. Continue to take [id number]-[id number] symptomatic control medicines such as Mucinex and Flonase. If your symptoms worsen return/worsen, do not hesitate to return to the hospital for reevaluation. It has been a pleasure to be part of your care and we wish you the best in both your health and your recovery. Pending Studies at Discharge: No Stand-Alone Forms: [facility], Smoking Cessation Medications and DC Order Prescriptions: New cefdinir 300 mg capsule 300 mg PO BID 5 Days Qty: 10 0RF Continued gabapentin 600 mg tablet 1,200 mg PO TID Qty: 90 tramadol 50 mg tablet 100 mg PO QID lisinopril 20 mg tablet 20 mg PO QAM amlodipine 5 mg tablet 2.5 mg PO QAM aspirin 81 mg Tablet,Delayed Release (Dr/Ec) 81 mg PO QAM Qty: 30 0RF cyanocobalamin (vitamin B-12) 1,000 mcg capsule 1,000 mcg PO DAILY Qty: 30 0RF famotidine 20 mg Tablet 20 mg PO BID PRN (Reason: heartburn) Qty: 30 0RF Rx Instructions: purchase jrgq-jim-lnzrsmv Cerovite Senior 0.4 mg-300 mcg- 250 mcg Tablet 1 tab PO QAM Qty: 30 1RF Rx Instructions: purchase rwps-rpd-axziniu allopurinol 100 mg tablet 150 mg PO QAM cholecalciferol (vitamin D3) [Vitamin D3] 25 mcg (1,000 unit) Capsule 25 mcg PO QAM diphenoxylate-atropine 2.5-0.025 mg tablet 1 tab PO QID PRN (Reason: Diarrhea) levothyroxine 88 mcg tablet 88 mcg PO DAILY rosuvastatin 10 mg tablet 10 mg PO DAILY everolimus (antineoplastic) [Afinitor] 5 mg Tablet 5 mg PO DAILY Lenvima 10 mg/day (10 mg x 1) Capsule 10 mg PO DAILY acetaminophen [Tylenol Extra Strength] 500 mg tablet 1,000 mg PO Q6H PRN (Reason: Pain) Discharge Orders: Discharge Order (Routine); Ordered 03/28/23 Ordered By: Armando Lozano Admission Data Admit Date/Time: 03/27/23 13:14 Attending Provider: Don Crenshaw Admit Provider: Armando Lozano Primary Care Provider: Don Crenshaw Other Providers: Hu Vasquez Supervising Physician Co-Signing Physician Notes I also saw the patient confirmed zamora portions of the clinical history and physical examination. I agree with the impression and plan as noted in the resident documentation above. Upon our midmorning exam, the patient's was at bedside. Both she and the patient thought he was getting better; stronger. Trace tells me that he can get up out of bed and use the bathroom without difficulty. 158/83, 71, 18, 36.5, 100% on room air Alert and oriented. No distress appreciated. He talks in full and complete sentences. Occasional cough. Overall nonlabored respirations; no increased work of breathing Heart rate regular rate and rhythm Parainfluenza virus infection History of metastatic renal cell carcinoma Generalized weakness, improved I believe he is well enough to return home. Discussed indications for return. Discussed gradual increase of his activity; discussed that he will note decreased endurance, but this should improve with each day. He will complete azithromycin today; will continue cefdinir 300 mg p.o. twice daily x5 additional days He is appropriate follow-up with oncology. I know him from the outpatient office; he will call with any questions or concerns
== END 2023-03-28 17:39 | disposition home or self-care (01) | DRG 194 ==
LOC: ED 21:32 → 3E 21:32 → SUATTDRO 23:46 → 3E 03-26 01:57 → SUATTDRO 03-27 13:14

== ENCOUNTER 2024-08-29 11:57 | Observation (INO) ==
--- NOTE | 2024-08-29 12:27 | Emergency Department Note ---
Impression & Plan Fever ADMIT ED Provider Note HPI: History obtained from patient and patient's family at the bedside. The patient is a 63-year-old gentleman with history of renal cancer, currently on tivozanib daily, presents the emergency department with a chief complaint of fever, mild confusion, and ongoing headaches. Patient presents with his family at the bedside, they state he has been complaining of headaches ever since starting his tivozanib 3 months ago. He was also started on oxycodone to help with headaches as this was thought to be a side effect from his medication. They state today the patient was complaining of a headache but also had a low- grade fever and seemed a little bit more confused than normal and therefore they brought him to the ER to be assessed. On arrival here to the ED the patient is hemodynamically stable, he has noted to be febrile 38.9 on arrival. Patient is alert on arrival, he is somewhat listless in appearance but he does not have any focal deficits and he is able to answer my questions appropriately. ROS: - Per HPI Differential Diagnosis: Sepsis, urinary tract infection, pneumonia, meningitis, encephalitis, viral infection/viral URI, amongst other potential pathologies. *Outpatient medications and allergy history reviewed. PE: General: Alert HEENT: Normocephalic, trachea midline, full range of motion of the cervical spine is appreciated without limitation or pain Eyes: Extraocular eye movement is intact, no scleral erythema Pulmonary: Clear to auscultation bilaterally, no wheezing Cardio: Regular rate and rhythm GI: Abdomen is soft to palpation : No suprapubic tenderness MSK: No evidence of trauma or malformation of the extremities, no edema Skin: No evidence of rash Neuro: Alert, no focal deficits Psychiatric: Cooperative INDEPENDENT INTERPRETATIONS: patient monitor: (As interpreted by myself): - An order was placed for continuous cardiac monitoring - Patient was noted to be in sinus rhythm with a rate of 85 EKG: (As interpreted by myself): Rate: 96 Rhythm: Normal sinus rhythm Intervals: Within normal limits ST changes: No ST elevation Time: 1212 Chest x-ray: (As interpreted by myself): No acute disease Interventions provided in ED: - IV cefepime, IV fluid bolus, IV magnesium Medical Decision Making: IV was established and lab work obtained, patient was placed on playground monitor. Lab work shows no leukocytosis, hemoglobin is normal, platelet count is normal, CMP does not show any evidence of any critical findings. Magnesium is slightly low at 1.3 which was ordered for IV repletion. Initial lactic acid is also mildly elevated at 2.7. High-sensitivity troponin is elevated at 141, patient denies any chest pain or shortness of breath, chest x-ray does not show any evidence of acute disease. I do low suspicion for ACS. EKG per my interpretation shows sinus rhythm without any acute ischemic changes. Procalcitonin is low at 0.14 however the patient's urine is suggestive of possible infection with 3+ leukocyte Esterase and significant pyuria. Will send for culture and the patient was treated prophylactically with IV ceftriaxone. Patient also tested positive for enterovirus/rhinovirus on PCR testing. I discussed the patient's presentation with his hematology/oncology provider, Dr. Zheng, she does note that the patient's medication tivozanib can cause headaches but she does not believe that it would cause myocarditis. Therefore his troponin elevation is thought to be secondary to demand ischemia in the setting of infection. Patient will be treated for UTI with cefepime, his viral URI could also be playing a role in his fever. Blood cultures were drawn here in the ED. Patient otherwise remained stable and well-appearing on my reassessment, he appears well-perfused without cyanosis, his headaches have been more chronic in nature and likely are related to his chemotherapy medication, low suspicion for meningitis or encephalitis currently. [facility] hospitalist service was consulted for admission and the patient was placed for admission in stable condition to the service of Dr. Moore. Consultants/Discussions held with other healthcare providers: - Hospitalist, Dr. Moore Disposition discussion held by myself with: - Patient and patient's family at the bedside Diagnosis: 1. Fever, acute 2. UTI, acute 3. Viral upper respiratory infection, acute 4. History of renal cancer, currently on chemotherapy 5. Elevated high-sensitivity troponin level, acute, nonspecific 6. Lactic acidosis, acute Disposition: Admission Link Padilla DO Emergency Medicine Past Med/Surg History Problem List (Updated 08/29/24 @ 17:46 by Link Padilla DO) Fever (Acute) Enterovirus infection Rhinovirus Upper respiratory infection CAROLYN (acute kidney injury) Rhabdomyolysis Viral pneumonia Hypomagnesemia (Acute) Acute hyponatremia (Acute) Weakness (Acute) Parainfluenza infection (Acute) CAP (community acquired pneumonia) (Acute) Renal cancer Left nephrectomy 2014 for "metastatic RCC" Hypothyroidism Diabetes mellitus Diet controlled "No longer needs medication after weight loss" Status post right knee replacement Callus (Acute) Pain in both feet (Acute) Chemotherapeutic agent or infusion extravasation (Chronic) Erectile dysfunction Gross hematuria Hernia Hip pain, right Nephrolithiasis Sacroiliac joint pain Sacroiliitis Headache Headache (Acute) Sinusitis (Acute) CVA (cerebral vascular accident) B12 deficiency Benign localized prostatic hyperplasia with lower urinary tract symptoms (LUTS) Chronic kidney disease, stage 3a Hypertension (Chronic) Vitamin D deficiency Medical History Diabetic neuropathy Chemotherapy-induced diarrhea colestipol PRN Hx of renal calculi History of COVID-19 ? 2020- mild cold symptoms; resolved CVA (cerebral vascular accident) 01/11/2022 MRI brain with 3 mm focus of restricted diffusion within the left temporal lobe is suggestive of an acute versus subacute infarct Claustrophobia Arthritis of knee Solitary right kidney Hypercholesterolemia Osteoarthritis Dyslipidemia Bilateral lung cancer Taking inlyta daily and keytruda q 6 weeks Follows w/ Dr Zheng Acquired claw toe of right foot Surgical History History of esophagogastroduodenoscopy (EGD) Hx of colonoscopy History of vasectomy History of hernia repair H/O left nephrectomy History of meniscectomy of left knee History of cholecystectomy Family History Father Hearing loss Lung disease Mother Cancer Aortic aneurysm Breast cancer Myocardial infarction Other No family history of adverse response to anesthesia No family history of bleeding disorder Social History Smoking Status: Never smoker Tobacco Type: Smokeless Tobacco (Dip or Chew) Second Hand Exposure: No; Do You Dip or Chew Tobacco: Yes (Advised none DOS); Hx Alcohol Use: No Hx Substance Use: No Preferred Language: Anguill[place] Communication Ability: Effective Sewing Teacher Required: No Beliefs That Will Affect Care: None marital status: Current Living Situation: Spouse current occupational status: retired 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 Home Meds Home Medications Medication Instructions Recorded Confirmed gabapentin 600 mg tablet 1,200 mg PO TID #90 tabs 10/27/20 08/29/24 tramadol 50 mg tablet 100 mg PO QID 10/27/20 08/29/24 allopurinol 100 mg tablet 150 mg PO QAM 01/31/21 08/29/24 cholecalciferol (vitamin D3) 25 25 mcg PO QAM 01/31/21 08/29/24 mcg (1,000 unit) capsule (Vitamin D3) amlodipine 5 mg tablet 2.5 mg PO QAM 05/24/22 08/29/24 acetaminophen 500 mg tablet 1,000 mg PO Q6H PRN Pain 03/25/23 08/29/24 (Tylenol Extra Strength) diphenoxylate-atropine 2.5 1 tab PO QID PRN Diarrhea 03/25/23 08/29/24 mg-0.025 mg tablet levothyroxine 88 mcg tablet 88 mcg PO DAILYBB 03/25/23 08/29/24 rosuvastatin 10 mg tablet 10 mg PO DAILY 03/25/23 08/29/24 hydrochlorothiazide 12.5 mg capsule 12.5 mg PO DAILY 08/29/24 08/29/24 tivozanib 1.34 mg capsule (Fotivda) 0 mg PO .DAILY/UD 08/29/24 08/29/24 Previous Rx's Medication Instructions Recorded aspirin 81 mg tablet,delayed 81 mg PO QAM #30 tabs 01/12/22 release cyanocobalamin (vitamin B-12) 1,000 mcg PO DAILY #30 caps 01/12/22 1,000 mcg capsule famotidine 20 mg tablet 20 mg PO BID PRN heartburn #30 tabs 02/14/22 dmjusiad-ith-zlyzk acid 0.4 1 tab PO QAM #30 tabs 02/14/22 mg-lycopene 300 mcg-lutein 250 mcg tablet (Cerovite Senior) lisinopril 40 mg tablet 40 mg PO DAILY #90 tabs 11/28/23 Results & Data (ED) Vital Signs Vital Signs - 24 hr 08/29/24 11:46 08/29/24 12:22 08/29/24 12:30 Temperature 38.9 C H Temperature Source Oral Pulse Rate 100 H Pulse Rate [Apical] 92 H Respiratory Rate 18 18 Respiratory Effort / Characteristics Non-Labored Spontaneous Non-Labored Spontaneous Respiratory Depth Normal Normal Respiratory Pattern Regular Regular Blood Pressure 136/85 Blood Pressure [Right Arm] 124/76 Blood Pressure Mean 102 Blood Pressure Mean [Right Arm] 92 Pulse Oximetry 94 94 96 Oxygen Delivery Method Room Air Room Air Room Air Sepsis Recent Fever Within 48 Hours Yes Sepsis New/Unexplained Change in Mental Status N/A Sepsis Action Taken by Nursing No Action Required 08/29/24 12:35 08/29/24 12:45 08/29/24 13:00 Temperature Temperature Source Pulse Rate 96 H Pulse Rate [Apical] 91 H 89 Respiratory Rate 18 18 Respiratory Effort / Characteristics Non-Labored Spontaneous Non-Labored Spontaneous Respiratory Depth Normal Normal Respiratory Pattern Regular Regular Blood Pressure Blood Pressure [Right Arm] 108/72 129/83 Blood Pressure Mean Blood Pressure Mean [Right Arm] 84 98 Pulse Oximetry 94 96 Oxygen Delivery Method Room Air Room Air Sepsis Recent Fever Within 48 Hours Sepsis New/Unexplained Change in Mental Status Sepsis Action Taken by Nursing 08/29/24 13:30 08/29/24 13:45 08/29/24 14:00 Temperature Temperature Source Pulse Rate Pulse Rate [Apical] 91 H 86 88 Respiratory Rate 18 18 18 Respiratory Effort / Characteristics Non-Labored Spontaneous Non-Labored Spontaneous Non-Labored Spontaneous Respiratory Depth Normal Normal Normal Respiratory Pattern Regular Regular Regular Blood Pressure Blood Pressure [Right Arm] 135/88 134/82 142/92 H Blood Pressure Mean Blood Pressure Mean [Right Arm] 103 99 108 Pulse Oximetry 97 93 96 Oxygen Delivery Method Room Air Room Air Room Air Sepsis Recent Fever Within 48 Hours Sepsis New/Unexplained Change in Mental Status Sepsis Action Taken by Nursing 08/29/24 14:15 08/29/24 15:00 Temperature 36.9 C Temperature Source Oral Pulse Rate Pulse Rate [Apical] 91 H 87 Respiratory Rate 18 18 Respiratory Effort / Characteristics Non-Labored Spontaneous Non-Labored Spontaneous Respiratory Depth Normal Normal Respiratory Pattern Regular Regular Blood Pressure Blood Pressure [Right Arm] 143/86 H 119/76 Blood Pressure Mean Blood Pressure Mean [Right Arm] 105 90 Pulse Oximetry 95 98 Oxygen Delivery Method Room Air Room Air Sepsis Recent Fever Within 48 Hours Sepsis New/Unexplained Change in Mental Status Sepsis Action Taken by Nursing Laboratory Data 08/29/24 12:30 08/29/24 12:30 Lab Results 08/29/24 08/29/24 08/29/24 Range/Units 12:08 12:30 12:34 WBC 7.54 (4.8-10.8) K/ul RBC 4.84 (4.70-6.10) M/uL Hgb 14.6 (14.0-18.0) g/dl Hct 44.3 (42.0-52.0) % MCV 91.5 (80.0-100.0) fL MCH 30.2 (25.0-34.0) pg MCHC 33.0 (32.0-36.0) g/dL RDW Std Deviation 59.5 H (36.4-46.3) fL RDW Coeff of Valentín 17.6 H (11.5-14.5) % Plt Count 133 (130-400) K/uL MPV 12.0 (9.4-12.4) fL Immature Gran % (Auto) 0.3 % Neut % (Auto) 82.4 % Lymph % (Auto) 11.8 % Darke % (Auto) 4.2 % Eos % (Auto) 0.8 % Baso % (Auto) 0.5 % Neut # (Auto) 6.21 (1.40-6.50) K/uL Lymph # (Auto) 0.89 L (1.20-3.40) K/uL Darke # (Auto) 0.32 (0.11-0.59) K/uL Eos # (Auto) 0.06 (0.00-0.50) K/uL Baso # (Auto) 0.04 (0.00-0.20) K/uL Immature Gran # (Auto) 0.02 (0.01-0.20) K/uL PT Cancelled INR Cancelled APTT Cancelled PTT Ratio Cancelled Sodium 134 L (136-145) mmol/L Potassium 4.9 (3.5-5.1) mmol/L Chloride 98 (98-107) mmol/L Carbon Dioxide 29 (21-32) mmol/L Anion Gap 7 (3-11) BUN 15 (6-23) mg/dl Creatinine 1.09 (0.6-1.4) mg/dl Est Cr Clr Drug Dosing 70.8 ml/min eGFR 75.32 BUN/Creatinine Ratio 13.8 (10-20) Glucose 64 L (70-99(Fasting)) mg/dl Lactate 2.7 H* (0.4-2.0) mmol/L Calcium 8.6 (8.6-10.3) mg/dl Magnesium 1.3 L (1.7-2.4) mg/dl Total Bilirubin 0.7 (0.2-1.0) mg/dl Direct Bilirubin TNP AST 35 (13-39) U/L ALT 15 (7-52) U/L Alkaline Phosphatase 115 H (34-104) U/L Troponin I High Sens 141.1 H* (0-20) pg/ml Total Protein 6.9 (6.0-8.3) gm/dl Albumin 3.7 (3.4-5.0) gm/dl Globulin 3.2 (2.5-4.0) gm/dl Albumin/Globulin Ratio 1.2 (0.9-2) Procalcitonin 0.14 (0-0.5) ng/ml Urine Color Dark Yellow Urine Appearance Clear (Clear) Urine pH 5.5 (4.5-7.5) Ur Specific Boyers 1.018 (1.000-1.030) Urine Protein Negative (Negative) Urine Glucose (UA) Negative (Negative) Urine Ketones Negative (Negative) Urine Blood Negative (Negative) Urine Nitrite Negative (Negative) Urine Bilirubin Negative (Negative) Urine Urobilinogen Negative (Negative) Ur Leukocyte Esterase 3+ H (Negative) Urine WBC (Auto) >50 H (0-5) /hpf Urine RBC (Auto) 0-2 (0-2) /hpf U Hyaline Cast (Auto) 0-2 (0-2) /lpf U Epithel Cells (Auto) 0-2 (0-2) /hpf Urine Bacteria (Auto) None Seen (None Seen) Adenovirus (PCR) Not Detected (NotDetected) B. pertussis DNA (PCR) Not Detected (NotDetected) B.parapertussis DNA PCR Not Detected (NotDetected) C. pneumoniae DNA (PCR) Not Detected (NotDetected) Coronavirus OC43 (PCR) Not Detected (NotDetected) Coronavirus HKU1 (PCR) Not Detected (NotDetected) Coronavirus 229E (PCR) Not Detected (NotDetected) SARS-CoV-2 (PCR) Not Detected (NotDetected) Coronavirus NL63 (PCR) Not Detected (NotDetected) Human Metapneumovir PCR Not Detected (NotDetected) Influenza Type A (PCR) Not Detected (NotDetected) Influenza Type B (PCR) Not Detected (NotDetected) M. pneumoniae (PCR) Not Detected (NotDetected) Parainfluenza 1 (PCR) Not Detected (NotDetected) Parainfluenza 2 (PCR) Not Detected (NotDetected) Parainfluenza 3 (PCR) Not Detected (NotDetected) Parainfluenza 4 (PCR) Not Detected (NotDetected) RSV (PCR) Not Detected (NotDetected) Entero/Rhino (PCR) DETECTED A (NotDetected) 08/29/24 08/29/24 08/29/24 Range/Units 14:00 14:03 14:37 WBC (4.8-10.8) K/ul RBC (4.70-6.10) M/uL Hgb (14.0-18.0) g/dl Hct (42.0-52.0) % MCV (80.0-100.0) fL MCH (25.0-34.0) pg MCHC (32.0-36.0) g/dL RDW Std Deviation (36.4-46.3) fL RDW Coeff of Valentín (11.5-14.5) % Plt Count (130-400) K/uL MPV (9.4-12.4) fL Immature Gran % (Auto) % Neut % (Auto) % Lymph % (Auto) % Darke % (Auto) % Eos % (Auto) % Baso % (Auto) % Neut # (Auto) (1.40-6.50) K/uL Lymph # (Auto) (1.20-3.40) K/uL Darke # (Auto) (0.11-0.59) K/uL Eos # (Auto) (0.00-0.50) K/uL Baso # (Auto) (0.00-0.20) K/uL Immature Gran # (Auto) (0.01-0.20) K/uL PT 12.0 INR 1.1 APTT 30 PTT Ratio 1.1 Sodium (136-145) mmol/L Potassium (3.5-5.1) mmol/L Chloride (98-107) mmol/L Carbon Dioxide (21-32) mmol/L Anion Gap (3-11) BUN (6-23) mg/dl Creatinine (0.6-1.4) mg/dl Est Cr Clr Drug Dosing ml/min eGFR BUN/Creatinine Ratio (10-20) Glucose (70-99(Fasting)) mg/dl Lactate 1.5 (0.4-2.0) mmol/L Calcium (8.6-10.3) mg/dl Magnesium (1.7-2.4) mg/dl Total Bilirubin (0.2-1.0) mg/dl Direct Bilirubin AST (13-39) U/L ALT (7-52) U/L Alkaline Phosphatase (34-104) U/L Troponin I High Sens 172.9 H* D (0-20) pg/ml Total Protein (6.0-8.3) gm/dl Albumin (3.4-5.0) gm/dl Globulin (2.5-4.0) gm/dl Albumin/Globulin Ratio (0.9-2) Procalcitonin (0-0.5) ng/ml Urine Color Urine Appearance (Clear) Urine pH (4.5-7.5) Ur Specific Boyers (1.000-1.030) Urine Protein (Negative) Urine Glucose (UA) (Negative) Urine Ketones (Negative) Urine Blood (Negative) Urine Nitrite (Negative) Urine Bilirubin (Negative) Urine Urobilinogen (Negative) Ur Leukocyte Esterase (Negative) Urine WBC (Auto) (0-5) /hpf Urine RBC (Auto) (0-2) /hpf U Hyaline Cast (Auto) (0-2) /lpf U Epithel Cells (Auto) (0-2) /hpf Urine Bacteria (Auto) (None Seen) Adenovirus (PCR) (NotDetected) B. pertussis DNA (PCR) (NotDetected) B.parapertussis DNA PCR (NotDetected) C. pneumoniae DNA (PCR) (NotDetected) Coronavirus OC43 (PCR) (NotDetected) Coronavirus HKU1 (PCR) (NotDetected) Coronavirus 229E (PCR) (NotDetected) SARS-CoV-2 (PCR) (NotDetected) Coronavirus NL63 (PCR) (NotDetected) Human Metapneumovir PCR (NotDetected) Influenza Type A (PCR) (NotDetected) Influenza Type B (PCR) (NotDetected) M. pneumoniae (PCR) (NotDetected) Parainfluenza 1 (PCR) (NotDetected) Parainfluenza 2 (PCR) (NotDetected) Parainfluenza 3 (PCR) (NotDetected) Parainfluenza 4 (PCR) (NotDetected) RSV (PCR) (NotDetected) Entero/Rhino (PCR) (NotDetected) Administered Medications Lactated Ringer's (Lr) 1,000 mls @ 80 mls/hr IV .[id number] [facility] Stop: 08/30/24 10:59 Last Admin: 08/29/24 16:44 Dose: 80 mls/hr Documented By: CHARLES Magnesium Sulfate/Dextrose (Magnesium Sulfate / D5w) 1 gm in 100 mls @ 50 mls/hr IV Q2H [facility] Stop: 08/29/24 20:14 Last Admin: 08/29/24 16:45 Dose: 50 mls/hr Documented By: CHARLES Discontinued Medications Acetaminophen (Acetaminophen 500 Mg Tab) 1,000 mg PO NOW STA Stop: 08/29/24 13:27 Last Admin: 08/29/24 14:03 Dose: 1,000 mg Documented By: CHARLES Sodium Chloride (Nss) 1,000 mls @ 999 mls/hr IV .Q1H1M [facility] Stop: 08/29/24 14:30 Last Infusion: 08/29/24 14:36 Dose: Infused Documented By: Admin: 08/29/24 13:35 Dose: 999 mls/hr Documented By: Infusion: 08/29/24 13:35 Dose: Infused Documented By: Admin: 08/29/24 12:39 Dose: 999 mls/hr Documented By: CHARLES Sodium Chloride (Nss) 500 mls @ 999 mls/hr IV .Q31M ONE Stop: 08/29/24 14:21 Last Infusion: 08/29/24 14:36 Dose: Infused Documented By: Admin: 08/29/24 14:05 Dose: 999 mls/hr Documented By: CHARLES Cefepime HCl (Maxipime 2000mg) 2,000 mg in 20 mls @ 5 mls/min IV NOW STA; Protocol Stop: 08/29/24 14:09 Last Admin: 08/29/24 14:35 Dose: 5 mls/min Documented By: CHARLES Magnesium Sulfate/Dextrose (Magnesium Sulfate / D5w) 1 gm in 100 mls @ 200 mls/hr IV Q30M [facility] Stop: 08/29/24 15:32 Last Infusion: 08/29/24 15:57 Dose: Infused Documented By: Admin: 08/29/24 15:27 Dose: 200 mls/hr Documented By: Infusion: 08/29/24 15:27 Dose: Infused Documented By: Admin: 08/29/24 14:59 Dose: 200 mls/hr Documented By: CHARLES Tramadol HCl (Tramadol Hcl 50 Mg Tablet) 100 mg PO NOW STA Stop: 08/29/24 13:52 Last Admin: 08/29/24 14:03 Dose: 100 mg Documented By: CHARLES Imaging Data Radiologist's Impression: Chest X-Ray 08/29/24 12:09 XR chest 1V portable CLINICAL HISTORY: Sepsis COMPARISON STUDY: 06/25/2024 FINDINGS: Single view portable chest is unchanged. There is no acute process identified. There is no airspace opacity or pleural effusion. The heart and pulmonary vascularity are unremarkable. IMPRESSION: Stable exam; no acute process. ACT 112: Negative or not required by law. Electronically signed by: Madeleine Teixeira M.D. 08/29/2024 12:43 PM Discharge Plan Visit Data Chief Complaint: Illness Stated Complaint: WEAKNESS ED Provider: Link Padilla Discharge Problem: Fever Patient Disposition: Admitted As Inpatient Discharge Instructions Interventions: ED Discharge Assessment Last Done: 08/29/24 17:24
[2024-08-29] MEDS: SODIUM CHLORIDE 0.9% 1,000 ML IV SCH (12:39)
[2024-08-29 12:40] LABS: Appearance Urine Clear (Clear); Bacteria Urine Automated None Seen (None Seen); Bilirubin Urine Negative (Negative); Blood Urine Negative (Negative); Cast Urine Automated 0-2 /lpf (0-2); Color Urine Dark Yellow; Epithelial Cell Urine Auto 0-2 /hpf (0-2); Glucose Urine UA Negative (Negative); Ketones Urine Negative (Negative); Leukocyte Esterase Urine 3+ (Negative); Nitrite Urine Negative (Negative); Protein Urine Negative (Negative); RBC Urine Automated 0-2 /hpf (0-2); Specific Gravity Urine 1.018 (1.000-1.030); Urobilinogen Urine Negative (Negative); WBC Urine Automated >50 /hpf (0-5); pH Urine 5.5 (4.5-7.5)
--- NOTE | 2024-08-29 12:44 | XRay Report ---
XR chest 1V portable CLINICAL HISTORY: Sepsis COMPARISON STUDY: 06/25/2024 FINDINGS: Single view portable chest is unchanged. There is no acute process identified. There is no airspace opacity or pleural effusion. The heart and pulmonary vascularity are unremarkable. IMPRESSION: Stable exam; no acute process. ACT 112: Negative or not required by law. Electronically signed by: Madeleine Teixeira M.D. 08/29/2024 12:43 PM
[2024-08-29 12:57] LABS: Basophils # (auto) 0.04 K/uL (0.00-0.20); Basophils % (auto) 0.5 %; Eosinophils # (auto) 0.06 K/uL (0.00-0.50); Eosinophils % (auto) 0.8 %; Hematocrit (blood only) 44.3 % (42.0-52.0); Hemoglobin 14.6 g/dl (14.0-18.0); Immature Granulocytes # (auto) 0.02 K/uL (0.01-0.20); Immature Granulocytes % (auto) 0.3 %; Lymphocytes # (auto) 0.89 K/uL (1.20-3.40); Lymphocytes % (auto) 11.8 %; Mean Corpuscular Hemoglobin 30.2 pg (25.0-34.0); Mean Corpuscular Volume 91.5 fL (80.0-100.0); Monocytes # (auto) 0.32 K/uL (0.11-0.59); Monocytes % (auto) 4.2 %; Neutrophils # (auto) 6.21 K/uL (1.40-6.50); Neutrophils % (auto) 82.4 %; Platelet Count 133 K/uL (130-400); RDW Coefficient of Variation 17.6 % (11.5-14.5); RDW Standard Deviation 59.5 fL (36.4-46.3); Red Blood Count 4.84 M/uL (4.70-6.10); White Blood Count 7.54 K/ul (4.8-10.8)
[2024-08-29 13:12] LABS: Alanine Aminotransferase 15 U/L (7-52); Albumin Globulin Ratio 1.2 (0.9-2); Albumin Level 3.7 gm/dl (3.4-5.0); Alkaline Phosphatase 115 U/L (34-104); Anion Gap 7 (3-11); Aspartate Aminotransferase 35 U/L (13-39); BUN Creatinine Ratio 13.8 (10-20); Bilirubin,Total 0.7 mg/dl (0.2-1.0); Blood Urea Nitrogen 15 mg/dl (6-23); Calcium 8.6 mg/dl (8.6-10.3); Carbon Dioxide 29 mmol/L (21-32); Chloride 98 mmol/L (98-107); Creatinine Clr Calc Pharmacy 70.8 ml/min; Globulin 3.2 gm/dl (2.5-4.0); Glucose 64 mg/dl (70-99(Fasting)); Magnesium 1.3 mg/dl (1.7-2.4); Potassium 4.9 mmol/L (3.5-5.1); Sodium 134 mmol/L (136-145); Total Protein 6.9 gm/dl (6.0-8.3)
[2024-08-29 13:19] LABS: Troponin I High Sensitivity 141.1 pg/ml (0-20)
[2024-08-29 13:51] LABS: Adenovirus PCR Not Detected (NotDetected); Bordetella parapertussis PCR Not Detected (NotDetected); Bordetella pertussis PCR Not Detected (NotDetected); Chlamydia pneumoniae PCR Not Detected (NotDetected); Coronavirus 229E PCR Not Detected (NotDetected); Coronavirus CoV-2 (COVID19)PCR Not Detected (NotDetected); Coronavirus HKU1 PCR Not Detected (NotDetected); Coronavirus NL63 PCR Not Detected (NotDetected); Coronavirus OC43PCR Not Detected (NotDetected); Human Metapneumovirus PCR Not Detected (NotDetected); Influenza A PCR Not Detected (NotDetected); Influenza B PCR Not Detected (NotDetected); Mycoplasma pneumoniae PCR Not Detected (NotDetected); Parainfluenza Virus 1 PCR Not Detected (NotDetected); Parainfluenza Virus 2 PCR Not Detected (NotDetected); Parainfluenza Virus 3 PCR Not Detected (NotDetected); Parainfluenza Virus 4 PCR Not Detected (NotDetected); Respiratory Syncytial VirusPCR Not Detected (NotDetected); Rhinovirus/Enterovirus PCR DETECTED (NotDetected)
[2024-08-29] MEDS: traMADol HCL 50 MG TABLET PO STA (14:03)
[2024-08-29] MEDS: ACETAMINOPHEN 500 MG TAB PO STA (14:03)
[2024-08-29] MEDS: SODIUM CHLORIDE 0.9% 500 ML IV ONE (14:05)
[2024-08-29] MEDS: CEFEPIME 2000MG 2,000 MG/20 ML SYR IV STA (14:35)
[2024-08-29 14:55] LABS: INR 1.1 (0.9-1.1); Partial Thromboplastin Ratio 1.1; Partial Thromboplastin Time 30 Seconds (21-31)
[2024-08-29] MEDS: MAGNESIUM SULFATE / D5W 1 GM/100 ML BAG IV SCH ×2 (14:59→16:45)
--- NOTE | 2024-08-29 15:58 | History & Physical Report ---
Date of Service August 29, 2024 Assessment & Plan (1) Rhinovirus: Plan: #Rhinovirus/Enterovirus Presented with mild tachycardia and a fever. Tylenol given. Fluid resuscitated with 2.5 L. Treated empirically with cefepime. Found to be positive for Rhino/Enterovirus. No signs of superimposed bacterial infection on CXR. He does have WBC and leuks on UA but no bacteria and patient has a viral reason to be febrile. Will hold on additional abx unless clinically worsening. Proceed with supportive care. supplemental oxygen if needed tylenol for antipyretics gentle mIVF @ 80 x 1.5 L #Elevated Troponin Likely in the setting of acute illness. EKG, per my read, without signs of ischemia. Patient asymptomatic. Will trend to peak 141.1 --> 172.9 #Hypomagnesemia Repleted x 4 bags. Monitor with AM labs. #RCC s/p left nephrectomy with lung/liver/pancreatic mets on active chemotherapy Follows with Dr. Zheng. Continue home meds. Code status: full DVT ppx: Lovenox, documented history of hematuria - will monitor FENGI: s/p 2.5 L IVF, on mIVF @ 80 x 1.5L, heart healthy diet Dispo: Tele unit, anticipate discharge home Refer to attending attestation for further documentation. (2) Enterovirus infection: (3) Hypomagnesemia: (4) Acute hyponatremia: (5) Weakness: (6) Renal cancer: (7) Headache: (8) Chronic kidney disease, stage 3a: History of Present Illness Primary Care Provider: Don Crenshaw, DO 63 y/o with a PMHx of RCC s/p left nephrectomy with liver, lung, and pancreatic mets on tivozanib daily here for evaluation of fever, headache, and generally feeling unwell. Patient febrile and uncomfortable upon arrival. Significant improvement after IVF and Tylenol. Upon my interview, patient is resting comfortably. Family reports that he's been up to the bathroom with minimal assistance. He seems more with it and stronger since arrival. Had some upper respiratory symptoms a few days ago, fever today. Feeling weak and needing more assistance with ADLs. No new abdominal symptoms. Does have chemotherapy associated diarrhea. No CP or SOB. Feeling much improved after fluids. Allergies Allergy/AdvReac Type Severity Reaction Status Date / Time Iodinated Contrast Media AdvReac Mild FROM Verified 11/29/24 09:40 NUCLEAR MED SCAN-ITCHY FOREARMS. Home Medications Medication Instructions Recorded Confirmed Type gabapentin 600 mg tablet 1,200 mg PO TID #90 tabs 10/27/20 08/29/24 History tramadol 50 mg tablet 100 mg PO QID 10/27/20 08/29/24 History allopurinol 100 mg tablet 150 mg PO QAM 01/31/21 08/29/24 History cholecalciferol (vitamin D3) 25 25 mcg PO QAM 01/31/21 08/29/24 History mcg (1,000 unit) capsule (Vitamin D3) aspirin 81 mg tablet,delayed 81 mg PO QAM #30 tabs 01/12/22 08/29/24 Rx release cyanocobalamin (vitamin B-12) 1,000 mcg PO DAILY #30 caps 01/12/22 08/29/24 Rx 1,000 mcg capsule famotidine 20 mg tablet 20 mg PO BID PRN heartburn #30 tabs 02/14/22 08/29/24 Rx ubkcyfwd-pwm-eszps acid 0.4 1 tab PO QAM #30 tabs 02/14/22 08/29/24 Rx mg-lycopene 300 mcg-lutein 250 mcg tablet (Cerovite Senior) amlodipine 5 mg tablet 2.5 mg PO QAM 05/24/22 08/29/24 History acetaminophen 500 mg tablet 1,000 mg PO Q6H PRN Pain 03/25/23 08/29/24 History (Tylenol Extra Strength) diphenoxylate-atropine 2.5 1 tab PO QID PRN Diarrhea 03/25/23 08/29/24 History mg-0.025 mg tablet levothyroxine 88 mcg tablet 88 mcg PO DAILYBB 03/25/23 08/29/24 History rosuvastatin 10 mg tablet 10 mg PO DAILY 03/25/23 08/29/24 History lisinopril 40 mg tablet 40 mg PO DAILY #90 tabs 11/28/23 08/29/24 Rx hydrochlorothiazide 12.5 mg capsule 12.5 mg PO DAILY 08/29/24 08/29/24 History tivozanib 1.34 mg capsule (Fotivda) 0 mg PO .DAILY/UD 08/29/24 08/29/24 History Past Med/Surg History Problem List (Updated 08/29/24 @ 17:46 by Link Padilla, DO) Fever (Acute) Enterovirus infection Rhinovirus Upper respiratory infection CAROLYN (acute kidney injury) Rhabdomyolysis Viral pneumonia Hypomagnesemia (Acute) Acute hyponatremia (Acute) Weakness (Acute) Parainfluenza infection (Acute) CAP (community acquired pneumonia) (Acute) Renal cancer Left nephrectomy 2014 for "metastatic RCC" Hypothyroidism Diabetes mellitus Diet controlled "No longer needs medication after weight loss" Status post right knee replacement Callus (Acute) Pain in both feet (Acute) Chemotherapeutic agent or infusion extravasation (Chronic) Erectile dysfunction Gross hematuria Hernia Hip pain, right Nephrolithiasis Sacroiliac joint pain Sacroiliitis Headache Headache (Acute) Sinusitis (Acute) CVA (cerebral vascular accident) B12 deficiency Benign localized prostatic hyperplasia with lower urinary tract symptoms (LUTS) Chronic kidney disease, stage 3a Hypertension (Chronic) Vitamin D deficiency Medical History Diabetic neuropathy Chemotherapy-induced diarrhea colestipol PRN Hx of renal calculi History of COVID-19 ? 2020- mild cold symptoms; resolved CVA (cerebral vascular accident) 01/11/2022 MRI brain with 3 mm focus of restricted diffusion within the left temporal lobe is suggestive of an acute versus subacute infarct Claustrophobia Arthritis of knee Solitary right kidney Hypercholesterolemia Osteoarthritis Dyslipidemia Bilateral lung cancer Taking inlyta daily and keytruda q 6 weeks Follows w/ Dr Zheng Acquired claw toe of right foot Surgical History History of esophagogastroduodenoscopy (EGD) Hx of colonoscopy History of vasectomy History of hernia repair H/O left nephrectomy History of meniscectomy of left knee History of cholecystectomy Family History Father Hearing loss Lung disease Mother Cancer Aortic aneurysm Breast cancer Myocardial infarction Other No family history of adverse response to anesthesia No family history of bleeding disorder Social History Smoking Status: Never smoker Tobacco Type: Smokeless Tobacco (Dip or Chew) Second Hand Exposure: No; Do You Dip or Chew Tobacco: Yes (Advised none DOS); Hx Alcohol Use: No Hx Substance Use: No Preferred Language: Maori Communication Ability: Effective Programs Assistant Required: No Beliefs That Will Affect Care: None marital status: Current Living Situation: Spouse current occupational status: retired 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; 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 [employer] Feels Safe at Home: Yes Assistive Devices: Walker Review of Systems 2 Review of Systems: See HPI Physical Exam 2 Physical Exam: Gen: non-toxic appearing patient in NAD HEENT: AT NC MMM Resp: CTAB no wheezing no increased work of breathing CV: RRR no m/r/g clinically well perfused Abd: +BS, soft, non-distended MSK: no obvious deformities Skin: no rashes or bruising Neuro: alert and oriented Psych: appropriate mood and affect Results & Data Results & Data Laboratory Results 08/29/24 12:30 08/29/24 12:30 Diagnostic Findings Chest X-Ray 08/29/24 12:09 FINDINGS: Single view portable chest is unchanged. There is no acute process identified. There is no airspace opacity or pleural effusion. The heart and pulmonary vascularity are unremarkable. IMPRESSION: Stable exam; no acute process. Code Status & VTE Plan VTE Prophylaxis Plan VTE Prophylaxis will be ordered: Yes Supervising Physician Co-Signing Physician Notes ATTESTATION I also saw the patient and confirmed zamora portions of the history and exam. I agree with the impression and plan in the resident documentation. I am familiar with the patient from the outpatient clinic as well. About a three month history of headaches. Had a CT scan about a week ago that was reassuring - no signs of metastatic disease. Developed additional symptoms prompting ED presentation > found positive for rhinovirus. notes that he was significantly confused - he thought he was in the hospital when he was at home, and he thought she was "Mrs. Olivier." Marked improvement at present - back to normal baseline per who is at bedside. Upon specific questioning, he does note intermittent burning with urination last couple of days. He is eating dinner. No complaints at present. Given dose of cefepime in ED. Will continue antibiotics pending cultures. Blood and urine cultures pending. Follow clinically, repeat labs in AM. Additional per resident documentation Resident Activity Tracking Resident Involvement: Resident Care Provided Care Provided: Adult [facility] Medicine
[2024-08-29] MEDS: LACTATED RINGER'S 1,000 ML IV SCH (16:44)
[2024-08-29] MEDS ORDERED: FAMOTIDINE 20 MG TAB PO PRN (16:46)
[2024-08-29] MEDS ORDERED: DIPHENOXYLATE/ATROPINE 2.5/0.025MG TAB PO PRN (16:46)
[2024-08-29] MEDS ORDERED: POLYETHYLENE (MIRALAX) 17 GM PACK PO PRN (17:24)
[2024-08-29] MEDS ORDERED: ALUMINUM/MAGNESIUM SUSP 30 ML UDC PO PRN (17:24)
[2024-08-29] MEDS ORDERED: ONDANSETRON INJ 2 MG/ML 2 ML VIAL IV PRN (17:24)
[2024-08-29] MEDS ORDERED: MAGNESIUM HYDROXIDE SUSP 30 ML UDC PO PRN (17:24)
[2024-08-29] MEDS: traMADol HCL 50 MG TABLET PO SCH (17:56)
[2024-08-29] MEDS: ENOXAPARIN INJ 40 MG/0.4 ML SYR SQ SCH (18:10)
[2024-08-29] MEDS ORDERED: cefTRIAXone SODIUM 1,000 MG/50 ML BAG IV SCH (18:30)
[2024-08-29] MEDS: cefTRIAXone SODIUM 2,000 MG/50 ML BAG IV SCH (19:10)
[2024-08-29] MEDS: ACETAMINOPHEN 500 MG TAB PO PRN (19:49)
[2024-08-29] MEDS: GABAPENTIN 600 MG TAB PO SCH (23:28)
[2024-08-29] MEDS: MELATONIN 3 MG TAB PO PRN (23:28)
[2024-08-29] MEDS: PHENAZOPYRIDINE HCL 100 MG TAB PO PRN (23:28)
[2024-08-30] MEDS: LEVOTHYROXINE SODIUM 88 MCG TABLET PO SCH (06:48)
[2024-08-30 07:48] LABS: Hematocrit (blood only) 38.8 % (42.0-52.0); Hemoglobin 12.6 g/dl (14.0-18.0); Mean Corpuscular Hemoglobin 29.6 pg (25.0-34.0); Mean Corpuscular Hgb Conc 32.5 g/dL (32.0-36.0); Mean Corpuscular Volume 91.3 fL (80.0-100.0); Mean Platelet Volume 11.1 fL (9.4-12.4); Platelet Count 116 K/uL (130-400); RDW Coefficient of Variation 18.1 % (11.5-14.5); RDW Standard Deviation 59.9 fL (36.4-46.3); Red Blood Count 4.25 M/uL (4.70-6.10); White Blood Count 5.68 K/ul (4.8-10.8)
[2024-08-30 08:04] LABS: Calcium 8.5 mg/dl (8.6-10.3); Magnesium 1.9 mg/dl (1.7-2.4); Potassium 4.3 mmol/L (3.5-5.1)
[2024-08-30] MEDS: ROSUVASTATIN CALCIUM 10 MG TAB PO SCH (08:31)
[2024-08-30] MEDS: lisinopril 40 MG TAB PO SCH (08:31)
[2024-08-30] MEDS: ASPIRIN 81 MG ECTAB PO SCH (08:31)
[2024-08-30] MEDS: CEROVITE ADV FORMULA TAB PO SCH (08:31)
[2024-08-30] MEDS: CYANOCOBALAMIN (B-12) 500 MCG TABLET PO SCH (08:32)
[2024-08-30] MEDS: hydroCHLOROthiazide 25 MG TAB PO SCH (08:32)
[2024-08-30] MEDS: CHOLECALCIFEROL 25 MCG (1000 UNITS) TAB PO SCH (08:32)
[2024-08-30] MEDS: allopurinoL 100 MG TAB PO SCH (08:33)
[2024-08-30] MEDS: amLODIPine BESYLATE 5 MG TAB PO SCH (08:33)
[2024-08-30] MEDS ORDERED: NON-FORMULARY PATIENT'S OWN MED SCH (09:00)
--- NOTE | 2024-08-30 09:52 | Electrocardiogram Report ---
Test Reason : Blood Pressure : */* mmHG Vent. Rate : 96 BPM Atrial Rate : 96 BPM P-R Int : 168 ms QRS Dur : 80 ms QT Int : 368 ms P-R-T Axes : 22 -33 52 degrees QTcB Int : 464 ms Normal sinus rhythm Left axis deviation Abnormal ECG When compared with ECG of 25-Jun-2024 20:57, T wave inversion no longer evident in Anterior leads QT has shortened Confirmed by Samir Green ([id number]) on 08/30/2024 9:51:49 AM Referred By: REFERRED SELF Confirmed By: Samir Green
--- NOTE | 2024-08-30 12:28 | Hospitalist Progress Note ---
Date of Service August 30, 2024 Assessment & Plan (1) Rhinovirus: Plan: #Rhinovirus/Enterovirus Presented with mild tachycardia and a fever. Tylenol given. Fluid resuscitated with 2.5 L. Treated empirically with cefepime. Found to be positive for Rhino/Enterovirus. No signs of superimposed bacterial infection on CXR. He does have WBC and leuks on UA but no bacteria and patient has a viral reason to be febrile. Will hold on additional abx unless clinically worsening. Proceed with supportive care. supplemental oxygen if needed tylenol for antipyretics gentle mIVF @ 80 x 1.5 L #UTI UCx +GBS BCx - @ 24hrs Cont ceftriaxone #Elevated Troponin Likely in the setting of acute illness. EKG, per my read, without signs of ischemia. Patient asymptomatic. peaked, downtrending #Hypomagnesemia Repleted x 4 bags. Monitor with AM labs. #RCC s/p left nephrectomy with lung/liver/pancreatic mets on active chemotherapy Follows with Dr. Zheng. Continue home meds. Code status: full DVT ppx: Lovenox, documented history of hematuria - will monitor FENGI: s/p 2.5 L IVF, on mIVF @ 80 x 1.5L, heart healthy diet Dispo: Tele unit, anticipate discharge home Refer to attending attestation for further documentation. (2) Enterovirus infection: (3) Hypomagnesemia: (4) Acute hyponatremia: (5) Weakness: (6) Renal cancer: (7) Headache: (8) Chronic kidney disease, stage 3a: Admission and Anticipated Discharge Date Admission Date: August 29, 2024 Supervising Physician Co-Signing Physician Notes ATTESTATION I also saw the patient and confirmed zamora portions of the history and exam. I agree with the impression and plan in the resident documentation. I am familiar with the patient from the outpatient clinic as well. Feels better this AM. Slight headache. Some burning with urination this morning and small amount of blood when he wiped tip of penis. EXAM VSS A/O. NAD. CV RRR Lungs CTA DATA HgB 12.6 BMP within normal limits Blood cultures pending Urine Group B strep IMPRESSION AND PLAN Rhinovirus UTI Low serum magnesium, resolved with supplementation metastatic RCC Continue empiric antibiotics Await blood culture Will re-assess later today Additional per resident documentation Subjective Patient seen and evaluated at bedside this morning. No acute events overnight. Complaint of OLIVER, sorethroat overnight. LLE erythema similar to cellulitis treated in the fall Review of Systems Review of Systems: reviewed, per HPI Physical Exam Physical Exam: Gen: non-toxic appearing patient in NAD HEENT: AT NC MMM Resp: CTAB no wheezing no increased work of breathing CV: RRR no m/r/g clinically well perfused Abd: +BS, soft, non-distended MSK: no obvious deformities Skin: no rashes or bruising Neuro: alert and oriented Psych: appropriate mood and affect Results & Data Results & Data Vital Signs (Past 12 Hours) Vital Signs Temp Pulse Pulse Resp BP Pulse Ox O2 Del Method 08/30/24 11:18 36.9 C 74 16 128/77 93 Room Air 08/30/24 07:42 37.0 C 95 H 18 161/89 H 96 Room Air 08/30/24 06:45 62 08/30/24 04:00 36.6 C 62 18 134/79 94 Room Air Resident Activity Tracking Resident Involvement: Resident Care Provided Care Provided: Adult Hospital Medicine
[2024-08-30] MEDS: FOTIVDA EXT SCH (13:15)
[2024-08-30] MEDS: oxyCODONE HCL IR 5 MG TAB (IMMEDIATE RELEASE) PO PRN (17:07)
[2024-08-31 03:59] VITALS: O2SAT 96
[2024-08-31 07:51] VITALS: BP 138/84; PULSE 64; RESP 16; TEMP 97.3
--- NOTE | 2024-08-31 09:28 | Discharge Summary ---
Date of Service August 31, 2024 Admission HPI Per Admitting Provider 63 y/o with a PMHx of RCC s/p left nephrectomy with liver, lung, and pancreatic mets on tivozanib daily here for evaluation of fever, headache, and generally feeling unwell. Patient febrile and uncomfortable upon arrival. Significant improvement after IVF and Tylenol. Upon my interview, patient is resting comfortably. Family reports that he's been up to the bathroom with minimal assistance. He seems more with it and stronger since arrival. Had some upper respiratory symptoms a few days ago, fever today. Feeling weak and needing more assistance with ADLs. No new abdominal symptoms. Does have chemotherapy associated diarrhea. No CP or SOB. Feeling much improved after fluids. Admission Exam Per Admitting Provider Gen: non-toxic appearing patient in [facility] HEENT: AT NC MMM Resp: CTAB no wheezing no increased work of breathing CV: RRR no m/r/g clinically well perfused Abd: +BS, soft, non-distended MSK: no obvious deformities Skin: no rashes or bruising Neuro: alert and oriented Psych: appropriate mood and affect Principal Diagnosis rhino/enterovirus Discharge Exam Gen: well appearing patient in NAD HEENT: AT NC MMM Resp: CTAB no wheezing no increased work of breathing CV: RRR no m/r/g clinically well perfused Abd: non-distended MSK: no obvious deformities Skin: no rashes or bruising Neuro: alert and oriented Psych: appropriate mood and affect Discharge Data Allergies Allergy/AdvReac Type Severity Reaction Status Date / Time Iodinated Contrast Media AdvReac Mild FROM Verified 03/30/24 09:40 NUCLEAR MED SCAN-ITCHY FOREARMS. Consultations 08/29/24 14:55 ED Decision to Admit Stat Ordered Studies Chest X-Ray 08/29/24 12:09 FINDINGS: Single view portable chest is unchanged. There is no acute process identified. There is no airspace opacity or pleural effusion. The heart and pulmonary vascularity are unremarkable. IMPRESSION: Stable exam; no acute process. Hospital Course (1) Rhinovirus: #Rhinovirus/Enterovirus #GBS UTI Presented with mild tachycardia and a fever. Significant improvement with supportive care - Tylenol/IVF. Did continue empiric CTX as UA with WBCs and leuks. Urine grew GBS. BCx NGTD x 24H. With patient's immunosuppressed status will continue with abx outpatient - flex 500 mg BID x 7 days. Electrolytes monitored and repleted as indicated. Patient to follow up with his PCP. #Elevated Troponin Likely in the setting of acute illness. Peaked. #RCC s/p left nephrectomy with lung/liver/pancreatic mets on active chemotherapy Follows with Dr. Zheng. Continue home meds. (2) Enterovirus infection: (3) Hypomagnesemia: (4) Acute hyponatremia: (5) Weakness: (6) Renal cancer: (7) Headache: (8) Chronic kidney disease, stage 3a: Total Time Total Time Spent Total Time Spent (In Minutes): Don Cheema DO, attending physician, spent 20 minutes myself seeing the patient, reviewing the chart, and documenting today. Discharge Plan Discharge Items Patient Disposition: Home - Self-Care Reason For Visit: FEVER Discharge Diagnosis: rhino/enterovirus Activity: Per Instructions section Non-emergency contact: Primary Care Provider and Oncologist Call non-emergency contact if: you have any medication questions and your temperature is above 101.5 Follow-up/Referrals: Don Crenshaw DO [Primary Care Provider] - (PLEASE CALL YOUR PRIMARY CARE PROVIDER TO SCHEDULE A HOSPITAL FOLLOW-UP APPOINTMENT WITHIN 7-10 DAYS) Diet: Heart Healthy Addtl Attending Provider Instructions: You were seen in the hospital for weakness, fever, and confusion. You improved significantly with IV fluids and Tylenol. You were found to have rhinovirus/enterovirus. This is a self limiting viral infection that typically resolves on its own. We continued with supportive treatment for your headache/fever/dehydration. You can continue to take Tylenol 1000 mg every 8 hours, as needed, for headache. You were also found to have group B strep in your urine so we will treat you with a course of antibiotics for this. Medication Changes: Keflex 500 mg every 12 hours for 7 days No other medication changes were made. Please follow up with your PCP in 7-10 days for a hospital follow up. Thank you for allowing us to participate in your care. Pending Studies at Discharge: Yes Studies:: blood cultures, NGTD x 24H Stand-Alone Forms: My [facility] Youneeq, Smoking Cessation Medications and DC Order Prescriptions: New cephalexin 500 mg capsule 500 mg PO BID 7 Days Qty: 14 0RF Continued gabapentin 600 mg tablet 1,200 mg PO TID Qty: 90 tramadol 50 mg tablet 100 mg PO QID amlodipine 5 mg tablet 2.5 mg PO QAM Hold Instructions: side effects lisinopril 40 mg tablet 40 mg PO DAILY Qty: 90 3RF aspirin 81 mg Tablet,Delayed Release (Dr/Ec) 81 mg PO QAM Qty: 30 0RF cyanocobalamin (vitamin B-12) 1,000 mcg capsule 1,000 mcg PO DAILY Qty: 30 0RF famotidine 20 mg Tablet 20 mg PO BID PRN (Reason: heartburn) Qty: 30 0RF Rx Instructions: purchase [id number] Cerovite Senior 0.4 mg-300 mcg- 250 mcg Tablet 1 tab PO QAM Qty: 30 1RF allopurinol 100 mg tablet 150 mg PO QAM cholecalciferol (vitamin D3) [Vitamin D3] 25 mcg (1,000 unit) Capsule 25 mcg PO QAM diphenoxylate-atropine 2.5-0.025 mg tablet 1 tab PO QID PRN (Reason: Diarrhea) levothyroxine 88 mcg tablet 88 mcg PO DAILYBB rosuvastatin 10 mg tablet 10 mg PO DAILY acetaminophen [Tylenol Extra Strength] 500 mg tablet 1,000 mg PO Q6H PRN (Reason: Pain) Fotivda 1.34 mg capsule 0 mg PO .DAILY/UD hydrochlorothiazide 12.5 mg capsule 12.5 mg PO DAILY Discharge Orders: Discharge Order (Routine); Ordered 08/31/24 Ordered By: Stephanie De Anda/Other Patient Handouts: Urinary Tract Infections in Men Admission Data Admit Date/Time: 08/29/24 15:56 Attending Provider: Don Crenshaw Admit Provider: Stephanie Kraus Primary Care Provider: Don Crenshaw Other Providers: Andree Moore Other Interventions: Discharge Summary Assessment (RN) Last Done: 08/31/24 10:03 Supervising Physician Co-Signing Physician Notes ATTESTATION I also saw the patient and confirmed zamora portions of the history and exam. I agree with the impression and plan in the resident documentation. I am familiar with the patient from the outpatient clinic as well. He looks quite well this morning - seated, eating breakfast. No complaints. Would like to go home today. EXAM Afebrile. A/O. NAD. CV RRR Lungs CTA DATA Blood cultures negative at 24 hours Urine Group B strep IMPRESSION AND PLAN Rhinovirus UTI (Group B strep) Low serum magnesium, resolved with supplementation metastatic RCC Clinically looks great OK for home today Keflex 500 mg BID x 7 days Discussed s/s for which to monitor Additional per resident documentation Resident Activity Tracking Resident Involvement: Resident Care Provided Care Provided: Adult Hospital Medicine
[2024-08-31] MEDS ORDERED: FOTIVDA EXT SCH (13:00)
== END 2024-08-31 10:16 | disposition home or self-care (01) ==
LOC: ED 11:57 → 2N 11:57